=== PATIENT | male | born 1960 | race Caucasian/White ===

== ENCOUNTER 2020-09-16 07:04 | Outpatient (REF) | payer OTHER, SELFPAY ==
[2020-09-16 10:51] LABS: Appearance Urine CLOUDY; Color Urine YELLOW; Glucose Urine UA NEG (NEG); Leukocyte Esterase Urine NEG (NEG); Nitrite Urine NEG (NEG); PH 5.5 (5.0-8.0); Specific Gravity - Urine >= 1.030 (1.005-1.025); Urine Blood 3+ (NEG); Urine Ketones NEG (NEG); Urine Protein NEG (NEG-TRACE)
[2020-09-16 10:54] LABS: Estimated Average Glucose 180 mg/dL; Hemoglobin A1c % 7.9 %
[2020-09-16 11:00] LABS: Amorphous Sediment Urine 3+ /LPF; Bacteria Urine 1+ /LPF; Squamous Epithelial Cell Urine TRACE /LPF
[2020-09-16 11:06] LABS: Anion Gap 14 (12-20); Blood Urea Nitrogen 11 mg/dL (9-16); Calcium 9.2 mg/dL (8.4-10.2); Carbon Dioxide 25 mmol/L (22-29); Chloride 100 mmol/L (96-108); Estimated Glomerular Filt Rate > 60; Glucose Fasting 154 mg/dL (60-99); Potassium 4.6 mmol/l (3.3-5.1); Sodium 134 mmol/L (135-145)
[2020-09-16 11:28] LABS: Prostate Specific Antigen 0.69 ng/mL (<0.05-4.0)
== END 2020-09-16 07:05 | disposition home or self-care (01) ==
LOC: HO.WFDLDS 07:04
PROVIDERS: PCP Family Medicine; Visit Provider Family Medicine
DX: E11.9 Type 2 diabetes mellitus without complications (principal); Z12.5 Encounter for screening for malignant neoplasm of prostate; R82.90 Unspecified abnormal findings in urine
CPT/HCPCS: 80048; 81001; 83036; 84153

== ENCOUNTER 2020-10-31 09:58 | Outpatient (REF) | payer OTHER, SELFPAY | END 2020-10-31 09:59 | disposition home or self-care (01) | LOC: HO.WFDLDS 09:58 | PROVIDERS: PCP Family Medicine; Visit Provider Internal Medicine | DX: Z20.828 Contact with and (suspected) exposure to other viral communicable diseases (principal) | CPT/HCPCS: C9803; U0003 ==

== ENCOUNTER → 2020-12-15 10:44 | Outpatient (REF) | payer OTHER, SELFPAY | LOC: HO.SL 10:44 | PROVIDERS: PCP Family Medicine; Visit Provider Psychiatry & Neurology Neurology | DX: R06.83 Snoring (principal); G47.33 Obstructive sleep apnea (adult) (pediatric); E66.9 Obesity, unspecified | CPT/HCPCS: 95806 ==

== ENCOUNTER 2021-01-12 14:28 | Outpatient (REF) | payer OTHER, SELFPAY ==
[2021-01-12 15:33] LABS: Creatinine Urine 182.73 mg/dL; Microalbum/Creatinine Ratio Ur 20.2 ug/mg cr
== END 2021-01-12 14:29 | disposition home or self-care (01) ==
LOC: HO.LNP 14:28
PROVIDERS: Visit Provider Family Medicine
DX: E11.9 Type 2 diabetes mellitus without complications (principal)
CPT/HCPCS: 82043

== ENCOUNTER 2021-01-16 07:03 | Outpatient (REF) | payer OTHER, SELFPAY ==
[2021-01-16 11:10] LABS: Alanine Aminotransferase 70 U/L (0-40); Albumin Level 4.2 g/dL (3.5-5.0); Alkaline Phosphatase 62 U/L (39-117); Anion Gap 12 (12-20); Aspartate Amino Transferase 66 U/L (5-37); Bilirubin Total 0.5 mg/dL (0.0-1.0); Blood Urea Nitrogen 15 mg/dL (9-16); Calcium 9.2 mg/dL (8.4-10.2); Carbon Dioxide 28 mmol/L (22-29); Chloride 105 mmol/L (96-108); Cholesterol 139 mg/dL; Estimated Glomerular Filt Rate > 60; Glucose Fasting 155 mg/dL (60-99); HDL Cholesterol 33 mg/dL; LDL Cholesterol Calculated 81 mg/dl; Potassium 4.7 mmol/L (3.3-5.1); Sodium 140 mmol/L (135-145); Total Protein 7.3 g/dL (6.5-8.0); Triglycerides 126 mg/dL
== END 2021-01-16 07:04 | disposition home or self-care (01) ==
LOC: HO.WFDLDS 07:03
PROVIDERS: Visit Provider Family Medicine
DX: E78.5 Hyperlipidemia, unspecified (principal); E11.9 Type 2 diabetes mellitus without complications
CPT/HCPCS: 36415; 80053; 80061

== ENCOUNTER → 2021-01-20 08:56 | Outpatient (BNVA) | payer OTHER, SELFPAY | PROVIDERS: PCP Family Medicine; Visit Provider Psychiatry & Neurology Neurology | DX: G47.33 Obstructive sleep apnea (adult) (pediatric) (principal) | CPT/HCPCS: Q3014 ==

== ENCOUNTER 2021-04-07 09:49 | Outpatient (REF) | payer OTHER, SELFPAY ==
[2021-04-07 11:07] LABS: Estimated Average Glucose 171 mg/dL; Hemoglobin A1c % 7.6 %
[2021-04-07 11:16] LABS: Alanine Aminotransferase 54 U/L (0-40); Albumin Level 4.3 g/dL (3.5-5.0); Alkaline Phosphatase 60 U/L (39-117); Aspartate Amino Transferase 49 U/L (5-37); Bilirubin Direct 0.2 mg/dL (0.0-0.5); Bilirubin Total 0.5 mg/dL (0.0-1.0); Total Protein 7.4 g/dL (6.5-8.0)
== END 2021-04-07 09:50 | disposition home or self-care (01) ==
LOC: HO.WFDLDS 09:49
PROVIDERS: Visit Provider Family Medicine
DX: E11.9 Type 2 diabetes mellitus without complications (principal); R74.01 Elevation of levels of liver transaminase levels
CPT/HCPCS: 36415; 80076; 83036

== ENCOUNTER 2021-10-12 07:02 | Outpatient (REF) | payer OTHER, SELFPAY ==
[2021-10-12 14:17] LABS: Alanine Aminotransferase 61 U/L (0-40); Albumin Level 4.1 g/dL (3.5-5.0); Alkaline Phosphatase 56 U/L (39-117); Anion Gap 16 (12-20); Aspartate Amino Transferase 33 U/L (5-37); Bilirubin Total 0.3 mg/dL (0.0-1.0); Blood Urea Nitrogen 17 mg/dL (9-16); Calcium 9.7 mg/dL (8.4-10.2); Carbon Dioxide 23 mmol/L (22-29); Chloride 106 mmol/L (96-108); Estimated Glomerular Filt Rate 52; Glucose Fasting 193 mg/dL (60-99); Potassium 5.1 mmol/L (3.3-5.1); Sodium 140 mmol/L (135-145); Total Protein 7.2 g/dL (6.5-8.0)
== END 2021-10-12 07:03 | disposition home or self-care (01) ==
LOC: HO.WFDLDS 07:02
PROVIDERS: Visit Provider Family Medicine
DX: R74.01 Elevation of levels of liver transaminase levels (principal); E11.9 Type 2 diabetes mellitus without complications
CPT/HCPCS: 36415; 80053

== ENCOUNTER 2021-11-05 11:25 | Outpatient (REF) | payer OTHER, SELFPAY ==
[2021-11-05 14:10] LABS: Estimated Average Glucose 186 mg/dL; Hemoglobin A1c % 8.1 %
== END 2021-11-05 11:26 | disposition home or self-care (01) ==
LOC: HO.WFDLDS 11:25
PROVIDERS: Visit Provider Family Medicine
DX: R73.01 Impaired fasting glucose (principal); R74.01 Elevation of levels of liver transaminase levels
CPT/HCPCS: 36415; 83036

== ENCOUNTER 2022-01-12 08:42 | Outpatient (REF) | payer OTHER, SELFPAY ==
--- NOTE | ~2022-01-12 | US_ITS ---
EXAMINATION: US ABDOMEN LIMITED WITH LIVER ELASTOGRAPHY CLINICAL INFORMATION: Elevation of liver transaminase levels COMPARISON: None. TECHNIQUE: Real-time imaging of the abdominal viscera. Noninvasive ultrasound liver fibrosis assessment is performed using Lauren ElastPQ point quantification shear wave elastography (2D-SWE) with a C5-2 MHz transducer. Multiple elastography samples are obtained. FINDINGS: PANCREAS: The pancreas is obscured by overlying gas. LIVER: Normal. The liver demonstrates normal size, contour and echogenicity. No focal lesion or intrahepatic biliary duct dilatation. The right lobe measures 18.8 cm in length. The left lobe measures 15.3 cm in length. Portal flow is hepatopedal Shear wave liver elastography median stiffness is 1.33 m/s (reference: normal median stiffness is 1.3 m/s or less). IQR/median stiffness to assess sampling precision is 0.13 (reference: good quality data set is IQR/median stiffness of 0.15 or less). GALLBLADDER: The gallbladder wall thickness is 0.23 cm. The gallbladder is physiologically distended without evidence of stones, sludge, polyps, wall thickening or pericholecystic fluid. COMMON BILE DUCT: Normal in caliber measuring 0.3 cm in diameter. RIGHT KIDNEY: There is a upper pole echogenic stone measuring 0.4 cm. No additional stones seen. There is no caliectasis or hydronephrosis. There is an exophytic lower pole cyst measuring 0.8 x 1.1 x 1.0 cm. The kidney measures 12.1 cm in maximum dimension. FREE FLUID: None. US/US abdomen deng w elastography IMPRESSION: 1. Hepatic steatosis without focal lesion. Echogenic nonobstructive stone upper pole right kidney. There is a small anechoic exophytic cyst lower pole right kidney. 2. Liver elastography: Median liver stiffness 1.33 m/s suggestive of high probability normal. REFERENCE: Society of Radiologists in Ultrasound Liver Stiffness Thresholds (2020): LIVER STIFFNESS THRESHOLDS: *Liver Stiffness equal or less than 1.3 m/s: High probability of being normal. *Liver Stiffness less than 1.7 m/s: In the absence of other known clinical signs, rules out compensated advanced chronic liver disease. *Liver Stiffness 1.7-2.1 m/s: Suggestive of compensated advanced chronic liver disease but need further test for confirmation. *Liver Stiffness over 2.1 m/s: Rules in compensated advanced chronic liver disease. *Liver Stiffness over 2.4 m/s: Suggestive of clinically significant portal hypertension. QUALITY OF DATA SET: *IQR/Median value equal or less than 0.15 implies a quality data set. *IQR/Median value over 0.15 implies a poor quality data set. SIGNIFICANT CHANGE FROM PRIOR EXAM: Significant change if liver stiffness measurement is 10% or greater from prior exam. OTHER CONSIDERATIONS: The stage of liver fibrosis may be overestimated in the setting of acute hepatitis, liver inflammation, elevated liver function tests, hepatic vascular congestion, obstructive cholestasis, non-fasting state, and infiltrative diseases such as amyloidosis and lymphoma. In some patients with NAFLD, the liver stiffness thresholds for compensated advanced chronic liver disease may be lower. In causes other than viral hepatitis and NAFLD, liver stiffness thresholds are not well established.
== END 2022-01-12 08:43 | disposition home or self-care (01) ==
LOC: HO.US 08:42
PROVIDERS: Visit Provider Family Medicine
DX: R74.01 Elevation of levels of liver transaminase levels (principal)
CPT/HCPCS: 76705; 76981

== ENCOUNTER 2022-08-18 09:34 | Outpatient (REF) | payer OTHER, SELFPAY ==
--- NOTE | ~2022-08-18 | US_ITS ---
EXAMINATION: US RETROPERITONEAL LIMITED (RENAL ONLY) CLINICAL INFORMATION: Cyst left kidney, acquired. COMPARISON: Ultrasound abdomen limited 01/12/2022. TECHNIQUE: Real-time imaging of the kidneys. FINDINGS: RIGHT KIDNEY: 12.4 x 6.5 x 5.4 cm (SAG x AP x TRV). The kidney is normal in size, contour, and echogenicity. Renal cortical thickness is normal. No renal calculi or hydronephrosis. Midpole 1.4 cm simple cyst. Lower pole 1.8 cm simple cyst. No follow-up imaging recommended. LEFT KIDNEY: 12.6 x 6.1 x 5.4 cm (SAG x AP x TRV). The kidney is normal in size, contour, and echogenicity. Renal cortical thickness is normal. No calculi or focal parenchymal lesions. No hydronephrosis. Trace perinephric fluid noted at the lower pole. US/US renal BI IMPRESSION: No left renal cyst identified. Minimal perinephric fluid at the lower pole. Simple right renal cysts for which no follow-up is recommended.
== END 2022-08-18 09:35 | disposition home or self-care (01) ==
LOC: HO.HMGCX 09:34
PROVIDERS: PCP Family Medicine; Visit Provider Family Medicine
DX: N28.1 Cyst of kidney, acquired (principal)
CPT/HCPCS: 76775

== ENCOUNTER 2022-09-16 09:08 | Outpatient (REF) | payer OTHER, SELFPAY ==
[2022-09-16 10:48] LABS: Alanine Aminotransferase 36 U/L (0-40); Albumin Level 4.2 g/dL (3.5-5.0); Alkaline Phosphatase 60 U/L (39-117); Anion Gap 15 (12-20); Aspartate Amino Transferase 29 U/L (5-37); Bilirubin Total 0.3 mg/dL (0.0-1.0); Blood Urea Nitrogen 20 mg/dL (9-16); Calcium 9.5 mg/dL (8.4-10.2); Carbon Dioxide 25 mmol/L (22-29); Chloride 105 mmol/L (96-108); Cholesterol 116 mg/dL; Estimated Glomerular Filt Rate 45; Glucose Fasting 127 mg/dL (60-99); HDL Cholesterol 32 mg/dL; LDL Cholesterol Calculated 63 mg/dl; Potassium 4.9 mmol/L (3.3-5.1); Sodium 140 mmol/L (135-145); Total Protein 7.2 g/dL (6.5-8.0); Triglycerides 105 mg/dL
[2022-09-16 11:08] LABS: Prostate Specific Antigen Scr 0.71 ng/mL (<0.05-4.0); TSH reflex Free T4 1.24 uIU/mL (0.32-4.0)
[2022-09-16 11:19] LABS: Appearance Urine Clear; Color Urine Yellow; Glucose Urine UA Negative (Negative); Leukocyte Esterase Urine Negative (Negative); Nitrite Urine Negative (Negative); Specific Gravity - Urine 1.015 (1.005-1.025); UMIC TRIGGER UA YES; Urine Blood Moderate (2+) (Negative); Urine Ketones Negative (Negative); Urine Protein Negative (Neg-Trace)
[2022-09-16 11:22] LABS: Creatinine Urine 109.85 mg/dL; Microalbum/Creatinine Ratio Ur 17.2 ug/mg cr
[2022-09-16 11:27] LABS: Bacteria Urine None Seen (None Seen); Hyaline Casts Urine 0-2 /LPF (0-2); Squamous Epithelial Cell Urine 0-2 /HPF (0-2); WBC Urine 0-5 /HPF (0-5)
== END 2022-09-16 09:09 | disposition home or self-care (01) ==
LOC: HO.WFDLDS 09:08
PROVIDERS: Visit Provider Family Medicine
DX: Z00.00 Encounter for general adult medical examination without abnormal findings (principal); Z12.5 Encounter for screening for malignant neoplasm of prostate; R74.01 Elevation of levels of liver transaminase levels; I10 Essential (primary) hypertension
CPT/HCPCS: 36415; 80053; 80061; 81001; 81003; 82043; 84153; 84443

== ENCOUNTER 2022-09-21 07:11 | Outpatient (REF) | payer OTHER, SELFPAY ==
[2022-09-21 11:42] LABS: Appearance Urine Clear; Color Urine Yellow; Glucose Urine UA Negative (Negative); Leukocyte Esterase Urine Negative (Negative); Nitrite Urine Negative (Negative); UMIC TRIGGER UA YES; Urine Blood Moderate (2+) (Negative); Urine Ketones Negative (Negative); Urine Protein Negative (Neg-Trace)
[2022-09-21 11:52] LABS: Bacteria Urine None Seen (None Seen); Hyaline Casts Urine 0-2 /LPF (0-2); Squamous Epithelial Cell Urine 0-2 /HPF (0-2); WBC Urine 0-5 /HPF (0-5)
[2022-09-21 12:23] LABS: Anion Gap 17 (12-20); Blood Urea Nitrogen 22 mg/dL (9-16); Calcium 9.8 mg/dL (8.4-10.2); Carbon Dioxide 23 mmol/L (22-29); Chloride 105 mmol/L (96-108); Estimated Glomerular Filt Rate 41; Glucose Fasting 177 mg/dL (60-99); Potassium 4.6 mmol/L (3.3-5.1); Sodium 140 mmol/L (135-145)
== END 2022-09-21 07:12 | disposition home or self-care (01) ==
LOC: HO.WFDLDS 07:11
PROVIDERS: Visit Provider Family Medicine
DX: R79.89 Other specified abnormal findings of blood chemistry (principal)
CPT/HCPCS: 36415; 80048; 81001

== ENCOUNTER 2022-12-02 07:15 | Outpatient (REF) | payer OTHER, SELFPAY ==
[2022-12-02 10:34] LABS: MANUAL DIFF FLAG NO
[2022-12-02 10:48] LABS: Basophils Absolute Auto 0.1 X10*3/uL (0.0-0.2); Basophils Percent Auto 0.5 % (0-2); Eosinophils Percent Auto 10.1 % (0-4); Hemoglobin 12.1 g/dl (14.0-18.0); Imm Gran Abs Auto 0.03 X10*3/uL (0.00-0.03); Imm Gran Pct Auto 0.3 % (0.0-0.4); Lymphocytes Absolute Auto 3.6 X10*3/uL (1.2-4.9); Lymphocytes Percent Auto 36.6 % (20-40); Mean Corpuscular HGB Conc 32.7 g/dl (31.0-36.0); Mean Corpuscular Hemoglobin 31.2 pg (27.0-33.0); Mean Corpuscular Volume 95.4 fL (80.0-98.0); Mean Platelet Volume 10.5 fL (9.4-12.4); Monocytes Absolute Auto 0.7 X10*3/uL (0.1-1.2); Monocytes Percent Auto 7.5 % (2-11); Neutrophils Absolute Auto 4.4 x10*3/uL (2.0-8.3); Platelet Count 252 X10*3/uL (160-400); Red Blood Count 3.88 X10*6/uL (4.60-5.80); Red Cell Distribution Width 12.7 % (11.0-16.0); White Blood Count 9.7 X10*3/uL (4.8-10.8)
[2022-12-02 10:55] LABS: Estimated Average Glucose 137 mg/dL; Hemoglobin A1c % 6.4 %
[2022-12-02 11:27] LABS: Appearance Urine Clear; Color Urine Yellow; Glucose Urine UA Negative (Negative); Leukocyte Esterase Urine Negative (Negative); Nitrite Urine Negative (Negative); Specific Gravity - Urine 1.015 (1.005-1.025); UMIC TRIGGER UA YES; Urine Blood Moderate (2+) (Negative); Urine Ketones Negative (Negative); Urine Protein Trace mg/dL (Neg-Trace)
[2022-12-02 11:30] LABS: Bacteria Urine None Seen (None Seen); Hyaline Casts Urine 0-2 /LPF (0-2); Squamous Epithelial Cell Urine 0-2 /HPF (0-2); WBC Urine 0-5 /HPF (0-5)
[2022-12-02 12:27] LABS: Creatinine Urine 130.74 mg/dL; Microalbum/Creatinine Ratio Ur 9.1 ug/mg cr
[2022-12-02 13:08] LABS: Alanine Aminotransferase 26 U/L (0-40); Alkaline Phosphatase 62 U/L (39-117); Anion Gap 11 (12-20); Aspartate Amino Transferase 26 U/L (5-37); Bilirubin Total 0.4 mg/dL (0.0-1.0); Blood Urea Nitrogen 21 mg/dL (9-16); Calcium 9.4 mg/dL (8.4-10.2); Carbon Dioxide 26 mmol/L (22-29); Chloride 106 mmol/L (96-108); Cholesterol 132 mg/dL; Estimated Glomerular Filt Rate 40; Glucose Fasting 135 mg/dL (60-99); HDL Cholesterol 33 mg/dL; LDL Cholesterol Calculated 76 mg/dl; Potassium 4.3 mmol/L (3.3-5.1); Sodium 139 mmol/L (135-145); Total Protein 6.9 g/dL (6.5-8.0); Triglycerides 117 mg/dL
[2022-12-02 13:28] LABS: Prostate Specific Antigen Scr 1.09 ng/mL (<0.05-4.0); TSH reflex Free T4 2.22 uIU/mL (0.32-4.0)
== END 2022-12-02 07:16 | disposition home or self-care (01) ==
LOC: HO.WFDLDS 07:15
PROVIDERS: Visit Provider Family Medicine
DX: Z00.00 Encounter for general adult medical examination without abnormal findings (principal); R73.01 Impaired fasting glucose; I10 Essential (primary) hypertension; Z12.5 Encounter for screening for malignant neoplasm of prostate
CPT/HCPCS: 36415; 80053; 80061; 81001; 82043; 83036; 84153; 84443; 85025

== ENCOUNTER 2023-01-26 08:50 | Outpatient (REF) | payer OTHER, SELFPAY ==
[2023-01-26 11:40] LABS: Alanine Aminotransferase 34 U/L (0-40); Albumin Level 4.3 g/dL (3.5-5.0); Alkaline Phosphatase 63 U/L (39-117); Anion Gap 11 (12-20); Aspartate Amino Transferase 30 U/L (5-37); Bilirubin Total 0.7 mg/dL (0.0-1.0); Blood Urea Nitrogen 15 mg/dL (9-16); Calcium 9.7 mg/dL (8.4-10.2); Carbon Dioxide 29 mmol/L (22-29); Chloride 104 mmol/L (96-108); Estimated Glomerular Filt Rate 39; Glucose Random 118 mg/dL (60-115); Potassium 4.4 mmol/L (3.3-5.1); Sodium 140 mmol/L (135-145); Total Protein 7.2 g/dL (6.5-8.0)
== END 2023-01-26 08:51 | disposition home or self-care (01) ==
LOC: HO.WFDLDS 08:50
PROVIDERS: Visit Provider Family Medicine
DX: R79.89 Other specified abnormal findings of blood chemistry (principal)
CPT/HCPCS: 36415; 80053

== ENCOUNTER 2023-05-18 | Outpatient (REF) | payer OTHER, SELFPAY ==
[2023-05-18 11:50] LABS: Anion Gap 12 (12-20); Blood Urea Nitrogen 15 mg/dL (9-16); Carbon Dioxide 27 mmol/L (22-29); Chloride 105 mmol/L (96-108); Estimated Glomerular Filt Rate 46; Glucose Random 142 mg/dL (60-115); Potassium 4.2 mmol/L (3.3-5.1); Sodium 140 mmol/L (135-145)
== END 2023-05-18 00:01 | disposition home or self-care (01) ==
LOC: HO.WFDLDS
PROVIDERS: Visit Provider Family Medicine
DX: N18.9 Chronic kidney disease, unspecified (principal)
CPT/HCPCS: 36415; 80048

== ENCOUNTER 2023-07-22 08:36 | Outpatient (AMB) | payer OTHER, SELFPAY ==
[2023-07-22 08:46] VITALS: BP 124/62; PULSE 87; RESP 14; TEMP 37.2; O2SAT 98; BMI 33.8
--- NOTE | 2023-07-22 08:46 | MHC.PC.OV ---
Vital Signs 07/22/23 08:46 Height 5 ft 10 in Weight 235 lb 6 oz BMI 33.8 BP 124/62 Blood Pressure Location Lt brachial Position Sitting Respiration 14 Pulse 87 Pulse Source Pulse Oximeter Temp 98.9 F Temp Source Oral Pulse Oximetry (%) 98 Oxygen Delivery Method Room Air Intake Visit Reasons: f/u diabetes, renal failure Intake Note: Patient is here today for a follow up for diabetic care and a follow up concerning renal failure. Patient see's forming department end finder, Dr. Brooke Dinh, last appointment was February 2023. Swing Tender Required: No Accompanied by: Self / Same As Patient Allergies penicillamine Allergy (Unknown, Verified 07/22/23 08:48) unknown Medication List - Last Reconciled 07/22/23 by Osmel Green MD amlodipine 5 mg PO DAILY 30 days atorvastatin 20 mg PO DAILY citalopram 20 mg PO DAILY 30 days dulaglutide 1.5 mg (0.5 mL) subcut QWEEK 28 days ergocalciferol (vitamin D2) 1,250 mcg PO QWEEK erythromycin 0.5 inches ophthalmic (eye) TID 7 days glipizide ER 5 mg PO DAILY 30 days infliximab (Remicade) IV metformin 1 tab a.m. and 1/2 tab p.m. orally 2 times a day; 30 days Tobacco use date assessed: 01/26/23 Dental Screening Dental Screen Date: 07/22/23 Did you have a dental visit in the last 12 months?: Yes Was dental information given to patient?: Patient has dentist HPI f/u diabetes, renal failure HPI Details 63 y/o male presents to f/u diabetes and renal failure. Last A1c 04/19/23 6.2%. A1c today 07/22/23 is 6.5%. He is on dulaglutide 1.5mg, glipizide 5mg, and metformin. He reports he is unsure if he is taking glipizide. Labs were drawn 05/18/23. Reviewed labs with pt. Creatinine level improved from 1.76 to 1.53. Blood pressure today 124/62. He is on amlodipine 5mg daily. HPI Comments History of Present Illness Details Documentation assistance for Osmel Green MD, was provided by Joaquín Nolen, Anthropologist Physical on 07/22/2023 9:26 AM EST. IDr. Green, have read, observed, and verified documentation. PFSH Surgical History H/O endoscopy History of colonoscopy History of knee replacement Family History Father CVD (cardiovascular disease) Bipolar disorder Mother Diabetes mellitus HTN (hypertension) Brother No problems noted. Brother No problems noted. Brother No problems noted. Son No problems noted. Son No problems noted. Son No problems noted. Social History Housing: House Alcohol intake: never Patient Tobacco Use Status: Never used Tobacco e-Cigarette/Vaping Use: Never Used Second Hand Smoke Exposure: No service: No Current occupational status: employed Current occupational exposures/hazards: No Cognitive needs: No Hearing needs: No Vision needs: No Questionnaire Thrive Questionnaire Date Thrive assessed: 11/25/22 TOSHIA-7 AMB Questionnaire TOSHIA-7 Date TOSHIA - 7 assessed: 11/25/22 Source: Developed by Drs. Sonny Thomas, Erendira Valverde, Fabrizio Sharp and colleagues, with an educational nigel from [employer]. Review of Systems Const Denies chills, Denies fatigue, Denies fever(s), Denies headache(s) and Denies weakness ENT Denies dizziness and Denies headache(s) Card Denies dyspnea Resp Denies cough, Denies dyspnea, Denies wheezing and Denies other (shortness of breath) Musc Denies numbness and Denies tingling Neuro Denies dizziness, Denies headache(s), Denies numbness, Denies tingling and Denies weakness Psych Denies anxiety and Denies depression Endo Denies fatigue Aller/Immun Denies wheezing Physical exam (Primary Care) Vital Signs: Last Vital Signs Temp 98.9 F 07/22/23 08:46 Pulse 87 07/22/23 08:46 Resp 14 07/22/23 08:46 BP 124/62 07/22/23 08:46 Pulse Ox 98 07/22/23 08:46 Oxygen Delivery Method Room Air 07/22/23 08:46 BMI result Body Mass Index 33.8 Tobacco/Smoking Status: Tobacco use Status Tobacco use date assessed 01/26/23 07/22/23 08:49 Patient Tobacco Use Status Never used Tobacco 07/22/23 08:49 Tobacco use type 11/05/21 11:23 e-Cigarette/Vaping Use Never Used 07/22/23 08:49 Thrive Assessment: Date of Thrive Assessment Date Thrive assessed 11/25/22 07/22/23 08:49 Const General: well developed; No acute distress Nutritional Appearance: obese Orientation/consciousness: patient oriented x3 HENMT Head: Yes normocephalic and Yes atraumatic Eyes General: appearance normal, both eyes and all related structures Pupils: Equal, round and reactive pupils present EOM: EOMs intact bilaterally Resp Effort & Inspection: normal respiratory effort Auscultation: clear to auscultation bilaterally Cardio Rate: regular rate Rhythm: regular rhythm Heart sounds: S1 normal heart sound present, S2 normal heart sound present, no gallops, no murmurs and no rubs Neuro General: patient oriented x3 and gait normal Cranial nerves: Yes Equal, round and reactive pupils present Psych Affect: normal affect Results AMB Hemoglobin A1c AMB Hemoglobin A1c 6.5 % Last Edit by Aracelis Griffin on 07/22/23 08:53 Results Reviewed Results Reviewed: Laboratory Last Values Hgb A1c (Clinic) 6.5 % (4.0-6.0) H 07/22/23 08:52 Assessment and Plan Assessment & Plan (1) Diabetes type 2, controlled: Code(s): E11.9 - Type 2 diabetes mellitus without complications Plan: A1c 6.5%. Controlled. Goal is less than 7.0% Still working to reduce his metformin as his renal function is still somewhat decreased He is followed by Nephrology who recommended decreasing/stopping metformin. Will decrease metformin from 500 mg a.m. and 250 mg p.m. to 250 mg b.i.d., and will add back glipizide 2.5 mg q.a.m.; patient has not been taking this medication He tends not to eat a noontime meal so advised he bring a snack with him. (2) Essential hypertension: Code(s): I10 - Essential (primary) hypertension Plan: Blood pressure is controlled. Goal is less than 140/90 Continue current medication regimen Had discontinued lisinopril due to rising creatinine level. Rechecking creatinine level. Would like to add back low-dose of lisinopril when we can (3) Chronic renal failure: Code(s): N18.9 - Chronic kidney disease, unspecified Plan: As above, his renal function labs had shown a decreasing renal function. Weaning down on metformin and discontinued ALFONSO-inhibitor Renal function has been improving. Have continued to decrease metformin. Checking creatinine level today. Will look to add back a small dose of lisinopril in the future. Orders: Orders Comprehensive Met. Panel Today N18.9 - Chronic kidney disease, unspecified Comprehensive Met. Panel 10 Weeks N18.9 - Chronic kidney disease, unspecified Medications: Changed From glipizide ER 5 mg PO DAILY 30 days 30 tabs 1RF To glipizide ER 2.5 mg PO DAILY 30 tabs 1RF 30 days From metformin 1 tab a.m. and 1/2 tab p.m. orally 2 times a day; 45 tabs 2RF 30 days To metformin 250 mg (1/2 x 500 mg) PO BID 30 tabs 2RF 30 days Refilled dulaglutide 1.5 mg (0.5 mL) subcut QWEEK 2 mL 3RF 28 days Coding Level of Care Code Est Pt Level 3 (72778) Diagnoses Diabetes type 2, controlled E11.9 Essential hypertension I10 Chronic renal failure N18.9
== END 2023-07-22 09:34 | disposition home or self-care (01) ==
PROVIDERS: PCP Family Medicine; Visit Provider Family Medicine
DX: E11.22 Type 2 diabetes mellitus with diabetic chronic kidney disease (principal); I12.9 Hypertensive chronic kidney disease with stage 1 through stage 4 chronic kidney disease, or unspecified chronic kidney disease; N18.9 Chronic kidney disease, unspecified
CPT/HCPCS: 99213

== ENCOUNTER 2023-07-22 09:38 | Outpatient (REF) | payer OTHER, SELFPAY ==
[2023-07-22 12:16] LABS: Alanine Aminotransferase 27 U/L (0-40); Albumin Level 4.1 g/dL (3.5-5.0); Alkaline Phosphatase 80 U/L (39-117); Anion Gap 15 (12-20); Aspartate Amino Transferase 24 U/L (5-37); Bilirubin Total 0.4 mg/dL (0.0-1.0); Blood Urea Nitrogen 14 mg/dL (9-16); Calcium 9.8 mg/dL (8.4-10.2); Carbon Dioxide 23 mmol/L (22-29); Chloride 105 mmol/L (96-108); Estimated Glomerular Filt Rate 46; Glucose Random 136 mg/dL (60-115); Potassium 3.8 mmol/L (3.3-5.1); Sodium 139 mmol/L (135-145); Total Protein 7.2 g/dL (6.5-8.0)
== END 2023-07-22 09:39 | disposition home or self-care (01) ==
LOC: HO.WFDLDS 09:38
PROVIDERS: Visit Provider Family Medicine
DX: N18.9 Chronic kidney disease, unspecified (principal)
CPT/HCPCS: 36415; 80053

== ENCOUNTER 2023-09-19 11:15 | Outpatient (AMB) | payer OTHER, SELFPAY ==
--- NOTE | 2023-09-19 11:26 | A.OFFPC_ITS ---
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 Allergies penicillamine Allergy (Unknown, Verified 09/19/23 11:32) unknown Tobacco use date assessed: 09/19/23 Dental Screening Dental Screen Date: 09/19/23 Did you have a dental visit in the last 12 months?: Yes Did you have a dental problem in the last 6 months where you did not have access to dental care?: No Was dental information given to patient?: Patient has dentist HPI hdf /fmla paperwork HPI Details 63 y/o male presents to /[facility] for R arm swelling and redness. Likely represented cellulitis given extreme WBC count of 23.7 thousand. Also had acute kidney injury. They had given him cefepime and vancomycin. Pt also presents to [facility] paperwork. PFSH Surgical History H/O endoscopy History of colonoscopy History of knee replacement Family History Father CVD (cardiovascular disease) Bipolar disorder Mother Diabetes mellitus HTN (hypertension) Brother No problems noted. Brother No problems noted. Brother No problems noted. Son No problems noted. Son No problems noted. Son No problems noted. Social History Housing: House Alcohol intake: never Patient Tobacco Use Status: Never used Tobacco e-Cigarette/Vaping Use: Never Used Second Hand Smoke Exposure: No service: No Current occupational status: employed Current occupational exposures/hazards: No Cognitive needs: No Hearing needs: No Vision needs: No Questionnaire Thrive Questionnaire Date Thrive assessed: 11/25/22 TOSHIA-7 AMB Questionnaire TOSHIA-7 Date TOSHIA - 7 assessed: 11/25/22 Source: Developed by Drs. Sonny Thomas, Erendira Valverde, Fabrizio Sharp and colleagues, with an educational nigel from [employer]. Review of Systems Const Denies chills, Denies fatigue, Denies fever(s), Denies headache(s) and Denies weakness ENT Denies dizziness and Denies headache(s) Card Denies dyspnea Resp Denies cough, Denies dyspnea, Denies wheezing and Denies other (shortness of breath) Musc Denies numbness and Denies tingling Neuro Denies dizziness, Denies headache(s), Denies numbness, Denies tingling and Denies weakness Psych Denies anxiety and Denies depression Endo Denies fatigue Aller/Immun Denies wheezing Physical exam (Primary Care) Vital Signs: Last Vital Signs Pulse 86 09/19/23 11:29 BP 130/78 09/19/23 11:29 Pulse Ox 98 09/19/23 11:29 Oxygen Delivery Method Room Air 09/19/23 11:29 BMI result Body Mass Index 33.6 Tobacco/Smoking Status: Tobacco use Status Tobacco use date assessed 09/19/23 09/19/23 11:34 Patient Tobacco Use Status Never used Tobacco 09/19/23 11:26 Tobacco use type 11/05/21 11:23 e-Cigarette/Vaping Use Never Used 09/19/23 11:26 Thrive Assessment: Date of Thrive Assessment Date Thrive assessed 11/25/22 09/19/23 11:26 Const General: well developed; No acute distress Nutritional Appearance: well nourished Orientation/consciousness: patient [facility] Head: Yes normocephalic and Yes atraumatic Eyes General: appearance normal, both eyes and all related structures Pupils: Equal, round and reactive pupils present EOM: EOMs intact bilaterally Resp Effort & Inspection: normal respiratory effort Neuro General: patient oriented x3 and gait normal Cranial nerves: Yes Equal, round and reactive pupils present Psych Affect: normal affect Assessment and Plan Assessment & Plan (1) Cellulitis: Code(s): L03.90 - Cellulitis, unspecified Plan: Right?arm/elbow?cellulitis Continue?antibiotic?therapies?with?cefadroxil?and?doxycycline.??Patient?is?aller gic?to?penicillins?but?has?tolerated?cephalosporins. Increase?elevation?of?arm?as?best?as?possible Ice/heat I?am?referring?him?to?infectious?disease Patient?has?chronic?renal?disease?so?avoiding?NSAIDs I?have?given?him?a?script?for?Percocet He?can?also?use?Tylenol?b ut?should?avoid?using?more?than?1000?mg?in?any?4?hour?period?or?more?than?3000?m g?daily.??Made?patient?aware?that?Percocet?does?contain?some?acetaminophen. 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 (2) Pain and swelling of right upper extremity: Code(s): M79.601 - Pain in right arm; M79.89 - Other specified soft tissue disorders Plan: As?above Orders: Referrals Infectious Disease Referral L03.90 - Cellulitis, unspecified, M79.601 - Pain in right arm, M79.89 - Other specified soft tissue disorders, N18.9 - Chronic kidney disease, unspecified, Z88.0 - Allergy status to penicillin Medications: New doxycycline hyclate 100 mg PO DAILY 7 days 7 tabs 0RF L03.90 - Cellulitis, unspecified oxycodone-acetaminophen 5-325 mg (Percocet) Partial Fill upon patient request. 1 tab PO Q8H 10 days PRN 30 tabs 0RF pain cefadroxil 500 mg PO BID 7 days 14 caps 0RF L03.90 - Cellulitis, unspecified Coding Level of Care Code Est Pt Level 3 (34440) Diagnoses Cellulitis L03.90 Pain and swelling of right upper extremity M79.601; M79.89
[2023-09-19 11:29] VITALS: BP 130/78; PULSE 86; O2SAT 98; BMI 33.6
== END 2023-09-19 12:43 | disposition home or self-care (01) ==
PROVIDERS: PCP Family Medicine; Visit Provider Family Medicine
DX: L03.90 Cellulitis, unspecified (principal); M79.601 Pain in right arm; M79.89 Other specified soft tissue disorders
CPT/HCPCS: 99213

== ENCOUNTER 2023-09-28 11:17 | Outpatient (AMB) | payer OTHER, SELFPAY ==
[2023-09-28 11:37] VITALS: BP 144/79; PULSE 71; TEMP 37; O2SAT 98; BMI 33.4
--- NOTE | 2023-09-28 11:37 | MHC.OFFVIS ---
Intake Vital Signs 09/28/23 11:37 Height 5 ft 10 in Weight 233 lb BMI 33.4 BP 144/79 H Blood Pressure Location Lt brachial Position Sitting Pulse 71 Pulse Source Pulse Oximeter Temp 98.6 F Temp Source Oral Pulse Oximetry (%) 98 Oxygen Delivery Method Room Air Intake Visit Reasons: ref.Dr Green,Cellulitis Allergies penicillamine Allergy (Unknown, Verified 09/28/23 11:38) unknown HPI ref.Dr Green,Cellulitis HPI Details He has been in [facility] for right arm redness and swelling. He has been on multiple antibiotics Now firm and swollen. He is not febrile. [facility] Surgical History H/O endoscopy History of colonoscopy History of knee replacement Family History Father CVD (cardiovascular disease) Bipolar disorder Mother Diabetes mellitus HTN (hypertension) Brother No problems noted. Brother No problems noted. Brother No problems noted. Son No problems noted. Son No problems noted. Son No problems noted. Social History Housing: House Alcohol intake: never Patient Tobacco Use Status: Never used Tobacco e-Cigarette/Vaping Use: Never Used Second Hand Smoke Exposure: No service: No Current occupational status: employed Current occupational exposures/hazards: No Cognitive needs: No Hearing needs: No Vision needs: No Review of Systems Const All systems reviewed & are unremarkable except as noted in HPI and below Physical Exam Vital Signs: Last Vital Signs Temp 98.6 F 09/28/23 11:37 Pulse 71 09/28/23 11:37 BP 144/79 H 09/28/23 11:37 Pulse Ox 98 09/28/23 11:37 Oxygen Delivery Method Room Air 09/28/23 11:37 BMI result Body Mass Index 33.4 Const General: cooperative HEENT Head: Yes normal to inspection Face and sinus: Yes normal facial exam Mouth: Normal oral and palatal mucosa present Teeth and gingiva: dentition normal Throat: Yes posterior oropharynx normal Eyes General: appearance normal, both eyes and all related structures Pupils: Equal, round and reactive pupils present Resp Effort & Inspection: normal respiratory effort Cardio Rate: regular rate Rhythm: regular rhythm GI Palpation (GI): Soft to palpation and nontender General: Yes no CVA tenderness Back/Spine/Pelvis Back: no CVA tenderness Skin General skin exam: no rashes or lesions noted Neuro General: moves all extremities Cranial nerves: Yes Equal, round and reactive pupils present Extrem Other: right arm elbow swelling General: Yes normal to inspection Psych Appearance: grossly normal Assessment & Plan Assessment & Plan (1) Cellulitis: Comment: He has resolving bursitis likely Code(s): L03.90 - Cellulitis, unspecified (2) Pain and swelling of right upper extremity: Comment: See Orthopedics rule out septic bursitis if not improving Otherwise no further antibiotics. Code(s): M79.601 - Pain in right arm; M79.89 - Other specified soft tissue disorders Coding Level of Care Code New Pt Level 3 (58535) Diagnoses Cellulitis L03.90 Pain and swelling of right upper extremity M79.601; M79.89
== END 2023-09-28 12:02 | disposition home or self-care (01) ==
PROVIDERS: PCP Family Medicine; Visit Provider Internal Medicine
DX: L03.90 Cellulitis, unspecified (principal); M79.601 Pain in right arm; M79.89 Other specified soft tissue disorders
CPT/HCPCS: 99203

== ENCOUNTER → 2023-09-28 11:17 | Outpatient (BNVA) | payer OTHER, SELFPAY | PROVIDERS: PCP Family Medicine; Visit Provider Internal Medicine | DX: L03.90 Cellulitis, unspecified (principal); M79.601 Pain in right arm; M79.89 Other specified soft tissue disorders | CPT/HCPCS: 99202 ==

== ENCOUNTER 2023-11-11 07:15 | Outpatient (REF) | payer OTHER, SELFPAY | END 2023-11-11 07:16 | disposition home or self-care (01) | LOC: HO.WFDLDS 07:15 | PROVIDERS: Visit Provider Family Medicine | DX: Z13.89 Encounter for screening for other disorder (principal) ==

== ENCOUNTER 2023-11-16 09:39 | Outpatient (AMB) | payer OTHER, SELFPAY ==
[2023-11-16 09:56] VITALS: BP 122/74; PULSE 80; O2SAT 97; BMI 33.6
--- NOTE | 2023-11-16 09:56 | MHC.OFFWIV ---
Intake Vital Signs 11/16/23 09:56 Height 5 ft 10 in Weight 234 lb 8 oz BMI 33.6 Intake Visit Reasons: f/u diabetes and CRF Patient Tobacco Use Status: Never used Tobacco Allergies penicillamine Allergy (Unknown, Verified 09/28/23 11:38) unknown PFSH Surgical History H/O endoscopy History of colonoscopy History of knee replacement Family History Father CVD (cardiovascular disease) Bipolar disorder Mother Diabetes mellitus HTN (hypertension) Brother No problems noted. Brother No problems noted. Brother No problems noted. Son No problems noted. Son No problems noted. Son No problems noted. Social History Housing: House Alcohol intake: never Patient Tobacco Use Status: Never used Tobacco e-Cigarette/Vaping Use: Never Used Second Hand Smoke Exposure: No service: No Current occupational status: employed Current occupational exposures/hazards: No Cognitive needs: No Hearing needs: No Vision needs: No Coding
--- NOTE | 2023-11-16 10:01 | A.OFFPC_ITS ---
Vital Signs 11/16/23 09:56 Height 5 ft 10 in Weight 234 lb 8 oz BMI 33.6 BP 122/74 Blood Pressure Location Lt brachial Position Sitting Pulse 80 Pulse Source Pulse Oximeter Pulse Oximetry (%) 97 Oxygen Delivery Method Room Air Intake Visit Reasons: f/u diabetes and CRF Intake Note: Patient is here to follow up on diabetes and CRF. Allergies penicillamine Allergy (Unknown, Verified 11/16/23 10:00) unknown Tobacco use date assessed: 11/16/23 HPI f/u diabetes and CRF HPI Details 63 y/o male presents to f/u diabetes and CRF. A1c today 11/16/23 5.9%, which improved from 6.5% in July. He is on dulaglutide 1.5mg, glipizide 2.5mg and metformin 250mg b.i.d. Blood pressure today 122/74. He is on amlodipine 5mg. No recent kidney function tests. PFS Surgical History H/O endoscopy History of colonoscopy History of knee replacement Family History Father CVD (cardiovascular disease) Bipolar disorder Mother Diabetes mellitus HTN (hypertension) Brother No problems noted. Brother No problems noted. Brother No problems noted. Son No problems noted. Son No problems noted. Son No problems noted. Social History Housing: House Alcohol intake: never Patient Tobacco Use Status: Never used Tobacco e-Cigarette/Vaping Use: Never Used Second Hand Smoke Exposure: No service: No Current occupational status: employed Current occupational exposures/hazards: No Cognitive needs: No Hearing needs: No Vision needs: No Questionnaire Thrive Questionnaire Date Thrive assessed: 11/25/22 TOSHIA-7 AMB Questionnaire TOSHIA-7 Date TOSHIA - 7 assessed: 11/25/22 Source: Developed by Drs. Sonny Thomas, Erendira Valverde, Fabrizio Sharp and colleagues, with an educational nigel from [employer]. Review of Systems Const Denies chills, Denies fatigue, Denies fever(s), Denies headache(s) and Denies weakness ENT Denies dizziness and Denies headache(s) Card Denies dyspnea Resp Denies cough, Denies dyspnea, Denies wheezing and Denies other (shortness of patricia ath) Musc Denies numbness and Denies tingling Neuro Denies dizziness, Denies headache(s), Denies numbness, Denies tingling and Denies weakness Psych Denies anxiety and Denies depression Endo Denies fatigue Aller/Immun Denies wheezing Physical exam (Primary Care) Vital Signs: Last Vital Signs Pulse 80 11/16/23 09:56 BP 122/74 11/16/23 09:56 Pulse Ox 97 11/16/23 09:56 Oxygen Delivery Method Room Air 11/16/23 09:56 BMI result Body Mass Index 33.6 Tobacco/Smoking Status: Tobacco use Status Tobacco use date assessed 11/16/23 11/16/23 10:03 Patient Tobacco Use Status Never used Tobacco 11/16/23 10:03 Tobacco use type 09/26/23 09:37 e-Cigarette/Vaping Use Never Used 11/16/23 10:03 Thrive Assessment: Date of Thrive Assessment Date Thrive assessed 11/25/22 11/16/23 10:03 Const General: well developed; No acute distress Nutritional Appearance: well nourished and obese Orientation/consciousness: patient oriented x3 HENMT Head: Yes normocephalic and Yes atraumatic Eyes General: appearance normal, both eyes and all related structures Pupils: Equal, round and reactive pupils present EOM: EOMs intact bilaterally Resp Effort & Inspection: normal respiratory effort Neuro General: patient oriented x3 and gait normal Cranial nerves: Yes Equal, round and reactive pupils present Psych Affect: normal affect Results AMB Hemoglobin A1c AMB Hemoglobin A1c 5.9 % Last Edit by Aracelis Griffin CMA on 11/16/23 10:17 Results Reviewed Results Reviewed: Laboratory Last Values Hgb A1c (Clinic) 5.9 % (4.0-6.0) 11/16/23 10:16 Assessment and Plan Assessment & Plan (1) Diabetes type 2, controlled: Code(s): E11.9 - Type 2 diabetes mellitus without complications Plan: A1c?5.9%.??Good?control.??Goal?is?less?than?7.0% Continue?current?medication?regimen We?discussed?that?if?A1c?continues?to?decrease?through?diabetic?diet?and?exercis e?and?weight?control,?we?may?be?able?to?discontinue?some?glipizide?or?metformin. (2) Essential hypertension: Code(s): I10 - Essential (primary) hypertension Plan: Blood?pressure?shows?good?control.??Goal?is?less?than?140/90 Continue?current?medication (3) Chronic renal failure: Code(s): N18.9 - Chronic kidney disease, unspecified Plan: Patient?had?blood?drawn?last?Tuesday?but?sample?was?hemolyzed He?will?repeat?this?today. Orders: Orders AMB Hemoglobin A1c Today Z13.9 - Encounter for screening, unspecified Comprehensive Met. Panel Today N18.9 - Chronic kidney disease, unspecified Coding Level of Care Code Est Pt Level 3 (68739) Diagnoses Diabetes type 2, controlled E11.9 Essential hypertension I10 Chronic renal failure N18.9
== END 2023-11-16 10:50 | disposition home or self-care (01) ==
PROVIDERS: PCP Family Medicine; Visit Provider Family Medicine
DX: I12.9 Hypertensive chronic kidney disease with stage 1 through stage 4 chronic kidney disease, or unspecified chronic kidney disease (principal); E11.22 Type 2 diabetes mellitus with diabetic chronic kidney disease; N18.9 Chronic kidney disease, unspecified
CPT/HCPCS: 83036; 99213

== ENCOUNTER 2023-11-16 10:51 | Outpatient (REF) | payer OTHER, SELFPAY ==
[2023-11-16 14:21] LABS: Appearance Urine Clear; Color Urine Yellow; Glucose Urine UA Negative (Negative); Leukocyte Esterase Urine Negative (Negative); Nitrite Urine Negative (Negative); Specific Gravity - Urine 1.015 (1.005-1.025); UMIC TRIGGER UA YES; Urine Blood Moderate (2+) (Negative); Urine Ketones Negative (Negative); Urine Protein Negative (Neg-Trace)
[2023-11-16 14:27] LABS: Bacteria Urine None Seen (None Seen); Hyaline Casts Urine 0-2 /LPF (0-2); Squamous Epithelial Cell Urine 0-2 /HPF (0-2); WBC Urine 0-5 /HPF (0-5)
[2023-11-16 14:59] LABS: Alanine Aminotransferase 24 U/L (0-40); Alkaline Phosphatase 88 U/L (39-117); Anion Gap 12 (12-20); Aspartate Amino Transferase 22 U/L (5-37); Bilirubin Total 0.3 mg/dL (0.0-1.0); Blood Urea Nitrogen 19 mg/dL (9-16); Calcium 9.6 mg/dL (8.4-10.2); Carbon Dioxide 27 mmol/L (22-29); Chloride 104 mmol/L (96-108); Estimated Glomerular Filt Rate 38; Glucose Random 110 mg/dL (60-115); Potassium 4.2 mmol/L (3.3-5.1); Sodium 139 mmol/L (135-145); Total Protein 7.8 g/dL (6.5-8.0)
== END 2023-11-16 10:52 | disposition home or self-care (01) ==
LOC: HO.WFDLDS 10:51
PROVIDERS: Visit Provider Family Medicine
DX: Z00.00 Encounter for general adult medical examination without abnormal findings (principal); N18.9 Chronic kidney disease, unspecified
CPT/HCPCS: 36415; 80053; 81001

== ENCOUNTER 2025-01-24 06:09 | Outpatient (REF) | payer OTHER, SELFPAY ==
--- OUTSIDE RECORDS SUMMARY | 2025-01-24 06:13 | XMS_ITS | Clinical Summary ---
Author Organization [employer] Address [address] [place] [address] Care Team Providers Care Employee Communications Coordinator Name Role Phone Unavailable Primary Care Provider Unavailabl e Social History Tobacco Use Types Packs/Day Years Used Date Smoking Tobacco: Never Assessed Sex and Gender Information Value Date Recorded Sex Assigned at Male 09/20/2022 10:24 AM EDT Legal Sex Male 10:24 AM EDT Gender Identity Male 09/20/2022 10:24 AM EDT Sexual Orientation Lesbian or Proctor 09/20/2022 10 :24 AM EDT Plan of Treatment Health Maintenance Due Date Last Done Comments CT Colonography 1960 Colonoscopy 1960 Colorectal Cancer Screening 1960 Depression Screening 1960 FIT DNA/Cologuard 1960 FIT 1960 FOBT 1960 Lipid Panel 1960 Sigmoidoscopy 1960 Alcohol/Substance Use Screening 1972 Tobacco Screening 1972 DTaP/Tdap/Td Vaccines (1 - Tdap) 02/14/1979 Pneumococcal Vaccine: 50+ Ye ars (1 of 1 - PCV) 02/14/2010 Zoster Vaccines (1 of 2) 02/14/2010 COVID-19 Vaccine ( - 2023-2 5 season) 2024 Influenza Vaccine (#1) 2024 RSV Patients and Pa tients Aged 60 years or older (1 - 1-dose 75+ series) 02/14/2035 HIB Vaccines Aged Out No longer eligi ble based on patient's age to complete this topic HPV Vaccines Aged Out No longer eligi ble based on patient's age to complete this topic Hepatitis A Vaccines Aged Out No long er eligible based on patient's age to complete this topic Hepatitis B Vaccines Aged Out No long er eligible based on patient's age to complete this topic IPV Vaccines Aged Out No longer eligi ble based on patient's age to complete this topic Meningococcal Vaccine Aged Out No cirilo airam eligible based on patient's age to complete this topic Pneumococcal Vaccine: Pediat rics (0 to 5 Years) and At-Risk Patients (6 to 49) Years) Aged Out No longer eligible b ased on patient's age to complete this topic RSV under 20 months Aged Out No longe r eligible based on patient's age to complete this topic Rotavirus Vaccines Aged Out No longer eligible based on patient's age to complete this topic
--- OUTSIDE RECORDS SUMMARY | 2025-01-24 06:13 | XMS_ITS | Data Portability ---
Author Organization [facility], Home Service Address [address] [place] [address] Assessment Encounter Date Assessment Date Assessment LastModified by Organization Details LastModified Time 03/12/2020 03/12/2020 VERBALLY CONSENTS TO TELEPHONE CONSULT PT IS AT HOME I AM AT THE OFFICE [facility] INTERNAL MEDICINE 6 [facility] total of 11 minutes spent on the phone Not available 03/12/2020 11:32:35 Plan of Treatment Reminders Order Date Submit Date Provider Last Modified By Organization Details Last Modified Time Details Appointments None recorded. Lab lipid panel, blood 2019 020 [email or web address] 10 [facility], [address] [place] [address], [id number], 0 08:21:20 CMP, serum or plasma 2019 020 [facility], [address] [place] [address], [address], 0 10:04:28 glycohemog lobin, total, blood 2019 020 [facility] (Lab), [address] [place] [address], [address], 0 07:34:01 lipid panel, blood 2019 020 [facility], [address] [place] [address], [address], 0 12:41:06 CMP, serum or plasma 2019 020 [facility], [address] [place] [address], [address], 0 08:25:52 glycohemog lobin, total, blood 2018 019 [facility] (Lab), [address] [place] [address], [address], 9 08:00:25 glycohemog lobin, total, blood 2018 019 [facility] (Lab), [address] [place] [address], [address], 9 08:00:24 lipid panel, blood 2018 019 [facility], [address] [place] [address], [address], 9 08:00:25 CMP, serum or plasma 2018 019 [facility], [address] [place] [address], [address], 9 08:24:54 CMP, serum or plasma 2018 020 [facility], [address] [place] [address], [address], 0 08:23:06 lipid panel, blood 2018 020 [facility], [address] [place] [address], [address], 9 08:00:25 CMP, serum or plasma 2019 020 [facility], [address] [place] [address], [address], 0 08:23:11 Referral None recorded. Procedures None recorded. Surgeries None recorded. Imaging electrocar diogram 2018 019 [facility], [address] [facility], [address], [place], [address], 9 12:03:56 Medication Orders lisinopril 10 mg tablet 2019 020 [facility]FACE [id number], [address] [place] [address], [address], 0 09:35:44 metformin 500 mg tablet 2019 020 INTERFACE [id number], [address] [place], [address], 0 09:35:44 Patient TargetsNo targets recorded. Patient Instructions Encounter Date Encounter Id Patient Instructions Last Modified By Organization Details Last Modified Time 05/21/2019 [id number] learning about high white blood cell counts Not available 05/21/2019 12:00:53 knee arthritis: care instructions Not available 05/21/2019 12:00:53 high blood pressure: care instructions Not available 05/21/2019 12:00:53 learning about high blood pressure Not available 05/21/2019 12:00:53 high cholesterol : care instructions Not available 05/21/2019 12:00:53 chronic lymphocytic leukemia: care instructions Not available 05/21/2019 12:00:53 07/11/2019 [id number] When You Want to Lose Weight: Care Instructions Not available 07/11/2019 11:15:26 knee arthritis: care instructions Not available 07/11/2019 11:15:26 high blood pressure: care instructions Not available 07/11/2019 11:15:26 learning about high blood pressure Not available 07/11/2019 11:15:26 high cholesterol : care instructions Not available 07/11/2019 11:15:26 12/21/2019 [id number] When You Want to Lose Weight: Care Instructions Not available 12/21/2019 12:33:41 knee arthritis: care instructions Not available 12/21/2019 12:33:41 high blood pressure: care instructions Not available 12/21/2019 12:33:41 learning about high blood pressure Not available 12/21/2019 12:33:40 high cholesterol : care instructions Not available 12/21/2019 12:33:41 03/12/2020 [id number] high blood pressure: care instructions Not available 03/12/2020 11:31:47 learning about high blood pressure Not available 03/12/2020 11:31:47 high cholesterol : care instructions Not available 03/12/2020 11:31:47 Not available 03/12 11:32:24 Reason for Referral None Reported. Results Created Date Observation Date Name Description Value Unit Range Abnormal Flag Note LastModifiedBy Organization Detail LastModifiedTime 05/21/20 19 05/21/2019 heladio jordan am Rate & Rhythm 88 regula r Not Available [facility] [address] [place] [address], [place], [address], 05/21/2019 11:49:38 05/21/20 19 05/21/2019 heladio villelagr am QRS 12/-21 /3 Not Available [address], [place], [address], 05/21/2019 11:49:38 05/21/20 19 05/21/2019 elect sunil villelagr am LA Interval 106/15 2 Not Available [facility] [address] [place] [address], [place], [address], 05/21/2019 11:49:38 05/21/2005/21/2019 elect sunil villelagr am QRS Duration 92 ms Not Available [facility] [address] [facility] [address], [place], [address], 05/21/2019 11:49:38 05/21/20 19 05/21/2019 elect rocar diogr am QT Interval 364/44 0 Not Available [facility] [address] [facility] [address], [place], [address], 05/21/2019 11:49:38 06/08/2006/08/2019 US, mathew x, darian s, [facility] mity No observ ation record ed. [facility] Imaging Dept [address] [facility], [place], [address], 06/08/2019 14:23:27 Result Notes None recorded. Problems Name Problem SNOMED Code Status Onset Date Resolution Date Notes Provider Name and Address Organization Details Recorded Time Chronic hepatiti s C 926291222 Active 2017 Mariza dutta [facility] 8 14:19:52 Non-alco holic fatty liver 167122655 Active 2017 Mariza Adamson [facility] 8 14:20:16 Anemia 230733440 Active 2017 Mariza Adamson [facility] 8 14:20:23 [facility] hyperten true 42687339 Active 2017 Marizakennedi Adamson [facility] 8 14:20:29 Hyperlip idemia 24943065 Active 2017 Mariza dutta [facility] 8 14:20:39 Irritabl e bowel syndrome 59927110 Active 2017 Mariza dutta [facility] 8 14:20:46 Obesity 012806448 Active 2017 Mariza Adamson [facility] 8 14:20:53 Chronic ulcerati ve rectosig moiditis 94068692 Active 2017 Marizakennedi dutta [facility] 8 14:21:25 Diabetes mellitus 77219815 Active 2017 Mariza dutta [facility] 8 14:21:33 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 Procedures Surgical History Date Name Laterality Status Provider Name and Address Organization Details Recorded Time 05/28/20 total knee replacement completed February SANGEETHA Fernando [address] [place], [address], [facility] 07/11/2019 11:12:42 Imaging Results Imaging Date Name Status LastModified by Organiz ation Details LastModified Time 06/08/2019 US, duplex, venous, lower extremity completed [facility] [address] [facility], [place], [address], 06/08/2019 14:23:27 Procedure Notes None recorded. Medical Equipment None Reported. Allergies Allergen ID Allergen Name Allergen Category Reaction Reaction Severity Criticality Documentation Date Start Date Code Code System Note Provider Name and Address Organization Details Recorded Time 164 Product containin g penicilli n (product) medicatio n Not available Not available Not available 05/09/2018 41534 8001 SNOMED [facility] 8 14:18:57 Medications Name Sig Start Date Stop Date Status Note LastModified by Organization Details LastModified Time metformin 500 mg tablet TAKE 1 1/2 TABLET DAILY 2019 active Not Available Not Available Not Avai lable doxycycline hyclate 100 mg capsule 05/10 completed Not Available Not Available Not Available atorvastatin 20 mg tablet TAKE 1 TABLET BY MOUTH EVERY DAY active Not Available Not Available No t Available fluconazole 200 mg tablet 05/10 completed Not Available Not Available Not Available sulfamethoxa zole 800 mg-trimethop rim 160 mg tablet 05/10 completed Not Available Not Available Not Available aspirin 325 mg tablet,delay ed release 07/11 completed Not Available Not Available Not Available lisinopril 10 mg tablet TAKE 1 TABLET BY MOUTH EVERY DAY 2019 active Not Available Not Available Not Avai lable indomethacin 50 mg capsule 05/10 completed Not Available Not Available Not Available pravastatin 20 mg tablet TAKE ONE TABLET BY MOUTH EVERY DAY AT BEDTIME 12/21 completed Not Available Not Available Not Available mupirocin 2 % topical ointment 12/21 completed Not Available Not Available Not Available ketoconazole 2 % topical cream 05/10 completed Not Available Not Available Not Available clotrimazole 1 % topical cream 05/10 completed Not Available Not Available Not Available oxycodone 5 mg tablet 07/11 completed Not Available Not Available Not Available Remicade Q 6 months active Not Available Not Available No t Available cholecalcife rol (vitamin D3) 1,250 mcg (50,000 unit) capsule 05/10 completed Not Available Not Available Not Available Flucelvax Quad 1087-7642 (PF) 60 mcg (15 mcg x 4)/0.5 mL IM syringe 05/10 completed Not Available Not Available Not Available Flucelvax Quad (PF) 60 mcg (15 mcg x 4)/0.5 mL IM syringe 12/21 completed Not Available Not Available Not Available Vitals Date Recorded Body height Heart rate Oxygen saturation Oxygen saturation in Arterial blood by Pulse oximetry Systolic blood pressure Diastolic blood pressure Provider Name and Address Organization Details Last Updated DateTime 0 177.8 cm 92 /min 97 % 97 % 116 mm[Hg] 72 mm[Hg] Mariza Adamson [facility] 0 12:17:24 Date Recorded Body mass index (BMI) Body weight Provider Name and Address Organization Details Last Updated DateTime 12/21/2019 36.9 kg/m2 296463.24 g February SANGEETHA Fernando [address] [facility], [place], [address], [facility] 12/21/2019 12:35:09 Date Recorded Body height Body mass index (BMI) Body weight Heart rate Oxygen saturation Oxygen saturation in Arterial blood by Pulse oximetry Systolic blood pressure Diastolic blood pressure Provider Name and Address Organization Details Last Updated DateTime 0 177.8 cm 37.7 kg/m2 841354. 64 g 80 /min 96 % 96 % 130 mm[Hg] 80 mm[Hg] Deena Eugene [facility] Internal [facility] 0 09:23:00 Date Recorded Body height Body mass index (BMI) Body weight Heart rate Oxygen saturation Oxygen saturation in Arterial blood by Pulse oximetry Systolic blood pressure Diastolic blood pressure Provider Name and Address Organization Details Last Updated DateTime 9 177.8 cm 35.2 kg/m2 503870. 29 g 90 /min 96 % 96 % 108 mm[Hg] 74 mm[Hg] Jovanasienna Robisonmars [facility] Internal [facility] 9 11:28:17 Date Recorded Body height Body mass index (BMI) Body weight Heart rate Oxygen saturation Oxygen saturation in Arterial blood by Pulse oximetry Systolic blood pressure Diastolic blood pressure Provider Name and Address Organization Details Last Updated DateTime 9 177.8 cm 34.5 kg/m2 531113. 61 g 86 /min 98 % 98 % 108 mm[Hg] 74 mm[Hg] Jovana Robisonmars [facility] 9 11:00:32 Social History Question Answer Notes LastModified by [employer] Details LastModified Time Tobacco Smoking Status Never Smoker Not Available [facility] 09/23/2020 03:36:23 What Was The Date Of Your Most Recent Tobacco Screening? 05/21/2019 [id number] Information not available 09/23/2020 Sex: Unknown Functional Status None recorded. Mental Status None recorded. Family History Nothing Reported. Medical History No medical history recorded. Immunizations Vaccine Type Date Status Note Provider Nam e and Address Organization Details Recorded Time pneumococcal polysaccharide PPV23 5 completed Mariza dutta [facility] Internal [facility] 05/09/2018 14:31:07 TST-PPD intradermal 1 completed Mariza dutta [facility] 05/09/2018 14:31:32 TST-PPD intradermal 1 completed Mariza dutta [facility] 05/09/2018 14:31:45 Past Encounters Encounter ID Performer Location Encounter Start Date Encounter Closed Date Diagnosis/Indication Diagnosis SNOMED-CT Code Diagnosis ICD10 Code Diagnosis Note [id number] Angie Lr NP, S [facility] [address] [facility],[place] [address] 05/10/2018 11:11:42 05/12/2018 08:37:17 Leukocytosis 311430957 D72.829 Knee pain 37341349 M25.5 69 Essential hypertension 76493509 I10 mildly elevated follow Ulcerative colitis 05948 004 K51.90 remicade infusions [id number] Angie Lr NP, S [facility] [address] [facility],[place] [address] 12/15/2018 10:30:43 12/15/2018 11:24:23 Hyperlipidemia 92548721 E78.2 Essential hypertension 16562943 I10 mildly elevated follow Diabetes mellitus 970033 09 E11.9 Ulcerative colitis 84694 004 K51.90 remicade infusions restarted after 3 month hiatus 2nd insurance Osteoarthr itis of knee 517971528 M17.0 Dysuria 22930577 R30.0 Chronic ly mphoid leukemia, disease 45664537 C91.90 Stage 0, seeing hematologi st Obesity 364668794 E66.9 Discussed weight loss, diet improvemen t [id number] Angie Lr NP, S [facility] [address] [facility],[place] [address] 01/05/2019 09:38:48 01/05/2019 11:15:52 Chronic lymphoid leukemia, disease 76650001 C91.90 Stage 0, seeing hematologi st Hyperlipidemia 95992323 E78.2 Essential hypertension 25297708 I10 improved Diabetes mellitus 072156 09 E11.9 A1C 6.4 Osteoarthr itis of knee 954970041 M17.0 has ortho appt 01/29/19 [id number] February SANGEETHA Fernando [facility] [address] [facility],[place] [address] 05/21/2019 11:20:40 05/21/2019 12:03:56 Pre-surgery evaluation 333745823 Z01.818 cleared for procedure Osteoarthr itis of knee 818369193 M17.0 Essential hypertension 09526104 I10 very well controlled Hyperlipidemia 94120850 E78.5 very well controlled as of 02/2019 Diabetes mellitus 458883 09 E11.9 very well controlled as of 02/2019 a1c was 6.3 6/24/19 BS was 88 Leukocytosis 808181272 D 72.829 stable wbc is monitored every 6 months by oncologist Chronic ul cerative rectosigmoiditis 77107765 K51.30 currently with diarrhea as he has been off the remicade for 2 months in preparatio n for the surgery per dr nelson (ortho) and dr. avila (gi) Chronic ly mphoid leukemia, disease 31749339 C91.[address] suero every 6 months [id number] [facility] [address] [facility],[place] [address] 07/11/2019 10:50:28 07/11/2019 11:43:59 Essential hypertension 57643211 I10 very well controlled Osteoarthr itis of knee 306789498 M17.0 s/p double tkr, with progressiv e improvemen t Obesity 255993857 E66.9 Hyperlipidemia 06655637 E78.5 very well controlled as of 02/2019 Diabetes mellitus 708220 09 E11.9 very well controlled as of 02/2019 a1c was 6.3 05/14/19 BS was 88 [id number] [facility] [address] [facility],[place] [address] 12/21/2019 11:56:05 12/21/2019 13:55:20 Essential hypertension 79822901 I10 very well controlled Osteoarthr itis of knee 724331180 M17.0 s/p double tkr, with progressiv e improvemen t Obesity 193183430 E66.9 working on weight again gained weight after surgery/se dentary Hyperlipidemia 92441457 E78.5 controlled Diabetes mellitus 726125 09 E11.9 at goal [id number] [facility] [address] [facility],[place] [address] 03/12/2020 08:16:59 03/12/2020 11:50:41 Diabetes mellitus 46820610 E11.9 a1c 7.0 advised to work on diet slightly and continue wlaking recheck in 3 months Essential hypertension 14069937 I10 stable previously , recheck at in may Hyperlipidemia 96581205 E78.5 recheck in may AD[facility]AN [facility]QUIS [facility] [address] [facility] [address],[place] [address] 06/20/2020 09:17:18 06/20/2020 11:34:28 Diabetes mellitus 01958820 E11.9 stable, doing well is trying to work on diet labs looked good Essential hypertension 70073201 I10 BP is stable on medication Liver func tion tests outside reference range 958107161 R94.5 will recheck CMP and see if ALT has improved Health Concerns Section Related Observation LastModified by Organization Detai ls LastModified Time None Recorded Concern Status LastModified by Organization Details LastModified Time None Recorded Advance Directives Directive None Recorded Payers Encounter Date Sequence Insurance Name Policy Number Policy Castro Covered Member ID Castro Member ID Guarantor Name 05/21/2019 1 [employer] PLAN [id number] Sonny Mota [id number] 1 Sonny Nakul 07/11/2019 1 RUST Farmia [facility] [id number] Sonny Mota [id number] Sonny Mota 12/21/2019 1 RUST Farmia [facility] [employer] [place] ([place] [id number] Sonny Henderson Nakul [id number] 1 Sonny Zamudioan 03/12/2020 1 [facility] [employer] [place] (HMO) [id number] Sonny Mota [id number] 1 Sonny Nakul 06/20/2020 1 [facility] [employer] [place] (HMO) [id number] Sonny Beatriz Nakul [id number] 1 Sonny Nakul Notes Date Note Type Note Provider Name a nd Address Organization Details Recorded Time 9 text/html Pre-OpReported bypatient.Surgery to be Performed:05/28/19 Context/Condition Being Addressed:double knee replacement Location:[facility] Risk Factorsno cognitive impairment; no functional impairment; no malnutrition; no frailty; able to climb a flight of stairs (exercise capacity>4 METS); no obstructive sleep apnea; non-smoker; no alcohol misuse; no illicit drug use;chronic cardiopulmonary condition;obese Anesthesia hx:no hx of anesthesia complications Functional Ability:able to walk up stairs; able to perform heavy work around the house; no difficulty walking up hills; able to walk 4 mph Post-Op Support:home services arranged; needs help arranging assistance after discharge 12 system ROS negative except where noted above- denies: chest pain, palpitations, sob, ankle swelling, visual problems, hearing problems, muscle aches or pains, numbness or tingling extremities, abdominal pain, bowel issues, bladder issues, abnormal bleeding, sx of sinus/respiratory infection, headaches, dizziness/lightheaded ness, rashes, or nail changes. SANGEETHA Singh [address] [place], [address], [facility] 05/21/2019 12:01:51 9 text/html doing well post surgically has PT outside of the home no complications during the surgery no concerns/complaints his left ear is draining, no pain 12 system ROS negative except where noted above- denies: chest pain, palpitations, sob, ankle swelling, visual problems, hearing problems, muscle aches or pains, numbness or tingling extremities, abdominal pain, bowel issues, bladder issues, sexual dysfunction, abnormal bleeding, sx of sinus/respiratory infection , headaches, dizziness/lightheaded ness, rashes, or nail changes. SANGEETHA Singh [address] [place], [address], [facility] 07/11/2019 11:16:53 0 text/html diet is improved hasn't started exercising yet reviewed labs doesn't check blood sugar 12 system ROS negative except where noted above- denies: chest pain, palpitations, sob, ankle swelling, visual problems, hearing problems, muscle aches or pains, numbness or tingling extremities, abdominal pain, bowel issues, bladder issues, sexual dysfunction, abnormal bleeding, sx of sinus/respiratory infection , headaches, dizziness/lightheaded ness, rashes, or nail changes. SANGEETHA Singh [address] [place], [address], [facility] 12/21/2019 12:36:00 0 text/html VERBALLY CONSENTS TO TELEPHONE CONSULT PT IS AT HOME I AM AT THE OFFICE [facility] INTERNAL MEDICINE [facility] [address], [facility] has been walking outside some snacking, needs to work on diet a bit more 12 system ROS negative except where noted above- denies: chest pain, palpitations, sob, ankle swelling, visual problems, hearing problems, muscle aches or pains, numbness or tingling extremities, abdominal pain, bowel issues, bladder issues, sexual dysfunction, abnormal bleeding, sx of sinus/respiratory infection , headaches, dizziness/lightheaded ness, rashes, or nail changes. SANGEETHA Singh [address] [place], [address], [facility] 03/12/2020 11:32:46 0 text/html DiabetesReported bypatient.Review finger sticks:does not need to do a finger stick Duration:chronic Control:usually well controlled; improved since last visit; hemoglobin A1C has been 7-8; hemoglobin A1C goal is less than 7.5 Compliance:compliant with medications; compliant with follow-up visits; compliant with diet; no side effects from medications Associated Symptoms:no weight gain; no weight loss; no dizziness; no sweats; no headaches; no confusion; no increased thirst; no increased appetite; no increased urination; no blurred vision; no numbness of feet; no calluses on feet; no fatigue; no blurred vision; no paresthesias Acute Complications:admitte d for DKA: No; admitted for HHS: No; admitted for other direct diabetic complication: No; symptomatic hypoglycemia: No; frequency of hypoglycemia: No Chronic Complications:diabeti c retinopathy: No; diabetic neuropathy: No; diabetic nephropathy: No; diabetic ketoacidosis: No; hypertension: Yes; hyperlipidemia: Yes; kidney disease: No; past retinal laser treatment or surgery: No; renal transplant: No; on dialysis: No; prior foot ulcers: No; history of amputation: No Comorbidities:coronar y artery disease: No ADRIAN MARQUIS [address] [place], [address], [facility] 06/20/2020 09:37:26
--- OUTSIDE RECORDS SUMMARY | 2025-01-24 06:13 | XMS_ITS | Clinical Summary ---
Author Organization [facility] Facility Address [address] [place] [id number] Care Team Providers Care Courtroom Reporter Name Role Phone Osmel Green MD Primary Care Provider [phone] Allergies Active Allergy Reactions Criticality Noted Date Comments Penicillin G 03/03/2023 Medications amLODIPine (NORVASC) 5 MG tablet Take 5 mg by mouth 1 (one) time each day Active metFORMIN (GLUCOPHAGE) 500 MG tablet Take 500 mg by mouth in the morning and 500 mg in the evening. Take with meals. Active Dulaglutide (Trulicity) 1.5 MG/0.5ML solution pen-injector Inject under the skin Active atorvastatin (LIPITOR) 20 MG tablet Take 20 mg by mouth 1 (one) time each day Active ergocalciferol 1.25 MG (65702 UT) capsule Take 50,000 Units by mouth 1 (one) time per week Active acetaminophen (TYLENOL) 650 MG suppository Insert 650 mg into the rectum every 4 (four) hours if needed for mild pain Active cephalexin (KEFLEX) 500 MG capsule Take 500 mg by mouth in the morning and 500 mg at noon and 500 mg in the evening and 500 mg before bedtime. Active ibuprofen (ADVIL,MOTRIN) 600 MG tablet Take 600 mg by mouth every 6 (six) hours if needed for mild pain Active oxyCODONE (OXY-IR) 5 MG immediate release capsule Take 5 mg by mouth every 4 (four) hours if needed for moderate pain Active Active Problems Problem Noted Date Diagnosed Date Stage 3b chronic kidney disease 03/03/2023 Hypertensive chronic kidney disease 03/03/2023 Essential (primary) hypertension 03/02/2023 Cyst of kidney 03/02/2023 Type 2 diabetes mellitus without complication Hyperlipidemia 03/02/2023 Family History Medical History Relation Comments Cardiomyopathy Father Diabetes type II Mother Relation Status Comments Father Mother Social History Tobacco Use Types Packs/Day Years Used Date Smoking Tobacco: Never Smokeless Tobacco: Never Tobacco Cessation:Counseling Given: No Alcohol Use Standard Drinks/Week Comments Never 0 (1 standard drink = 0.6 oz pur e alcohol) Sex and Gender Information Value Date Recorded Sex Assigned at Not on file Legal Sex Male 10:57 AM EST Gender Identity Not on file Sexual Orientation Not on file Last Filed Vital Signs Vital Sign Reading Time Taken Comments Blood Pressure 128/74 09/08/2023 2:59 PM EDT Pulse 80 03/03/2023 2:20 PM EDT Temperature - - Respiratory Rate - - Oxygen Saturation - - Inhaled Oxygen Concentration - - Weight 105 kg (232 lb) 09/08/2023 2:59 PM EDT Height - - Body Mass Index - - Plan of Treatment Health Maintenance Due Date Last Done Comments Colorectal Cancer Screening: Annual FOBT 02/14/2009 Colorectal Cancer Screening: Colonoscopy 02/14/2009 Colorectal Cancer Screening: Sigmoidoscopy 02/14/2009 Pneumococcal Vaccine: Pediatrics (0 to 5 Years) and At-Risk Patients (6 to 64 Years) (2 of 2 - PCV) 07/24/2016 07/24/2015 Diabetes: Hemoglobin A1C 03/02/2023 Diabetes: Ophthalmology Exam 03/02/2023 Diabetes: Pedal Pulse Checked 03/02/2023 Diabetes: Sensory Foot Exam 03/02/2023 Diabetes: Visual Foot Exam 03/02/2023 Influenza Vaccine (#1) 2024 2, 08/04/2021, 07/19/2020, Additional history exists Hepatitis B Vaccine Aged Out No longe r eligible based on patient's age to complete this topic Insurance [facility] MEDICAID [facility] MED[facility] Care Teams Courtroom Reporter Relationship Specialty Start Date End Date Osmel Green MD [address] [address] PCP - General Family Medicine 11/29/22
--- OUTSIDE RECORDS SUMMARY | 2025-01-24 06:13 | XMS_ITS | Encounter Summary ---
Author Organization [employer] Address [address] [facility] [address] [place] [address] Care Team Providers Care Business Test Analyst Name Role Phone Unavailable Primary Care Provider Unavailabl e Encounter Details Date Type Department Care Team (Latest Contact Info) Description 03/15/2019 Abstract C CONVERSIONS Dental, Provider, DDS Social History Tobacco Use Types Packs/Day Years Used Date Smoking Tobacco: Never Assessed Sex and Gender Information Value Date Recorded Sex Assigned at Male 09/20/2022 10:24 AM EDT Legal Sex Male 10:24 AM EDT Gender Identity Male 09/20/2022 10:24 AM EDT Sexual Orientation Lesbian or Proctor 09/20/2022 10 :24 AM EDT documented as of this encounter Plan of Treatment Not on file documented as of this encounter Visit Diagnoses Not on filedocumented in this encounter
--- OUTSIDE RECORDS SUMMARY | 2025-01-24 06:13 | XMS_ITS | Clinical Summary ---
Author Organization [facility] Address [address] [place] [address] Care Team Providers Care Cake Stripper Name Role Phone Unavailable Primary Care Provider Unavailabl e Social History Tobacco Use Types Packs/Day Years Used Date Smoking Tobacco: Never Assessed Sex and Gender Information Value Date Recorded Sex Assigned at Not on file Legal Sex Male 2:39 PM EST Gender Identity Not on file Sexual Orientation Not on file Plan of Treatment Health Maintenance Due Date Last Done Comments DTaP,Tdap,and Td Vaccines (1 - Tdap) 02/14/1979 Pneumococcal Vaccine: 50+ Ye ars (1 of 1 - PCV) 02/14/2010 Zoster Vaccines (1 of 2) 02/14/2010 Cholesterol Screening (Lipid Panel) 12/20/2023 Colorectal Cancer Screening: Colonoscopy 12/20/2023 Depression Screening 12/20/2023 HIV Screening 12/20/2023 Hepatitis C Screening 12/20/2023 Social Influencers of Health Screening 12/20/2023 COVID-19 Vaccine (1 - 2023-2 5 season) 2024 Influenza Vaccine (#1) 2024 RSV Immunization Patients 60 + Years Old (1 - 1-dose 75+ series) 02/14/2035 HIB [...] on patient's age to complete this topic MMR Vaccines Aged Out No longer eligi ble based on patient's age to complete this topic Meningococcal ACWY Vaccine Aged Out N o longer eligible based on patient's age to complete this topic Meningococcal B Vacine Aged Out No lo nger eligible based on patient's age to complete this topic Pneumococcal Vaccine: Pediat rics (0 to 5 Years) and At-Risk Patients (6 to 64 Years) Aged Out No longer eligible b ased on patient's age to complete this topic RSV Immunization Patients Un adan 20 months Aged Out No longer eligible b ased on patient's age to complete this topic Varicella Vaccines Aged Out No longer eligible based on patient's age to complete this topic Advance Directives Documents on File Type Date Recorded Patient Timber Cruiser Expl anation Health Care Decision (hx) 09/10/2023 AD CYR DIRECTIVE Health Care Decision (hx) 09/10/2023 AD CYR DIRECTIVE
[2025-01-24 07:27] LABS: Basophils Absolute Auto 0.1 X10*3/uL (0.0-0.2); Basophils Percent Auto 0.5 % (0-2); Eosinophils Absolute Auto 0.2 X10*3/uL (0.0-0.4); Hematocrit 37.4 % (42.0-52.0); Hemoglobin 12.6 g/dl (14.0-18.0); Imm Gran Abs Auto 0.05 X10*3/uL (0.00-0.03); Imm Gran Pct Auto 0.5 % (0.0-0.4); Lymphocytes Absolute Auto 5.2 X10*3/uL (1.2-4.9); Lymphocytes Percent Auto 49.6 % (20-40); MANUAL DIFF FLAG SCAN; Mean Corpuscular HGB Conc 33.7 g/dl (31.0-36.0); Mean Corpuscular Hemoglobin 31.4 pg (27.0-33.0); Mean Corpuscular Volume 93.3 fL (80.0-98.0); Mean Platelet Volume 10.2 fL (9.4-12.4); Monocytes Absolute Auto 0.8 X10*3/uL (0.1-1.2); Monocytes Percent Auto 7.9 % (2-11); Neutrophils Absolute Auto 4.1 x10*3/uL (2.0-8.3); Neutrophils Percent Auto 39.5 % (45-73); Platelet Count 260 X10*3/uL (160-400); Red Blood Count 4.01 X10*6/uL (4.60-5.80); Red Cell Distribution Width 12.4 % (11.0-16.0); SCAN SMEAR FLAG 1; White Blood Count 10.4 X10*3/uL (4.8-10.8)
[2025-01-24 07:43] LABS: Estimated Average Glucose 220 mg/dL; Hemoglobin A1C 258.8744 umol/L; Hemoglobin A1c % 9.3 % (<6.0); Total Hemoglobin (HGBA1C) 3302.8021 umol/L
[2025-01-24 07:53] LABS: SLIDE REVIEW VERIFIED
[2025-01-24 07:57] LABS: Alanine Aminotransferase 35 U/L (0-40); Alkaline Phosphatase 95 U/L (39-117); Anion Gap 13 (12-20); Aspartate Amino Transferase 23 U/L (5-37); Bilirubin Total 0.4 mg/dL (0.0-1.0); Blood Urea Nitrogen 22 mg/dL (9-16); Calcium 8.8 mg/dL (8.4-10.2); Carbon Dioxide 25 mmol/L (22-29); Chloride 104 mmol/L (96-108); Estimated Glomerular Filt Rate 36; Glucose Fasting 312 mg/dL (60-99); Potassium 4.5 mmol/L (3.3-5.1); Sodium 137 mmol/L (135-145); Total Protein 7.4 g/dL (6.5-8.0)
[2025-01-24 08:24] LABS: Creatinine Urine 72.73 mg/dL; Microalbum/Creatinine Ratio Ur 23.3 ug/mg cr (<30)
== END 2025-01-24 06:10 | disposition home or self-care (01) ==
LOC: HO.LAB 06:09
PROVIDERS: PCP Family Medicine; Visit Provider Family Medicine
DX: Z00.00 Encounter for general adult medical examination without abnormal findings (principal); I12.9 Hypertensive chronic kidney disease with stage 1 through stage 4 chronic kidney disease, or unspecified chronic kidney disease; E11.22 Type 2 diabetes mellitus with diabetic chronic kidney disease; N18.9 Chronic kidney disease, unspecified
CPT/HCPCS: 36415; 80053; 82043; 82570; 83036; 85025

== ENCOUNTER 2025-02-08 11:37 | Outpatient (AMB) | payer OTHER, SELFPAY ==
--- NOTE | 2025-02-08 11:43 | A.OFFPC_ITS ---
Vital Signs 02/08/25 11:50 Height 5 ft 10 in Weight 256 lb 4 oz BMI 36.8 BP 136/76 Blood Pressure Location Rt brachial Position Sitting Respiration 16 Pulse 83 Pulse Source Pulse Oximeter Pulse Oximetry (%) 95 Oxygen Delivery Method Room Air Intake Visit Reasons: f/u diabetes Intake Note: Follow up diabetes Diesel Service Apprentice Required: No Allergies penicillamine Allergy (Unknown, Verified 02/08/25 11:45) unknown Tobacco use date assessed: 02/08/25 Fall risk assessment: No Falls in past year Last assessed Fall Risk: 02/08/25 Dental Screening Dental Screen Date: 02/08/25 Did you have a dental visit in the last 12 months?: Yes Did you have a dental problem in the last 6 months where you did not have access to dental care?: No Was dental information given to patient?: Patient has dentist HPI f/u diabetes HPI Details 64 y/o male presents to f/u diabetes, [facility]. Last A1c 01/24/25 9.3%. He is on glipizide 2.5mg, dulaglutide 1.5mg, metformin 250mg b.i.d. He notes he had not been very consistent with his medication regimen. He had just started being more consistent with it a couple weeks ago. He also notes he has not been working on a diabetic diet. Labs drawn 01/24/25. Reviewed labs with pt. Mild anemia. Creatinine level 1.89. A1c 9.3% and fasting glucose 312. Blood pressure today 136/76, 83p. He is on amlodipine 5mg daily. HPI Comments History of Present Illness Details Documentation assistance for Osmel Green MD, was provided by Joaquín Nolen, Core Manager on 02/08/2025 at 12:10 PM EST. I, Dr. Green, have read, observed, and verified documentation. [facility] Surgical History H/O endoscopy History of colonoscopy History of knee replacement Family History Father CVD (cardiovascular disease) Bipolar disorder Mother Diabetes mellitus HTN (hypertension) Brother No problems noted. Brother No problems noted. Brother No problems noted. Son No problems noted. Son No problems noted. Son No problems noted. 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 1. Little interest or pleasure in doing things: not at all 2. Feeling down, depressed, or hopeless: not at all 3. Trouble falling or staying asleep, or sleeping too much: not at all 4. Feeling tired or having little energy: more than half the days 5. Poor appetite or overeating: not at all 6. Feeling bad about yourself - or that you are a failure or have let yourself or your family down: not at all 7. Trouble concentrating on things, such as reading the newspaper or watching television: not at all 8. Moving or speaking so slowly that other people could have noticed. Or the opposite - being so fidgety or restless that you have been moving around a lot more than usual: not at all 9. Thoughts that you would be better off or of hurting yourself in some way: not at all Total score: 2 Depression Screening Interpretation: Negative Depression Screening Done: Yes 36764 - PHQ-9 Billing: Yes Source: Developed by Drs. Sonny Thomas, Erendira Valverde, Fabrizio Sharp and colleagues, with an educational nigel from [employer]. Thrive Questionnaire Date Thrive assessed: 11/25/22 I am a: Patient What is your living situation today?: I choose not to answer this question Within the past 12 months, did the food you bought not last and you didn't have the money to get more?: I choose not to answer this question Within the past 12 months, did you worry whether your food would run out before you got money to buy more?: I choose not to answer this question Do you have trouble paying for medicines?: I choose not to answer this question Do you have trouble getting transportation to medical appointments?: No Do you have trouble paying your heating and electricity bill?: I choose not to answer this question Do you have trouble taking care of your child, family member or friend?: No Do you have trouble with day-to-day activities such as bathing, preparing meals, shopping, managing finances, etc.?: No Are you currently unemployed and looking for a job?: No Are you interested in more education?: No Please select the resources that you would like help with: None Currently or been in a relationship where the following occur: No concerns reported THRIVE Score: 0 AUDIT C Alcohol Use Questionnaire (AUDIT-C) 1. How often do you have a drink containing alcohol?: Never 3. How often do you have six or more drinks on one occasion?: Never Total Score: 0 TOSHIA-7 AMB Questionnaire TOSHIA-7 Date TOSHIA - 7 assessed: 02/08/25 Feeling nervous, anxious, or on edge: 0 = Not at all Not being able to stop or control worryin = Not at all Worrying too much about different things: 0 = Not at all Trouble relaxin = Not at all Being so restless that it is hard to sit still: 0 = Not at all Becoming easily annoyed or irritable: 0 = Not at all Feeling afraid as if something awful might happen: 0 = Not at all Total TOSHIA-7 score (0-4 normal; 5-9 mild; 10-14 moderate; 15-21 severe): 0 Source: Developed by Drs. Sonny Thomas, Erendira Valverde, Fabrizio Sharp and colleagues, with an educational nigel from [employer]. TOSHIA-7 Assessment Billing TOSHIA-7 Assessment Tool: TOSHIA-7 Assessment 96195 Review of Systems Const Denies chills, Denies fatigue, Denies fever(s), Denies headache(s) and Denies weakness ENT Denies dizziness and Denies headache(s) Card Denies dyspnea Resp Denies cough, Denies dyspnea, Denies wheezing and Denies other (shortness of breath) Musc Denies numbness and Denies tingling Neuro Denies dizziness, Denies headache(s), Denies numbness, Denies tingling and Denies weakness Psych Denies anxiety and Denies depression Endo Denies fatigue Aller/Immun Denies wheezing Physical exam (Primary Care) Vital Signs: Last Vital Signs Pulse 83 02/08/25 11:50 Resp 16 02/08/25 11:50 BP 136/76 02/08/25 11:50 Pulse Ox 95 02/08/25 11:50 Oxygen Delivery Method Room Air 02/08/25 11:50 BMI result Body Mass Index 36.8 Tobacco/Smoking Status: Tobacco use Status Tobacco use date assessed 02/08/25 02/08/25 11:55 Patient Tobacco Use Status Never used Tobacco 02/08/25 11:44 Tobacco use type 01/21/25 11:43 e-Cigarette/Vaping Use Never Used 02/08/25 11:44 PHQ-9: PHQ-9 Score PHQ-9: Total score 2 02/08/25 11:56 Depression Screening Interpretation: Negative Thrive Assessment: Date of Thrive Assessment Date Thrive assessed 11/25/22 02/08/25 11:44 Currently or been in a relationship where the following occur: No concerns reported Const General: well developed; No acute distress Nutritional Appearance: well nourished and obese Orientation/consciousness: patient oriented x3 HENMT Head: Yes normocephalic and Yes atraumatic Eyes General: appearance normal, both eyes and all related structures Pupils: Equal, round and reactive pupils present EOM: EOMs intact bilaterally Resp Effort & Inspection: normal respiratory effort Auscultation: clear to auscultation bilaterally Cardio Rate: regular rate Rhythm: regular rhythm Heart sounds: S1 normal heart sound present, S2 normal heart sound present, no gallops, no murmurs and no rubs Neuro General: patient oriented x3 and gait normal Cranial nerves: Yes Equal, round and reactive pupils present Psych Affect: normal affect Results AMB Hemoglobin A1c AMB Hemoglobin A1c 9.7 % Last Edit by Keyana Noe CMA on 02/08/25 12:03 Coding Level of Care Code Est Pt Level 3 (55786) Diagnoses Diabetes type 2, controlled E11.9 Essential hypertension I10 Chronic renal failure N18.9 Additional Codes TOSHIA-7 Assessment Billing - TOSHIA-7 Assessment Tool: TOSHIA-7 Assessment 92773 ([id number]) PHQ-9 - 23158 - PHQ-9 Billing: Yes ([id number]) Assessment & Plan Assessment & Plan (1) Diabetes type 2, controlled: Code(s): E11.9 - Type 2 diabetes mellitus without complications Category: Medical Plan: A1c?over?9%/uncontrolled. Goal?is?less?than?7.0%. Patient?notes?he?has?not?been?taking?his?medications?or?working?on?a?diabetic?di et?for?quite?some?time. Recently?resumed?medications?in?the?last?couple?weeks Will?have?him?continue consistent?medication?and?diabetic?diet Follow-up?in?3?months Will?adjust?medication?as?needed. Of?note,?creatinine?level?is?elevat ed?and?may?want?to?decrease?metformin?consider?increasing?Trulicity?at?that?visi t. (2) Essential hypertension: Code(s): I10 - Essential (primary) hypertension Category: Medical Plan: Blood?pressure?is?controlled.??Goal?is?less?than?140/90 Continue?medication (3) Chronic renal failure: Code(s): N18.9 - Chronic kidney disease, unspecified Category: Medical Plan: Mild?chronic?renal?failure Encouraged?good?hydration Will?recheck?prior?to?his?next?visit. Considering?decreasing?metformin?further?and?increasing?Trulicity. Orders: Orders AMB Hemoglobin A1c Today E11.9 - Type 2 diabetes mellitus without complications
[2025-02-08 11:50] VITALS: BP 136/76; PULSE 83; RESP 16; O2SAT 95; BMI 36.8
--- OUTSIDE RECORDS SUMMARY | 2025-02-08 14:14 | XMS_ITS | Clinical Summary ---
Author Organization [employer] Address [address] [facility] [address] [place] [address] Care Team Providers Care Service Developer Name Role Phone Unavailable Primary Care Provider [...]
--- OUTSIDE RECORDS SUMMARY | 2025-02-08 14:14 | XMS_ITS | Data Portability ---
Author Organization [facility] Internal [facility], Home Service Address [address] [place] [address] Assessment Encounter Date Assessment Date Assessment LastModified by Organization Details LastModified Time 03/12/2020 03/12/2020 VERBALLY CONSENTS TO TELEPHONE CONSULT PT IS AT HOME I AM AT THE OFFICE [facility] INTERNAL MEDICINE 6 [facility] total of 11 minutes spent on the phone Not available 03/12/2020 11:32:35 Plan of Treatment Reminders Order Date Submit Date Provider Last Modified By Organization Details Last Modified Time Details Appointments None recorded. Lab lipid panel, blood 2019 020 [email or web address] 10 [facility], [address] [place] [address], [id number], 0 08:21:20 CMP, serum or plasma 2019 020 [facility], [address] [place] [address], [address], 0 10:04:28 glycohemog lobin, total, blood 2019 020 [facility] (Lab), [address] [place] [address], [address], 0 07:34:01 lipid panel, blood 2019 020 [facility], [address] [place] [address], [address], 0 12:41:06 CMP, serum or plasma 2019 020 [facility], [address] [place] [address], [address], 0 08:25:52 glycohemog lobin, total, blood 2018 019 [facility] (Lab), [address] [place] [address], [address], 9 08:00:25 glycohemog lobin, total, blood 2018 019 [facility] (Lab), [address] [place] [address], [address], 9 08:00:24 lipid panel, blood 2018 019 [facility], [address] [place] [address], [address], 9 08:00:25 CMP, serum or plasma 2018 019 [facility], [address] [place] [address], [address], 9 08:24:54 CMP, serum or plasma 2018 020 [facility], [address] [place] [address], [address], 0 08:23:06 lipid panel, blood 2018 020 [facility], [address] [place] [address], [address], 9 08:00:25 CMP, serum or plasma 2019 020 [facility], [address] [place] [address], [address], 0 08:23:11 Referral None recorded. Procedures None recorded. Surgeries None recorded. Imaging electrocar diogram 2018 019 [facility], [address] [facility], [address], [place], [address], 9 12:03:56 Medication Orders lisinopril 10 mg tablet 2019 020 [id number], [address] [place] [address], [address], 0 09:35:44 metformin 500 mg tablet 2019 020 [facility]FACE [id number], [address] [place], [address], 0 09:35:44 Patient TargetsNo targets recorded. Patient Instructions Encounter Date Encounter Id Patient Instructions Last Modified By Organization Details Last Modified Time 05/21/2019 [id number] learning about high white blood cell counts Not available 05/21/2019 12:00:53 knee arthritis: care instructions Not available 05/21/2019 12:00:53 high blood pressure: care instructions Not available 05/21/2019 12:00:53 learning about high blood pressure Not available 05/21/2019 12:00:53 high cholesterol : care instructions Not available 05/21/2019 12:00:53 chronic lymphocytic leukemia: care instructions Not available 05/21/2019 12:00:53 07/11/2019 [id number] When You Want to Lose Weight: Care Instructions Not available 07/11/2019 11:15:26 knee arthritis: care instructions Not available 07/11/2019 11:15:26 high blood pressure: care instructions Not available 07/11/2019 11:15:26 learning about high blood pressure Not available 07/11/2019 11:15:26 high cholesterol : care instructions Not available 07/11/2019 11:15:26 12/21/2019 [id number] When You Want to Lose Weight: Care Instructions Not available 12/21/2019 12:33:41 knee arthritis: care instructions Not available 12/21/2019 12:33:41 high blood pressure: care instructions Not available 12/21/2019 12:33:41 learning about high blood pressure Not available 12/21/2019 12:33:40 high cholesterol : care instructions Not available 12/21/2019 12:33:41 03/12/2020 [id number] high blood pressure: care instructions Not available [...] & Rhythm 88 regula r Not Available [facility] [address] [place] [address], [place], [address], 05/21/2019 11:49:38 05/21/20 19 05/21/2019 heladio villelagr am QRS 12/-21 /3 Not Available [address], [place], [address], 05/21/2019 11:49:38 05/21/20 19 05/21/2019 elect sunil villelagr am [place] Interval 106/15 2 Not Available [facility] Medicine [address] [place] [address], [place], [address], 05/21/2019 11:49:38 05/21/2005/21/2019 elect sunil villelagr am QRS Duration 92 ms Not Available [facility] Medicine [address] [facility] [address], [place], [address], 05/21/2019 11:49:38 05/21/20 19 05/21/2019 elect rocar diogr am QT Interval 364/44 0 Not Available [facility] [address] [facility] [address], [place], [address], 05/21/2019 11:49:38 06/08/2006/08/2019 US, mathew x, darian s, [facility] mity No observ ation record ed. [facility] Diagnosit Imaging Dept [address] [facility], [place], [address], 06/08/2019 14:23:27 Result Notes None recorded. Problems Name Problem SNOMED Code Status Onset Date Resolution Date Notes Provider Name and Address Organization Details Recorded Time Chronic hepatiti s C 831823049 Active 2017 Mariza dutta [facility] 8 14:19:52 Non-alco holic fatty liver 525348072 Active 2017 Mariza Adams[address] [facility] 8 14:20:16 Anemia 429341933 Active 2017 [address] Adams[address] [facility] 8 14:20:23 [facility] hyperten true 47548601 Active 2017 Marizakennedi Adamson [facility] 8 14:20:29 Hyperlip idemia 01214967 Active 2017 Mariza dutta [facility] 8 14:20:39 Irritabl e bowel syndrome 24165671 Active 2017 Mariza dutta [facility] 8 14:20:46 Obesity 022138886 Active 2017 Mariza Adamson [facility] 8 14:20:53 Chronic ulcerati ve rectosig moiditis 84356414 Active 2017 Marizakennedi dutta [facility] 8 14:21:25 Diabetes mellitus 69655481 Active 2017 Mariza dutta [facility] 8 14:21:33 Hemochro matosis 209753326 Active 2017 [facility] ous for H63D [facility] 8 14:28:50 Chronic lymphoid leukemia , disease 51023211 Active 2017 Angie Lr NP, S [address] [place], [address], [facility] Internal [facility] 8 11:00:48 Problem Notes None recorded. Procedures Surgical History Date Name Laterality Status Provider Name and Address Organization Details Recorded Time 05/28/20 total knee replacement completed February SANGEETHA Fernando [address] [place], [address], [facility] 07/11/2019 11:12:42 Imaging Results Imaging Date Name Status LastModified by Organiz ation Details LastModified Time 06/08/2019 US, duplex, venous, lower extremity completed [facility] [address] [facility], [place], [address], 06/08/2019 14:23:27 Procedure Notes None recorded. Medical Equipment None Reported. Allergies Allergen ID Allergen Name Allergen Category Reaction Reaction Severity Criticality Documentation Date Start Date Code Code System Note Provider Name and Address Organization Details Recorded Time 164 Product containin g penicilli n (product) medicatio n Not available Not available Not available 05/09/2018 92575 8001 [facility]ED [facility] 8 14:18:57 Medications Name Sig Start [...] Available Not Available Not Available Flucelvax Quad 4965-1275 (PF) 60 mcg (15 mcg x 4)/0.5 [...] % 116 mm[Hg] 72 mm[Hg] Mariza Adamson [facility] 0 12:17:24 Date Recorded Body mass index (BMI) Body weight Provider Name and Address Organization Details Last Updated DateTime 12/21/2019 36.9 kg/m2 610421.24 g February SANGEETHA Fernando [address] [facility], [place], [address], [facility] 12/21/2019 12:35:09 Date Recorded Body height Body mass index (BMI) Body weight Heart rate Oxygen saturation Oxygen saturation in Arterial blood by Pulse oximetry Systolic blood pressure Diastolic blood pressure Provider Name and Address Organization Details Last Updated DateTime 0 177.8 cm 37.7 kg/m2 250932. 64 g 80 /min 96 % 96 % 130 mm[Hg] 80 mm[Hg] Deena Eugene [facility] Internal [facility] 0 09:23:00 Date Recorded Body height Body mass index (BMI) Body weight Heart rate Oxygen saturation Oxygen saturation in Arterial blood by Pulse oximetry Systolic blood pressure Diastolic blood pressure Provider Name and Address Organization Details Last Updated DateTime 9 177.8 cm 35.2 kg/m2 251980. 29 g 90 /min 96 % 96 % 108 mm[Hg] 74 mm[Hg] Jovanasienna Robisonmars [facility] Internal [facility] 9 11:28:17 Date Recorded Body height Body mass index (BMI) Body weight Heart rate Oxygen saturation Oxygen saturation in Arterial blood by Pulse oximetry Systolic blood pressure Diastolic blood pressure Provider Name and Address Organization Details Last Updated DateTime 9 177.8 cm 34.5 kg/m2 098614. 61 g 86 /min 98 % 98 % 108 mm[Hg] 74 mm[Hg] Jovana Robisonmars [facility] 9 11:00:32 Social History Question Answer Notes LastModified by [employer] Details LastModified Time Tobacco Smoking Status Never Smoker Not Available [facility] 09/23/2020 03:36:23 What Was The Date Of Your Most Recent Tobacco Screening? 05/21/2019 [id number] Information not available 09/23/2020 Sex: Unknown Functional Status None recorded. Mental Status None recorded. Family History Nothing Reported. Medical History No medical history recorded. Immunizations Vaccine Type Date Status Note Provider Nam e and Address Organization Details Recorded Time pneumococcal polysaccharide PPV23 5 completed Mariza dutta [facility] Internal [facility] 05/09/2018 14:31:07 TST-PPD intradermal 1 completed Mariza dutta [facility] 05/09/2018 14:31:32 TST-PPD intradermal 1 completed Mariza dutta [facility] 05/09/2018 14:31:45 Past Encounters Encounter ID Performer Location Encounter Start Date Encounter Closed Date Diagnosis/Indication Diagnosis SNOMED-CT Code Diagnosis ICD10 Code Diagnosis Note [id number] Angie Lr NP, S [facility] Internal Medicine [address] [facility],[place] [address] 05/10/2018 11:11:42 05/12/2018 08:37:17 Leukocytosis 749045023 D72.829 Knee pain 62128168 M25.5 69 Essential hypertension 62294481 I10 mildly elevated follow Ulcerative colitis 82440 004 K51.90 remicade infusions [id number] Angie Lr NP, S [facility] Internal Medicine [address] [facility],[place] [address] 12/15/2018 10:30:43 12/15/2018 11:24:23 Hyperlipidemia 20888921 E78.2 Essential hypertension 87878163 I10 mildly elevated follow Diabetes mellitus 720337 09 E11.9 Ulcerative colitis 53899 004 K51.90 remicade infusions restarted after 3 month hiatus 2nd insurance Osteoarthr itis of knee 371029540 M17.0 Dysuria 20132881 R30.0 Chronic ly mphoid leukemia, disease 35947397 C91.90 Stage 0, seeing hematologi st Obesity 796440936 E66.9 Discussed weight loss, diet improvemen t [id number] Angie Lr NP, S [facility] Medicine [address] [facility],[place] [address] 01/05/2019 09:38:48 01/05/2019 11:15:52 Chronic lymphoid leukemia, disease 51228885 C91.90 Stage 0, seeing hematologi st Hyperlipidemia 59940178 E78.2 Essential hypertension 27038756 I10 improved Diabetes mellitus 707182 09 E11.9 A1C 6.4 Osteoarthr itis of knee 499455834 M17.0 has ortho appt 01/29/19 [id number] February SANGEETHA Fernando [facility] Medicine [address] [facility],[place] [address] 05/21/2019 11:20:40 05/21/2019 12:03:56 Pre-surgery evaluation 944613900 Z01.818 cleared for procedure Osteoarthr itis of knee 360593515 M17.0 Essential hypertension 31041792 I10 very well controlled Hyperlipidemia 60953980 E78.5 very well controlled as of 02/2019 Diabetes mellitus 830177 09 E11.9 very well controlled as of 02/2019 a1c was 6.3 6/24/19 BS was 88 Leukocytosis 417133834 D 72.829 stable wbc is monitored every 6 months by oncologist Chronic ul cerative rectosigmoiditis 35365254 K51.30 currently with diarrhea as he has been off the remicade for 2 months in preparatio n for the surgery per dr nelson (ortho) and dr. avila (gi) Chronic ly mphoid leukemia, disease 31997500 C91.[address] suero every 6 months [id number] [facility] Internal Medicine [address] [facility],[place] [address] 07/11/2019 10:50:28 07/11/2019 11:43:59 Essential hypertension 46720928 I10 very well controlled Osteoarthr itis of knee 258573508 M17.0 s/p double tkr, with progressiv e improvemen t Obesity 569846186 E66.9 Hyperlipidemia 37490700 E78.5 very well controlled as of 02/2019 Diabetes mellitus 748911 09 E11.9 very well controlled as of 02/2019 a1c was 6.3 05/14/19 BS was 88 [id number] [facility] Medicine [address] [facility],[place] [address] 12/21/2019 11:56:05 12/21/2019 13:55:20 Essential hypertension 35784281 I10 very well controlled Osteoarthr itis of knee 836668110 M17.0 s/p double tkr, with progressiv e improvemen t Obesity 760893704 E66.9 working on weight again gained weight after surgery/se dentary Hyperlipidemia 99860883 E78.5 controlled Diabetes mellitus 417250 09 E11.9 at goal [id number] [facility] Medicine [address] [facility],[place] [address] 03/12/2020 08:16:59 03/12/2020 11:50:41 Diabetes mellitus 45835886 E11.9 a1c 7.0 advised to work on diet slightly and continue wlaking recheck in 3 months Essential hypertension 14689687 I10 stable previously , recheck at in may Hyperlipidemia 88457925 E78.5 recheck in may ADRIAN MARQUIS Internal Medicine [address],[place] [place] [address] 06/20/2020 09:17:18 06/20/2020 11:34:28 Diabetes mellitus 43512450 E11.9 stable, doing well is trying to work on diet labs looked good Essential hypertension 82374320 I10 BP is stable on medication Liver func tion tests outside reference range 212051668 R94.5 will recheck CMP and see if ALT has improved Health Concerns Section Related Observation LastModified by Organization Detai ls LastModified Time None Recorded Concern Status LastModified by Organization Details LastModified Time None Recorded Advance Directives Directive None Recorded Payers Encounter Date Sequence Insurance Name Policy Number Policy Castro Covered Member ID Castro Member ID Guarantor Name 05/21/2019 1 [facility] [employer] [id number] Sonny Mota [id number] Sonny Nakul 07/11/2019 1 [facility] [employer] [facility] [id number] Sonny Mota [id number] Sonny Mota 12/21/2019 1 [facility] [employer] [facility] - DIRECT - [place] Z[place] (HMO) [id number] Sonny Henderson Nakul [id number] 1 Sonny Zamudioan 03/12/2020 1 [facility] [email or web address] - DIRECT - [place] ZERO (HMO) [id number] Sonny Mota [id number] 1 Sonny Nakul 06/20/2020 1 [facility] - DIRECT - [place] ZERO (HMO) [id number] Sonny Beatriz Nakul [id number] 1 Sonny Nakul Notes Date Note Type [...] rashes, or nail changes. SANGEETHA Singh [address] [place], [address], [facility] 05/21/2019 12:01:51 9 text/html doing [...] rashes, or nail changes. SANGEETHA Singh [address] [place], [address], [facility] Medicine 07/11/2019 11:16:53 0 text/html diet [...] rashes, or nail changes. SANGEETHA Singh [address] [place], [address], [facility] Internal Medicine 12/21/2019 12:36:00 0 text/html VERBALLY CONSENTS TO TELEPHONE CONSULT PT IS AT HOME I AM AT THE OFFICE [facility] INTERNAL MEDICINE [facility] [address], [facility] has been walking outside some snacking, needs [...] rashes, or nail changes. SANGEETHA Singh [address] [place], [address], [facility] Medicine 03/12/2020 11:32:46 0 text/html DiabetesReported [...] y artery disease: No ADRIAN MARQUIS [address] [place], [address], [facility] Internal Medicine 06/20/2020 09:37:26
--- OUTSIDE RECORDS SUMMARY | 2025-02-08 14:14 | XMS_ITS | Clinical Summary ---
Author Organization [facility] ity Address [address] [place] [address] Care Team Providers Care Molded Goods Embossing Press Operator Name Role Phone Unavailable Primary Care Provider [...] Documents on File Type Date Recorded Patient Corporate Quality Assurance Manager Expl anation Health Care Decision (hx) 09/10/2023 AD CYR DIRECTIVE Health Care Decision (hx) 09/10/2023 AD CYR DIRECTIVE
--- OUTSIDE RECORDS SUMMARY | 2025-02-08 14:14 | XMS_ITS | Clinical Summary ---
Author Organization [facility] Facility Address [address] [place] [address] Care Team Providers Care Circuit Board Repair Technician Name Role Phone Osmel Green MD Primary Care Provider Allergies Active Allergy Reactions Criticality Noted Date [...] time each day Active ergocalciferol 1.25 MG (91659 UT) capsule Take 50,000 Units by mouth [...] patient's age to complete this topic Insurance [facility] MEDICA[facility] MED[facility]ID Care Teams Circuit Board Repair Technician Relationship Specialty Start Date End Date Osmel Green MD [address] [address] PCP - General Family Medicine 11/29/22
--- OUTSIDE RECORDS SUMMARY | 2025-02-08 14:14 | XMS_ITS | Encounter Summary ---
Author Organization [employer] Address [address] [facility] [address] [place] [address] Care Team Providers Care Property Man Name Role Phone Unavailable Primary Care Provider [...]
== END 2025-02-08 12:17 | disposition home or self-care (01) ==
LOC: HO.HMCFM 11:37
PROVIDERS: PCP Family Medicine; Visit Provider Family Medicine
DX: E11.9 Type 2 diabetes mellitus without complications (principal); I12.9 Hypertensive chronic kidney disease with stage 1 through stage 4 chronic kidney disease, or unspecified chronic kidney disease; N18.9 Chronic kidney disease, unspecified

== ENCOUNTER → 2025-02-08 11:37 | Outpatient (BNVA) | payer OTHER, SELFPAY | PROVIDERS: PCP Family Medicine; Visit Provider Family Medicine | DX: I12.9 Hypertensive chronic kidney disease with stage 1 through stage 4 chronic kidney disease, or unspecified chronic kidney disease (principal); E11.22 Type 2 diabetes mellitus with diabetic chronic kidney disease; N18.9 Chronic kidney disease, unspecified | CPT/HCPCS: 83036; 96127; 99212 ==

== ENCOUNTER 2025-04-09 09:29 | Outpatient (AMB) | payer MEDICARE, SELFPAY ==
--- OUTSIDE RECORDS SUMMARY | 2025-04-09 10:20 | XMS_ITS | Clinical Summary ---
Author Organization [employer] Address [address] [facility] [address] [place] [address] Care Team Providers Care Production Director Name Role Phone Unavailable Primary Care Provider [...] Vaccines (1 of 2) 02/14/2010 COVID-19 Vaccine (1 - 2023-2 5 season) [...] age to complete this topic Meningococcal B Vaccine Aged Out No l onger eligible based on patient's age to complete [...]
--- OUTSIDE RECORDS SUMMARY | 2025-04-09 10:20 | XMS_ITS | Clinical Summary ---
Author Organization [facility] ity Address [address] [place] [address] Care Team Providers Care Cable Television Line Technician Name Role Phone Unavailable Primary Care Provider [...] 02/14/2010 Zoster Vaccines (1 of 2) 02/14/2010 Abdominal Aortic Aneurysm (A AA) Screen 12/20/2023 Cholesterol Screening (Lipid Panel) 12/20/2023 Colorectal Cancer Screening: Colonoscopy 12/20/2023 Depression Screening 12/20/2023 Hepatitis C Screening 12/20/2023 Social Influencers of Health Screening 12/20/2023 COVID-19 Vaccine ( - 2023-2 5 season) 2024 Falls Risk Assessment 02/14/2025 Influenza Vaccine (Season Ended) 2025 RSV Immunization Adult Patie nts (1 - 1-dose 75+ series) 02/14/2035 HIB [...] Documents on File Type Date Recorded Patient Machine Feller Expl anation Health Care Decision (hx) 09/10/2023 AD CYR DIRECTIVE Health Care Decision (hx) 09/10/2023 AD CYR DIRECTIVE
--- OUTSIDE RECORDS SUMMARY | 2025-04-09 10:20 | XMS_ITS | Clinical Summary ---
Author Organization [facility] Facility Address [address] [place] [address] Care Team Providers Care Network Cable Installer Name Role Phone Osmel Green MD Primary [...] time each day Active ergocalciferol 1.25 MG (45125 UT) capsule Take 50,000 Units by mouth [...] Colorectal Cancer Screening: Sigmoidoscopy 02/14/2009 Pneumococcal Vaccine: 50+ Years (2 of 2 - PCV) 07/24/2016 07/24/2015 Diabetes: Hemoglobin A1C 03/02/2023 Diabetes: Ophthalmology Exam 03/02/2023 Diabetes: Pedal Pulse Checked 03/02/2023 Diabetes: Sensory Foot Exam 03/02/2023 Diabetes: Visual Foot Exam 03/02/2023 Influenza Vaccine (Season Ended) 2025 08/26/2022, 08/04/2021, 07/19/2020, Additional history exists Pneumococcal Vaccine: Peds (0 to 5 Years) and At-Risk Patients (6 to 49 Years) Discontinued 07/24/2015 Hepatitis B Vaccine Aged Out No longe r eligible based on patient's age to complete this topic Insurance [facility] Medicaid Care Teams Network Cable Installer Relationship Specialty Start Date End Date Osmel Green MD [address] [address] PCP - General Family Medicine 11/29/22
--- OUTSIDE RECORDS SUMMARY | 2025-04-09 10:20 | XMS_ITS | Encounter Summary ---
Author Organization [employer] Address [address] [facility] 7t [place] [address] Care Team Providers Care Garage Construction Equipment Mechanic Name Role Phone Unavailable Primary Care Provider [...]
--- NOTE | 2025-04-09 10:21 | AM.OFFWIN_ITS ---
Intake Vital Signs 04/09/25 10:25 04/09/25 10:26 Weight 247 lb BP 124/80 Blood Pressure Location Rt brachial Position Sitting Pulse 82 Pulse Source Pulse Oximeter Pulse Oximetry (%) 97 Oxygen Delivery Method Room Air Intake Visit Reasons: EP allergy to blood clot medication Patient Tobacco Use Status: Never used Tobacco Allergies penicillamine Allergy (Unknown, Verified 04/09/25 10:24) unknown apixaban [From Eliquis] Adverse Reaction (Intermediate, Verified 04/09/25 10:26) Hives Do you need a note to return to daycare/school/sports/work: No HPI HPI Comments History of Present Illness Details This is a 65-year-old male with a past medical history of hypertension, hyperlipidemia, colitis and tsm-nidhvvz-bcruuilzo diabetes recently diagnosed with bilateral pulmonary emboli at [facility] presenting for evaluation of an allergic reaction. Patient states he was discharged from [facility] yesterday after taking a dose of Eliquis, 10 mg at 10:30 a.m.. Patient states that he developed hives yesterday which resolved on their own. Patient went back to the emergency department yesterday and was prescribed Lovenox which unfortunately was out of stock at his pharmacy. Patient was instructed to come to urgent care to discuss an alternative anticoagulant medication. His last dose of anticoagulation was Lovenox yesterday in the emergency department. While here in the urgent care the patient developed wheels and hives on his extremities and is administered 50 mg of diphenhydramine. [facility] Surgical History H/O endoscopy History of colonoscopy History of knee replacement Family History Father CVD (cardiovascular disease) Bipolar disorder Mother Diabetes mellitus HTN (hypertension) Brother No problems noted. Brother No problems noted. Brother No problems noted. Son No problems noted. Son No problems noted. Son No problems noted. 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 Current occupational exposures/hazards: No Cognitive needs: No Hearing needs: No Vision needs: No Review of Systems Const All systems reviewed & are unremarkable except as noted in HPI and below Reports no additional complaints Eyes Reports no additional complaints ENT Reports no additional complaints Card Denies chest pain, Reports dyspnea and Reports dyspnea on exertion Resp Denies cough, Reports dyspnea, Reports dyspnea on exertion and Denies wheezing GI Reports no additional complaints Reports no additional complaints Musc Reports no additional complaints Skin/Breast Reports pruritus and Reports lesions Neuro Reports no additional complaints Psych Reports no additional complaints Khurram/Lymph Reports no additional complaints Aller/Immun Denies wheezing Physical Exam Vital Signs: Last Vital Signs Pulse 82 04/09/25 10:25 BP 124/80 04/09/25 10:25 Pulse Ox 97 04/09/25 10:25 Oxygen Delivery Method Room Air 04/09/25 10:25 Const General: cooperative and acute distress Nutritional Appearance: well nourished Orientation/consciousness: patient oriented x3 and Other orientation findings (anxious, tachypneic) Limitations: no limitations HEENT Head: Yes normal to inspection and Yes normocephalic Mouth: Normal oral and palatal mucosa present Throat: Yes posterior oropharynx normal, Yes uvula midline and Yes other (Managing secretions, no drooling) Eyes General: appearance normal, both eyes and all related structures Resp Effort & Inspection: no audible wheezes, no cough and tachypneic Auscultation: wheezes Cardio Rate: regular rate Rhythm: regular rhythm Skin Other: Diffuse wheels and hives on the forehead, neck, all 4 extremities, abdomen and low back Lesions: lesion noted Neuro General: patient oriented x3 Psych Appearance: grossly normal Mental Status: mental status grossly normal Affect: Anxious affect present Attitude: cooperative Thought process: Normal thought process present Insight: Good insight present (Psych) Judgement: Good judgement present (Psych) Office Meds diphenhydramine HCl 25 mg tablet Performing Provider: Wendy Trinidad PA-C Performing Location: [facility] Walk-In [facility], [facility] Administered by: Areli Wells RN on 04/09/25 10:33 Dose Route Admin Location Dispensed Lot Number Expiration Date NDC Tank Filler 25 mg PO 2 tab [id number] 05/21/27 1511-6576-18 MAJOR PHARMACEU Comments: 2 tabs given Assessment & Plan Assessment & Plan (1) Allergic reaction: Comment: Given this patient's subsequent allergic reaction to presumably Eliquis, that is significantly worse than his reaction yesterday, patient will be given 50 mg of diphenhydramine and he will be sent to the emergency department for further evaluation as well as an ongoing discussion regarding anticoagulation choice. Code(s): T78.40XA - Allergy, unspecified, initial encounter Qualifiers: Encounter type: subsequent encounter Qualified Code(s): T78.40XD - Allergy, unspecified, subsequent encounter Plan: Expect called to ZHEN Watkins at [facility] ED approximately 10:45am. Patient en route via ambulance to [facility]. Orders: Orders AMB Diphenhydramine Adult Dose Today L50.0 - Allergic urticaria Coding Level of Care Code Est Pt Level 4 (69330) Diagnoses Allergic reaction, subsequent encounter T78.40XD Encounter type: subsequent encounter Time Spent (min) 30
--- OUTSIDE RECORDS SUMMARY | 2025-04-09 10:21 | XMS_ITS | Data Portability ---
Author Organization [facility], Home Service Address [address] [place] [address] Assessment Encounter Date Assessment Date Assessment LastModified by Organization Details LastModified Time 03/12/2020 03/12/2020 VERBALLY CONSENTS TO TELEPHONE CONSULT PT IS AT HOME I AM AT THE OFFICE [facility] INTERNAL MEDICINE 6 [facility] total of 11 minutes spent on the phone Not available 03/12/2020 11:32:35 Plan of Treatment Reminders Order Date Submit Date Provider Last Modified By Organization Details Last Modified Time Details Appointments None recorded. Lab lipid panel, blood 2019 020 [email or web address] 10 [facility], [address] [place] [address], [address], 0 08:21:20 CMP, serum or plasma 2019 020 [facility], [address] [place] [address], [address], 0 10:04:28 glycohemog lobin, total, blood 2019 020 [facility] (Lab), [address] [place] [address], [address], 0 07:34:01 lipid panel, blood 2019 020 [facility], [address] [place] [address], [address], 0 12:41:06 CMP, serum or plasma 2019 020 [facility], [address] [place] [address], [address], 0 08:25:52 glycohemog lobin, total, blood 2018 019 [facility] (Lab), [address] [place] [address], [address], 9 08:00:25 glycohemog lobin, total, blood 2018 019 [facility] (Lab), [address] [place] [address], [address], 9 08:00:24 lipid panel, blood 2018 019 [facility], [address] [place] [address], [address], 9 08:00:25 CMP, serum or plasma 2018 019 [facility], [address] [place] [address], [address], 9 08:24:54 CMP, serum or plasma 2018 020 [facility], [address] [place] [address], [address], 0 08:23:06 lipid panel, blood 2018 020 [facility], [address] [place] [address], [address], 9 08:00:25 CMP, serum or plasma 2019 020 [facility], [address] [place] [address], 386[address], 0 08:23:11 Referral None recorded. Procedures None recorded. Surgeries None recorded. Imaging electrocar diogram 2018 019 [facility], [address] [facility], [address], [place], [address], 9 12:03:56 Medication Orders lisinopril 10 mg tablet 2019 020 [id number], [address] [place] [address], [address], 0 09:35:44 metformin 500 mg tablet 2019 020 [id number], [address] [place], [address], 0 09:35:44 Patient TargetsNo targets recorded. Patient Instructions Encounter Date Encounter Id Patient Instructions Last Modified By Organization Details Last Modified Time 05/21/2019 [id number] learning about high white blood cell counts Not available 05/21/2019 12:00:53 knee arthritis: care instructions Not available 05/21/2019 12:00:53 high blood pressure: care instructions Not available 05/21/2019 12:00:53 learning about high blood pressure Not available 05/21/2019 12:00:53 high cholesterol : care instructions Not available 05/21/2019 12:00:53 chronic lymphocytic leukemia: care instructions Not available 05/21/2019 12:00:53 07/11/2019 [id number] When You Want to Lose Weight: Care Instructions Not available 07/11/2019 11:15:26 knee arthritis: care instructions Not available 07/11/2019 11:15:26 high blood pressure: care instructions Not available 07/11/2019 11:15:26 learning about high blood pressure Not available 07/11/2019 11:15:26 high cholesterol : care instructions Not available 07/11/2019 11:15:26 12/21/2019 [id number] When You Want to Lose Weight: Care Instructions Not available 12/21/2019 12:33:41 knee arthritis: care instructions Not available 12/21/2019 12:33:41 high blood pressure: care instructions Not available 12/21/2019 12:33:41 learning about high blood pressure Not available 12/21/2019 12:33:40 high cholesterol : care instructions Not available 12/21/2019 12:33:41 03/12/2020 [id number] high blood pressure: care instructions Not available [...] Rhythm 88 regula r Not Available [facility] [address] [place] [address], [place], [address], 05/21/2019 11:49:38 05/21/20 19 05/21/2019 heladio villelagr am QRS 12/-21 /3 Not Available [address], [place], [address], 05/21/2019 11:49:38 05/21/20 19 05/21/2019 elect sunil villelagr am SD Interval 106/15 2 Not Available [facility] Medicine [address] [place] [address], [place], [address], 05/21/2019 11:49:38 05/21/2005/21/2019 elect sunil villelagr am QRS Duration 92 ms Not Available [facility] Medicine [address] [facility] [facility] [address], [place], [address], 05/21/2019 11:49:38 05/21/20 19 05/21/2019 elect rocar diogr am QT Interval 364/44 0 Not Available [facility] [address] [facility] [address], [place], [address], 05/21/2019 11:49:38 06/08/2006/08/2019 US, mathew x, darian s, [facility] mity No observ ation record ed. [facility] Diagnosit Imaging Dept [address], [place], [address], 06/08/2019 14:23:27 Result Notes None recorded. Problems Name Problem SNOMED Code Status Onset Date Resolution Date Notes Provider Name and Address Organization Details Recorded Time Chronic hepatiti s C 160582350 Active 2017 Mariza dutta [facility] 8 14:19:52 Non-alco holic fatty liver 114126368 Active 2017 Mariza Adamson [facility] 8 14:20:16 Anemia 365549439 Active 2017 Mariza Adamson [facility] 8 14:20:23 [facility] hyperten true 59839720 Active [address] [facility] 8 14:20:29 Hyperlip idemia 17208974 Active 2017 Mariza dutta [facility] 8 14:20:39 Irritabl e bowel syndrome 40731412 Active 2017 Mariza dutta [facility] 8 14:20:46 Obesity 299494905 Active 2017 Mariza Adamson [facility] 8 14:20:53 Chronic ulcerati ve rectosig moiditis 40225894 Active 2017 Marizakennedi dutta [facility] 8 14:21:25 Diabetes mellitus 27911958 Active 2017 Mariza dutta [facility] 8 14:21:33 Hemochro matosis 225296558 Active 2017 [facility]ozyg [facility]us for H63D [facility] 14:28:50 Chronic lymphoid leukemia , disease 14622460 Active 2017 Angie Lr NP, [address] [place], [address], [facility] 8 11:00:48 Problem Notes None recorded. Procedures Surgical History Date Name Laterality Status Provider Name and Address Organization Details Recorded Time 05/28/20 total knee replacement completed February SANGEETHA Fernando [address] [place], [address], [facility] 07/11/2019 11:12:42 Imaging Results Imaging Date Name Status LastModified by Organiz ation Details LastModified Time 06/08/2019 US, duplex, venous, lower extremity completed [facility] [address] [facility], [place], [address], 06/08/2019 14:23:27 Procedure Notes None recorded. Medical Equipment None Reported. Allergies Allergen ID Allergen Name Allergen Category Reaction Reaction Severity Criticality Documentation Date Start Date Code Code System Note Provider Name and Address Organization Details Recorded Time 164 Product containin g penicilli n (product) medicatio n Not available Not available Not available 05/09/2018 11329 8001 [facility]ED [facility] 14:18:57 Medications Name Sig Start [...] Available Not Available Not Available Flucelvax Quad 5679-5790 (PF) 60 mcg (15 mcg x 4)/0.5 [...] % 116 mm[Hg] 72 mm[Hg] Mariza Adamson [facility] 0 12:17:24 Date Recorded Body mass index (BMI) Body weight Provider Name and Address Organization Details Last Updated DateTime 12/21/2019 36.9 kg/m2 652784.24 g February SANGEETHA Fernando [address] [facility], [place], [address], [facility] 12/21/2019 12:35:09 Date Recorded Body height Body mass index (BMI) Body weight Heart rate Oxygen saturation Oxygen saturation in Arterial blood by Pulse oximetry Systolic blood pressure Diastolic blood pressure Provider Name and Address Organization Details Last Updated DateTime 0 177.8 cm 37.7 kg/m2 541983. 64 g 80 /min 96 % 96 % 130 mm[Hg] 80 mm[Hg] Deena Eugene [facility] Internal [facility] 0 09:23:00 Date Recorded Body height Body mass index (BMI) Body weight Heart rate Oxygen saturation Oxygen saturation in Arterial blood by Pulse oximetry Systolic blood pressure Diastolic blood pressure Provider Name and Address Organization Details Last Updated DateTime 9 177.8 cm 35.2 kg/m2 321577. 29 g 90 /min 96 % 96 % 108 mm[Hg] 74 mm[Hg] Jovanasienna Robisonmars [facility] Internal [facility] 9 11:28:17 Date Recorded Body height Body mass index (BMI) Body weight Heart rate Oxygen saturation Oxygen saturation in Arterial blood by Pulse oximetry Systolic blood pressure Diastolic blood pressure Provider Name and Address Organization Details Last Updated DateTime 9 177.8 cm 34.5 kg/m2 802651. 61 g 86 /min 98 % 98 % 108 mm[Hg] 74 mm[Hg] Jovana Robisonmars [facility] Internal [facility] 9 11:00:32 Social History Question Answer Notes LastModified by Cloud[employer] ion Details LastModified Time Tobacco Smoking Status Never Smoker Not Available [facility] 09/23/2020 03:36:23 What Was The Date Of Your Most Recent Tobacco Screening? 05/21/2019 [id number] Information not available 09/23/2020 Sex: Unknown Functional Status None recorded. Mental Status None recorded. Family History Nothing Reported. Medical History No medical history recorded. Immunizations Vaccine Type Date Status Note Provider Nam e and Address Organization Details Recorded Time pneumococcal polysaccharide PPV23 5 completed Mariza dutta [facility] 05/09/2018 14:31:07 TST-PPD intradermal 1 completed Mariza dutta [facility] 05/09/2018 14:31:32 TST-PPD intradermal 1 completed Mariza dutta [facility] 05/09/2018 14:31:45 Past Encounters Encounter ID Performer Location Encounter Start Date Encounter Closed Date Diagnosis/Indication Diagnosis SNOMED-CT Code Diagnosis ICD10 Code Diagnosis Note [id number] Wilmar Malave [facility] [address] [facility],[place] [address] 05/10/2018 11:11:42 05/12/2018 08:37:17 Leukocytosis 418523191 D72.829 Knee pain 03025529 M25.5 69 Essential hypertension 90781352 I10 mildly elevated follow Ulcerative colitis 46516 004 K51.90 remicade infusions [id number] Wilmar Malave [facility] [address] [facility] [address] [address] 12/15/2018 10:30:43 12/15/2018 11:24:23 Hyperlipidemia 76333997 E78.2 Essential hypertension 84713568 I10 mildly elevated follow Diabetes mellitus 597527 09 E11.9 Ulcerative colitis 04720 004 K51.90 remicade infusions restarted after 3 month hiatus 2nd insurance Osteoarthr itis of knee 817643573 M17.0 Dysuria 42345780 R30.0 Chronic ly mphoid leukemia, disease 83489810 C91.90 Stage 0, seeing hematologi st Obesity 959816904 E66.9 Discussed weight loss, diet improvemen t [id number] [facility] [address] [facility] [address] [employer] [place] [address] 01/05/2019 09:38:48 01/05/2019 11:15:52 Chronic lymphoid leukemia, disease 60958195 C91.90 Stage 0, seeing hematologi st Hyperlipidemia 09033493 E78.2 Essential hypertension 17003930 I10 improved Diabetes mellitus 237255 09 E11.9 A1C 6.4 Osteoarthr itis of knee 263097196 M17.0 has ortho appt 01/29/19 [id number] [facility] [address] [facility],[place] [address] 05/21/2019 11:20:40 05/21/2019 12:03:56 Pre-surgery evaluation 238428204 Z01.818 cleared for procedure Osteoarthr itis of knee 854954434 M17.0 Essential hypertension 66382557 I10 very well controlled Hyperlipidemia 40622280 E78.5 very well controlled as of 02/2019 Diabetes mellitus 726439 09 E11.9 very well controlled as of 02/2019 a1c was 6.3 05/14/19 BS was 88 Leukocytosis 585714673 D 72.829 stable wbc is monitored every 6 months by oncologist Chronic ul cerative rectosigmoiditis 91159843 K51.30 currently with diarrhea as he has been off the remicade for 2 months in preparatio n for the surgery per dr nelson (ortho) and dr. avila (gi) Chronic ly mphoid leukemia, disease 83659881 C91.[address] suero every 6 months [id number] Wilmar Malave [facility] [address] [facility] [address] [address] 07/11/2019 10:50:28 07/11/2019 11:43:59 Essential hypertension 10471043 I10 very well controlled Osteoarthr itis of knee 000317472 M17.0 s/p double tkr, with progressiv e improvemen t Obesity 989360574 E66.9 Hyperlipidemia 89507913 E78.5 very well controlled as of 02/2019 Diabetes mellitus 698164 09 E11.9 very well controlled as of 02/2019 a1c was 6.3 05/14/19 BS was 88 [id number] Wilmar Malave [facility] [address] [facility] [address] [address] 12/21/2019 11:56:05 12/21/2019 13:55:20 Essential hypertension 43974589 I10 very well controlled Osteoarthr itis of knee 464763335 M17.0 s/p double tkr, with progressiv e improvemen t Obesity 595211115 E66.9 working on weight again gained weight after surgery/se dentary Hyperlipidemia 92380068 E78.5 controlled Diabetes mellitus 857843 09 E11.9 at goal [id number] Wilmar Malave [facility] [address] [facility] [address] [address] 03/12/2020 08:16:59 03/12/2020 11:50:41 Diabetes mellitus 23606228 E11.9 a1c 7.0 advised to work on diet slightly and continue wlaking recheck in 3 months Essential hypertension 69812982 I10 stable previously , recheck at in may Hyperlipidemia 60312773 E78.5 recheck in may DO Courtney Grimaldo Internal [facility] [address] [facility] [address] [place] [place] [address] 06/20/2020 09:17:18 06/20/2020 11:34:28 Diabetes mellitus 21399915 E11.9 stable, doing well is trying to work on diet labs looked good Essential hypertension 40076218 I10 BP is stable on medication Liver func tion tests outside reference range 665414372 R94.5 will recheck CMP and see if ALT has improved Health Concerns Section Related Observation LastModified by Organization Detai ls LastModified Time None Recorded Concern Status LastModified by Organization Details LastModified Time None Recorded Advance Directives Directive None Recorded Payers Encounter Date Sequence Insurance Name Policy Number Policy Castro Covered Member ID Castro Member ID Guarantor Name 05/21/2019 1 [facility] [employer] PLAN [id number] Sonny Mota [id number] Sonny Nakul 07/11/2019 1 [facility] [employer] [facility] [id number] Sonny Mota [id number] Sonny Mota 12/21/2019 1 [facility] [employer] - [place] (HMO) [id number] Sonny Beatriz Nakul [id number] 1 Sonny Nakul 03/12/2020 1 [facility] [employer] - [place] (HMO) [id number] Sonny Mota [id number] 1 Sonny Nakul 06/20/2020 1 [facility] [employer] - [place] (HMO) [id number] Sonny Beatriz Nakul [id number] 1 Sonny Nakul Notes Date Note Type [...] rashes, or nail changes. SANGEETHA Singh [address] [place], [address], [facility] 05/21/2019 12:01:51 9 [...] rashes, or nail changes. SANGEETHA Singh [address] [place], [address], [facility] 07/11/2019 11:16:53 0 [...] rashes, or nail changes. SANGEETHA Singh [address] [place], [address], [facility] 12/21/2019 12:36:00 0 text/html VERBALLY CONSENTS TO TELEPHONE CONSULT PT IS AT HOME I AM AT THE OFFICE [facility] INTERNAL MEDICINE [address], [facility] has been walking outside some snacking, needs [...] rashes, or nail changes. SANGEETHA Singh [address] [place], [address], [facility] 03/12/2020 11:32:46 0 [...] y artery disease: No ADRIAN MARQUIS [address] [place], [address], [facility] 06/20/2020 09:37:26
[2025-04-09 10:25] VITALS: BP 124/80; PULSE 82; O2SAT 97
== END 2025-04-09 10:48 | disposition home or self-care (01) ==
PROVIDERS: PCP Family Medicine; Visit Provider Physician Assistant
DX: L50.0 Allergic urticaria (principal); T78.40XD Allergy, unspecified, subsequent encounter

== ENCOUNTER → 2025-04-09 09:29 | Outpatient (BNVA) | payer MEDICARE, MEDICAID, SELFPAY | PROVIDERS: PCP Family Medicine; Visit Provider Physician Assistant ==

== ENCOUNTER 2025-04-09 11:03 | Emergency (ER) | payer MEDICARE, MEDICAID, SELFPAY ==
[2025-04-09 11:18] VITALS: BP 146/93; BP 160/90; PULSE 86; PULSE 88; RESP 16; TEMP 36.5; O2SAT 95; O2SAT 96; BMI 36.6
--- NOTE | 2025-04-09 11:50 | ED_ITS ---
HPI - General Adult General Chief complaint: Allergic Reaction Stated complaint: ALLERGIC REACTION TO ELIQUIS,HIVES BU&LE,HX CHRISS PE Time Seen by Provider: 04/09/25 11:09 Source: patient Mode of arrival: ambulatory Limitations: no limitations History of Present Illness HPI narrative: This is a 65-year-old man with a past medical history of hypertension, hyperlipidemia, iaf-yjxswuk-iccjnuxoy diabetes mellitus, colitis, recently diagnosed bilateral PE who presents for evaluation of urticaria. Patient states that he was hospitalized at [facility] for blood clots in both of his lungs. He states that he was started on Eliquis and states that his last dose was yesterday morning at around 10:30 a.m.. He states that he then developed some hives and then went back to the emergency department and was started on Lovenox. He states that he was sent a prescription for Lovenox and then was otherwise told to follow up with his primary care doctor. He states he was also prescribed an Epipen because of the hives. He states he hasn't picked up the prescriptions yet. He states that he follow up with his primary care doctor today and developed hives once again. He states no other new exposures or medicines administered. He states that he has not taken his Lovenox yet today. He states that he was given Benadryl at his primary care office and was told to come to the emergency room for evaluation. He states no associated abdominal pain, nausea or vomiting. He states no dysphagia or odynophagia. He states no throat closing sensation. He states no tongue swelling or lip swelling. He states no chest pain or dyspnea. He states his rash is pruritic. He reports otherwise feeling well. Related Data Home Medications ?Medication ?Instructions ?Recorded ?Confirmed ergocalciferol (vitamin D2) 1,250 1,250 mcg PO QWEEK 07/23/21 07/22/23 mcg (50,000 unit) capsule infliximab 100 mg intravenous 550 mg IV 02/08/25 solution (Remicade) omeprazole 20 mg tablet,delayed 20 mg PO DAILY 02/08/25 release Previous Rx's ?Medication ?Instructions ?Recorded dulaglutide 0.75 mg/0.5 mL 1.5 mg subcut QWEEK 28 days #4 mL 02/17/24 subcutaneous pen injector amlodipine 5 mg tablet 5 mg PO DAILY 90 days #90 tabs 03/20/24 atorvastatin 20 mg tablet 20 mg PO DAILY 90 days #90 tabs 05/04/24 mecobalamin (vitamin B12) 1,000 1,000 mcg sublingual DAILY 90 days 02/13/25 mcg disintegrating #90 tabs tablet,sublingual glipizide 2.5 mg tablet, extended 2.5 mg PO DAILY 90 days #90 tabs 02/22/25 release 24 hr metformin 500 mg tablet 250 mg (1/2 x 500 mg) PO BID 30 02/22/25 days #30 tabs Allergies Allergy/AdvReac Type Severity Reaction Status Date / Time penicillamine Allergy Unknown unknown Verified 04/09/25 11:21 apixaban [From Eliquis] AdvReac Intermediate Hives Verified 04/09/25 11:21 Review of Systems 2 Review of Systems: ROS as per HPI [facility] Past Medical History Surgical History H/O endoscopy History of colonoscopy History of knee replacement Family History Family History Father CVD (cardiovascular disease) Bipolar disorder Mother Diabetes mellitus HTN (hypertension) Brother No problems noted. Brother No problems noted. Brother No problems noted. Son No problems noted. Son No problems noted. Son No problems noted. 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 Current occupational exposures/hazards: No Cognitive needs: No Hearing needs: No Vision needs: No Physical Exam ED Vital Signs: Vital Signs - 24 hr 04/09/25 11:18 Temperature 97.7 F Pulse Rate 86 Respiratory Rate 16 Blood Pressure 146/93 H Pulse Oximetry 96 Oxygen Delivery Method Room Air BMI result Body Mass Index 36.6 Gen: NAD, AOx3 HEENT: NCAT, EOMI, normal conjunctiva, uvula midline without edema, no lingual or lip edema CV: RRR Pulm: CTAB, no wheezes or increased work of breathing GI: Soft, NTND, no rebound, guarding or rigidity Neuro: Grossly non focal Skin: Warm, dry, urticaria to the bilateral upper and lower extremities and abdomen Medical Decision Making Medical Decision Making MDM Narrative: Differential diagnosis includes, but is not limited to urticaria, anaphylaxis, angioedema. Patient is afebrile and hemodynamically stable on room air. Exam is consistent with urticaria. Patient has single organ involvement (i.e. skin) and no other systemic symptoms to suggest anaphylaxis. Further, chronicity of symptoms are not suggestive of anaphylactic reaction. Exam is not consistent with angioedema. The patient is provided 1.5 milligram/kilogram subcutaneous Lovenox here in the emergency room. I confirmed with the patient's pharmacy as below that they have the patient's Lovenox available tomorrow. I also discussed with the patient's primary care physician, Dr. Green, who states that he will follow up with the patient closely and plan to continue the patient's anticoagulation. On re-examination, patient is well-appearing and in no acute distress. ?I counseled the patient on appropriate use of non sedating antihistamines during the day and consideration of use of Benadryl at night for symptomatic management of pruritic urticaria. Patient is advised to go to his pharmacy today and picker and sorter load and unload his EpiPen and to picker and sorter load and unload his Lovenox and continue as prescribed starting tomorrow morning. There is no indication for further emergent evaluation in this otherwise well-appearing patient as above. ?Patient is provided written and verbal instructions, educational materials, recommendations for outpatient follow-up, strict return precautions and teach back is performed. ?Patient states understanding and agreement with plan of care. ?Patient is discharged home in stable and improved condition. Critical Care Time: A total of 40 minutes spent in direct patient care with coordinating critical resuscitation, procedures, reviewing records, discussing with consultants, reviewing labs, and/or managing patient. Admission/Observation Consideration of admission/observation: Escalation of care including admission/observation considered Consult Healthcare Provider Management of the patient was discussed with: Business Banker and Primary Care Provider I spoke with [facility] pharmacy staff at [address] [place] [address] in [facility]. Staff reports that they have patient has EpiPen available to be picked up. They state that they will have the patient's 14 day supply of Lovenox tomorrow April 10, 2025. I discussed with the patient's primary care physician, Dr. Osmel Green, who states that he will follow up with the patient and plan to continue his anticoagulation. Lab Data MDM Lab Attestation statement: I reviewed the patient's lab results. CBC and coagulation studies are unremarkable 04/09/25 12:26 Labs: Lab Results 04/09/25 Range/Units 12:26 WBC 9.7 (4.8-10.8) X10*3/uL RBC 4.10 L (4.60-5.80) X10*6/uL Hgb 13.1 L (14.0-18.0) g/dl Hct 37.3 L (42.0-52.0) % MCV 91.0 (80.0-98.0) fL MCH 32.0 (27.0-33.0) pg MCHC 35.1 (31.0-36.0) g/dl RDW 12.7 (11.0-16.0) % Plt Count 241 (160-400) X10*3/uL MPV 9.5 (9.4-12.4) fL Absolute Nucleated RBC 0.000 (0.0-0.012) X10*3/uL Nucleated RBC % (auto) 0.0 (0.0-0.2) /100WBC PT 12.3 (10.9-12.4) SEC INR 1.1 (0.9-1.1) APTT 32.6 (26.0-36.8) SEC Discharge Plan Discharge Clinical Impression: Urticaria Patient Disposition: Home, Self-Care Instructions: Urticaria (ED) Additional Instructions: You were seen and evaluated in the emergency room for hives. You were given a dose of Lovenox here in the emergency room as well for treatment of your known blood clots. Please be sure to picker and sorter load and unload your EpiPen prescription today. Please be sure to picker and sorter load and unload your Lovenox prescription tomorrow morning and continue as directed. Please follow-up with your primary care doctor in 1 week. Return to the emergency room with a new concerns or symptoms. Prescriptions: No Action dulaglutide 0.75 mg/0.5 mL pen injector 1.5 mg subcut QWEEK 28 Days Qty: 4 3RF amlodipine 5 mg tablet 5 mg PO DAILY 90 Days Qty: 90 2RF atorvastatin 20 mg tablet 20 mg PO DAILY 90 Days Qty: 90 3RF mecobalamin (vitamin B12) 1,000 mcg tablet,disintegrating 1,000 mcg sublingual DAILY 90 Days Qty: 90 2RF Rx Instructions: place tablet under tongue and allow to dissolve for at least30 secs before swallowing glipizide 2.5 mg tablet extended release 24hr 2.5 mg PO DAILY 90 Days Qty: 90 0RF metformin 500 mg tablet 250 mg PO BID 30 Days Qty: 30 2RF Remicade 100 mg recon soln 550 mg IV ergocalciferol (vitamin D2) 1,250 mcg (50,000 unit) capsule 1,250 mcg PO QWEEK omeprazole 20 mg tablet,delayed release (DR/EC) 20 mg PO DAILY Print Language: [place] Citizen
[2025-04-09 12:33] LABS: Hematocrit 37.3 % (42.0-52.0); Hemoglobin 13.1 g/dl (14.0-18.0); Mean Corpuscular HGB Conc 35.1 g/dl (31.0-36.0); Mean Platelet Volume 9.5 fL (9.4-12.4); Platelet Count 241 X10*3/uL (160-400); Red Cell Distribution Width 12.7 % (11.0-16.0); White Blood Count 9.7 X10*3/uL (4.8-10.8)
[2025-04-09 12:40] LABS: INTERNATIONAL NORM RATIO 1.1 (0.9-1.1); Prothrombin Time 12.3 SEC (10.9-12.4)
[2025-04-09 12:43] LABS: Partial Thromboplastin Time 32.6 SEC (26.0-36.8)
[2025-04-09] MEDS: Enoxaparin Sodium 100 MG/ML SYRINGE 170 MG SUBCUT (12:45)
--- OUTSIDE RECORDS SUMMARY | 2025-04-09 12:55 | XMS_ITS | Encounter Summary ---
Author Organization [employer] Address [address] [facility] [address] [place] [address] Care Team Providers Care Plant Safety Engineer Name Role Phone Unavailable Primary Care Provider [...]
--- OUTSIDE RECORDS SUMMARY | 2025-04-09 12:55 | XMS_ITS | Clinical Summary ---
Author Organization [facility] Facility Address [address] [place] [address] Care Team Providers Care Fiberglass Bonding Machine Tender Name Role Phone Osmel Green MD Primary Care Provider [phone] Allergies Active Allergy Reactions Criticality Noted Date [...] time each day Active ergocalciferol 1.25 MG (82523 UT) capsule Take 50,000 Units by mouth [...] patient's age to complete this topic Insurance [facility] Medicaid Care Teams Fiberglass Bonding Machine Tender Relationship Specialty Start Date End Date Osmel Green MD [address] [address] PCP - General Family Medicine 11/29/22
--- OUTSIDE RECORDS SUMMARY | 2025-04-09 12:55 | XMS_ITS | Clinical Summary ---
Author Organization [employer] Address [address] [facility] 7[address] [place] [address] Care Team Providers Care Pathology Laboratory Director Name Role Phone Unavailable Primary Care [...]
--- OUTSIDE RECORDS SUMMARY | 2025-04-09 12:55 | XMS_ITS | Clinical Summary ---
Author Organization [facility] Address [address] [place] [address] Care Team Providers Care Studio Receptionist Name Role Phone Unavailable Primary Care Provider [...] Documents on File Type Date Recorded Patient Edge Brusher Expl anation Health Care Decision (hx) 09/10/2023 AD CYR DIRECTIVE Health Care Decision (hx) 09/10/2023 AD CYR DIRECTIVE
[2025-04-09 12:57] VITALS: BP 131/79; PULSE 77; RESP 16; TEMP 36.2; O2SAT 94
== END 2025-04-09 13:02 | disposition home or self-care (01) ==
PROVIDERS: Emergency Provider Emergency Medicine; PCP Family Medicine
DX: L50.0 Allergic urticaria (principal); Z79.899 Other long term (current) drug therapy; Z51.81 Encounter for therapeutic drug level monitoring
CPT/HCPCS: 36415; 85027; 85610; 85730; 96372; 99212; 99282; 99284; J1650

== ENCOUNTER 2025-04-16 12:01 | Outpatient (AMB) | payer MEDICARE, MEDICAID, SELFPAY ==
--- NOTE | 2025-04-16 12:05 | MHC.PC.OV ---
Vital Signs 04/16/25 12:11 Height 5 ft 10 in Weight 255 lb 4 oz BMI 36.6 BP 132/70 Blood Pressure Location Lt brachial Position Sitting Respiration 16 Pulse 94 Pulse Source Pulse Oximeter Temp 97.9 F Temp Source Oral Pulse Oximetry (%) 98 Oxygen Delivery Method Room Air Intake Visit Reasons: ED follow up Intake Note: patient is scheduled for follow-up ED discharge and will like his Enoxaparin medication changed to something different. Allergies penicillamine Allergy (Unknown, Verified 04/16/25 12:09) unknown apixaban [From Eliquis] Adverse Reaction (Intermediate, Verified 04/16/25 12:09) Hives Tobacco use date assessed: 04/16/25 Fall risk assessment: No Falls in past year Dental Screening Dental Screen Date: 04/16/25 Did you have a dental visit in the last 12 months?: Yes Did you have a dental problem in the last 6 months where you did not have access to dental care?: No HPI ED follow up HPI Details 65 y/o male presents today to f/u ED visit 04/09/25 for evaluation of urticartia. Pt stated he was hospitalized at [place] [facility] for blood clots in both of his lungs. He had stated he was started on Eliquis then developed some hives. Had went back to ED, was started on Lovenox. [facility] Surgical History H/O endoscopy History of colonoscopy History of knee replacement Family History Father CVD (cardiovascular disease) Bipolar disorder Mother Diabetes mellitus HTN (hypertension) Brother No problems noted. Brother No problems noted. Brother No problems noted. Son No problems noted. Son No problems noted. Son No problems noted. 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 Current occupational exposures/hazards: No Cognitive needs: No Hearing needs: No Vision needs: No Questionnaire Thrive Questionnaire Date Thrive assessed: 02/08/25 I am a: Patient What is your living situation today?: I choose not to answer this question Within the past 12 months, did the food you bought not last and you didn't have the money to get more?: I choose not to answer this question Within the past 12 months, did you worry whether your food would run out before you got money to buy more?: I choose not to answer this question Do you have trouble paying for medicines?: I choose not to answer this question Do you have trouble getting transportation to medical appointments?: No Do you have trouble paying your heating and electricity bill?: I choose not to answer this question Do you have trouble taking care of your child, family member or friend?: No Do you have trouble with day-to-day activities such as bathing, preparing meals, shopping, managing finances, etc.?: No Are you currently unemployed and looking for a job?: No Are you interested in more education?: No Please select the resources that you would like help with: None Currently or been in a relationship where the following occur: No concerns reported THRIVE Score: 0 AUDIT C Alcohol Use Questionnaire (AUDIT-C) 2. How many drinks containing alcohol do you have on a typical day when you are drinking?: 1 or 2 3. How often do you have six or more drinks on one occasion?: Never Total Score: 0 TOSHIA-7 AMB Questionnaire TOSHIA-7 Date TOSHIA - 7 assessed: 02/08/25 Source: Developed by Drs. Sonny Thomas, Erendira Valverde, Fabrizio Sharp and colleagues, with an educational nigel from [employer]. Review of Systems Const Denies chills, Denies fatigue, Denies fever(s), Denies headache(s) and Denies weakness ENT Denies dizziness and Denies headache(s) Card Denies dyspnea Resp Denies cough, Denies dyspnea, Denies wheezing and Denies other (shortness of breath) Musc Denies numbness and Denies tingling Neuro Denies dizziness, Denies headache(s), Denies numbness, Denies tingling and Denies weakness Psych Denies anxiety and Denies depression Endo Denies fatigue Aller/Immun Denies wheezing Physical exam (Primary Care) Vital Signs: Last Vital Signs Temp 97.9 F 04/16/25 12:11 Pulse 94 04/16/25 12:11 Resp 16 04/16/25 12:11 BP 132/70 04/16/25 12:11 Pulse Ox 98 04/16/25 12:11 Oxygen Delivery Method Room Air 04/16/25 12:11 BMI result Body Mass Index 36.6 Tobacco/Smoking Status: Tobacco use Status Tobacco use date assessed 04/16/25 04/16/25 12:17 Patient Tobacco Use Status Never used Tobacco 04/16/25 12:17 Tobacco use type 01/21/25 11:43 e-Cigarette/Vaping Use Never Used 04/16/25 12:17 Thrive Assessment: Date of Thrive Assessment Date Thrive assessed 02/08/25 04/16/25 12:17 Currently or been in a relationship where the following occur: No concerns reported Const General: well developed; No acute distress Nutritional Appearance: well nourished Orientation/consciousness: patient oriented x3 HENMT Head: Yes normocephalic and Yes atraumatic Eyes General: appearance normal, both eyes and all related structures Pupils: Equal, round and reactive pupils present EOM: EOMs intact bilaterally Resp Effort & Inspection: normal respiratory effort Auscultation: clear to auscultation bilaterally Cardio Rate: regular rate Rhythm: regular rhythm Heart sounds: S1 normal heart sound present, S2 normal heart sound present, no gallops, no murmurs and no rubs Neuro General: patient oriented x3 and gait normal Cranial nerves: Yes Equal, round and reactive pupils present Psych Affect: normal affect Coding Level of Care Code Est Pt Level 4 (45887) Diagnoses Allergic reaction, subsequent encounter T78.40XD Encounter type: subsequent encounter Urticaria L50.9 Pulmonary embolism I26.99 Assessment & Plan Assessment & Plan (1) Allergic reaction: Code(s): T78.40XA - Allergy, unspecified, initial encounter Category: Medical Qualifiers: Encounter type: subsequent encounter Qualified Code(s): T78.40XD - Allergy, unspecified, subsequent encounter Plan: Recent?allergic?reaction?to?Eliquis?which?was?started?due?to?pulmonary?embolus Eliquis?was?discontinued?and?he?was?put?on?Lovenox.??However?he?wants?to?switch?off?of?Lovenox?and?will?begin?Coumadin. Will?need?to?bridge?on?to?Coumadin?- see?below (2) Urticaria: Code(s): L50.9 - Urticaria, unspecified Category: Medical Plan: Urticaria?have?resolved?since?discontinuing?Kath (3) Pulmonary embolism: Code(s): I26.99 - Other pulmonary embolism without acute cor pulmonale Category: Medical Plan: Will?begin?bridging?on?to?warfarin?and?will?discontinue?Lovenox?once?he?is?therapeutic, pleasant?additional?3?days Starting?warfarin?5?mg?daily Will?recheck?on?Tuesday?and?discussed?with?patient - will?likely?also?recheck?on?Tuesday. Referring?him?to?the?Coumadin?Clinic?for?long-term?management Unclear?cause?of?his?PE?and?had?no?DVTs. Referred?to?Hematology-Oncology Orders: Orders Prothrombin Time INR Today I26.99 - Other pulmonary embolism without acute cor pulmonale Referrals Anticoagulation Service/Clinic I26.99 - Other pulmonary embolism without acute cor pulmonale Hematology & Oncology Referral I26.99 - Other pulmonary embolism without acute cor pulmonale Medications: New warfarin 5 mg PO DAILY 30 tabs 2RF 30 days
[2025-04-16 12:11] VITALS: BP 132/70; PULSE 94; RESP 16; TEMP 36.6; O2SAT 98; BMI 36.6
--- OUTSIDE RECORDS SUMMARY | 2025-04-16 12:27 | XMS_ITS | Clinical Summary ---
Author Organization [facility] Facility Address [address] [place] [id number] Care Team Providers Care Mechanical Cad Drafter Name Role Phone Osmel Green MD Primary [...] time each day Active ergocalciferol 1.25 MG (96150 UT) capsule Take 50,000 Units by mouth [...] patient's age to complete this topic Insurance [facility] Medicaid Care Teams Mechanical Cad Drafter Relationship Specialty Start Date End Date Osmel Green MD [address] [address] PCP - General Family Medicine 11/29/22
== END 2025-04-16 13:02 | disposition home or self-care (01) ==
LOC: HO.HMCFM 12:02
PROVIDERS: PCP Family Medicine; Visit Provider Family Medicine
DX: T78.40XD Allergy, unspecified, subsequent encounter (principal); L50.9 Urticaria, unspecified; I26.99 Other pulmonary embolism without acute cor pulmonale

== ENCOUNTER → 2025-04-16 12:01 | Outpatient (BNVA) | payer MEDICARE, MEDICAID, SELFPAY | PROVIDERS: PCP Family Medicine; Visit Provider Family Medicine | DX: T78.40XD Allergy, unspecified, subsequent encounter (principal); L50.9 Urticaria, unspecified; I26.99 Other pulmonary embolism without acute cor pulmonale | CPT/HCPCS: 99212 ==

== ENCOUNTER 2025-04-19 06:44 | Outpatient (REF) | payer MEDICARE, MEDICAID, SELFPAY ==
--- OUTSIDE RECORDS SUMMARY | 2025-04-19 06:47 | XMS_ITS | Clinical Summary ---
Author Organization [facility] Facility Address [address] [place] [address] Care Team Providers Care Typewriter Assembler Name Role Phone Osmel Green MD Primary [...] time each day Active ergocalciferol 1.25 MG (89181 UT) capsule Take 50,000 Units by mouth [...] [facility] Medicaid Care Teams Typewriter Assembler Relationship Specialty Start Date End Date Osmel Green MD [address] [address] PCP - General Family Medicine 11/29/22
[2025-04-19 07:12] LABS: INTERNATIONAL NORM RATIO 1.1 (0.9-1.1); Prothrombin Time 12.1 SEC (10.9-12.4)
== END 2025-04-19 06:45 | disposition home or self-care (01) ==
LOC: HO.LAB 06:44
PROVIDERS: PCP Family Medicine; Visit Provider Family Medicine
DX: I26.99 Other pulmonary embolism without acute cor pulmonale (principal); T78.40XD Allergy, unspecified, subsequent encounter; X58.XXXD Exposure to other specified factors, subsequent encounter; Z79.01 Long term (current) use of anticoagulants
CPT/HCPCS: 36415; 85610

== ENCOUNTER 2025-04-19 10:35 | Outpatient (AMB) | payer MEDICARE, MEDICAID, SELFPAY ==
--- NOTE | 2025-04-19 10:29 | A.OFFPC_ITS ---
Intake Visit Reasons: F/U Meds Intake Note: patient is scheduled for levonox medication follow up from a PE Allergies penicillamine Allergy (Unknown, Verified 04/19/25 10:33) unknown apixaban [From Eliquis] Adverse Reaction (Intermediate, Verified 04/19/25 10:33) Hives Medication List - Last Reconciled 04/19/25 by Osmel Green MD amlodipine 5 mg PO DAILY 90 days atorvastatin 20 mg PO DAILY 90 days dulaglutide 1.5 mg subcut QWEEK 28 days enoxaparin (Lovenox) 120 mg (0.8 mL) subcut Q12H 7 days ergocalciferol (vitamin D2) 1,250 mcg PO QWEEK glipizide ER 2.5 mg PO DAILY 90 days infliximab (Remicade) 550 mg IV mecobalamin (vitamin B12) 1,000 mcg sublingual DAILY 90 days metformin 250 mg (1/2 x 500 mg) PO BID 30 days omeprazole 20 mg PO DAILY warfarin 5 mg PO DAILY 30 days Tobacco use date assessed: 04/16/25 Dental Screening Dental Screen Date: 04/16/25 HPI F/U Meds HPI Details 65y/o male presents to f/u meds via tele medicine. Had been given Eliquis for a PE but had caused him a rash. Was changed to Lovenox and started him on warfarin. Labs drawn 04/19/25. PT 12.1. INR 1.1 and unchanged. [facility] Surgical History H/O endoscopy History of colonoscopy History of knee replacement Family History Father CVD (cardiovascular disease) Bipolar disorder Mother Diabetes mellitus HTN (hypertension) Brother No problems noted. Brother No problems noted. Brother No problems noted. Son No problems noted. Son No problems noted. Son No problems noted. 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 Sonny Thomas, Erendira Valverde, Fabrizio Sharp and colleagues, with an educational nigel from [employer]. Review of Systems Const Denies chills, Denies fatigue, Denies fever(s), Denies headache(s) and Denies weakness ENT Denies dizziness and Denies headache(s) Card Denies dyspnea Resp Denies cough, Denies dyspnea, Denies wheezing and Denies other (shortness of breath) Musc Denies numbness and Denies tingling Neuro Denies dizziness, Denies headache(s), Denies numbness, Denies tingling and Denies weakness Psych Denies anxiety and Denies depression Endo Denies fatigue Aller/Immun Denies wheezing Physical exam (Primary Care) Tobacco/Smoking Status: Tobacco use Status Tobacco use date assessed 04/16/25 04/19/25 10:29 Patient Tobacco Use Status Never used Tobacco 04/19/25 10:29 Tobacco use type 01/21/25 11:43 e-Cigarette/Vaping Use Never Used 04/19/25 10:29 Thrive Assessment: Date of Thrive Assessment Date Thrive assessed 02/08/25 04/19/25 10:29 Telehealth Telehealth Telehealth Platform: Telephone Location of provider rendering services: practice address Location of patient: address on file Patient Identification confirmed using: Name, : Yes Telehealth method: voice only Patient verbally consented to treatment: Yes Patient verbally consented to billing insurance company: Yes Patient informed of any privacy concerns related to visit: Yes Minutes spent on Phone/Video with Pt.: 5 Coding Level of Care Code Tele Est Pt Level 2 (72371) Diagnoses Pulmonary embolism I26.99 Allergic reaction, subsequent encounter T78.40XD Encounter type: subsequent encounter Assessment & Plan Assessment & Plan (1) Pulmonary embolism: Code(s): I26.99 - Other pulmonary embolism without acute cor pulmonale Category: Medical Plan: Patient?is?taking?Lovenox?and?warfarin?5?mg?daily INR?has?not?increased?yet; still?1.1 Continue?Lovenox Continue?warfarin; he?will?take?7.5?mg?tonight?and?then?continue?5?mg ?each?evening?through?the?weekend. Recheck?INR?on?Tuesday Will?follow-up?with?him?Tuesday?evening?to?discuss (2) Allergic reaction: Code(s): T78.40XA - Allergy, unspecified, initial encounter Category: Medical Qualifiers: Encounter type: subsequent encounter Qualified Code(s): T78.40XD - Allergy, unspecified, subsequent encounter Plan: Resolved?with?discontinuance?of?Eliquis Orders: Orders Prothrombin Time INR Today I26.99 - Other pulmonary embolism without acute cor pulmonale Medications: Changed From enoxaparin (Lovenox) 120 mg subcut Q12H To enoxaparin (Lovenox) Bridging to Warfarin 120 mg (0.8 mL) subcut Q12H 7 days 12 mL 0RF
== END 2025-04-19 17:05 | disposition home or self-care (01) ==
LOC: HO.HMCFM 10:35
PROVIDERS: PCP Family Medicine; Visit Provider Family Medicine
DX: I26.99 Other pulmonary embolism without acute cor pulmonale (principal); T78.40XD Allergy, unspecified, subsequent encounter

== ENCOUNTER 2025-04-22 06:11 | Outpatient (REF) | payer MEDICARE, MEDICAID, SELFPAY ==
[2025-04-22 07:27] LABS: INTERNATIONAL NORM RATIO 1.4 (0.9-1.1); Prothrombin Time 15.6 SEC (10.9-12.4)
[2025-04-22 07:41] LABS: Estimated Average Glucose 209 mg/dL; Hemoglobin A1c % 8.9 % (<6.0)
[2025-04-22 07:46] LABS: Alanine Aminotransferase 106 U/L (0-40); Albumin Level 3.9 g/dL (3.5-5.0); Alkaline Phosphatase 94 U/L (39-117); Anion Gap 14 (12-20); Aspartate Amino Transferase 66 U/L (5-37); Bilirubin Total 0.3 mg/dL (0.0-1.0); Blood Urea Nitrogen 22 mg/dL (9-16); Carbon Dioxide 21 mmol/L (22-29); Chloride 108 mmol/L (96-108); Estimated Glomerular Filt Rate 40; Glucose Fasting 331 mg/dL (60-99); Sodium 139 mmol/L (135-145); Total Protein 7.2 g/dL (6.5-8.0)
== END 2025-04-22 06:12 | disposition home or self-care (01) ==
LOC: HO.LAB 06:11
PROVIDERS: PCP Family Medicine; Visit Provider Family Medicine
DX: Z00.00 Encounter for general adult medical examination without abnormal findings (principal); E11.9 Type 2 diabetes mellitus without complications; I26.99 Other pulmonary embolism without acute cor pulmonale; Z51.81 Encounter for therapeutic drug level monitoring; Z79.01 Long term (current) use of anticoagulants
CPT/HCPCS: 36415; 80053; 83036; 85610; 99202

== ENCOUNTER 2025-04-22 10:26 | Outpatient (AMB) | payer MEDICARE, MEDICAID, SELFPAY ==
[2025-04-22 10:54] LABS: Prothrombin Time Whole Bld POC 16.7 sec (11.1-13.5); ~PT, ~INR - Anti Coag Clinic 1.4 (0.9-1.1)
--- NOTE | 2025-04-22 11:10 | MHC.OFFVISCO ---
Intake Intake Visit Reasons: Anticoagulation File Machine Operator Required: No Allergies penicillamine Allergy (Unknown, Verified 04/22/25 10:48) unknown apixaban [From Eliquis] Adverse Reaction (Intermediate, Verified 04/22/25 10:48) Hives Medication List - Last Reconciled 04/22/25 by Mamie Ley, RN amlodipine 5 mg PO DAILY 90 days atorvastatin 20 mg PO DAILY 90 days dulaglutide 1.5 mg subcut QWEEK 28 days enoxaparin (Lovenox) 120 mg (0.8 mL) subcut Q12H 7 days ergocalciferol (vitamin D2) 1,250 mcg PO QWEEK glipizide ER 2.5 mg PO DAILY 90 days infliximab (Remicade) 550 mg IV mecobalamin (vitamin B12) 1,000 mcg sublingual DAILY 90 days metformin 250 mg (1/2 x 500 mg) PO BID 30 days omeprazole 20 mg PO DAILY warfarin 5 mg PO DAILY 30 days Nursing Note Saw pt in anti-coag for initial visit today. He statrted on warfarin on 04/10/25 for new pulm embolism. He had an allergic reaction to eliquis with severe rash. Anti-coag education packet reviewed with pt. Risk scores done. Pt answered appropriate questions and has a good understanding of material. Will reinforce education on next visit. INR: 1.4?out of therapeutic range 2-3 Medications and supplements reviewed Patient status: well Medications or supplements: no changes. Pt states he was on doxycycline for URI 2 weeks ago and this could have a delayed effect to raise the INR. Diet: Not a strong green eater but does like green beans and coleslaw. Denies any signs and symptoms of bleeding or clotting or unusual bruising Bleeding, bruising, clotting discussed Nutritional guidance given: to focus on the foods that raise the INR Dose: dose increased from 5mg daily to 7.5mg daily F/U INR Date: 04/25/25?? Patient verbalizing understanding of instructions with read back given. Dr Green notified by composed note of INR and dosing plan with next retest date. 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 Illness/Depression: No Surgeries: Bilat Knee Replacement Anti-Coag. Education Record Teaching Recipient: Patient What is the easiest way to learn: Reading, Listening, Picture and Education Packet List any additional concerns (family/financial etc.): wears glasses File Machine Operator Required: No Readiness To Learn: Excellent Teaching Methods: Discussion, Handout, Protocol and Teach Back Response to Teaching: Reinforcement Needed and Verbalize Understanding Re-Education needs: Reinforce Content Education Intervention/Brief Description of Teaching 1. Able to state reason for taking Warfarin: Yes 2. Able to state Pain Management techniques: Yes 3. Able to state action of Warfarin.: Yes Able to state current dose, pill color, how and when Warfarin to be taken: Yes Able to identify signs of bleeding &/or clotting: Yes 4. Able to identify need to keep diet consistent in regard to vitamin K intake: Yes Able to state restriction on alcohol: Yes 5. Able to state need for compliance with PT/INR testing: Yes Describes rationale for carrying ID and wearing Medic Alert bracelet: Yes Patient instructed to monitor for excess bruising or signs/symptoms of clotting or bleeding: Yes 6. Able to state that there are drugs that interact with Warfin: Yes 7. Able to state the need to seek medical attention when illness/injury occur.: Yes Describes the need to avoid activities with high risk of injury: Yes 8. Able to state duration of treatment: Yes 9. Demonstrates understanding of notifying all providers of pending dental surgical, or other invasive procedures: Yes 10. Able to state Home Care instructions Questionnaires HAS-BLED Does the patient had uncontrolled Hypertension?: No Does the patient have renal disease?: Yes Does the patient have liver disease?: Yes (Fatty Liver) Does the patient have a history of stroke?: No Has the patient had major bleeding or predisposition to bleeding?: No Does the patient have labile INRs?: No Is the patient over 65 years of age?: No Is the patient on medications that gives them a predisposition to bleeding?: Yes Does the patient use alcohol?: No HAS-BLED Score: 3 CHADSVASC Age: <65 Gender: Male Does the patient have a history of CHF?: No Does the patient have a history of Hypertension?: Yes Does the patient have a history of Stroke/TIA/Thromboembolism?: No Does the patient have a history of Vascular Disease (prior [place], PAD or aortic plaque)?: No Does the patient have a history of Diabetes?: Yes CHADS VACS Score: 2 Renea Prediction Score Rsk VTE Active Cancer: No Previous VTE, excluding superficial vein thrombosis: No Reduced mobility: No Already known Thrombophilic Condition: No (unknown) With-in last month Trauma and/or Surgery: No Elderly 70 year or older: No Heart and/or Respiratory Failure: No Acute Myocardial infarction and/or Ischemic Stroke: No Acute Infection and/or Rheumatologic Disorder: No Obesity (BMI 30 or greater): Yes (BMI 36.6) Ongoing Hormonal Treatment: No Score: 1 Renea Score less than 4; Low Risk of VTE Renea Score 4 or greater; High Risk of VTE Coding Level of Care Code New Patient Level 2 Diagnoses Current use of anticoagulant therapy Z79.01 Time Spent (min) 70 Assessment & Plan Assessment & Plan (1) Current use of anticoagulant therapy: Code(s): Z79.01 - oil heaterman (current) use of anticoagulants Category: Medical
--- OUTSIDE RECORDS SUMMARY | 2025-04-22 11:31 | XMS_ITS | Clinical Summary ---
Author Organization [facility] Facility Address [address] [place] [address] Care Team Providers Care Honey Grader And Blender Name Role Phone Osmel Green MD Primary [...] time each day Active ergocalciferol 1.25 MG (00837 UT) capsule Take 50,000 Units by mouth [...] patient's age to complete this topic Insurance [facility] Medicaid Care Teams Honey Grader And Blender Relationship Specialty Start Date End Date Osmel Green MD [address] [address] PCP - General Family Medicine 11/29/22
== END 2025-04-22 12:18 | disposition home or self-care (01) ==
LOC: HO.ACS 10:26
PROVIDERS: PCP Family Medicine; Visit Provider Internal Medicine Medical Oncology
DX: Z79.01 Long term (current) use of anticoagulants (principal)

== ENCOUNTER 2025-04-25 10:04 | Outpatient (AMB) | payer MEDICARE, MEDICAID, SELFPAY ==
[2025-04-25 10:19] LABS: Prothrombin Time Whole Bld POC 21.4 sec (11.1-13.5); ~PT, ~INR - Anti Coag Clinic 1.8 (0.9-1.1)
--- NOTE | 2025-04-25 10:32 | MHC.OFFVISCO ---
Intake Intake Visit Reasons: Anticoagulation Allergies penicillamine Allergy (Unknown, Verified 04/25/25 10:15) unknown apixaban [From Eliquis] Adverse Reaction (Intermediate, Verified 04/25/25 10:15) Hives Medication List - Last Reconciled 04/25/25 by Mamie Ley, RN amlodipine 5 mg PO DAILY 90 days atorvastatin 20 mg PO DAILY 90 days dulaglutide 1.5 mg subcut QWEEK 28 days enoxaparin (Lovenox) 120 mg See Protocol subcut Q12H 10 days ergocalciferol (vitamin D2) 1,250 mcg PO QWEEK glipizide ER 2.5 mg PO DAILY 90 days infliximab (Remicade) 550 mg IV mecobalamin (vitamin B12) 1,000 mcg sublingual DAILY 90 days metformin 250 mg (1/2 x 500 mg) PO BID 30 days omeprazole 20 mg PO DAILY warfarin 5 mg See Protocol PO DAILY 30 days Nursing Note INR: 1.8 out of therapeutic range of 2-3 Pt's second visit to [facility]. States he did not have any greens and focused on the fruits that can raise the INR such as watermelon and cantaloupe. Medications and supplements reviewed No changes in health, diet, medications, or supplements, Denies any signs and symptoms of bleeding or bruising or clotting. Bleeding, bruising, clotting discussed Nutritional guidance given to continue the same diet. Food list reviewed and pt to add grapes. Dose: 7.5mg for next 3 days and then 5mg X1 then return for recheck F/U INR: 4 days Patient verbalizes understanding of instructions with read back given Anti-Coag Initial Assessment Social Hx Patient Tobacco Use Status: Never used Tobacco alcohol intake: never Cardiovascular Hx: HTN Lung Disease HX: DVT/PE (pe march 2025) Endocrine Hx: Diabetes Musculoskeletal Hx: Gout (Toe) Blood Disorder Hx: Hyperlipidemia GI Hx: Other (colitis, IBS) Hx: Kidney Disease (CKD stg 3) Cancer HX: Yes (Chronic Lymphocytic Leukemia in remission, diagnosed 5 years, ) Psych. Illness/Depression: No Coding Level of Care Code Est Patient Level 1 Diagnoses Current use of anticoagulant therapy Z79.01 Assessment & Plan Assessment & Plan (1) Current use of anticoagulant therapy: Code(s): Z79.01 - intermediate (current) use of anticoagulants Category: Medical
--- OUTSIDE RECORDS SUMMARY | 2025-04-25 11:37 | XMS_ITS | Clinical Summary ---
Author Organization [facility] Facility Address [address] [place] [id number] Care Team Providers Care Human Resource Advisor Name Role Phone Osmel Green MD Primary [...] time each day Active ergocalciferol 1.25 MG (16127 UT) capsule Take 50,000 Units by mouth [...] patient's age to complete this topic Insurance [facility] Medicaid Care Teams Human Resource Advisor Relationship Specialty Start Date End Date Osmel Green MD [address] [address] PCP - General Family Medicine 11/29/22
== END 2025-04-25 10:36 | disposition home or self-care (01) ==
LOC: HO.ACS 10:04
PROVIDERS: PCP Family Medicine; Visit Provider Internal Medicine Medical Oncology
DX: Z79.01 Long term (current) use of anticoagulants (principal)

== ENCOUNTER → 2025-04-25 10:04 | Outpatient (BNVA) | payer MEDICARE, MEDICAID, SELFPAY | PROVIDERS: PCP Family Medicine; Visit Provider Internal Medicine Medical Oncology | DX: I26.99 Other pulmonary embolism without acute cor pulmonale (principal); Z79.01 Long term (current) use of anticoagulants; Z51.81 Encounter for therapeutic drug level monitoring | CPT/HCPCS: 85610; 99211 ==

== ENCOUNTER 2025-04-29 11:00 | Outpatient (AMB) | payer MEDICARE, MEDICAID, SELFPAY ==
[2025-04-29 11:28] LABS: ~PT, ~INR - Anti Coag Clinic 1.9 (0.9-1.1)
--- NOTE | 2025-04-29 11:33 | MHC.OFFVISCO ---
Intake Intake Visit Reasons: Anticoagulation Allergies penicillamine Allergy (Unknown, Verified 04/29/25 11:12) unknown apixaban [From Eliquis] Adverse Reaction (Intermediate, Verified 04/29/25 11:12) Hives Medication List - Last Reconciled 04/29/25 by Yoana Shen RN amlodipine 5 mg PO DAILY 90 days atorvastatin 20 mg PO DAILY 90 days dulaglutide 1.5 mg subcut QWEEK 28 days enoxaparin (Lovenox) 120 mg See Protocol subcut Q12H 10 days ergocalciferol (vitamin D2) 1,250 mcg PO QWEEK glipizide ER 2.5 mg PO DAILY 90 days infliximab (Remicade) 550 mg IV mecobalamin (vitamin B12) 1,000 mcg sublingual DAILY 90 days metformin 250 mg (1/2 x 500 mg) PO BID 30 days omeprazole 20 mg PO DAILY warfarin 5 mg See Protocol PO DAILY 30 days Nursing Note INR 1.9 out of therapeutic range Medications and supplements reviewed Patient status: c/o being fatigued more than usual, bruise right upper arm- he states he is not sure why he has a bruise Medications or supplements: no changes Diet: good Bleeding, bruising, clotting discussed- cold pack given for right upper arm and instructions given that if bruise grows in size to call [facility] or PCP . It was explained that it may spread due to gravity but get rubber vulcanizing machine operator in color- but if grows in size and darker in color still could be bleeding. Feels like a bruise under the skin and is tender to touch. If worsens in any way to call PCP or go to ER and to keep cold compress on it Nutritional guidance given: avoid greens x 2 days , eat foods to help raise the INR Dose: 10mg today cont lovenox 1 more day and recheck INR tomorrow afternoon F/U INR Date : 04/30/25 ?? Patient verbalizing understanding of instructions given. Anti-Coag Initial Assessment Social Hx Patient Tobacco Use Status: Never used Tobacco alcohol intake: never Cardiovascular Hx: HTN Lung Disease HX: DVT/PE (pe march 2025) Endocrine Hx: Diabetes Musculoskeletal Hx: Gout (Toe) Blood Disorder Hx: Hyperlipidemia GI Hx: Other (colitis, IBS) Hx: Kidney Disease (CKD stg 3) Cancer HX: Yes (Chronic Lymphocytic Leukemia in remission, diagnosed 5 years, ) Psych. Illness/Depression: No Coding Level of Care Code Est Patient Level 1 Diagnoses Current use of anticoagulant therapy Z79.01 Results AMB INR Fingerstick AMB INR Fingerstick 1.9 Last Edit by Yoana Shen RN on 04/29/25 11:23 Assessment & Plan Assessment & Plan (1) Current use of anticoagulant therapy: Code(s): Z79.01 - exterminator (current) use of anticoagulants Category: Medical
--- OUTSIDE RECORDS SUMMARY | 2025-04-29 12:33 | XMS_ITS | Clinical Summary ---
Author Organization [facility] Facility Address [address] [place] [address] Care Team Providers Care Manufacturing Engineer Name Role Phone Osmel Green MD Primary [...] time each day Active ergocalciferol 1.25 MG (51831 UT) capsule Take 50,000 Units by mouth [...] [facility] Medicaid Care Teams Manufacturing Engineer Relationship Specialty Start Date End Date Osmel Green MD [address] [address] PCP - General Family Medicine 11/29/22
== END 2025-04-29 11:55 | disposition home or self-care (01) ==
LOC: HO.ACS 11:00
PROVIDERS: PCP Family Medicine; Visit Provider Internal Medicine Medical Oncology
DX: Z79.01 Long term (current) use of anticoagulants (principal)

== ENCOUNTER → 2025-04-29 11:00 | Outpatient (BNVA) | payer MEDICARE, MEDICAID, SELFPAY | PROVIDERS: PCP Family Medicine; Visit Provider Internal Medicine Medical Oncology | DX: I26.99 Other pulmonary embolism without acute cor pulmonale (principal); Z79.01 Long term (current) use of anticoagulants; Z51.81 Encounter for therapeutic drug level monitoring | CPT/HCPCS: 85610; 99211 ==

== ENCOUNTER 2025-04-30 10:10 | Outpatient (AMB) | payer MEDICARE, MEDICAID, SELFPAY ==
--- NOTE | 2025-04-30 10:41 | MHC.OFFVISCO ---
Intake Intake Visit Reasons: Anticoagulation Allergies penicillamine Allergy (Unknown, Verified 04/30/25 10:28) unknown apixaban [From Eliquis] Adverse Reaction (Intermediate, Verified 04/30/25 10:28) Hives Medication List - Last Reconciled 04/30/25 by Mamie Ley, RN amlodipine 5 mg PO DAILY 90 days atorvastatin 20 mg PO DAILY 90 days dulaglutide 1.5 mg subcut QWEEK 28 days enoxaparin (Lovenox) 120 mg See Protocol subcut Q12H 10 days ergocalciferol (vitamin D2) 1,250 mcg PO QWEEK glipizide ER 2.5 mg PO DAILY 90 days infliximab (Remicade) 550 mg IV mecobalamin (vitamin B12) 1,000 mcg sublingual DAILY 90 days metformin 250 mg (1/2 x 500 mg) PO BID 30 days omeprazole 20 mg PO DAILY warfarin 5 mg See Protocol PO DAILY 30 days Nursing Note INR: 2.1 in therapeutic range of 2-3 Medications and supplements reviewed No changes in health, diet, medications, or supplements, Denies any signs and symptoms of bleeding or bruising or clotting. Bleeding, bruising, clotting discussed. Moderate sized bruise noted on right STEFANIA. Nutritional guidance given to avoid greens X 2 days then balance diet Dose: 7.5mg daily F/U INR: 1 week Patient verbalizes understanding of instructions given Anti-Coag Initial Assessment Social Hx Patient Tobacco Use Status: Never used Tobacco alcohol intake: never Cardiovascular Hx: HTN Lung Disease HX: DVT/PE (pe march 2025) Endocrine Hx: Diabetes Musculoskeletal Hx: Gout (Toe) Blood Disorder Hx: Hyperlipidemia GI Hx: Other (colitis, IBS) Hx: Kidney Disease (CKD stg 3) Cancer HX: Yes (Chronic Lymphocytic Leukemia in remission, diagnosed 5 years, ) Psych. Illness/Depression: No Coding Level of Care Code Est Patient Level 1 Diagnoses Current use of anticoagulant therapy Z79.01 Results AMB INR Fingerstick AMB INR Fingerstick 2.1 Last Edit by Mamie Ley, ZHEN on 04/30/25 10:36 interface delay Assessment & Plan Assessment & Plan (1) Current use of anticoagulant therapy: Code(s): Z79.01 - [facility] (current) use of anticoagulants Category: Medical
[2025-04-30 10:54] LABS: ~PT, ~INR - Anti Coag Clinic 2.1 (0.9-1.1)
--- OUTSIDE RECORDS SUMMARY | 2025-04-30 11:43 | XMS_ITS | Clinical Summary ---
Author Organization [facility] Facility Address [address] [place] [id number] Care Team Providers Care Nail Galvanizer Name Role Phone Osmel Green MD Primary Care Provider [phone] Allergies Active Allergy Reactions Criticality Noted Date [...] time each day Active ergocalciferol 1.25 MG (14427 UT) capsule Take 50,000 Units by mouth [...] patient's age to complete this topic Insurance [facility] Medicaid Care Teams Nail Galvanizer Relationship Specialty Start Date End Date Osmel Green MD [address] [address] PCP - General Family Medicine 11/29/22
== END 2025-04-30 10:43 | disposition home or self-care (01) ==
LOC: HO.ACS 10:10
PROVIDERS: PCP Family Medicine; Visit Provider Internal Medicine Medical Oncology
DX: Z79.01 Long term (current) use of anticoagulants (principal)

== ENCOUNTER → 2025-04-30 10:10 | Outpatient (BNVA) | payer MEDICARE, MEDICAID, SELFPAY | PROVIDERS: PCP Family Medicine; Visit Provider Internal Medicine Medical Oncology | DX: I26.99 Other pulmonary embolism without acute cor pulmonale (principal); Z79.01 Long term (current) use of anticoagulants; Z51.81 Encounter for therapeutic drug level monitoring | CPT/HCPCS: 85610; 99211 ==

== ENCOUNTER → 2025-05-02 10:49 | Outpatient (BNV) | payer MEDICARE, MEDICAID, SELFPAY | PROVIDERS: PCP Family Medicine; Referring Provider Family Medicine; Visit Provider Internal Medicine | DX: I26.99 Other pulmonary embolism without acute cor pulmonale (principal) | CPT/HCPCS: 99204; G2211 ==

== ENCOUNTER 2025-05-06 11:05 | Outpatient (AMB) | payer MEDICARE, MEDICAID, SELFPAY ==
--- NOTE | 2025-05-06 11:29 | MHC.OFFVISCO ---
Intake Intake Visit Reasons: Anticoagulation Allergies penicillamine Allergy (Unknown, Verified 04/30/25 10:28) unknown apixaban [From Eliquis] Adverse Reaction (Intermediate, Verified 04/30/25 10:28) Hives Medication List - Last Reconciled 05/06/25 by Kaylie May RN amlodipine 5 mg PO DAILY 90 days atorvastatin 20 mg PO DAILY 90 days dulaglutide 1.5 mg subcut QWEEK 28 days ergocalciferol (vitamin D2) 1,250 mcg PO QWEEK glipizide ER 2.5 mg PO DAILY 90 days infliximab (Remicade) 550 mg IV DAILY mecobalamin (vitamin B12) 1,000 mcg sublingual DAILY 90 days metformin 250 mg (1/2 x 500 mg) PO BID 30 days omeprazole 20 mg PO DAILY rivaroxaban (Xarelto) 20 mg PO DAILY warfarin 5 mg PO DAILY Nursing Note INR: 2.6- in therapeutic range OF 2-3 Medications and supplements reviewed- pt states lovenox d/c on 05/02/25, taking 7.5mg of warfarin daily No changes in health, diet, medications, or supplements, Denies any signs and symptoms of bleeding or bruising or clotting. Bleeding, bruising, clotting discussed Nutritional guidance given Dose: stop warfarin and start xarelto today and take daily F/U INR: n/a Patient verbalizes understanding of instructions given pt instructed to stop warfarin and do not take anymore- inr is less than 3.0 which is recommended to start xarelto Anti-Coag Initial Assessment Social Hx Patient Tobacco Use Status: Never used Tobacco alcohol intake: never Cardiovascular Hx: HTN Lung Disease HX: DVT/PE (pe march 2025) Endocrine Hx: Diabetes Musculoskeletal Hx: Gout (Toe) Blood Disorder Hx: Hyperlipidemia GI Hx: Other (colitis, IBS) Hx: Kidney Disease (CKD stg 3) Cancer HX: Yes (Chronic Lymphocytic Leukemia in remission, diagnosed 5 years, ) Psych. Illness/Depression: No Coding Level of Care Code Est Patient Level 1 Diagnoses Current use of anticoagulant therapy Z79.01 Results AMB INR Fingerstick AMB INR Fingerstick 2.6 Last Edit by Kaylie May RN on 05/06/25 11:35 interface delay Assessment & Plan Assessment & Plan (1) Current use of anticoagulant therapy: Code(s): Z79.01 - [facility] (current) use of anticoagulants Category: Medical
[2025-05-06 11:35] LABS: Prothrombin Time Whole Bld POC 30.9 sec (11.1-13.5); ~PT, ~INR - Anti Coag Clinic 2.6 (0.9-1.1)
--- OUTSIDE RECORDS SUMMARY | 2025-05-06 12:40 | XMS_ITS | Clinical Summary ---
Author Organization [facility] Facility Address [address] [place] [id number] Care Team Providers Care Impression Printer Name Role Phone Osmel Green MD Primary [...] time each day Active ergocalciferol 1.25 MG (18282 UT) capsule Take 50,000 Units by mouth [...] patient's age to complete this topic Insurance [facility] Medicaid Care Teams Impression Printer Relationship Specialty Start Date End Date Osmel Green MD [address] [address] PCP - General Family Medicine 11/29/22
== END 2025-05-06 11:49 | disposition home or self-care (01) ==
LOC: HO.ACS 11:05
PROVIDERS: PCP Family Medicine; Visit Provider Internal Medicine Medical Oncology
DX: Z79.01 Long term (current) use of anticoagulants (principal)

== ENCOUNTER → 2025-05-06 11:05 | Outpatient (BNVA) | payer MEDICARE, MEDICAID, SELFPAY | PROVIDERS: PCP Family Medicine; Visit Provider Internal Medicine Medical Oncology | DX: I26.99 Other pulmonary embolism without acute cor pulmonale (principal); Z79.01 Long term (current) use of anticoagulants; Z51.81 Encounter for therapeutic drug level monitoring | CPT/HCPCS: 85610; 99211 ==

== ENCOUNTER 2025-05-15 08:34 | Outpatient (AMB) | payer OTHER, SELFPAY ==
--- NOTE | 2025-05-15 08:51 | A.OFFPC_ITS ---
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: No Allergies penicillamine Allergy (Unknown, Verified 05/15/25 08:52) unknown apixaban (From Eliquis) Adverse Reaction (Intermediate, Verified 05/15/25 08:52) Hives Medication List - Last Reconciled 05/15/25 by Osmel Green MD amlodipine 5 mg PO DAILY 90 days atorvastatin 20 mg PO DAILY 90 days dulaglutide 1.5 mg (0.5 mL) subcut QWEEK 84 days ergocalciferol (vitamin D2) 1,250 mcg PO QWEEK glipizide ER 5 mg (2 x 2.5 mg) PO QAM 90 days infliximab (Remicade) 550 mg IV DAILY mecobalamin (vitamin B12) 1,000 mcg sublingual DAILY 90 days metformin 250 mg (1/2 x 500 mg) PO BID 30 days omeprazole 20 mg PO DAILY rivaroxaban (Xarelto) 20 mg PO DAILY Tobacco use date assessed: 04/16/25 Dental Screening Dental Screen Date: 04/16/25 HPI f/u diabetes HPI Details 65 y/o male presents to f/u diabetes. A1c today 9.8%. Recent episode of spontaneous PE, diagnosed in March. Had developed diffuse rash after 1 dose of Eliquis. Was switched to warfarin and transitioned to Xarelto 20mg once a day as he had been having problems with warfarin due to work schedule. [facility] Medical History (Updated 05/15/25 @ 09:28 by Joaquín Nolen) Pulmonary embolism Chronic kidney disease HTN (hypertension) Diabetes Surgical History (Updated 05/02/25 @ 11:09 by Seema Rasmussen MD) H/O endoscopy History of colonoscopy History of knee replacement Family History Father CVD (cardiovascular disease) Bipolar disorder Mother Diabetes mellitus HTN (hypertension) Brother No problems noted. Brother No problems noted. Brother No problems noted. Son No problems noted. Son No problems noted. Son No problems noted. 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 [employer] Current occupational exposures/hazards: No Cognitive needs: No Hearing needs: No Vision needs: No Questionnaire Thrive Questionnaire Date Thrive assessed: 02/08/25 I am a: Patient What is your living situation today?: I choose not to answer this question Within the past 12 months, did the food you bought not last and you didn't have the money to get more?: I choose not to answer this question Within the past 12 months, did you worry whether your food would run out before you got money to buy more?: I choose not to answer this question Do you have trouble paying for medicines?: I choose not to answer this question Do you have trouble getting transportation to medical appointments?: No Do you have trouble paying your heating and electricity bill?: I choose not to answer this question Do you have trouble taking care of your child, family member or friend?: No Do you have trouble with day-to-day activities such as bathing, preparing meals, shopping, managing finances, etc.?: No Are you currently unemployed and looking for a job?: No Are you interested in more education?: No Please select the resources that you would like help with: None Currently or been in a relationship where the following occur: No concerns reported THRIVE Score: 0 TOSHIA-7 AMB Questionnaire TOSHIA-7 Date TOSHIA - 7 assessed: 02/08/25 Source: Developed by Drs. Sonny Thomas, Erendira Valverde, Fabrizio Sharp and colleagues, with an educational nigel from [employer]. Review of Systems Const Denies chills, Denies fatigue, Denies fever(s), Denies headache(s) and Denies weakness ENT Denies dizziness and Denies headache(s) Card Denies dyspnea Resp Denies cough, Denies dyspnea, Denies wheezing and Denies other (shortness of breath) Musc Denies numbness and Denies tingling Neuro Denies dizziness, Denies headache(s), Denies numbness, Denies tingling and Denies weakness Psych Denies anxiety and Denies depression Endo Denies fatigue Aller/Immun Denies wheezing Physical exam (Primary Care) Vital Signs: Last Vital Signs Temp 97.7 F 05/15/25 08:53 Pulse 85 05/15/25 08:53 Resp 16 05/15/25 08:53 BP 118/60 05/15/25 08:53 Pulse Ox 95 05/15/25 08:53 Oxygen Delivery Method Room Air 05/15/25 08:53 BMI result Body Mass Index 35.4 Tobacco/Smoking Status: Tobacco use Status Tobacco use date assessed 04/16/25 05/15/25 08:56 Patient Tobacco Use Status Never used Tobacco 05/15/25 08:56 Tobacco use type 01/21/25 11:43 e-Cigarette/Vaping Use Never Used 05/15/25 08:56 Thrive Assessment: Date of Thrive Assessment Date Thrive assessed 02/08/25 05/15/25 08:56 Currently or been in a relationship where the following occur: No concerns reported Const General: well developed; No acute distress Nutritional Appearance: well nourished Orientation/consciousness: patient oriented x3 HENMT Head: Yes normocephalic and Yes atraumatic Eyes General: appearance normal, both eyes and all related structures Pupils: Equal, round and reactive pupils present EOM: EOMs intact bilaterally Resp Effort & Inspection: normal respiratory effort Neuro General: patient oriented x3 and gait normal Cranial nerves: Yes Equal, round and reactive pupils present Psych Affect: normal affect Coding Level of Care Code Est Pt Level 4 (65249) Diagnoses Uncontrolled diabetes mellitus with hyperglycemia E11.65 Pulmonary embolism I26.99 Chronic renal failure N18.9 Assessment & Plan Assessment & Plan (1) Uncontrolled diabetes mellitus with hyperglycemia: Code(s): E11.65 - Type 2 diabetes mellitus with hyperglycemia Category: Medical Plan: A1c?now?9.8%. Patient?has?again?in?a?labs?in?his?ability?to?acquired?Trulicity. He?continues?glipizide?and?metformin?as?prescribed Will?refill?Trulicity Will?increase?glipizide Maintain?current?dose?of?metformin?though?due?to?his?renal?function?we?have?disc ussed?weaning?this?down?further?when?blood?sugars?are?better?controlled. Close?follow-up?in?a?month (2) Pulmonary embolism: Code(s): I26.99 - Other pulmonary embolism without acute cor pulmonale Category: Medical Plan: Patient?is?taking?Xarelto?as?prescribed He?is?tolerating?this?well?without?any?allergic?reaction?as?he?had?to?Eliquis. (3) Chronic renal failure: Code(s): N18.9 - Chronic kidney disease, unspecified Category: Medical Plan: Creatinine?level now?1.71,?down?from? Will?continue?to?monitor?in?hope?to?decrease?metformin?further?as?blood?sugar?im proves Orders: Referrals Nurse Navigator Referral [id number] - Housing instability, housed unspecified Medications: Changed From glipizide ER 2.5 mg PO DAILY 90 days 90 tabs 0RF To glipizide ER 5 mg (2 x 2.5 mg) PO QAM 180 tabs 2RF 90 days From dulaglutide 1.5 mg subcut QWEEK 28 days 4 mL 3RF E11.65 - Type 2 diabetes mellitus with hyperglycemia To dulaglutide 1.5 mg (0.5 mL) subcut QWEEK 6 mL 3RF 84 days E11.65 - Type 2 diabetes mellitus with hyperglycemia
[2025-05-15 08:53] VITALS: BP 118/60; PULSE 85; RESP 16; TEMP 36.5; O2SAT 95; BMI 35.4
--- OUTSIDE RECORDS SUMMARY | 2025-05-15 08:57 | XMS_ITS | Clinical Summary ---
Author Organization [facility] Facility Address [address] [place] [id number] Care Team Providers Care Pricer Bagger Name Role Phone Osmel Green MD Primary [...] time each day Active ergocalciferol 1.25 MG (22071 UT) capsule Take 50,000 Units by mouth [...] patient's age to complete this topic Insurance [facility] Medicaid Care Teams Pricer Bagger Relationship Specialty Start Date End Date Osmel Green MD [address] [address] PCP - General Family Medicine 11/29/22
== END 2025-05-15 10:32 | disposition home or self-care (01) ==
LOC: HO.HMCFM 08:34
PROVIDERS: PCP Family Medicine; Visit Provider Family Medicine
DX: E11.65 Type 2 diabetes mellitus with hyperglycemia (principal); I26.99 Other pulmonary embolism without acute cor pulmonale; N18.9 Chronic kidney disease, unspecified; E11.9 Type 2 diabetes mellitus without complications

== ENCOUNTER → 2025-05-15 08:34 | Outpatient (BNVA) | payer MEDICARE, MEDICAID, SELFPAY | PROVIDERS: PCP Family Medicine; Visit Provider Family Medicine | DX: E11.65 Type 2 diabetes mellitus with hyperglycemia (principal); I26.99 Other pulmonary embolism without acute cor pulmonale; N18.9 Chronic kidney disease, unspecified | CPT/HCPCS: 83036; 99212 ==

== ENCOUNTER 2025-06-14 06:13 | Outpatient (REF) | payer MEDICARE, SELFPAY ==
[2025-06-14 07:34] LABS: Anion Gap 13 (12-20); Blood Urea Nitrogen 15 mg/dL (9-16); Calcium 9.1 mg/dL (8.4-10.2); Carbon Dioxide 27 mmol/L (22-29); Chloride 102 mmol/L (96-108); Estimated Glomerular Filt Rate 37; Potassium 4.2 mmol/L (3.3-5.1); Sodium 138 mmol/L (135-145)
== END 2025-06-14 06:14 | disposition home or self-care (01) ==
LOC: HO.LAB 06:13
PROVIDERS: PCP Family Medicine; Visit Provider Family Medicine
DX: Z00.00 Encounter for general adult medical examination without abnormal findings (principal); E11.65 Type 2 diabetes mellitus with hyperglycemia
CPT/HCPCS: 36415; 80048

== ENCOUNTER 2025-06-18 09:55 | Outpatient (AMB) | payer MEDICARE, MEDICAID, SELFPAY ==
--- NOTE | 2025-06-18 10:03 | MHC.PC.OV ---
Intake Visit Reasons: 1 m diabetes Intake Note: Sonny presents for a telehealth appointment for his diabetes. Patient inquired about getting an updated letter to be able to stay in the hotel where he is living due to serious health conditions. He wanted to let you know that the letter worked the last rime. Allergies penicillamine Allergy (Unknown, Verified 06/18/25 10:05) unknown apixaban (From Eliquis) Adverse Reaction (Intermediate, Verified 06/18/25 10:05) Hives Medication List - Last Reconciled 06/18/25 by Osmel Green MD amlodipine 5 mg PO DAILY 90 days atorvastatin 20 mg PO DAILY 90 days dulaglutide 1.5 mg (0.5 mL) subcut QWEEK 84 days ergocalciferol (vitamin D2) 1,250 mcg PO QWEEK glipizide ER 5 mg (2 x 2.5 mg) PO QAM 90 days infliximab (Remicade) 550 mg IV DAILY mecobalamin (vitamin B12) 1,000 mcg sublingual DAILY 90 days metformin 250 mg PO ONCE omeprazole 20 mg PO DAILY rivaroxaban (Xarelto) 20 mg PO DAILY Tobacco use date assessed: 06/18/25 Dental Screening Dental Screen Date: 06/18/25 Did you have a dental visit in the last 12 months?: Yes Did you have a dental problem in the last 6 months where you did not have access to dental care?: No Was dental information given to patient?: Patient has dentist HPI 1 m diabetes HPI Details 65 y/o male presents to f/u diabetes. Had increased glipizide. He is on dulaglutide 1.5mg, metformin 250mg. Had taken awhile to get his Trulicity prescription in but has been taking this and has enough for 3 months. Has not been checking morning blood sugars. [facility] Medical History (Updated 05/15/25 @ 09:28 by Joaquín Nolen) Pulmonary embolism Chronic kidney disease HTN (hypertension) Diabetes Surgical History (Updated 05/02/25 @ 11:09 by Seema Rasmussen MD) H/O endoscopy History of colonoscopy History of knee replacement Family History Father CVD (cardiovascular disease) Bipolar disorder Mother Diabetes mellitus HTN (hypertension) Brother No problems noted. Brother No problems noted. Brother No problems noted. Son No problems noted. Son No problems noted. Son No problems noted. 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 [employer] Current occupational exposures/hazards: No Cognitive needs: No Hearing needs: No Vision needs: No Questionnaire Thrive Questionnaire Date Thrive assessed: 02/08/25 I am a: Patient What is your living situation today?: I choose not to answer this question Within the past 12 months, did the food you bought not last and you didn't have the money to get more?: I choose not to answer this question Within the past 12 months, did you worry whether your food would run out before you got money to buy more?: I choose not to answer this question Do you have trouble paying for medicines?: I choose not to answer this question Do you have trouble getting transportation to medical appointments?: No Do you have trouble paying your heating and electricity bill?: I choose not to answer this question Do you have trouble taking care of your child, family member or friend?: No Do you have trouble with day-to-day activities such as bathing, preparing meals, shopping, managing finances, etc.?: No Are you currently unemployed and looking for a job?: No Are you interested in more education?: No Please select the resources that you would like help with: None Currently or been in a relationship where the following occur: No concerns reported THRIVE Score: 0 TOSHIA-7 AMB Questionnaire TOSHIA-7 Date TOSHIA - 7 assessed: 02/08/25 Source: Developed by Drs. Sonny Thomas, Erendira Valverde, Fabrizio Sharp and colleagues, with an educational nigel from [employer]. Review of Systems Const Denies chills, Denies fatigue, Denies fever(s), Denies headache(s) and Denies weakness ENT Denies dizziness and Denies headache(s) Card Denies dyspnea Resp Denies cough, Denies dyspnea, Denies wheezing and Denies other (shortness of breath) Musc Denies numbness and Denies tingling Neuro Denies dizziness, Denies headache(s), Denies numbness, Denies tingling and Denies weakness Psych Denies anxiety and Denies depression Endo Denies fatigue Aller/Immun Denies wheezing Physical exam (Primary Care) Tobacco/Smoking Status: Tobacco use Status Tobacco use date assessed 06/18/25 06/18/25 10:11 Patient Tobacco Use Status Never used Tobacco 06/18/25 10:08 Tobacco use type 01/21/25 11:43 e-Cigarette/Vaping Use Never Used 06/18/25 10:08 Thrive Assessment: Date of Thrive Assessment Date Thrive assessed 02/08/25 06/18/25 10:03 Currently or been in a relationship where the following occur: No concerns reported Telehealth Telehealth Telehealth Platform: Telephone Location of provider rendering services: practice address Location of patient: address on file Patient Identification confirmed using: Name, : Yes Telehealth method: voice only Patient verbally consented to treatment: Yes Patient verbally consented to billing insurance company: Yes Patient informed of any privacy concerns related to visit: Yes Minutes spent on Phone/Video with Pt.: 7 Coding Level of Care Code Tele Est Pt Level 2 (22286) Diagnoses Diabetes type 2, controlled E11.9 Assessment & Plan Assessment & Plan (1) Diabetes type 2, controlled: Code(s): E11.9 - Type 2 diabetes mellitus without complications Category: Medical Plan: Patient now taking medication as prescribed. He is taking Trulicity 1.5 mg weekly, glipizide 10 mg daily and metformin 250 mg daily. Tolerating this regimen and will continue it. Will also have him check his morning blood sugars. Will follow-up in 1 month and recheck A1c Will likely increase Trulicity and if he is already at goal, we can decrease metformin further as he has some renal failure. Medications: New blood-glucose meter (FreeStyle Lite Meter kit) DX: E11.9, test blood sugar As directed, duration 999 days 1 ea 0RF E11.9 - Type 2 diabetes mellitus without complications blood sugar diagnostic (FreeStyle Lite Strips) DX: E11.9, test blood sugar Twice a day, 90 days 200 ea 4RF E11.9 - Type 2 diabetes mellitus without complications lancets (FreeStyle Lancets) As directed, 90 days 200 ea 4RF DX: E11.9, test blood sugar Twice a day, 90 day E11.9 - Type 2 diabetes mellitus without complications Changed From metformin 250 mg PO ONCE To metformin 250 mg (1/2 x 500 mg) PO ONCE 15 tabs 2RF 30 days
--- OUTSIDE RECORDS SUMMARY | 2025-06-18 10:35 | XMS_ITS | Data Portability ---
Author Organization [facility] Internal Medicine, Telehealth Patient Home Address [address] [place] [address] Assessment Encounter Date Assessment Date Assessment LastModified by Organization Details LastModified Time 03/12/2020 03/12/2020 VERBALLY CONSENTS TO TELEPHONE CONSULT PT IS AT HOME I AM AT THE OFFICE [facility] INTERNAL MEDICINE [address] total of 11 minutes spent on the phone Not available 03/12/2020 11:32:35 Plan of Treatment Reminders Order Date Submit Date Provider Last Modified By Organization Details Last Modified Time Details Appointments None recorded. Lab lipid panel, blood 2019 020 [email or web address] 10 [facility] Laboratory, [address] [place] [address], [id number], 0 08:21:20 CMP, serum or plasma 2019 [facility] [address] [place] [address], [id number], 0 10:04:28 glycohemog lobin, total, blood 2019 020 [facility] (Lab), [address] [place] [address], [address], 0 07:34:01 lipid panel, blood 2019 020 [facility] Laboratory, [address] [place] [address], [address], 0 12:41:06 CMP, serum or plasma 2019 [facility] Laboratory, [address] [place] [address], [address], 0 08:25:52 glycohemog lobin, total, blood 2018 019 [facility] (Lab), [address] [place] [address], [address], 9 08:00:25 glycohemog lobin, total, blood 2018 019 [facility] (Lab), [address] [place] [address], [address], 9 08:00:24 lipid panel, blood 2018 019 [facility] Laboratory, [address] [place] [address], [address], 9 08:00:25 CMP, serum or plasma 2018 019 [facility] Laboratory, [address] [place] [address], [address], 9 08:24:54 CMP, serum or plasma 2018 020 [facility] Laboratory, [address] [place] [address], [address], 0 08:23:06 lipid panel, blood 2018 020 [facility] Laboratory, [address] [place] [address], [address], 9 08:00:25 CMP, serum or plasma 2019 020 [facility] Laboratory, [address] [place] [address], [address], 0 08:23:11 Referral None recorded. Procedures None recorded. Surgeries None recorded. Imaging electrocar diogram 2018 019 elva [facility] Internal Medicine, [address] [facility], [address], [place], [address], 9 12:03:56 Medication Orders lisinopril 10 mg tablet 2019 020 INTERFACE [id number], [address] [place] [address], [address], 0 09:35:44 metformin 500 mg tablet 2019 020 INTERFACE [id number], [address] [place], [address], 0 09:35:44 Patient TargetsNo targets recorded. Patient Instructions Encounter Date Encounter Id Patient Instructions Last Modified By Organization Details Last Modified Time 05/21/[id number] learning about high white blood cell counts Not available 05/21/2019 12:00:53 knee arthritis: care instructions Not available 05/21/2019 12:00:53 high blood pressure: care instructions Not available 05/21/2019 12:00:53 learning about high blood pressure Not available 05/21/2019 12:00:53 high cholesterol : care instructions Not available 05/21/2019 12:00:53 chronic lymphocytic leukemia: care instructions Not available 05/21/2019 12:00:53 07/11/2019 [id number] When You Want to Lose Weight: Care Instructions Not available 07/11/2019 11:15:26 knee arthritis: care instructions Not available 07/11/2019 11:15:26 high blood pressure: care instructions Not available 07/11/2019 11:15:26 learning about high blood pressure Not available 07/11/2019 11:15:26 high cholesterol : care instructions Not available 07/11/2019 11:15:26 12/21/2019 [id number] When You Want to Lose Weight: Care Instructions Not available 12/21/2019 12:33:41 knee arthritis: care instructions Not available 12/21/2019 12:33:41 high blood pressure: care instructions Not available 12/21/2019 12:33:41 learning about high blood pressure Not available 12/21/2019 12:33:40 high cholesterol : care instructions Not available 12/21/2019 12:33:41 03/12/2020 [id number] high blood pressure: care instructions Not available 03/12/2020 11:31:47 learning about high blood pressure Not available 03/12/2020 11:31:47 high cholesterol : care instructions Not available 03/12/2020 11:31:47 Not available 03/12 11:32:24 Reason for Referral None Reported. Results Created Date Observation Date Name Description Value Unit Range Abnormal Flag Note LastModifiedBy Organization Detail LastModifiedTime 05/21/20 19 05/21/2019 elect rocmarge diogr am Rate & Rhythm 88 regula r Not Available [facility] Internal Medicine [address] [facility] [address], [place], [address], 05/21/2019 11:49:38 05/21/2005/21/2019 elect rocmarge diogr am QRS 12/-21 /3 Not Available [facility] Medicine [address] [facility] [address], [place], [address], 05/21/2019 11:49:38 05/21/2005/21/2019 elect rocar diogr am CO Interval 106/15 2 Not Available [facility] [address] [facility] [address], [place], [address], 05/21/2019 11:49:38 05/21/2005/21/2019 elect rocar diogr am QRS Duration 92 ms Not Available [facility] Internal Medicine [address] [facility] [address], [place], [address], 05/21/2019 11:49:38 05/21/2005/21/2019 elect rocar diogr am QT Interval 364/44 0 Not Available [facility] [address] [facility] [address], [place], [address], 05/21/2019 11:49:38 06/08/20 19 06/08/2019 US, mathew xdarian s, [facility] mity No observ ation record ed. [facility] Diagnosit Imaging Dept [address] [facility], [place], [address], 06/08/2019 14:23:27 Result Notes None recorded. Problems Name Problem SNOMED Code Status Onset Date Resolution Date Notes Provider Name and Address Organization Details Recorded Time Chronic hepatiti s C 973558730 Active 2017 Mariza dutta [facility] 8 14:19:52 Non-alco holic fatty liver 237918343 Active 2017 Mariza dutta [facility] 8 14:20:16 Anemia 579987546 Active 2017 Mariza dutta [facility] 8 14:20:23 Essentia l hyperten true 47660590 Active 2017 Mariza dutta [facility] 8 14:20:29 Hyperlip idemia 36137563 Active 2017 Mariza dutta [facility] 8 14:20:39 Irritabl e bowel syndrome 81619426 Active 2017 Mariza dutta [facility] 8 14:20:46 Obesity 700323691 Active 2017 Mariza dutta [facility] 8 14:20:53 Chronic ulcerati ve rectosig moiditis 34220342 Active 2017 Mariza dutta [facility] 8 14:21:25 Diabetes mellitus 79974115 Active 2017 Mariza dutta [facility] 8 14:21:33 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 Procedures Surgical History Date Name Laterality Status Provider Name and Address Organization Details Recorded Time 05/28/20 total knee replacement completed February SANGEETHA Fernando [address] [place], [address], [facility] 07/11/2019 11:12:42 Imaging Results None recorded. Procedure Notes None recorded. Medical Equipment None Reported. Allergies Allergen ID Allergen Name Allergen Category Reaction Reaction Severity Criticality Documentation Date Start Date Code Code System Note Provider Name and Address Organization Details Recorded Time 164 Product containin g penicilli n (product) medicatio n Not available Not available Not available 05/09/2018 54831 8001 [facility]ED [facility] 14:[facility]57 Medications Name Sig Start [...] Available Not Available Not Available Flucelvax Quad 7613-2867 (PF) 60 mcg (15 mcg x 4)/0.5 mL IM syringe 05/10 completed Not Available Not Available Not Available Flucelvax Quad (PF) 60 mcg (15 mcg x 4)/0.5 mL IM syringe 12/21 completed Not Available Not Available Not Available Vitals Date Recorded Body mass index (BMI) Body weight Provider Name and Address Organization Details Last Updated DateTime 12/21/2019 36.9 kg/m2 625124.24 g February SANGEETHA Fernando [address] [place] [address], [id number] 12/21/2019 12:35:09 Date Recorded Body height Heart rate Oxygen saturation Oxygen saturation in Arterial blood by Pulse oximetry Systolic And Diastolic Provider Name and Address Organization Details Last Updated DateTime 0 177.8 cm 92 /min 97 % 97 % 116/72 mm[Hg] Mariza Adamson [facility] 0 12:17:24 Date Recorded Body height Body mass index (BMI) Body weight Heart rate Oxygen saturation Oxygen saturation in Arterial blood by Pulse oximetry Systolic And Diastolic Provider Name and Address Organization Details Last Updated DateTime 9 177.8 cm 35.2 kg/m2 365930. 29 g 90 /min 96 % 96 % 108/74 mm[Hg] Jovana Bailey [facility] 9 11:28:17 Date Recorded Body height Body mass index (BMI) Body weight Heart rate Oxygen saturation Oxygen saturation in Arterial blood by Pulse oximetry Systolic And Diastolic Provider Name and Address Organization Details Last Updated DateTime 0 177.8 cm 37.7 kg/m2 850463. 64 g 80 /min 96 % 96 % 130/80 mm[Hg] Deena Eugene [facility] 0 09:23:00 Date Recorded Body height Body mass index (BMI) Body weight Heart rate Oxygen saturation Oxygen saturation in Arterial blood by Pulse oximetry Systolic And Diastolic Provider Name and Address Organization Details Last Updated DateTime 9 177.8 cm 34.5 kg/m2 535633. 61 g 86 /min 98 % 98 % 108/74 mm[Hg] Jovana Leo [facility] 9 11:00:32 Social History Question Answer Notes LastModified by Organizat ion Details LastModified Time Tobacco Smoking Status Never Smoker Not Available [facility] 09/23/2020 03:36:23 What Was The Date Of Your Most Recent Tobacco Screening? 05/21/2019 [id number] Information not available 09/23/2020 Sex: Unknown Functional Status None recorded. Mental Status None recorded. Family History Nothing Reported. Medical History No medical history recorded. Immunizations Vaccine Type Date Status Note Provider Nam e and Address Organization Details Recorded Time pneumococcal polysaccharide PPV23 5 completed Mariza dutta [facility] Internal [facility] 05/09/2018 14:31:07 TST-PPD intradermal 1 completed Mariza dutta [facility] Internal [facility] 05/09/2018 14:31:32 TST-PPD intradermal 1 completed Mariza dutta [facility] 05/09/2018 14:31:45 Past Encounters Encounter ID Performer Location Encounter Start Date Encounter Closed Date Diagnosis/Indication Diagnosis SNOMED-CT Code Diagnosis ICD10 Code Diagnosis Note [id number] Wilmar Malave [facility] Internal Medicine [address] [facility],[address] [place] [address] 05/10/2018 11:11:42 05/12/2018 08:37:17 Leukocytosis 032074133 D72.829 Knee pain 27921279 M25.5 69 Essential hypertension 89904380 I10 mildly elevated follow Ulcerative colitis 18722 004 K51.90 remicade infusions [id number] Wilmar Malave [facility] Internal Medicine [address] [facility],[place]ena[place] [place] [address] 12/15/2018 10:30:43 12/15/2018 11:24:23 Hyperlipidemia 94246530 E78.2 Essential hypertension 71670761 I10 mildly elevated follow Diabetes mellitus 388989 09 E11.9 Ulcerative colitis 81688 004 K51.90 remicade infusions restarted after 3 month hiatus 2nd insurance Osteoarthr itis of knee 368881445 M17.0 Dysuria 50711725 R30.0 Chronic ly mphoid leukemia, disease 61365483 C91.90 Stage 0, seeing hematologi st Obesity 227999227 E66.9 Discussed weight loss, diet improvemen t [id number] Wilmar Malave [facility] Internal Medicine [address] [facility], [place] [address] 01/05/2019 09:38:48 01/05/2019 11:15:52 Chronic lymphoid leukemia, disease 22799744 C91.90 Stage 0, seeing hematologi st Hyperlipidemia 32417718 E78.2 Essential hypertension 43351522 I10 improved Diabetes mellitus 577955 09 E11.9 A1C 6.4 Osteoarthr itis of knee 860455377 M17.0 has ortho appt 01/29/19 [id number] Wilmar Malave [facility] Internal Medicine [address] [facility], [place] [address] 05/21/2019 11:20:40 05/21/2019 12:03:56 Pre-surgery evaluation 059480632 Z01.818 cleared for procedure Osteoarthr itis of knee 244725691 M17.0 Essential hypertension 04877923 I10 very well controlled Hyperlipidemia 90550715 E78.5 very well controlled as of 02/2019 Diabetes mellitus 781052 09 E11.9 very well controlled as of 02/2019 a1c was 6.3 05/14/19 BS was 88 Leukocytosis 929021488 D 72.829 stable wbc is monitored every 6 months by oncologist Chronic ul cerative rectosigmoiditis 81066577 K51.30 currently with diarrhea as he has been off the remicade for 2 months in preparatio n for the surgery per dr nelson (ortho) and dr. avila (gi) Chronic ly mphoid leukemia, disease 23691677 C91.[address] suero every 6 months [id number] Wilmar Malave [facility] Internal Medicine [address],[place] [address] 07/11/2019 10:50:28 07/11/2019 11:43:59 Essential hypertension 78013449 I10 very well controlled Osteoarthr itis of knee 251362903 M17.0 s/p double tkr, with progressiv e improvemen t Obesity 922025615 E66.9 Hyperlipidemia 78873404 E78.5 very well controlled as of 02/2019 Diabetes mellitus 415255 09 E11.9 very well controlled as of 02/2019 a1c was 6.3 05/14/19 BS was 88 [id number] Wilmar Malave [facility] Internal Medicine [address] [facility] [address],[place] [address] 12/21/2019 11:56:05 12/21/2019 13:55:20 Essential hypertension 24796484 I10 very well controlled Osteoarthr itis of knee 494743874 M17.0 s/p double tkr, with progressiv e improvemen t Obesity 349244704 E66.9 working on weight again gained weight after surgery/se dentary Hyperlipidemia 04794773 E78.5 controlled Diabetes mellitus 912106 09 E11.9 at goal [id number] Wilmar Malave [facility] Internal Medicine [address] [facility] [address] [employer] [facility] [place] [address] 03/12/2020 08:16:59 03/12/2020 11:50:41 Diabetes mellitus 07743413 E11.9 a1c 7.0 advised to work on diet slightly and continue wlaking recheck in 3 months Essential hypertension 35781920 I10 stable previously , recheck at fu in may Hyperlipidemia 14447971 E78.5 [place] [id number] Wilmar Malave [facility] Internal Medicine [address],[place] [address] 06/20/2020 09:17:18 06/20/2020 11:34:28 Diabetes mellitus 16366551 E11.9 stable, doing well is trying to work on diet labs looked good Essential hypertension 13633119 I10 BP is stable on medication Liver func tion tests outside reference range 745376457 R94.5 will recheck CMP and see if ALT has improved Health Concerns Section Related Observation LastModified by Organization Detai ls LastModified Time None Recorded Concern Status LastModified by Organization Details LastModified Time None Recorded Advance Directives Directive None Recorded Payers Insurance Date Sequence Insurance Name Policy Number Policy Castro Covered Member ID Castro Member ID Guarantor Name 06/19/2020 1 [facility] (HMO) [id number] Sonny Mota [id number] Sonny Mota 06/16/2020 1 [facility] (HMO) [id number] Sonny Mota [id number] Sonny Mota 06/16/2020 1 [facility] [id number] Sonny Mota [id number] Sonny Mota
--- OUTSIDE RECORDS SUMMARY | 2025-06-18 10:35 | XMS_ITS | Clinical Summary ---
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
--- OUTSIDE RECORDS SUMMARY | 2025-06-18 10:35 | XMS_ITS | Encounter Summary ---
Author Organization [facility] Address [address] [place] [address] Phone Care Team Providers Care Pharmaceutical Sales Name Role Phone Oc Bains MD Unavailable [phone] Ad Otero DO Unavailable [phone] Osmel Green MD Primary Care Provider Summer Walker ANALYTICAL LAB ANALYST Unavailable [phone] Encounter Details Date Type Department Care Team (Latest Contact Info) Description 06/23/2021 Transcribe Orders [facility] Laboratory [address] [place] [address] [phone] Oc Bains MD [address] [place] [address] [phone] [email or web address] Encounter for therapeutic drug level monitoring (Primary Dx); Colitis Social History Tobacco Use Types Packs/Day Years Used Date Smoking Tobacco: Never Smokeless Tobacco: Never Alcohol Use Standard Drinks/Week Comments Yes 0 (1 standard drink = 0.6 oz pure alcohol) occasional - 1 drink every 3 months Sex and Gender Information Value Date Recorded Sex Assigned at Male 10/11/2023 8:23 AM EST Legal Sex Male 9:49 PM EDT Gender Identity Male 10/11/2023 8:23 AM EST Sexual Orientation Not on file documented as of this encounter Plan of Treatment Upcoming Encounters Date Type Department Care Team (Late st Contact Info) Description 07/16/2025 7:30 AM EDT Infusion [facility] Medical Infusion Center [address] [place] [address] Oc Bains MD [address] [place] [phone] luis 08/22/2025 1:30 PM EDT Appointment [facility] Laboratory [address] [place] [address] Ad Otero, DO [address] [place] [address] [email or web address] 08/22/2025 2:30 PM EDT Office Visit [facility] at [address] [address] Ad Otero, DO [address] [place] [id number] [email or web address] 08/27/2025 7:30 AM EDT Infusion [facility] Medical Infusion Center [address] [place] [address] Oc Bains MD [address] [place] [phone] luis 10/08/2025 7:30 AM EST Infusion [facility] Infusion [address] [address] Oc Bains MD [address] [place] [address] luis 11/19/2025 7:30 AM EST Infusion [facility] Medical Infusion Center [address] [place] [address] Oc Bains MD [address] [place] [address] luis 12/31/2025 7:30 AM EST Infusion [facility] Infusion [address] [address] Oc Bains MD [address] [place] [address] [email or web address] documented as of this encounter Results * Miscellaneous lab test (06/23/2021 3:35 PM EDT) TESTS REQUESTED PROMETHEUS... ....INFXR [facility] SPECIMEN/TUBE TYPE RED [facility] REQUEST RECEIVED Request received. A separate order for the requested test will be generated by the laboratory. [facility] Blood 06/23/2021 3:35 PM EDT 06/23/2021 3:55 PM EDT us Oc Bains MD LAB BLOOD ORDERABLES Final Res ult Performing Organization Address [facility] Co de Phone Number [address] [address] * (ABNORMAL) 25-OH vitamin D (06/23/2021 3:35 PM EDT) Pathologist [facility] 25 OH VIT D (TOTAL) 24(L) 30 - 60 ng/mL [facility] Blood 06/23/2021 3:35 PM EDT 06/23/2021 3:55 PM EDT us Oc Bains MD LAB BLOOD ORDERABLES Final Res ult Performing Organization Address City/[facility]/ZIP Co de Phone Number [address] [address] * (ABNORMAL) Comprehensive metabolic panel (06/23/2021 3:35 PM EDT) Pathologist [facility] SODIUM 140 133 - 146 mmol/L [facility] POTASSIUM 4.3 3.3 - 5.1 mmol/L [facility] CHLORIDE 103 96 - 108 mmol/L [facility] CO2 25 21 - 35 mmol/L [facility] BUN 12 6 - 19 mg/dL [facility] CREATININE 1.20 0.5 - 1.5 mg/dL [facility] GLUCOSE 144(H) 70 - 99 mg/dL [facility] ALBUMIN 4.4 3.9 - 4.8 g/dL [facility] TOTAL PROTEIN 7.6 6.5 - 8.0 g/dL [facility] CALCIUM 10.1 8.4 - 10.3 mg/dL [facility] ALKALINE PHOSPHATASE 64 39 - 117 U/L [facility] TOTAL BILIRUBIN 0.3 0.0 - 1.2 mg/dL [facility] AST 53(H) 0 - 37 U/L [facility] ALT 48(H) 0 - 40 U/L [facility] GLOBULIN 3.2 1 - 4.8 g/dL [facility] EGFR 65 >59 mL/min/1.7 3m2 [facility] Comment:Estimated glomerular filtration rate calculated using the CKD-EPI equation. ANION GAP 16 10 - 20 mmol/L [facility] Blood 06/23/2021 3:35 PM EDT 06/23/2021 3:55 PM EDT us Oc Bains MD LAB BLOOD ORDERABLES Final Res ult [facility] [address] [place] [address] * (ABNORMAL) CBC (06/23/2021 3:35 PM EDT) WBC 12.30(H) 4.00 - 11.00 K/uL [facility] RBC 4.20 3.90 - 5.69 M/uL [facility] HGB 13.5 12.4 - 17.3 g/dL [facility] HCT 39.7 37.0 - 51.0 % [facility] PLT 325 140 - 430 K/uL [facility] MCV 94.5 78.0 - 97.0 fL [facility] MCH 32.1 25.0 - 33.0 pg [facility] MCHC 34.0 32.0 - 36.0 g/dL [facility] RDW 12.9 11.0 - 15.0 % [facility] MPV 10.6 8.4 - 12.8 fl [facility] NRBC 0.00 0 /100 WBCs [facility] ABSOLUTE NRBC 0.00 0 K/uL [facility] Blood 06/23/2021 3:35 PM EDT 06/23/2021 3:55 PM EDT us Oc Bains MD LAB BLOOD ORDERABLES Final Res ult [facility] [address] [place] [address] documented in this encounter Visit Diagnoses Diagnosis Encounter for therapeutic drug level monitoring- Primary Colitis Other and unspecified noninfectious gastroenteritis and colitis documented in this encounter Care Teams Pharmaceutical Sales Relationship Specialty Start Date End Date Osmel Green MD [address] [place] [address] PCP - General 09/04/20 Oc Bains MD [address] [place] [phone] [email or web address] 05/17/18 Ad Otero DO [address] [place] [phone] [email or web address] Primary Oncologist Hematology and Oncology 12/06/18 Summer Walker FNP [address] [place] [phone] [email or web address] Nurse Practitioner Medical Oncology 01/23/21 documented as of this encounter Additional Source Comments The information contained in this document represents components of the legal health record. It is not the complete legal health record.[facility]
--- OUTSIDE RECORDS SUMMARY | 2025-06-18 10:35 | XMS_ITS | Clinical Summary ---
Author Organization [facility] Facility Address [address] [place] [address] Care Team Providers Care Medicare Insurance Specialist Name Role Phone Osmel Green MD Primary [...] time each day Active ergocalciferol 1.25 MG (76959 UT) capsule Take 50,000 Units by mouth [...] Visual Foot Exam 03/02/2023 Influenza Vaccine (#1) 2025 2, 08/04/2021, 07/19/2020, Additional history exists Pneumococcal Vaccine: Peds (0 to 5 Years) and At-Risk Patients (6 to 49 Years) Discontinued 07/24/2015 Hepatitis B Vaccine Aged Out No longe r eligible based on patient's age to complete this topic Insurance [facility] Medicaid Care Teams Medicare Insurance Specialist Relationship Specialty Start Date End Date Osmel Green MD [address] [address] PCP - General Family Medicine 11/29/22
--- OUTSIDE RECORDS SUMMARY | 2025-06-18 10:36 | XMS_ITS | Clinical Summary ---
Author Organization [employer] Address [address] [address] [place] [address] Care Team Providers Care Casting And Curing Operator Name Role Phone Unavailable Primary Care [...] 2023-2 5 season) 2024 Influenza Vaccine (#1) 2025 RSV Patients and Pa tients Aged 60 [...]
== END 2025-06-18 15:09 | disposition home or self-care (01) ==
LOC: HO.HMCFM 09:56
PROVIDERS: PCP Family Medicine; Visit Provider Family Medicine
DX: E11.9 Type 2 diabetes mellitus without complications (principal)

== ENCOUNTER 2025-09-04 17:28 | Emergency (ER) | payer MEDICAID, SELFPAY ==
--- NOTE | ~2025-09-04 | XR_ITS ---
CLINICAL HISTORY: L Great Toe, Hx of gout 3 view left 1st toe Comparison: None provided Findings: No dislocations. No significant arthritic change. No erosions. No radiopaque foreign body. Cortical irregularity of the medial sesamoid of the 1st digit volar plate IMPRESSION: Fracture of the 1st digit medial sesamoid volar plate suspected. Clinical correlation suggested. This document has been electronically signed by: Ang Bingham MD on 09/04/2025 18:20:37
[2025-09-04 17:43] VITALS: BP 167/99; PULSE 90; RESP 18; TEMP 36.3; O2SAT 96; BMI 35.5
--- NOTE | 2025-09-04 17:43 | ED_ITS ---
HPI - General Adult General Chief complaint: General Medical Stated complaint: gout started last night, dehydrated Time Seen by Provider: 09/04/25 21:21 Source: patient Mode of arrival: ambulatory Limitations: no limitations History of Present Illness ED Provider: Dr. Quinton Dick HPI narrative: 65-year-old male with a history of diabetes, pulmonary embolism, cellulitis, chronic renal failure from hypertension, hyperlipidemia, gout, anemia who presents emergency department for evaluation of pain in his left great toe. He states the pain came on suddenly yesterday, and got progressively worse. he states that the toe is very painful to touch and pain is very similar to gout in the past. Patient states over the past 1.5 weeks he has been urinating frequently, he is thirsty all the time, he states he has had blurred vision. The patient is compliant with his diabetes medicines. The patient is not checking his glucose at home. Patient is on metformin 500 mg twice a day Trulicity weekly. Related Data Home Medications ?Medication ?Instructions ?Recorded ?Confirmed ergocalciferol (vitamin D2) 1,250 1,250 mcg PO QWEEK 0 07/23/21 06/18/25 mcg (50,000 unit) capsule infliximab 100 mg intravenous 550 mg IV DAILY 02/08/25 06/18/25 solution (Remicade) omeprazole 20 mg tablet,delayed 20 mg PO DAILY 5 06/18/25 release Previous Rx's ?Medication ?Instructions ?Recorded atorvastatin 20 mg tablet 20 mg PO DAILY 90 days #90 t abs 05/04/24 mecobalamin (vitamin B12) 1,000 1,000 mcg sublingual D AILY 90 days 02/13/25 mcg disintegrating #90 tabs tablet,sublingual rivaroxaban 20 mg tablet (Xarelto) 20 mg PO DAILY #30 tabs 05/02/25 dulaglutide 1.5 mg/0.5 mL 1.5 mg (0.5 mL) subcut QWEEK 84 05/15/25 subcutaneous pen injector days #6 mL glipizide 2.5 mg tablet, extended 5 mg (2 x 2.5 mg) PO QAM 90 days 05/15/25 release 24 hr #180 tabs amlodipine 5 mg tablet 5 mg PO DAILY 90 days #90 ta bs 05/31/25 blood sugar diagnostic (FreeStyle #200 ea 06/18/25 Lite Strips) blood-glucose meter (FreeStyle #1 ea 06/18/25 Lite Meter kit) lancets 28 gauge (FreeStyle #200 ea 06/18/25 Lancets) metformin 500 mg tablet 250 mg (1/2 x 500 mg) PO ONC E 30 06/18/25 days #15 tabs prednisone 20 mg tablet 40 mg (2 x 20 mg) PO DAILY 5 days 09/05/25 #10 tabs Allergies Allergy/AdvReac Type Severity Reaction Status Date / Time penicillamine Allergy Unknown unknown Verified 09/04/25 17:45 apixaban (From Eliquis) AdvReac Intermediate Hives Verified 09/04/25 17:45 Review of Systems 2 Review of Systems: Yes all other systems are reviewed and are negative [facility] Past Medical History Medical History (Updated 09/05/25 @ 00:00 by Akil Paula) Pulmonary embolism Chronic kidney disease HTN (hypertension) Diabetes Surgical History H/O endoscopy History of colonoscopy History of knee replacement Family History Family History Father CVD (cardiovascular disease) Bipolar disorder Mother Diabetes mellitus HTN (hypertension) Brother No problems noted. Brother No problems noted. Brother No problems noted. Son No problems noted. Son No problems noted. Son No problems noted. 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[employer] Current occupational exposures/hazards: No Cognitive needs: No Hearing needs: No Vision needs: No Physical Exam ED Vital Signs: Vital Signs - 24 hr 09/04/25 17:43 09/04/25 21:03 Temperature 97.3 F 98.3 F Pulse Rate 90 82 Respiratory Rate 18 16 Blood Pressure 167/99 H 119/77 Pulse Oximetry 96 94 Oxygen Delivery Method Room Air Room Air BMI result Body Mass Index 35.5 Vital signs revealed an elevated blood pressure 67 otherwise unremarkable Exam: General: Awake, alert in no distress Head: Normocephalic, atraumatic EENT: PERRL, sclera and conjunctiva are normal, mouth with no erythema or exudates Neck: Supple, no adenopathy Lung: breath sounds symmetric, no wheezing, no rales and no rhonchi Chest: symmetric movement, nontender Heart: regular rate and rhythm, normal S1, S2 no murmurs or rubs Abdomen: soft, non-tender, nondistended, normal bowel sounds Back: no vertebral tenderness, no CVAT Extremities: patient has erythema and tenderness over the MTP left great toe, with the erythema over this area Neuro: Awake, alert, oriented, normal speech, cranial nerves 2-12 intact, moves all extremities symmetrically Psych: Pleasant, cooperative Course Course Course Narrative: This is a Rapid Medical Examination (RME) performed by Ene Castillo PA-C in triage. Full HPI, ROS, assessment and treatment plan per primary provider in the Main ED. Hx: Patient is a 65 yo man with a pmhx of T2DM, HTN, and gout who presents for evaluation of L great toe pain beginning last night. Also endorses dry mouth and frequent urination. On anticoagulation. Does not check blood sugar at home. Plan:labs, uric acid, xrs Medications Administered Discontinued Medications Generic Name Dose Route Start Last Admin Trade Name Freq PRN Reason Stop Dose Admin Prednisone 40 mg 09/04/25 22:28 09/04/25 22:35 Prednisone 20 Mg Tablet PO 09/04/25 22:29 40 mg ONCE ONE Administration Medical Decision Making Medical Decision Making [facility] Narrative: 65-year-old male with a history of diabetes, pulmonary embolism, cellulitis, chronic renal failure from hypertension, hyperlipidemia, gout, anemia who presents emergency department for evaluation of pain in his left great toe. He states the pain came on suddenly yesterday, and got progressively worse. he states that the toe is very painful to touch and pain is very similar to gout in the past. Patient states over the past 1.5 weeks he has been urinating frequently, he is thirsty all the time, he states he has had blurred vision. The patient is compliant with his diabetes medicines. The patient is not checking his glucose at home. Patient is on metformin 500 mg twice a day Trulicity weekly. vital signs revealed an initial blood pressure which improve your treatment, and tenderness with erythema of the left great toe over the MTP joint. Differential diagnosis: Includes but is not limited to Left great toe gout, left great toe cellulitis/ osteomyelitis, hyperglycemia, electrolyte abnormalities, anemia Course: My independent interpretation patient's the patient is as follows: BUN and creatinine elevated 17 and 1.82 with low GFR of 38 -this is chronic. glucose elevated 274. WBC elevated 13,500. AST, ALT and alkaline phosphatase were elevated at 52, 78 and 119. x-rays of the left great toe on my review did not you fracture and the radiologist reading question a possible fracture a sesamoid bone. The patient however does not have tenderness to palpation in in this area , therefore I suspect this finding is more consistent with arthritic change than an acute fracture. I did discuss the x-ray readings by the radiologist's and my interpretation of the x-rays with the patient. I did show the patient his x- rays explained my impression The glucose is elevated this has secondary to his diabetes mellitus and I do not think that he is in DKA time for severely dehydrated. Discuss this with the patient. I told him that you should talk to his PCP to determine if he needs a change in his aunt that diabetic medications. The patient's presentation is consistent with gout. If the patient has spoke hyperglycemia secondary to diabetes and chronic kidney disease. Given these findings I think the prednisone to be this safe for her to use to treat his gout at this time and I did discuss this with him. I did tell him that prednisone in his glucose in and needs to increase his fluid intake to help to prevent dehydration to turn keep his glucose lower. The patient is started on a prednisone tapering course 40 mg once a day X5 days then decrease by 1 pill every day until completing the tapering course. You were given printed and verbal instructions and discharged home.. Differential Diagnosis Differential Diagnoses: The differential diagnosis associated with the presentation includes ( see above) Admission/Observation Consideration of admission/observation: Escalation of care including admission/observation considered ( yes) Lab Data MDM Lab Attestation statement: I reviewed the patient's lab results. 09/04/25 18:07 09/04/25 18:07 Labs: Lab Results 09/04/25 Range/Units 18:07 WBC 13.7 H (4.8-10.8) X10*3/uL RBC 4.43 L (4.60-5.80) X10*6/uL Hgb 14.2 (14.0-18.0) g/dl Hct 40.3 L (42.0-52.0) % MCV 91.0 (80.0-98.0) fL MCH 32.1 (27.0-33.0) pg MCHC 35.2 (31.0-36.0) g/dl RDW 12.5 (11.0-16.0) % Plt Count 267 (160-400) X10*3/uL MPV 10.0 (9.4-12.4) fL Immature Gran % (Auto) 0.6 H (0.0-0.4) % Neut % (Auto) 44.0 L (45-73) % Lymph % (Auto) 45.3 H (20-40) % Letcher % (Auto) 7.6 (2-11) % Eos % (Auto) 2.0 (0-4) % Baso % (Auto) 0.5 (0-2) % Lymph # (Auto) 6.2 H (1.2-4.9) X10*3/uL Letcher # (Auto) 1.0 (0.1-1.2) X10*3/uL Eos # (Auto) 0.3 (0.0-0.4) X10*3/uL Baso # (Auto) 0.1 (0.0-0.2) X10*3/uL Abs Immat Gran (auto) 0.08 H (0.00-0.03) X10*3/uL Absolute Neuts (auto) 6.1 (2.0-8.3) x10*3/uL Absolute Nucleated RBC 0.000 (0.0-0.012) X10*3/uL Nucleated RBC % (auto) 0.0 (0.0-0.2) /100WBC Smear Tech's Comments VERIFIED Sodium 137 (135-145) mmol/L Potassium 3.8 (3.3-5.1) mmol/L Chloride 103 (96-108) mmol/L Carbon Dioxide 25 (22-29) mmol/L Anion Gap 13 (12-20) BUN 17 H (9-16) mg/dL Creatinine 1.82 H (0.5-1.4) mg/dL Estim Creat Clear Calc 50.7 Estimated GFR 38 Random Glucose 274 H (60-115) mg/dL Uric Acid 6.4 (3.4-7.0) mg/dL Calcium 9.7 D (8.4-10.2) mg/dL Magnesium 2.0 (1.6-2.6) mg/dL Total Bilirubin 0.6 (0.0-1.0) mg/dL AST 52 H (5-37) U/L ALT 78 H (0-40) U/L Alkaline Phosphatase 119 H (39-117) U/L Total Protein 7.7 (6.5-8.0) g/dL Albumin 4.6 (3.5-5.0) g/dL Independent Interpretation I performed an independent interpretation of an: Plain X-Ray Interpretation: my independent interpretation of the patient's three-view your left 1st doing phrase as follows: No acute fracture your the radiologist noted fracture over the 1st toe medial sesamoid bone but I do not think that this has acute this is more consistent with arthritis as opposed to an acute fracture. Radiology Impression Discussion of test interpretation with radiology: I have reviewed the radiologist's reading. Radiologist Impression: 3 view left 1st toe Comparison: None provided Findings: No dislocations. No significant arthritic change. No erosions. No radiopaque foreign body. Cortical irregularity of the medial sesamoid of the 1st digit volar plate IMPRESSION: Fracture of the 1st digit medial sesamoid volar plate suspected. Clinical correlation suggested. This document has been electronically signed by: Ang Bingham MD on 09/04/2025 18:20:37 Prescription Management I considered prescription management with: Pain Medication ( anti-inflammatory steroids left pain medication: Prednisone) Chronic Conditions Patient?s care impacted by: Diabetes and Other ( chronic kidney disease) Discharge Plan Discharge Clinical Impression: Gouty arthritis of left great toe Patient Disposition: Home, Self-Care Additional Instructions: Your blood [place] [address] which goes along with inflammation. Your BUN and creatinine were elevated 17 and 1.82 that this has consistent with your previous findings. You had slight elevations in your AST and ALT (liver tests) 52 and 78-normal is 40. This is similar to your previous elevations in your liver tests. The radiologist felt that you may have a broken sesamoid bone (a bone around your big toe) however I do not think this is caused you were pain in your pain is more likely caused by gout. Take prednisone 10 mg pills, 4 pills once a day for 4 days then decrease by 1 pill per day until you complete the prescription. While you are on prednisone, this will increase your glucose (sugar). Increase your fluid intake to help keep your glucose down and make sure you take your diabetes medicines as prescribed. Your glucose today was elevated at 274. Normal is between 60 and 100. Your symptoms of increased thirst and urinary frequency are most likely caused by your high glucose. You should discuss your diabetes medicines with the your doctor to see if you need to increase your medications or change your medications to help control your high sugars. Follow-up with your doctor in 2 days. Please return to the emergency department if your symptoms get worse or if you develop any symptoms that are concerning to you. Prescriptions: New prednisone 20 mg tablet 40 mg PO DAILY 5 Days Qty: 10 0RF No Action atorvastatin 20 mg tablet 20 mg PO DAILY 90 Days Qty: 90 3RF mecobalamin (vitamin B12) 1,000 mcg tablet,disintegrating 1,000 mcg sublingual DAILY 90 Days Qty: 90 2RF Rx Instructions: place tablet under tongue and allow to dissolve for at least30 secs before swallowing amlodipine 5 mg tablet 5 mg PO DAILY 90 Days Qty: 90 2RF Xarelto 20 mg Tablet 20 mg PO DAILY Qty: 30 3RF Rx Instructions: must administer with evening meal Remicade 100 mg recon soln 550 mg IV DAILY ergocalciferol (vitamin D2) 1,250 mcg (50,000 unit) capsule 1,250 mcg PO QWEEK omeprazole 20 mg tablet,delayed release (DR/EC) 20 mg PO DAILY metformin 500 mg tablet 250 mg PO ONCE 30 Days Qty: 15 2RF (DME) FreeStyle Lite Strips Strip See Rx Instructions .ROUTE .MEDSUPPLY Qty: 200 4RF Rx Instructions: DX: E11.9, test blood sugar Twice a day, 90 days (DME) blood-glucose meter [FreeStyle Lite Meter] Kit See Rx Instructions .ROUTE .MEDSUPPLY Qty: 1 0RF Rx Instructions: DX: E11.9, test blood sugar As directed, duration 999 days (DME) lancets [FreeStyle Lancets] 28 gauge misc See Rx Instructions .ROUTE .MEDSUPPLY Qty: 200 4RF Rx Instructions: As directed, 90 days glipizide 2.5 mg tablet extended release 24hr 5 mg PO QAM 90 Days Qty: 180 2RF dulaglutide 1.5 mg/0.5 mL pen injector 1.5 mg subcut QWEEK 84 Days Qty: 6 3RF Interventions: ED Discharge Assessment Last Done: 09/04/25 22:41 Discharge Date/Time: 09/04/25 22:42 Print Language: Citizen Of [place]
[2025-09-04 18:31] LABS: Alanine Aminotransferase 78 U/L (0-40); Albumin Level 4.6 g/dL (3.5-5.0); Alkaline Phosphatase 119 U/L (39-117); Anion Gap 13 (12-20); Aspartate Amino Transferase 52 U/L (5-37); Blood Urea Nitrogen 17 mg/dL (9-16); Calcium 9.7 mg/dL (8.4-10.2); Carbon Dioxide 25 mmol/L (22-29); Chloride 103 mmol/L (96-108); Creatinine Clr Calc Pharmacy 50.7; Estimated Glomerular Filt Rate 38; Magnesium 2.0 mg/dL (1.6-2.6); Potassium 3.8 mmol/L (3.3-5.1); Sodium 137 mmol/L (135-145); Total Protein 7.7 g/dL (6.5-8.0); Uric Acid 6.4 mg/dL (3.4-7.0)
[2025-09-04 18:32] LABS: Hematocrit 40.3 % (42.0-52.0); Hemoglobin 14.2 g/dl (14.0-18.0); Imm Gran Abs Auto 0.08 X10*3/uL (0.00-0.03); Imm Gran Pct Auto 0.6 % (0.0-0.4); MANUAL DIFF FLAG SCAN; Mean Corpuscular HGB Conc 35.2 g/dl (31.0-36.0); Mean Corpuscular Hemoglobin 32.1 pg (27.0-33.0); Mean Corpuscular Volume 91.0 fL (80.0-98.0); NRBC Abs Auto 0.000 X10*3/uL (0.0-0.012); NRBC Pct Auto 0.0 /100WBC (0.0-0.2); Platelet Count 267 X10*3/uL (160-400); Red Blood Count 4.43 X10*6/uL (4.60-5.80); SCAN SMEAR FLAG 1; White Blood Count 13.7 X10*3/uL (4.8-10.8)
[2025-09-04 18:53] LABS: Lymphocytes Absolute Auto 6.2 X10*3/uL (1.2-4.9)
--- OUTSIDE RECORDS SUMMARY | 2025-09-04 20:58 | XMS_ITS | Encounter Summary ---
Author Organization [facility] Address [address] [place] [phone] Phone Care Team Providers Care Biztalk Architect Name Role Phone Oc Bains MD Unavailable [phone] BrandenAd DO Unavailable Osmel Green MD Primary Care Provider Summer Walker LEGAL SUPPORT ANALYST Unavailable [phone] Encounter Details Date Type Department Care Team (Latest Contact Info) Description 06/23/2021 Transcribe Orders [facility] Laboratory [address] Floor [place], [place] [phone] Oc Bains MD 10 [facility] 2 [place] [address] [email or web address] Encounter for therapeutic drug level monitoring (Primary [...] Care Team (Late st Contact Info) Description 10/08/2025 7:30 AM EST Infusion [facility] Medical Infusion [facility] [address] [place] [address] Oc Bains MD [address] [address] luis 10/15/2025 1:30 PM EST Office Visit [facility] [address] [place] [address] Unknown, Unknown, Tiffanie Jefferson PA-C [address] [address] 11/19/2025 7:30 AM EST Infusion [facility] Infusion [address] [address] Oc Bains MD [address] [address] luis 12/31/2025 7:30 AM EST Infusion [facility] Infusion [address] [address] Oc Bains MD [address] [address] [email or web address] 08/22/2026 1:00 PM EDT Appointment [facility] [address] [place] [phone] Ad Otero, DO [address] [place] [address] [email or web address] 08/22/2026 2:00 PM EDT Office Visit [facility] [address] [place] [address] Ad Otero, DO [address] [place] [id number] [email or web address] documented as of this encounter Results * Miscellaneous lab test (06/23/2021 3:35 PM EDT) Pathologist [facility] TESTS REQUESTED PROMETHEUS... ....INFXR [facility] SPECIMEN/TUBE TYPE RED [facility] REQUEST RECEIVED Request received. A separate order for the requested test will be generated by the laboratory. [facility] Blood 06/23/2021 3:35 PM EDT 06/23/2021 3:55 PM EDT us Oc Bains MD LAB BLOOD ORDERABLES Final Res ult [address] [address] * (ABNORMAL) 25-OH vitamin D (06/23/2021 3:35 PM EDT) [facility] 25 OH VIT D (TOTAL) 24(L) 30 - 60 ng/mL [facility] Blood 06/23/2021 3:35 PM EDT 06/23/2021 3:55 PM EDT Oc Bains MD LAB BLOOD ORDERABLES Final Res ult Performing Organization Address City/[facility]/ZIP Co de Phone Number [address] [address] * (ABNORMAL) Comprehensive metabolic panel (06/23/2021 3:35 PM EDT) Pathologist [facility] SODIUM 140 133 - 146 mmol/L [facility] POTASSIUM 4.3 3.3 - 5.1 mmol/L [facility] CHLORIDE 103 96 - 108 mmol/L [facility] CO2 25 21 - 35 mmol/L [facility] BUN 12 6 - 19 mg/dL [facility] CREATININE 1.20 0.5 - 1.5 mg/dL [facility] GLUCOSE 144(H) 70 - 99 mg/dL [facility] ALBUMIN 4.4 3.9 - 4.8 g/dL [facility] TOTAL PROTEIN 7.6 6.5 - 8.0 g/dL [facility] CALCIUM 10.1 8.4 - 10.3 mg/dL [facility] ALKALINE PHOSPHATASE 64 39 - 117 U/L [facility] TOTAL BILIRUBIN 0.3 0.0 - 1.2 mg/dL [facility] AST 53(H) 0 - 37 U/L [facility] ALT 48(H) 0 - 40 U/L [facility] GLOBULIN 3.2 1 - 4.8 g/dL [facility] EGFR 65 >59 mL/min/1.7 3m2 [facility] Comment:Estimated glomerular filtration rate calculated using the CKD-EPI equation. ANION GAP 16 10 - 20 mmol/L [facility] Blood 06/23/2021 3:35 PM EDT 06/23/2021 3:55 PM EDT us Oc Bains MD LAB BLOOD ORDERABLES Final Res ult [address] [address] * (ABNORMAL) CBC (06/23/2021 3:35 PM EDT) WBC 12.30(H) 4.00 - 11.00 K/uL [facility] RBC 4.20 3.90 - 5.69 M/uL [facility] HGB 13.5 12.4 - 17.3 g/dL [facility] HCT 39.7 37.0 - 51.0 % [facility] PLT 325 140 - 430 K/uL [facility] MCV 94.5 78.0 - 97.0 fL [facility] MCH 32.1 25.0 - 33.0 pg [facility] MCHC 34.0 32.0 - 36.0 g/dL [facility] RDW 12.9 11.0 - 15.0 % [facility] MPV 10.6 8.4 - 12.8 fl [facility] NRBC 0.00 0 /100 WBCs [facility] ABSOLUTE NRBC 0.00 0 K/uL [facility] Blood 06/23/2021 3:35 PM EDT 06/23/2021 3:55 PM EDT us Oc Bains MD LAB BLOOD ORDERABLES Final Res ult [address] [address] documented in this encounter Visit Diagnoses Diagnosis Encounter for therapeutic drug level monitoring- Primary Colitis Other and unspecified noninfectious gastroenteritis and colitis documented in this encounter Care Teams Biztalk Architect Relationship Specialty Start Date End Date Osmel Green MD [address] [place] [phone] PCP - General 09/04/20 Oc Bains MD [address] [place] [phone] [email or web address] Gastroenterology 05/17/18 Ad Otero DO [address] [place] [id number] [email or web address] Primary Oncologist Hematology and Oncology 12/06/18 Summer Walker FNP [address] [place] [id number] [email or web address] Nurse Practitioner Medical Oncology 01/23/21 08/12/25 documented as of this encounter Additional Source Comments The information contained in this document represents components of the legal health record. It is not the complete legal health record.[facility]
--- OUTSIDE RECORDS SUMMARY | 2025-09-04 20:58 | XMS_ITS | Encounter Summary ---
Author Organization [facility] Address [address] [place] [address] Phone Care Team Providers Care Producer Assistant Name Role Phone Oc Bains MD Unavailable [phone] Ad Otero DO Unavailable [phone] Osmel Green MD Primary Care Provider Summer Walker SUPERVISOR FRUIT GRADING Unavailable [phone] Encounter Details Date Type Department Care Team (Latest Contact Info) Description 04/28/2022 Transcribe Orders [facility] Laboratory [address] 2nd [place] [address] Oc Bains MD 10 [facility] 2 [place] [address] [email or web address] Incontinence of feces with fecal urgency (Primary Dx); Avitaminosis D Social History Tobacco Use Types Packs/Day Years [...] Info) Description 10/08/2025 7:30 AM EST Infusion [facility] Medical Infusion [address] [address] Oc Bains MD [address] [address] luis 10/15/2025 1:30 PM EST Office Visit [facility] 10 [place] [address] Unknown, Unknown, Tiffanie Jefferson PA-C [address] [address] 11/19/2025 7:30 AM EST Infusion [facility] Infusion [address] [address] Oc Bains MD [address] [place] [address] luis 12/31/2025 7:30 AM EST Infusion [facility] Infusion [address] [address] Oc Bains MD [address] [place] [address] luis 08/22/2026 1:00 PM EDT Appointment [facility] Laboratory [address] [place] [address] Ad Otero, DO [address] [place] [address] [email or web address] 08/22/2026 2:00 PM EDT Office Visit [facility] [address] [place] [address] Ad Otero, DO [address] [place] [address] [email or web address] documented as of this encounter Results * Calprotectin, stool (05/03/2022 7:30 AM EDT) STOOL CALPROTECTIN <5 mcg/g [facility]/Claudio MUNOZ [facility] Comment: (NOTE) Reference Range: <50 Normal 50-120 Borderline >120 Elevated Calprotectin in Crohn's disease and ulcerative colitis can be five to several thousand times above the reference population (50 mcg/g or less). Levels are usually 50 mcg/g or less in healthy patients and with irritable bowel syndrome. Repeat testing in 4-6 weeks is suggested for borderline values. Stool (Stool) 05/03/2022 7:3 0 AM EDT 05/03/2022 10:35 AM EDT us Oc Bains MD BODY FLUIDS AND STOOLS ORDERAB LES Final Result [facility] [address] [place] [address] * 25-OH vitamin D (04/28/2022 8:25 AM EDT) 25 [place] VIT D (TOTAL) 32 30 - 60 ng/mL [facility] Blood 04/28/2022 8:25 AM EDT 04/28/2022 8:30 AM EDT us Oc Bains MD LAB BLOOD ORDERABLES Final Res ult [address] [address] * C-Reactive Protein (04/28/2022 8:25 AM EDT) C REACTIVE PROTEIN <3.0 0.0 - 4.0 mg/L [facility] Blood 04/28/2022 8:25 AM EDT 04/28/2022 8:30 AM EDT us Oc Bains MD LAB BLOOD ORDERABLES Final Res ult Performing Organization Address [facility]/ZIP Co de Phone Number [address] [address] * (ABNORMAL) Comprehensive metabolic panel (04/28/2022 8:25 AM EDT) SODIUM 137 133 - 146 mmol/L [facility] POTASSIUM 4.4 3.3 - 5.1 mmol/L [facility] CHLORIDE 102 96 - 108 mmol/L [facility] CO2 23 21 - 35 mmol/L [facility] BUN 16 6 - 19 mg/dL [facility] CREATININE 1.50 0.5 - 1.5 mg/dL [facility] GLUCOSE 148(H) 70 - 99 mg/dL [facility] ALBUMIN 4.3 3.9 - 4.8 g/dL [facility] TOTAL PROTEIN 7.2 6.5 - 8.0 g/dL [facility] CALCIUM 9.6 8.4 - 10.3 mg/dL [facility] ALKALINE PHOSPHATASE 51 39 - 117 U/L [facility] TOTAL BILIRUBIN 0.4 0.0 - 1.2 mg/dL [facility] AST 68(H) 0 - 37 U/L [facility] ALT 76(H) 0 - 40 U/L [facility] GLOBULIN 2.9 1 - 4.8 g/dL [facility] EGFR 52(L) >59 mL/min/1.7 3m2 [facility] Comment:Estimated glomerular filtration rate calculated using the CKD-EPI refit equation. ANION GAP 16 10 - 20 mmol/L [facility] Blood 04/28/2022 8:25 AM EDT 04/28/2022 8:30 AM EDT us Oc Bains MD LAB BLOOD ORDERABLES Final Res ult Performing Organization Address [facility]/ZIP Co de Phone Number [address] [address] documented in this encounter Visit Diagnoses Diagnosis Incontinence of feces with fecal urgency- Primary Avitaminosis D Unspecified vitamin D deficiency documented in this encounter Care Teams Producer Assistant Relationship Specialty Start Date End Date Osmel Green MD [address] [place] [address] PCP - General 09/04/20 Oc Bains MD [address] [place] [address] [email or web address] Gastroenterology 05/17/18 Ad Otero DO [address] [place] [address] [email or web address] Primary Oncologist Hematology and Oncology 12/06/18 Summer Walker FNP [address] [place] [address] [email or web address] Nurse Practitioner Medical Oncology 01/23/21 08/12/25 documented as of this encounter Additional Source Comments The information contained in this document represents components of the legal health record. It is not the complete legal health record.[facility]
--- OUTSIDE RECORDS SUMMARY | 2025-09-04 20:58 | XMS_ITS | Clinical Summary ---
Author Organization [facility] Address [address] [place] [address] Care Team Providers Care Recooperer Name Role Phone Unavailable Primary Care Provider [...] Date Last Done Comments Colorectal Cancer Screening: Colonoscopy 1960 DTaP,Tdap,and Td Vaccines (1 - Tdap) 02/14/1979 Pneumococcal Vaccine: 50+ Ye ars (1 of 1 - PCV) 02/14/2010 Zoster Vaccines (1 of 2) 02/14/2010 Abdominal Aortic Aneurysm (A AA) Screen 12/20/2023 Cholesterol Screening (Lipid Panel) 12/20/2023 Hepatitis C Screening 12/20/2023 Social Influencers of Health Screening 12/20/2023 Depression Screening 11/21/2024 Falls Risk Assessment 02/14/2025 COVID-19 Vaccine ( - 2023-2 5 season) 2025 Influenza Vaccine (#1) 2025 RSV Immunization Adult [...] Documents on File Type Date Recorded Patient Newspaper Editor Expl anation Health Care Decision (hx) 09/10/2023 AD CYR DIRECTIVE Health Care Decision (hx) 09/10/2023 AD CYR DIRECTIVE
--- OUTSIDE RECORDS SUMMARY | 2025-09-04 20:58 | XMS_ITS | Encounter Summary ---
Author Organization [facility] Address [address] [place] [address] Phone Care Team Providers Care General Warehouse Worker Name Role Phone Oc Bains MD Unavailable [phone] Ad Otero DO Unavailable [phone] Osmel Green MD Primary Care Provider Summer Walker COMPUTER TRAINING SPECIALIST Unavailable [phone] Encounter Details Date Type Department Care Team (Latest Contact Info) Description 01/23/2025 Transcribe Orders [facility] [address] [address] Tiffanie Bloom PA 10 [place] [address] CASE (nonalcoholic steatohepatitis) (Primary Dx); Chronic ulcerative rectosigmoiditis with rectal bleeding Social History Tobacco Use Types Packs/Day Years Used Date Smoking Tobacco: Never Smokeless Tobacco: Never Alcohol Use Standard Drinks/Week Comments Yes 0 (1 standard drink = 0.6 oz pure alcohol) occasional - 1 drink every 3 months Education Answer Date Recorded Are you interested in more education? Not on heather e 03/18/2023 Are you concerned about learning? Not on file 03/18/2023 No 03/18/2023 No 03/18/2023 Digital Access Answer Date Recorded No 04/18/2023 No 04/18/2023 Reliable internet access at home? Not on file 04/18/2023 Device with a working camera? Not on file Intimate Partner Violence Answer Date R ecorded Are you denied basic needs s uch as food, clothing, or medical care? No 10/11/2023 In the past 12 months have y ou been in a relationship with a person who hurts, threatens, or tries to control you? No 10/11/2023 Are you denied basic needs s uch as food, clothing, or medical care? No 10/11/2023 In the past 12 months have y ou been in a relationship with a person who hurts, threatens, or tries to control you? No 10/11/2023 Sex and Gender Information Value Date Recorded Sex Assigned at Male 10/11/2023 8:23 AM EST Legal Sex Male 9:49 PM EDT Gender Identity Male 10/11/2023 8:23 AM EST Sexual Orientation Not on file documented as of this encounter Plan of Treatment Upcoming Encounters Date Type Department Care Team (Late st Contact Info) Description 10/08/2025 7:30 AM EST Infusion [facility] Infusion [address] [address] Oc Bains MD [address] [place] [address] luis 10/15/2025 1:30 PM EST Office Visit [facility] 10 [place] [address] Unknown, Unknown, Tiffanie Jefferson PA-C [address] [address] 11/19/2025 7:30 AM EST Infusion [facility] Infusion [address] [address] Oc Bains MD [address] [place] [address] luis 12/31/2025 7:30 AM EST Infusion [facility] Infusion [address] [address] Oc Bains MD [address] [place] [address] [email or web address] 08/22/2026 1:00 PM EDT Appointment [facility] [address] [place] [address] Branden Ad Blankenship, DO [address] [place] [address] [email or web address] 08/22/2026 2:00 PM EDT Office Visit [facility] at [address] [address] Ad Otero, [address] [address] [email or web address] documented as of this encounter Results * (ABNORMAL) 25-OH vitamin D (01/23/2025 8:28 AM EST) 25 OH VIT D (TOTAL) 19(L) 30 - 60 ng/mL [facility] Blood 01/23/2025 8:28 AM EST 01/23/2025 8:33 AM EST us Tiffanie CAMPBELL LAB BLOOD ORDERABLES Final Result [address] [address] * Vitamin B12 (01/23/2025 8:28 AM EST) VITAMIN B12 344 232 - 1,245 pg/mL [facility] Blood 01/23/2025 8:28 AM EST 01/23/2025 8:33 AM EST us Tiffanie CAMPBELL LAB BLOOD ORDERABLES Final Result [address] [address] * Folate (01/23/2025 8:28 AM EST) FOLIC ACID 8.0 4.2 - 19.9 ng/mL [facility] Blood 01/23/2025 8:28 AM EST 01/23/2025 8:33 AM EST Tiffanie CAMPBELL LAB BLOOD ORDERABLES Final Result [address] [address] * Ferritin (01/23/2025 8:28 AM EST) FERRITIN 147 30 - 400 ug/L [facility] Blood 01/23/2025 8:28 AM EST 01/23/2025 8:33 AM EST Tiffanie CAMPBELL LAB BLOOD ORDERABLES Final Result Performing Organization Address [facility] Co de Phone Number [address] [address] * (ABNORMAL) Liver fibrosis test (01/23/2025 8:28 AM EST) Fibrosis score 0.66 [facility] Interpretation (Fibrosis) SEE NOTE [facility] Comment: (NOTE) advanced fibrosis Fibro Test Score (f) Metavir Score f>=0 and f<=0.21 : F0 (no fibrosis) f>0.21 and f<=0.27 : F0-F1 (no fibrosis) f>0.27 and f<=0.31 : F1 (minimal fibrosis) f>0.31 and f<=0.48 : F1-F2 (minimal fibrosis) f>0.48 and f<=0.58 : F2 (moderate fibrosis) f>0.58 and f<=0.72 : F3 (advanced fibrosis) f>0.72 and f<=0.74 : F3-F4 (advanced fibrosis) f>0.74 and f<=1.00 : F4 (severe fibrosis) HCV Fibrosis Grade F3 Q [facility] NECROINFLAMM SCORE 0.26 Q [facility] NECROINFLAMM GRADE SEE NOTE Q [facility] Comment: (NOTE) Result: A0-A1 NECROINFLAMM INTERP SEE NOTE [facility]/ [facility] Comment: (NOTE) no activity ActiTest Score (a) Metavir Score a>=0 and a<=0.17 : A0 (no activity) a>0.17 and a<=0.29 : A0-A1 (no activity) a>0.29 and a<=0.36 : A1 (minimal activity) a>0.36 and a<=0.52 : A1-A2 (minimal activity) a>0.52 and a<=0.60 : A2 (significant activity) a>0.60 and a<=0.62 : A2-A3 (significant activity) a>0.62 and a<=1.00 : A3 (severe activity) A2 Macroglobulin 382(H) 106 - 279 mg/dL [facility]/ [facility] Haptoglobin 146 43 - 212 mg/dL [facility]/ [facility] Apolipoprotein A1 127 94 - 176 mg/dL [facility]/ [facility] TOTAL BILIRUBIN 0.5 0.2 - 1.2 mg/dL [facility] GGT 38 3 - 70 U/L [facility] ALT 33 9 - 46 U/L [facility]/ [facility] Specimen/Product ID [id number] [facility]/ [facility] Comments (Chemistry) SEE NOTE [facility]/ [facility] Comment: (NOTE) The reliability of results is dependent on compliance with the preanalytical and analytical conditions recommended by [employer]. The tests have to be deferred for: acute hemolysis, acute hepatitis, acute inflammation, extra hepatic cholestasis. The advice of a specialist should be sought for interpretation in chronic hemolysis and Gilbert's syndrome. The test interpretation is not validated in liver transplant patients. Isolated extreme values of one of the components should lead to caution in interpreting the results. In case of discordance between a biopsy result and a test, it is recommended to seek the advice of a specialist. The causes of these discordances could be due to a flaw of the test or to a flaw in the biopsy: i.e. a liver biopsy has a 33% variability rate for one fibrosis stage. FibroTest is interpretable for chronic hepatitis B and C, alcoholic and non alcoholic steatosis. ActiTest is interpretable for chronic hepatitis B and C. The performance characteristics have been determined by [employer] [facility]. It has not been cleared or approved by the U.S. Food and Drug Administration. Performance characteristics refer to the analytical performance of the test. Spotsi, the associated logo, [employer] and all associated [employer] deshpande are the registered trademarks of [employer]. All third constitution party deshpande - (R) and (TM) - are the property of their respective owners. (C) [id number] [employer]. All rights reserved. Blood 01/23/2025 8:28 AM EST 01/23/2025 8:33 AM EST Tiffanie CAMPBELL LAB BLOOD ORDERABLES Final Result [email or web address] [address] [place] [address], [facility] [phone] * C-Reactive Protein (01/23/2025 8:28 AM EST) Pathologist [facility] C REACTIVE PROTEIN <3.0 0.0 - 4.0 mg/L [facility] Blood 01/23/2025 8:28 AM EST 01/23/2025 8:33 AM EST Tiffanie CAMPBELL LAB BLOOD ORDERABLES Final Result [facility] [address] [place] [address] * (ABNORMAL) Comprehensive metabolic panel (01/23/2025 8:28 AM EST) SODIUM 135 133 - 146 mmol/L [facility] POTASSIUM 4.4 3.3 - 5.1 mmol/L [facility] CHLORIDE 98 96 - 108 mmol/L [facility] CO2 24 21 - 35 mmol/L [facility] BUN 17 6 - 19 mg/dL [facility] CREATININE 1.80(H) 0.5 - 1.5 mg/dL [facility] GLUCOSE 305(H) 70 - 99 mg/dL [facility] ALBUMIN 4.1 3.9 - 4.8 g/dL [facility] TOTAL PROTEIN 7.8 6.5 - 8.0 g/dL [facility] CALCIUM 9.5 8.4 - 10.3 mg/dL [facility] ALKALINE PHOSPHATASE 112 39 - 117 U/L [facility] TOTAL BILIRUBIN 0.3 0.0 - 1.2 mg/dL [facility] AST 27 0 - 37 U/L [facility] ALT 31 0 - 40 U/L [facility] GLOBULIN 3.7 1 - 4.8 g/dL [facility] EGFR 42(L) >59 mL/min/1.7 3m2 [facility] Comment:Estimated glomerular filtration rate calculated using the CKD-EPI refit equation. ANION GAP 17 10 - 20 mmol/L [facility] Blood 01/23/2025 8:28 AM EST 01/23/2025 8:33 AM EST us Tiffanie CAMPBELL LAB BLOOD ORDERABLES Final Result Performing Organization Address City/State/[facility] Co de Phone Number [facility] [address] [place] [address] * (ABNORMAL) CBC (01/23/2025 8:28 AM EST) WBC 10.35 4.00 - 11.00 K/uL [facility] RBC 4.10(L) 4.50 - 5.90 M/uL [facility] HGB 13.1(L) 13.5 - 17.5 g/dL [facility] HCT 37.5(L) 41.0 - 53.0 % [facility] PLT 267 150 - 450 K/uL [facility] MCV 91.5 80.0 - 100.0 fL [facility] MCH 32.0(H) 27.0 - 31.0 pg [facility] MCHC 34.9 32.0 - 36.0 g/dL [facility] RDW 12.5 11.5 - 14.5 % [facility] MPV 10.3 8.4 - 12.0 fL [facility] NRBC 0.00 0.00 /100 WBCs [facility] ABSOLUTE NRBC 0.00 0.00 K/uL [facility] Blood 01/23/2025 8:28 AM EST 01/23/2025 8:33 AM EST Tiffanie CAMPBELL LAB BLOOD ORDERABLES Final Result [facility] [address] [place] [address] * Anti-Mitochondrial Antibody (AMA) (01/23/2025 8:28 AM EST) MITOCHONDRIAL AB NEGATIVE AT 1:20 [facility] Comment: Performing Pathologist, Jackson Munroe M.D., Ph.D. [phone] Normal: Negative at 1:20 Blood 01/23/2025 8:28 AM EST 01/23/2025 8:33 AM EST Tiffanie CAMPBELL LAB BLOOD ORDERABLES Final Result Performing Organization Address City/[facility] Co de Phone Number [address] [address] * Smooth Muscle Antibody (01/23/2025 8:28 AM EST) SMOOTH MUSCLE AB NEGATIVE AT 1:20 [facility] Comment: Performing Pathologist, Jackson Munroe M.D., Ph.D. [phone] Normal: Negative at 1:20 Blood 01/23/2025 8:28 AM EST 01/23/2025 8:33 AM EST Tiffanie CAMPBELL LAB BLOOD ORDERABLES Final Result Performing Organization Address City/[facility] Co de Phone Number [address] [address] documented in this encounter Visit Diagnoses Diagnosis CASE (nonalcoholic steatohepatitis)- Primary Other chronic nonalcoholic liver disease Chronic ulcerative rectosigmoiditis with rectal bleeding documented in this encounter Care Teams General Warehouse Worker Relationship Specialty Start Date End Date Osmel Green MD [address] [place] [address] PCP - General 09/04/20 Oc Bains MD [address] [place] [address] [email or web address] Gastroenterology 05/17/18 Ad Otero DO 30 [place] [address] [email or web address] Primary Oncologist Hematology and Oncology 12/06/18 Summer Walker FNP 30 [place] [address] [email or web address] Nurse Practitioner Medical Oncology 01/23/21 08/12/25 documented as of this encounter Additional Source Comments The information contained in this document represents components of the legal health record. It is not the complete legal health record.[facility]
--- OUTSIDE RECORDS SUMMARY | 2025-09-04 20:59 | XMS_ITS ---
Author Organization [facility] Address [address] [place] [address] Phone Care Team Providers Care Dictating Transcribing Machine Servicer Name Role Phone Oc Bains MD Unavailable [phone] BrandenAd DO Unavailable [phone] Osmel Green MD Primary Care Provider Active Problems Patient Care Coordination No te Formatting of this note migh t be different from the original. 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 Other Current Plans INFLIXIMAB MAINTENANCE (Remicade)* Plan Start Date:01/15/2025 Plan Provider:Oc Bains MD Linked Problems Ulcerative (chronic) proctos igmoiditis Treatment Medications No medications scheduled. Past Treatment and Therapy Plans Resolved Problems Problem Noted Date Diagnosed Date Resolved Date Bilateral primary osteoarthritis of knee 02/22/2019 07/10/2019
--- OUTSIDE RECORDS SUMMARY | 2025-09-04 20:59 | XMS_ITS | Encounter Summary ---
Author Organization [facility] Address [address] [place] [address] Phone Care Team Providers Care Informatics Consultant Name Role Phone Oc Bains MD Unavailable [phone] Ad Otero DO Unavailable [phone] Osmel Green MD Primary Care Provider Summer Walker RESOLUTE PROFESSIONAL Unavailable [phone] Encounter Details Date Type Department Care Team (Late st Contact Info) Description 05/15/2025 Procedure Pass [facility] Endoscopy Admitting Dept Virtual Department 30 [place] [address] Social History Tobacco Use Types Packs/Day Years [...] Info) Description 10/08/2025 7:30 AM EST Infusion [facility] Medical Infusion Center [address] [place] [address] Oc Bains MD [address] [place] [address] luis 10/15/2025 1:30 PM EST Office Visit [facility] Gastroenterology Clinic [address] [place] [address] Unknown, Unknown, Tiffanie Jefferson PA-C [address] [place] [address] 11/19/2025 7:30 AM EST Infusion [facility] Medical Infusion [address] [address] Oc Bains MD [address] [place] [address] luis 12/31/2025 7:30 AM EST Infusion [facility] Infusion [address] [address] Oc Bains MD [address] [place] [address] luis 08/22/2026 1:00 PM EDT Appointment [facility] 30 [place] [address] BrandenAd, DO 30 [place] [address] [email or web address] 08/22/2026 2:00 PM EDT Office Visit [facility] [address] [place] [address] Ad Otero, DO [address] [place] [address] [email or web address] documented as of this encounter Visit Diagnoses Not on filedocumented in this encounter Care Teams Informatics Consultant Relationship Specialty Start Date End Date Osmel Green MD [address] [place] [address] PCP - General 09/04/20 Oc Bains MD [address] [place] [address] [email or web address] Gastroenterology 05/17/18 Ad Otero DO [address] [place] [address] [email or web address] Primary Oncologist Hematology and Oncology 12/06/18 Summer Walker FNP [address] [place] [address] [email or web address] Nurse Practitioner Medical Oncology 01/23/21 08/12/25 documented as of this encounter Additional Source Comments The information contained in this document represents components of the legal health record. It is not the complete legal health record.[facility]
--- OUTSIDE RECORDS SUMMARY | 2025-09-04 20:59 | XMS_ITS | Encounter Summary ---
Author Organization [facility] Address [address] [place] [address] Phone Care Team Providers Care Cloth Desizing Range Tender Name Role Phone Oc Bains MD Unavailable [phone] Ad Otero DO Unavailable [phone] Osmel Green MD Primary Care Provider Summer Walker TRAIN EXAMINER Unavailable [phone] Encounter Details Date Type Department Care Team (Late st Contact Info) Description 08/13/2021 Procedure Pass [facility] Endoscopy Admitting Dept Virtual Department [address] [place] [address] Social History Tobacco Use Types Packs/Day Years Used Date Smoking Tobacco: Never Smokeless Tobacco: Never Alcohol Use Standard Drinks/Week Comments Not Currently 0 (1 standard drink = 0.6 oz [...] Encounters Date Type Department Care Team (Late Contact Info) Description 10/08/2025 7:30 AM EST Infusion [facility] Medical Infusion Center 30 [place] [address] Oc Bains MD [address] [place] [address] luis 10/15/2025 1:30 PM EST Office Visit [facility] Gastroenterology Clinic 10 [place] [address] Unknown, Unknown, Tiffanie Jefferson PA-C [address] [address] 11/19/2025 7:30 AM EST Infusion [facility] Infusion [address] [address] Oc Bains MD [address] [place] [address] luis 12/31/2025 7:30 AM EST Infusion [facility] Infusion [address] [address] Oc Bains MD [address] [place] [address] luis 08/22/2026 1:00 PM EDT Appointment [facility] Laboratory [address] [place] [address] Ad Otero, DO [address] [place] [address] [email or web address] 08/22/2026 2:00 PM EDT Office Visit [facility] at [address] [address] Ad Otero, DO [address] [place] [address] [email or web address] documented as of this encounter Visit Diagnoses Not on filedocumented in this encounter Care Teams Cloth Desizing Range Tender Relationship Specialty Start Date End Date Osmel Green MD [address] [place] [address] PCP - General 09/04/20 Oc Bains MD [address] [place] [address] luis [email or web address] Gastroenterology 05/17/18 Ad Otero DO [address] [place] [address] [email or web address] Primary Oncologist Hematology and Oncology 12/06/18 Summer Walker FNP 30 [place] [address] [email or web address] Nurse Practitioner Medical Oncology 01/23/21 08/12/25 documented as of this encounter Additional Source Comments The information contained in this document represents components of the legal health record. It is not the complete legal health record.[facility]
--- OUTSIDE RECORDS SUMMARY | 2025-09-04 20:59 | XMS_ITS | Encounter Summary ---
Author Organization [facility] Address [address] [place] [address] Phone Care Team Providers Care Document Examiner Name Role Phone Oc Bains MD Unavailable [phone] BrandenAd DO Unavailable [phone] Osmel Green MD Primary Care Provider Summer Walker METEOROLOGICAL AIDE Unavailable [phone] Encounter Details Date Type Department Care Team (Latest Contact Info) Description 12/28/2022 Transcribe Orders [facility] Laboratory [address] 2[address] Floor [place], [place] [phone] Oc Bains MD 10 [facility] 2 [place] [address] [email or web address] Avitaminosis D (Primary Dx); Fatty liver Social History Tobacco Use Types Packs/Day Years [...] Info) Description 10/08/2025 7:30 AM EST Infusion [facility] Medical Infusion Center 30 [place] [address] Oc Bains MD [address] [address] luis 10/15/2025 1:30 PM EST Office Visit [facility] Gastroenterology Clinic 10 [place] [address] Unknown, Unknown, Tiffanie Jefferson PA-C [address] [address] 11/19/2025 7:30 AM EST Infusion [facility] Infusion [address] [address] Oc Bains MD [address] [address] luis 12/31/2025 7:30 AM EST Infusion [facility] Infusion [address] [address] Oc Bains MD [address] [address] [email or web address] 08/22/2026 1:00 PM EDT Appointment [facility] Laboratory [address] [place] [address] Ad Otero, DO [address] [place] [address] [email or web address] 08/22/2026 2:00 PM EDT Office Visit [facility] 30 [place] [address] Ad Otero, DO [address] [place] [address] [email or web address] documented as of this encounter Results * (ABNORMAL) Comprehensive metabolic panel (12/28/2022 8:21 AM EST) SODIUM 139 133 - 146 mmol/L [facility] POTASSIUM 4.0 3.3 - 5.1 mmol/L [facility] CHLORIDE 101 96 - 108 mmol/L [facility] CO2 27 21 - 35 mmol/L [facility] BUN 18 6 - 19 mg/dL [facility] CREATININE 1.70(H) 0.5 - 1.5 mg/dL [facility] GLUCOSE 128(H) 70 - 99 mg/dL [facility] ALBUMIN 4.5 3.9 - 4.8 g/dL [facility] TOTAL PROTEIN 7.9 6.5 - 8.0 g/dL [facility] CALCIUM 10.2 8.4 - 10.3 mg/dL [facility] ALKALINE PHOSPHATASE 64 39 - 117 U/L [facility] TOTAL BILIRUBIN 0.4 0.0 - 1.2 mg/dL [facility] AST 37 0 - 37 U/L [facility] ALT 24 0 - 40 U/L [facility] GLOBULIN 3.4 1 - 4.8 g/dL [facility] EGFR 45(L) >59 mL/min/1.7 3m2 [facility] Comment:Estimated glomerular filtration rate calculated using the CKD-EPI refit equation. ANION GAP 15 10 - 20 mmol/L [facility] Blood 12/28/2022 8:21 AM EST 12/28/2022 8:24 AM EST us Oc Bains MD LAB BLOOD ORDERABLES Final Res ult [facility] [address] [place], [place] [phone] * CBC (12/28/2022 8:21 AM EST) WBC 10.51 4.00 - 11.00 K/uL [facility] RBC 3.95 3.90 - 5.69 M/uL [facility] HGB 12.5 12.4 - 17.3 g/dL [facility] HCT 37.4 37.0 - 51.0 % [facility] PLT 310 140 - 430 K/uL [facility] MCV 94.7 78.0 - 97.0 fL [facility] MCH 31.6 25.0 - 33.0 pg [facility] MCHC 33.4 32.0 - 36.0 g/dL [facility] RDW 12.0 11.0 - 15.0 % [facility] MPV 10.3 8.4 - 12.8 fl [facility] Blood 12/28/2022 8:21 AM EST 12/28/2022 8:24 AM EST us Oc Bains MD LAB BLOOD ORDERABLES Final Res ult [address] [address] documented in this encounter Visit Diagnoses Diagnosis Avitaminosis D- Primary Unspecified vitamin D deficiency Fatty liver Other chronic nonalcoholic liver disease documented in this encounter Care Teams Document Examiner Relationship Specialty Start Date End Date Osmel Green MD [address] [place] [address] PCP - General 09/04/20 Oc Bains MD [address] [place] [address] luis [email or web address] Gastroenterology 05/17/18 Ad Otero DO [address] [place] [address] [email or web address] DRISS Primary Oncologist Hematology and Oncology 12/06/18 Summer Walker FNP [address] [place] [address] [email or web address] Nurse Practitioner Medical Oncology 01/23/21 08/12/25 documented as of this encounter Additional Source Comments The information contained in this document represents components of the legal health record. It is not the complete legal health record.[facility]
--- OUTSIDE RECORDS SUMMARY | 2025-09-04 20:59 | XMS_ITS | Encounter Summary ---
Author Organization [facility] Address [address] [place] [address] Phone Care Team Providers Care Set Painter Name Role Phone Oc Bains MD Unavailable [phone] Ad Otero DO Unavailable [phone] Osmel Green MD Primary Care Provider Summer Walker LEARNING AND DEVELOPMENT DIRECTOR Unavailable [phone] Reason for Visit * Auth/Cert (Routine) Specialty Diagnoses / Procedures Referred By Contac t Referred To Contact Diagnoses CASE (nonalcoholic steatohepatitis) Ulcerative rectosigmoiditis with rectal bleeding CASE (nonalcoholic steatohepatitis) [K75.81] 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] Procedures PA COLONOSCOPY FLX DX W/COLLJ SPEC WHEN PFRMD PA COLONOSCOPY W/BIOPSY SINGLE/MULTIPLE PA COLSC FLX W/RMVL OF TUMOR POLYP LESION SNARE TQ COLONOSCOPY Referral ID Status Reason Start Date Expiration Date Visits Re quested Visits Authorized [id number] 1 1 Encounter Details Date Type Department Care Team (Late st Contact Info) Description 05/15/2025 Hospital Encounter [facility] Endoscopy Admitting Dept Virtual Department 30 [place] [address] Oc Bains MD [address] [place] [address] 2 [place] [address] luis Social History Tobacco Use Types Packs/Day Years [...] Info) Description 10/08/2025 7:30 AM EST Infusion [address] [address] Oc Bains MD [address] [place] [address] [email or web address] 10/15/2025 1:30 PM EST Office Visit [facility] Gastroenterology Clinic [address] [place] [address] Unknown, Unknown, Tiffanie Jefferson PA-C [address] [place] [address] 11/19/2025 7:30 AM EST Infusion [facility] Medical Infusion Center [address] [place] [address] Oc Bains MD [address] [place] [address] [email or web address] 12/31/2025 7:30 AM EST Infusion [facility] Infusion [address] [address] Oc Bains MD [address] [place] [address] luis 08/22/2026 1:00 PM EDT Appointment [facility] Laboratory [address] [place] [address] Ad Otero DO [address] [place] [address] [email or web address] 08/22/2026 2:00 PM EDT Office Visit [facility] at [address] [address] Ad Otero DO [address] [place] [address] [email or web address] documented as of this encounter Visit Diagnoses Not on filedocumented in this encounter Care Teams Set Painter Relationship Specialty Start Date End Date Osmel Green MD [address] [place] [address] PCP - General 09/04/20 Oc Bains MD [address] [place] [address] luis [email or web address] Gastroenterology 05/17/18 Ad Otero DO [address] [place] [address] [email or web address] DRISS Primary Oncologist Hematology and Oncology 12/06/18 Summer Walker FNP [address] [place] [address] [email or web address] Nurse Practitioner Medical Oncology 01/23/21 08/12/25 documented as of this encounter Additional Source Comments The information contained in this document represents components of the legal health record. It is not the complete legal health record.[facility]
--- OUTSIDE RECORDS SUMMARY | 2025-09-04 20:59 | XMS_ITS | Encounter Summary ---
Author Organization [facility] Address [address] [place] [address] Phone Care Team Providers Care Earth Science Technical Officer Name Role Phone Oc Bains MD Unavailable [phone] Ad Otero DO Unavailable [phone] Osmel Green MD Primary Care Provider Summer Walker COMPRESSOR STATION ENGINEER Unavailable [phone] Encounter Details Date Type Department Care Team (Latest Contact Info) Description 12/28/2022 Transcribe Orders Virtual Department 30 [place] [address] Oc Bains MD [address] [place] [address] [email or web address] Fatty liver disease, nonalcoholic (Primary Dx) Social History Tobacco Use Types Packs/Day Years [...] Info) Description 10/08/2025 7:30 AM EST Infusion [facility] Infusion Center 30 [place] [address] Oc Bains MD [address] [address] luis 10/15/2025 1:30 PM EST Office Visit [facility] Gastroenterology Clinic 10 [place] [address] Unknown, Unknown, Tiffanie Jefferson PA-C [address] [address] 11/19/2025 7:30 AM EST Infusion [facility] Infusion [address] [address] Oc Bains MD [address] [address] luis 12/31/2025 7:30 AM EST Infusion [facility] Infusion [address] [address] Oc Bains MD [address] [address] luis 08/22/2026 1:00 PM EDT Appointment [facility] Laboratory [address] [place] [address] Ad Otero, DO 30 [place] [address] [email or web address] 08/22/2026 2:00 PM EDT Office Visit [facility] at [facility] [address] [place] [address] Ad Otero, DO [address] [place] [address] [email or web address] documented as of this encounter Results * US LIVER WITH ELASTOGRAPHY (01/20/2023 9:47 AM EST) Anatomical Region Laterality Modality Abdomen Ultrasound 01/20/2023 1:42 PM EST Impressions 01/20/2023 1:51 PM EST 1. Mean Liver Stiffness Value 11.1 kPa 2. Increased echogenicity of the hepatic parenchyma in keeping with hepatic steatosis. Narrative 01/20/2023 1:51 PM EST US LIVER WITH ELASTOGRAPHY TECHNIQUE: US Limited Abdomen with Liver Elastography. COMPARISON: There is no prior study available for comparison. FINDINGS: MIDLINE VASCULATURE: The visualized IVC is patent. Portal vein is patent. The aorta is patent where visualized. LIVER: There is increased echogenicity of the hepatic parenchyma in keeping with hepatic steatosis. There are two subcentimeter anechoic lesions at the right hepatic lobe with increased through transmission in keeping with cysts. BILIARY: Gallbladder: Normal. Common bile duct measures 3 mm. PANCREAS: Incompletely visualized due to overlying bowel gas. Visualized portions are within normal limits PERITONEUM: No free fluid. RIGHT KIDNEY: Normal in size. No hydronephrosis or calculus. Elastography: Sonographic assessment (kPa): 11.1. (IQR/Med: 14 %) Risk of fibrosis: This is between 9-13 kPa, which is suggestive of compensated advanced chronic liver disease. Further test needed for confirmation. SOCIETY OF RADIOLOGISTS IN ULTRASOUND CONSENSUS: In the setting of elevated liver function tests, nonfasting, vascular congestion, etc., the stage of liver fibrosis may be overestimated. In some patients with NAFLD, the cut-off values for compensated advanced chronic liver disease may be lower. In causes other than viral hepatitis and NAFLD, the cut-off values are not well established. Tomas RG, Juan SR, Vernon D, Chidi-Sha G, Sohamaiatiya G. Update to the Society of Radiologists in Ultrasound Liver Elastography Consensus Statement. Radiology. 2020 Jun;296(2):263-274. doi: 10.1148/radiol.8145808457. Epub 2019Apr 29. PMID: 39882949. Procedure Note Sonia Rosales MD - 01/20/2023 US LIVER WITH ELASTOGRAPHY TECHNIQUE: US Limited Abdomen with Liver Elastography. COMPARISON: There is no prior study available for comparison. FINDINGS: MIDLINE VASCULATURE: The visualized IVC is patent. Portal vein is patent.The aorta is patent where visualized. LIVER: There is increased echogenicity of the hepatic parenchyma inkeeping with hepatic steatosis. There are two subcentimeter anechoiclesions at the right hepatic lobe with increased through transmission inkeeping with cysts. BILIARY: Gallbladder: Normal. Common bile duct measures 3 mm. PANCREAS: Incompletely visualized due to overlying bowel gas. Visualizedportions are within normal limits PERITONEUM: No free fluid. RIGHT KIDNEY: Normal in size. No hydronephrosis or calculus. Elastography: Sonographic assessment (kPa): 11.1. (IQR/Med: 14 %) Risk of fibrosis: This is between 9-13 kPa, which issuggestive of compensated advanced chronic liver disease. Further testneeded for confirmation. SOCIETY OF RADIOLOGISTS IN ULTRASOUND CONSENSUS: In the setting of elevated liver function tests, nonfasting, vascularcongestion, etc., the stage of liver fibrosis may be overestimated. Insome patients with NAFLD, the cut-off values for compensated advancedchronic liver disease may be lower. In causes other than viral hepatitisand NAFLD, the cut-off values are not well established. Tomas RG, Juan SR, Vernon D, Chidi-Sha G, Mary Anne G. Update to theSociety of Radiologists in Ultrasound Liver Elastography ConsensusStatement. Radiology. 2020 Jun;296(2):263-274. doi:10.1148/radiol.1692334162. Epub 2019Apr 29. PMID: 90771981. IMPRESSION: 1. Mean Liver Stiffness Value 11.1 kPa 2. Increased echogenicity of the hepatic parenchyma in keeping withhepatic steatosis. us Oc Bains MD IMG US ABDOMEN Final Result documented in this encounter Visit Diagnoses Diagnosis Fatty liver disease, nonalcoholic- Primary Fatty liver disease, nonalcoholic documented in this encounter Care Teams Earth Science Technical Officer Relationship Specialty Start Date End Date Osmel Green MD [address] [place] [address] PCP - General 09/04/20 Oc Bains MD [address] [place] [address] luis [email or web address] Gastroenterology 05/17/18 Ad Otero DO [address] [place] [address] [email or web address] Primary Oncologist Hematology and Oncology 12/06/18 Summer Walker FNP [address] [place] [address] [email or web address] Nurse Practitioner Medical Oncology 01/23/21 08/12/25 documented as of this encounter Additional Source Comments The information contained in this document represents components of the legal health record. It is not the complete legal health record.[facility]
--- OUTSIDE RECORDS SUMMARY | 2025-09-04 20:59 | XMS_ITS | Encounter Summary ---
Author Organization [facility] Address [address] [place] [address] Phone Care Team Providers Care Mid Level Practitioner Name Role Phone Oc Bains MD Unavailable [phone] Ad Otero DO Unavailable [phone] Osmel Green MD Primary Care Provider Summer Walker STEAM PLANT RECORDS CLERK Unavailable [phone] Encounter Details Date Type Department Care Team (Late Contact Info) Description 02/14/2023 Procedure Pass [facility] Endoscopy Admitting Dept Virtual Department [address] [place] [address] Social History Tobacco Use Types Packs/Day Years [...] Info) Description 10/08/2025 7:30 AM EST Infusion [facility] Medical Infusion Center 30 [place] [address] Oc Bains MD [address] [place] [address] luis 10/15/2025 1:30 PM EST Office Visit [facility] Gastroenterology Clinic 10 [place] [address] Unknown, Unknown, Tiffanie Jefferson PA-C [address] [address] 11/19/2025 7:[address] [facility] Infusion [address] [address] Oc Bains MD [address] [place] [address] luis 12/31/2025 7:30 AM EST Infusion [address] [address] Oc Bains MD [address] [place] [address] luis 08/22/2026 1:00 PM EDT Appointment [facility] Laboratory [address] [place] [address] Ad Otero, DO [address] [place] [address] [email or web address] 08/22/2026 2:00 PM EDT Office Visit [facility] at [address] [address] Ad Otero, DO 30 [place] [address] [email or web address] documented as of this encounter Visit Diagnoses Not on filedocumented in this encounter Care Teams Mid Level Practitioner Relationship Specialty Start Date End Date Osmel Green MD [address] [place] [address] PCP - General 09/04/20 Oc Bains MD [address] [place] [address] luis [email or web address] Gastroenterology 05/17/18 Ad Otero DO [address] [place] [address] [email or web address] Primary Oncologist Hematology and Oncology 12/06/18 Summer Walker FNP [address] [place] [address] [email or web address] Nurse Practitioner Medical Oncology 01/23/21 08/12/25 documented as of this encounter Additional Source Comments The information contained in this document represents components of the legal health record. It is not the complete legal health record.[facility]
--- OUTSIDE RECORDS SUMMARY | 2025-09-04 20:59 | XMS_ITS | Data Portability ---
Author Organization [facility], Telehealth Patient Home Address [address] [place] [address] Assessment Encounter Date Assessment Date Assessment LastModified by Organization Details LastModified Time 03/12/2020 03/12/2020 VERBALLY CONSENTS TO TELEPHONE CONSULT PT IS AT HOME I AM AT THE OFFICE [facility] [address] [facility] total of 11 minutes spent on the phone Not available 03/12/2020 11:32:35 Plan of Treatment Reminders Order Date Submit Date Provider Last Modified By Organization Details Last Modified Time Details Appointments None recorded. Lab lipid panel, blood 2019 020 [email or web address] 10 [facility], [address] [place] [address], [address], 0 08:21:20 CMP, serum or plasma 2019 [facility] [address] [place] [address], [address], 0 10:04:28 glycohemog lobin, total, blood 2019 020 [facility] (Lab), [address] [place] [address], [address], 0 07:34:01 lipid panel, blood 2019 020 [facility], [address] [place] [address], [address], 0 12:41:06 CMP, serum or plasma 2019 [facility], [address] [place] [address], [address], 0 08:25:52 glycohemog lobin, total, blood 2018 019 [facility] (Lab), [address] [place] [address], [address], 9 08:00:25 glycohemog lobin, total, blood 2018 019 [facility] (Lab), [address] [place] [address], [address], 9 08:00:24 lipid panel, blood 2018 019 [facility], [address] [place] [address], [address], 9 08:00:25 CMP, serum or plasma 2018 019 [facility], [address] [place] [address], [address], 9 08:24:54 CMP, serum or plasma 2018 020 [facility], [address] [place] [address], [address], 0 08:23:06 lipid panel, blood 2018 020 [facility], [address] [place] [address], [address], 9 08:00:25 CMP, serum or plasma 2019 020 [facility], [address] [place] [address], [address], 0 08:23:11 Referral None recorded. Procedures None recorded. Surgeries None recorded. Imaging electrocar diogram 2018 019 elva [facility], [address], [place], [address], 9 12:03:56 Medication Orders lisinopril 10 mg tablet 2019 020 INTERFACE [id number], [address] [place] [address], [address], 0 09:35:44 metformin 500 mg tablet 2019 020 INTERFACE [id number], [address] [place], [address], 0 09:35:44 Patient TargetsNo targets recorded. Patient Instructions Encounter Date Encounter Id Patient Instructions Last Modified By Organization Details Last Modified Time 05/21/[id number] learning about high white blood cell counts Not available 05/21/2019 12:00:53 knee arthritis: care instructions Not available 05/21/2019 12:00:53 high blood pressure: care instructions Not available 05/21/2019 12:00:53 learning about high blood pressure Not available 05/21/2019 12:00:53 high cholesterol : care instructions Not available 05/21/2019 12:00:53 chronic lymphocytic leukemia: care instructions Not available 05/21/2019 12:00:53 07/11/2019 [id number] When You Want to Lose Weight: Care Instructions Not available 07/11/2019 11:15:26 knee arthritis: care instructions Not available 07/11/2019 11:15:26 high blood pressure: care instructions Not available 07/11/2019 11:15:26 learning about high blood pressure Not available 07/11/2019 11:15:26 high cholesterol : care instructions Not available 07/11/2019 11:15:26 12/21/2019 [id number] When You Want to Lose Weight: Care Instructions Not available 12/21/2019 12:33:41 knee arthritis: care instructions Not available 12/21/2019 12:33:41 high blood pressure: care instructions Not available 12/21/2019 12:33:41 learning about high blood pressure Not available 12/21/2019 12:33:40 high cholesterol : care instructions Not available 12/21/2019 12:33:41 03/12/2020 [id number] high blood pressure: care instructions Not available [...] & Rhythm 88 regula r Not Available [facility] [address], [place], [address], 05/21/2019 11:49:38 05/21/2005/21/2019 elect rocmarge diogr am QRS 12/-21 /3 Not Available [facility] [address], [place], [address], 05/21/2019 11:49:38 05/21/2005/21/2019 elect rocar diogr am TN Interval 106/15 2 Not Available [facility] [address], [place], [address], 05/21/2019 11:49:38 05/21/2005/21/2019 elect rocar diogr am QRS Duration 92 ms Not Available [facility] [address], [place], [address], 05/21/2019 11:49:38 05/21/2005/21/2019 elect rocar diogr am QT Interval 364/44 0 Not Available [facility] [address], [place], [address], 05/21/2019 11:49:38 06/08/20 19 06/08/2019 [place], mathew xdarian s, [facility] mity No observ ation record ed. [facility] [address], [place], [address], 06/08/2019 14:23:27 Result Notes None recorded. Problems Name Problem SNOMED Code Status Onset Date Resolution Date Notes Provider Name and Address Organization Details Recorded Time Chronic hepatiti s C 554302384 Active 2017 Mariza dutta [facility] 8 14:19:52 Non-alco holic fatty liver 454740936 Active 2017 Mariza dutta [facility] 8 14:20:16 Anemia 832227442 Active 2017 Mariza dutta [facility] 8 14:20:23 [facility] hyperten true 56518886 Active 2017 Mariza dutta [facility] 8 14:20:29 Hyperlip idemia 68653010 Active 2017 Mariza dutta [facility] 8 14:20:39 Irritabl e bowel syndrome 02055800 Active 2017 Mariza dutta [facility] 8 14:20:46 Obesity 637081366 Active 2017 Mariza dutta [facility] 8 14:20:53 Chronic ulcerati ve rectosig moiditis 63166012 Active 2017 Mariza dutta [facility] 8 14:21:25 Diabetes mellitus 10008419 Active 2017 Mariza dutta [facility] 8 14:21:33 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 Procedures Surgical History Date Name Laterality Status Provider Name and Address Organization Details Recorded Time 05/28/20 total knee replacement completed February SANGEETHA Fernando [address] [place], [address], [facility] 07/11/2019 11:12:42 Imaging Results None recorded. Procedure Notes None recorded. Medical Equipment None Reported. Allergies Allergen ID Allergen Name Allergen Category Reaction Reaction Severity Criticality Documentation Date Start Date Code Code System Note Provider Name and Address Organization Details Recorded Time 164 Product containin g penicilli n (product) medicatio n Not available Not available Not available 05/09/2018 62169 8001 [facility]ED [facility] 14:18:57 Medications Name Sig [...] Available Not Available Not Available Flucelvax Quad 2414-7381 (PF) 60 mcg (15 mcg x 4)/0.5 mL IM syringe 05/10 completed Not Available Not Available Not Available Flucelvax Quad (PF) 60 mcg (15 mcg x 4)/0.5 mL IM syringe 12/21 completed Not Available Not Available Not Available Vitals Date Recorded Body mass index (BMI) Body weight Provider Name and Address Organization Details Last Updated DateTime 12/21/2019 36.9 kg/m2 596225.24 g February SANGEETHA Fernando [address] [place] [address], [id number] 12/21/2019 12:35:09 Date Recorded Body height Heart rate Oxygen saturation Oxygen saturation in Arterial blood by Pulse oximetry Systolic And Diastolic Provider Name and Address Organization Details Last Updated DateTime 0 177.8 cm 92 /min 97 % 97 % 116/72 mm[Hg] Mariza Adamson [facility] 0 12:17:24 Date Recorded Body height Body mass index (BMI) Body weight Heart rate Oxygen saturation Oxygen saturation in Arterial blood by Pulse oximetry Systolic And Diastolic Provider Name and Address Organization Details Last Updated DateTime 9 177.8 cm 35.2 kg/m2 278016. 29 g 90 /min 96 % 96 % 108/74 mm[Hg] Jovana Bailey [facility] 9 11:28:17 Date Recorded Body height Body mass index (BMI) Body weight Heart rate Oxygen saturation Oxygen saturation in Arterial blood by Pulse oximetry Systolic And Diastolic Provider Name and Address Organization Details Last Updated DateTime 0 177.8 cm 37.7 kg/m2 232173. 64 g 80 /min 96 % 96 % 130/80 mm[Hg] Deena Eugene [facility] 0 09:23:00 Date Recorded Body height Body mass index (BMI) Body weight Heart rate Oxygen saturation Oxygen saturation in Arterial blood by Pulse oximetry Systolic And Diastolic Provider Name and Address Organization Details Last Updated DateTime 9 177.8 cm 34.5 kg/m2 895870. 61 g 86 /min 98 % 98 % 108/74 mm[Hg] Jovana Leo [facility] 9 11:00:32 Social History Question Answer Notes LastModified by Organizat ion Details LastModified Time Tobacco Smoking Status Never Smoker Not Available [facility] 09/23/2020 03:36:23 What Was The Date Of Your Most Recent Tobacco Screening? 05/21/2019 [id number] Information not available 09/23/2020 Sex: Unknown Functional Status None recorded. Mental Status None recorded. Family History Nothing Reported. Medical History No medical history recorded. Immunizations Vaccine Type Date Status Note Provider Nam e and Address Organization Details Recorded Time pneumococcal polysaccharide PPV23 5 completed Mariza dutta [facility] 05/09/2018 14:31:07 TST-PPD intradermal 1 completed Mariza dutta [facility] 05/09/2018 14:31:32 TST-PPD intradermal 1 completed Mariza dutta [facility] 05/09/2018 14:31:45 Past Encounters Encounter ID Performer Location Encounter Start Date Encounter Closed Date Diagnosis/Indication Diagnosis SNOMED-CT Code Diagnosis ICD10 Code Diagnosis IMO Codes Diagnosis Note [id number] Wilmar Malave DO [facility] [address] [facility] [address] 05/10/2018 11:11:42 05/12/2018 08:37:17 Leukocytosis 672595947 D72.829 Knee pain 11552676 M25.5 69 Essential hypertension 44852762 I10 mildly elevated follow Ulcerative colitis 26996 004 K51.90 remicade infusions [id number] Wilmar Malave [facility] [address] [facility],[place] [address] 12/15/2018 10:30:43 12/15/2018 11:24:23 Hyperlipidemia 56155075 E78.2 Essential hypertension 64280361 I10 mildly elevated follow Diabetes mellitus 243713 09 E11.9 Ulcerative colitis 38160 004 K51.90 remicade infusions restarted after 3 month hiatus 2nd insurance Osteoarthr itis of knee 212772791 M17.0 Dysuria 16886880 R30.0 Chronic ly mphoid leukemia, disease 54335253 C91.90 Stage 0, seeing hematologi st Obesity 625473106 E66.9 Discussed weight loss, diet improvemen t [id number] Wilmar Malave [facility] [address] [facility],[place] [address] 01/05/2019 09:38:48 01/05/2019 11:15:52 Chronic lymphoid leukemia, disease 10759483 C91.90 Stage 0, seeing hematologi st Hyperlipidemia 26615701 E78.2 Essential hypertension 58311262 I10 improved Diabetes mellitus 284361 09 E11.9 A1C 6.4 Osteoarthr itis of knee 501820805 M17.0 has ortho appt 01/29/19 [id number] Wilmar Malave [facility] [address],[place] [address] 05/21/2019 11:20:40 05/21/2019 12:03:56 Pre-surgery evaluation 275040258 Z01.818 cleared for procedure Osteoarthr itis of knee 266494895 M17.0 Essential hypertension 74549631 I10 very well controlled Hyperlipidemia 10235476 E78.5 very well controlled as of 02/2019 Diabetes mellitus 052296 09 E11.9 very well controlled as of 02/2019 a1c was 6.3 05/14/19 BS was 88 Leukocytosis 260490446 D 72.829 stable wbc is monitored every 6 months by oncologist Chronic ul cerative rectosigmoiditis 01705901 K51.30 currently with diarrhea as he has been off the remicade for 2 months in preparatio n for the surgery per dr nelson (ortho) and dr. avila (gi) Chronic ly mphoid leukemia, disease 53078958 C91.[address] suero every 6 months [id number] Wilmar Malave [facility] [address],[place] [address] 07/11/2019 10:50:28 07/11/2019 11:43:59 Essential hypertension 41533155 I10 very well controlled Osteoarthr itis of knee 191401975 M17.0 s/p double tkr, with progressiv e improvemen t Obesity 627355315 E66.9 Hyperlipidemia 81167255 E78.5 very well controlled as of 02/2019 Diabetes mellitus 576043 09 E11.9 very well controlled as of 02/2019 a1c was 6.3 05/14/19 BS was 88 [id number] Wilmar Malave [facility] [address] [facility] [address] [address] 12/21/2019 11:56:05 12/21/2019 13:55:20 Essential hypertension 17648777 I10 very well controlled Osteoarthr itis of knee 388482342 M17.0 s/p double tkr, with progressiv e improvemen t Obesity 556031107 E66.9 working on weight again gained weight after surgery/se dentary Hyperlipidemia 29980206 E78.5 controlled Diabetes mellitus 909895 09 E11.9 at goal [id number] Wilmar Malave [facility] [address] [facility] [address] [place] [employer] [place] [address] 03/12/2020 08:16:59 03/12/2020 11:50:41 Diabetes mellitus 13434327 E11.9 a1c 7.0 advised to work on diet slightly and continue wlaking recheck in 3 months Essential hypertension 49635716 I10 stable previously , recheck at fu in may Hyperlipidemia 10389579 E78.5 [place] [id number] Wilmar Malave [facility] [address],[place] [employer] [place] [address] 06/20/2020 09:17:18 06/20/2020 11:34:28 Diabetes mellitus 61440975 E11.9 stable, doing well is trying to work on diet labs looked good Essential hypertension 10839291 I10 BP is stable on medication Liver func tion tests outside reference range 377224065 R94.5 will recheck CMP and see if ALT has improved Health Concerns Section Related Observation LastModified by Organization Detai ls LastModified Time None Recorded Concern Status LastModified by Organization Details LastModified Time None Recorded Advance Directives Directive None Recorded Payers Insurance Date Sequence Insurance Name Policy Number Policy Castro Covered Member ID Castro Member ID Guarantor Name 06/19/2020 1 [facility] [place] (HMO) [id number] Sonny Mota [id number] Sonny Mota 06/16/2020 1 [facility] [employer] (HMO) [id number] Sonny Mota [id number] Sonny Mota 06/16/2020 1 [facility] [id number] Sonny Mota [id number] Sonny Mota Notes Date Note Type Note Provider Name and Address Organization Details Recorded Time 9 text/htm l Pre-OpReported by PatientHPIFor risk factors, patient reportschronic cardiopulmonary conditionandobesebut reportsno cognitive impairment,no functional impairment,no malnutrition,no frailty,able to climb a flight of stairs (exercise capacity>4 mets),no obstructive sleep apnea,non-smoker,no alcohol misuse, andno illicit drug use. For anesthesia hx, patient reportsno hx of anesthesia complications. For functional ability, patient reportsable to walk up stairs,able to perform heavy work around the house,no difficulty walking up hills, andable to walk 4 mph. For post-op support, patient reportshome services arrangedandneeds help arranging assistance after discharge. For surgery to be performed, (05/28/19). For context/condition being addressed, (double knee replacement). For location, (cdh).ROS as noted in the HPI 12 system ROS negative except where noted above- denies: chest pain, palpitations, sob, ankle swelling, visual problems, hearing problems, muscle aches or pains, numbness or tingling extremities, abdominal pain, bowel issues, bladder issues, abnormal bleeding, sx of sinus/respiratory infection, headaches, dizziness/lightheadednes s, rashes, or nail changes. February SANGEETHA Fernando [address] [place] [address], [address], [facility] 05/21/2019 12:01:51 9 text/htm l ROS as noted in the HPI doing well post surgically has PT outside [...] bleeding, sx of sinus/respiratory infection , headaches, dizziness/lightheadednes s, rashes, or nail changes. SANGEETHA Singh [address] [place], [address], [facility] 07/11/2019 11:16:53 0 text/htm l ROS as noted in the HPI diet is improved hasn't started exercising yet reviewed labs doesn't check blood sugar 12 system ROS negative except where noted above- denies: chest pain, palpitations, sob, ankle swelling, visual problems, hearing problems, muscle aches or pains, numbness or tingling extremities, abdominal pain, bowel issues, bladder issues, sexual dysfunction, abnormal bleeding, sx of sinus/respiratory infection , headaches, dizziness/lightheadednes s, rashes, or nail changes. OLAF SinghMARLIN [address] [place], [address], [facility] 12/21/2019 12:36:00 0 text/htm l ROS as noted in the HPI VERBALLY CONSENTS TO TELEPHONE CONSULT PT IS AT HOME I AM AT THE OFFICE [facility] [address], [facility] has been walking outside some snacking, needs to work on diet a bit more 12 system ROS negative except where noted above- denies: chest pain, palpitations, sob, ankle swelling, visual problems, hearing problems, muscle aches or pains, numbness or tingling extremities, abdominal pain, bowel issues, bladder issues, sexual dysfunction, abnormal bleeding, sx of sinus/respiratory infection , headaches, dizziness/lightheadednes s, rashes, or nail changes. OLAF SinghMARLIN [address] [place], [address], [facility] 03/12/2020 11:32:46 0 text/htm l DiabetesReported by PatientHPIFor duration, patient reportschronic. For control, patient reportsusually well controlled,improved since last visit,hemoglobin a1c has been 7-8, andhemoglobin a1c goal is less than 7.5. For compliance, patient reportscompliant with medications,compliant with follow-up visits,compliant with diet, andno side effects from medications. For associated symptoms, patient reportsno weight gain,no weight loss,no dizziness,no sweats,no headaches,no confusion,no increased thirst,no increased appetite,no increased urination,no blurred vision,no numbness of feet,no calluses on feet,no fatigue,no blurred vision, andno paresthesias. For review finger sticks, (does not need to do a finger stick).Complications and Co-morbiditiesFor acute complications, patient reportsadmitted for dka: no,admitted for hhs: no,admitted for other direct diabetic complication: no,symptomatic hypoglycemia: no, andfrequency of hypoglycemia: no. For chronic complications, patient reportsdiabetic retinopathy: no,diabetic neuropathy: no,diabetic nephropathy: no,diabetic ketoacidosis: no,hypertension: yes,hyperlipidemia: yes,kidney disease: no,past retinal laser treatment or surgery: no,renal transplant: no,on dialysis: no,prior foot ulcers: no, andhistory of amputation: no. For comorbidities, patient reportscoronary artery disease: no. ADRIAN MARQUIS [address] [place], [address], [facility] 06/20/2020 09:37:26
--- OUTSIDE RECORDS SUMMARY | 2025-09-04 20:59 | XMS_ITS | Encounter Summary ---
Author Organization [facility] Address [address] [place] [address] Phone Care Team Providers Care Floor Refinisher Name Role Phone Wilmar Malave Primary Care Provider [phone] Oc Bains MD Unavailable [phone] Ad Otero DO Unavailable [phone] Osmel Green MD Primary Care Provider Summer Walker BREAKDOWN PERSON Unavailable [phone] Encounter Details Date Type Department Care Team (Late Contact Info) Description 05/28/2019 Procedure Pass OR Admitting Dept - Virtual Department [address] [place] [address] Social History Tobacco Use Types Packs/Day Years [...] Info) Description 10/08/2025 7:30 AM EST Infusion [facility] [address] [place] [address] Oc Bains MD [address] [place] [phone] luis 10/15/2025 1:30 PM EST Office Visit [facility] [address] [place] [address] Unknown, Unknown, Tiffanie Jefferson PA-C [address] [address] 11/19/2025 7:30 AM EST Infusion [facility] [address] [address] Oc Bains MD [address] [place] [address] luis 12/31/2025 7:30 AM EST Infusion [facility] [address] [address] Oc Bains MD [address] [place] [address] luis 08/22/2026 1:[address] [facility] [address] [place] [address] Ad Otero, DO [address] [place] [id number] [email or web address] 08/22/2026 2:00 PM EDT Office Visit [facility] [address] [place] [address] Ad Otero, DO [address] [place] [address] [email or web address] documented as of this encounter Visit Diagnoses Not on filedocumented in this encounter Care Teams Floor Refinisher Relationship Specialty Start Date End Date Wilmar Malave DO [email or web address] PCP - General 09/06/17 09/03/20 Osmel Green MD [address] [place] [address] PCP - General 09/04/20 Oc Bains MD [address] [place] [address] [email or web address] Gastroenterology 05/17/18 Ad Otero DO [address] [place] [address] [email or web address] Primary Oncologist Hematology and Oncology 12/06/18 Summer Walker FNP [address] [place] [address] [email or web address] Nurse Practitioner Medical Oncology 01/23/21 08/12/25 documented as of this encounter Additional Source Comments The information contained in this document represents components of the legal health record. It is not the complete legal health record.[facility]
--- OUTSIDE RECORDS SUMMARY | 2025-09-04 20:59 | XMS_ITS | Clinical Summary ---
Author Organization [facility] Address [address] [place] [address] Phone Care Team Providers Care Coffee Urn Attendant Name Role Phone Hilario Reyes MD Unavailable [phone] BrandenAd DO Unavailable [phone] Osmel Green MD Primary Care Provider Allergies Active Allergy Reactions Criticality Noted Date Comments Azathioprine 08/20/2024 Penicillins Hives 01/05/2018 Medications lisinopril (PRINIVIL,ZESTRIL) 10 MG tabletIndications:Le ukocytosis, unspecified type Take 10 mg by mouth daily. Active metFORMIN (GLUCOPHAGE) 500 MG tabletIndications:Le ukocytosis, unspecified type Take 500 mg by mouth daily. 1/2 tab BID Active atorvastatin (LIPITOR) 20 MG tablet Take 20 mg by mouth daily. 3 019 Active acetaminophen (TYLENOL) 325 mg tablet Take 3 tablets (975 mg total) by mouth every 8 (eight) hours. 0 019 Active Additional Information Patient taking differently:975 mg OralAs needed, Reported on 08/22/2025 infliximab (REMICADE IV)Indications:ulcer ative colitis, ulcerative chronic proctosigmoiditis 580 mg once every 6 weeks. Indications: ulcerative colitis, ulcerative chronic proctosigmoiditis Active ergocalciferol (DRISDOL) 50,000 unit capsuleIndications:v itamin D deficiency Take 50,000 Units by mouth once a week. Indications: low vitamin D levels Active glipiZIDE (GLUCOTROL) 5 MG 24 hr tablet Take 2.5 mg by mouth daily. 022 Active dulaglutide (TRULICITY) 1.5 mg/0.5 mL subcutaneous injectionIndications :type 2 diabetes mellitus Inject 1.5 mg under the skin every 7 days. Pt has been unable to obtain his dose, trying to get Indications: type 2 diabetes mellitus Active amLODIPine (NORVASC) 5 MG tabletIndications:hy pertension Take 5 mg by mouth daily. Indications: high blood pressure Activ e omeprazole (PRILOSEC) 20 MG capsuleIndications:g astroesophageal reflux disease Take 20 mg by mouth daily. Indications: gastroesophageal reflux disease Active doxycycline monohydrate (MONODOX) 100 MG capsule Take 1 capsule (100 mg total) by mouth 2 (two) times a day. 20 capsule 023 Active Additional Information Patient not taking.Reported on 08/22/2025 rivaroxaban (XARELTO) 20 mg Tab Take 20 mg by mouth daily. Active cyanocobalamin, vitamin B-12, 1000 MCG tablet Take 1,000 mcg by mouth daily. Active cholecalciferol (VITAMIN D3) 50,000 unit tablet Take 50,000 Units by mouth once a week. Active Active Problems Patient Care Coordination No te Formatting of this note migh t be different from the original. Height taken with shoes 179cm no shoes on.01/29/2021 CA Problem Noted Date Diagnosed Date Ulcerative (chronic) proctosigmoiditis 0 S/p total knee replacement, bilateral 05/28/2019 CLL (chronic lymphocytic leukemia) 12/07/2018 Ulcerative colitis 09/10/2017 Resolved Problems Problem Noted Date Diagnosed Date Resolved Date Bilateral primary osteoarthritis of knee 02/22/2019 07/10/2019 Encounters Date Type Department Care Team Description 08/26/2025 Telephone [facility] [address] [address] Osmel Green MD 08/26/[address] [address] Osmel Green MD 08/22/2025 2:30 PM EDT Office Visit [facility] at [address] [address] Ad Otero DO CLL (chronic lymphocytic leukemia) (Primary Dx) 08/22/2025 1:25 PM EDT - 08/22/2025 11:59 PM EDT Hospital Encounter [facility] Laboratory [address] [place] [id number] Ad Otero DO Discharge Disposition: Home or Self Care 08/15/2025 Orders Only [facility] at [facility] [address] [place] [address] Rachelle Hui CLL (chronic lymphocytic leukemia) (Primary Dx) 07/16/2025 7:30 AM EDT Infusion [facility] [address] [address] Hilario Reyes MD Ulcerative (chronic) proctosigmoiditis (Primary Dx) 07/15/2025 Telephone [facility] [address] [address] Osmel Green MD 06/04/2025 11:00 AM EDT Infusion [address] [address] Hilario Reyes MD Ulcerative (chronic) proctosigmoiditis (Primary Dx) from Last 3 Months Immunizations Immunization Administration Dates Next Due Influenza Quadrivalent MDCK Preservative Free IM 07/16/2023,08/26/2022,08/11/2019,09/08 Influenza Quadrivalent Prese rvative Free IM 08/04/2021,07/19/2020 PPD Test 02/19/2011,02/17/2011 Pneumococcal polysaccharide PPSV23 07/24/2015 Tdap 07/17/2020 Social History Tobacco Use Types Packs/Day Years Used Date Smoking Tobacco: Never Smokeless Tobacco: Never Tobacco Cessation:Counseling Given: Not Answered Alcohol Use Standard Drinks/Week Comments Yes 0 [...] AM EST Sexual Orientation Not on file Last Filed Vital Signs Vital Sign Reading Time Taken Comments Blood Pressure 138/81 08/22/2025 2:09 PM EDT Pulse 76 08/22/2025 2:09 PM EDT Temperature 36.4 C (97.6 F) 08/22/2025 2:09 PM EDT Respiratory Rate 18 07/16/2025 7:51 AM EDT Oxygen Saturation 96% 08/22/2025 2:09 PM EDT Inhaled Oxygen Concentration - - Weight 114.1 kg (251 lb 9.6 oz) 08/22/2025 2:05 PM EDT Height 179 cm (5' 10.47 ) 08/22/2025 2:05 PM EDT Body Mass Index 35.62 08/22/2025 2:05 PM EDT Plan of Treatment Upcoming Encounters Date Type Department Care Team (Late st Contact Info) Description 10/08/2025 7:30 AM EST Infusion [facility] [address] [place] [address] Hilario Reyes MD [address] [place] [address] luis 10/15/2025 1:30 PM EST Office Visit [facility] [address] [place] [phone] Unknown, Unknown, Tiffanie Jefferson PA-C [address] [address] 11/19/2025 7:30 AM EST Infusion [facility] [address] [address] Hilario Reyes MD [address] [place] [address] luis 12/31/2025 7:30 AM EST Infusion [facility] [address] [address] Hilario Reyes MD [address] [place] [address] luis 08/22/2026 1:00 PM EDT Appointment [facility] Laboratory [address] [place] [address] Ad Otero, DO [address] [place] [address] [email or web address] 08/22/2026 2:00 PM EDT Office Visit [facility] at [address] [address] Ad Otero, [address] [place] [address] [email or web address] Health Maintenance Due Date Last Done Comments LIPID PANEL 1960 DEPRESSION SCREENING 1972 HIV ONE-TIME SCREENING (18-65 YEARS) 02/14/1978 HEPATITIS A VACCINES (1 of 2 - Risk 2-dose series) 02/14/1979 ZOSTER VACCINES (1 of 2) 02/14/1979 COLOGUARD 02/14/2005 FIT TEST 02/14/2005 FOBT 02/14/2005 SIGMOIDOSCOPY 02/14/2005 VIRTUAL COLONOSCOPY 02/14/2005 RSV VACCINE (1 - Risk 50-74 years 1-dose series) 02/14/2010 PNEUMOCOCCAL VACCINES (50+ years) (2 of 2 - PCV) 07/24/2016 07/24/2015 INFLUENZA VACCINE (#1) 2025 3, 08/26/2022, 08/04/2021, Additional history exists COVID-19 VACCINE ( - season) 2025 08/26/2022, 04/18/2022, 09/25/2021, Additional history exists SCREENING FOR DIABETES 07/01/2026 07/01/2023 CREATININE LEVEL 08/22/2026 08/22/2025, 03/2025, 08/20/2024, Additional history exists POTASSIUM LEVEL 08/22/2026 08/22/2025, 03/0 03/2025, 08/20/2024, Additional history exists Adult Td,Tdap Booster 07/17/2030 07/17/2020 COLONOSCOPY 08/13/2031 08/13/2021 COLORECTAL CANCER SCREENING 08/13/2031 SMOKING STATUS SCREENING (Once After 26 Yrs) Completed 08/20/2024 HEPATITIS C SCREENING Completed 01/23/2025 HIB VACCINES Aged Out No longer eligi ble based on patient's age to complete this topic MENINGOCOCCAL VACCINES (ACWY) Aged Out No longer eligible based on patient's age to complete this topic MENINGOCOCCAL VACCINES (B) Aged Out N o longer eligible based on patient's age to complete this topic Medical Devices Implanted Type Area Pipe Roller Device Identifier Shelf Expiration Date Model / Serial / Lot Knee Tray 79mm Plate Bone Primary [employer]angu[employer] [place] I Beam Revision Interlock Cemented - [id number] Implanted:Qty: 1 on 05/28/2019 by Hilario Worrell MD at [facility] Right: Knee [employer] 2029 [id number] / / [id number] Box Component 60mm Femoral Knee Vanguard Interlok [place] Posterior Stabilized Open Cemented Left - [id number] Implanted:Qty: 1 on 05/28/2019 by Hilario Worrell MD at [facility] Left: Knee [employer] 12/11/2023 [id number] / / [id number] Box Component 75.0mm Femoral Knee Vanguard Interlok [place] Posterior Stabilized Open Cemented Right - [id number] Implanted:Qty: 1 on 05/28/2019 by Hilario Worrell MD at [facility] Right: Knee [employer] 03/13/2029 [id number] / / [id number] Button Patella Knee Vanguard Uhmwpe 3 Series A Standard - [id number] Implanted:Qty: 1 on 05/28/2019 by Hilario Worrell MD at [facility] Right: Knee [employer] 04/17/2024 [id number] / / [id number] Knee Bearing 79 62g64al Vanguard E1 Polyethylene Vitamin E Infused Stabilized - [id number] Implanted:Qty: 1 on 05/28/2019 by Hilario Worrell MD at [facility] Right: Knee [employer] 03/12/2024 [id number] / / [id number] Cement Bone Biomet Standard R 1x40 Us - [id number] Implanted:Qty: 1 on 05/28/2019 by Hilario Worrell MD at [facility] Right: Knee SHERI / DIV OF [employer] 04/20/2023 [id number] / / [id number] Box Component 75.0mm Femoral Knee Vanguard Interlok [place] Posterior Stabilized Open Cemented Left - [id number] Implanted:Qty: 1 on 05/28/2019 by Hilario Worrell MD at [facility] Left: Knee [employer] 07/18/2028 [id number] / / [id number] Cement Bone Biomet Standard R 1x40 Us - [id number] Implanted:Qty: 1 on 05/28/2019 by Hilario Worrell MD at [facility] Left: Knee SHERI / DIV OF [employer] 04/20/2023 [id number] / / [id number] Knee Tray 79mm Plate Bone Primary Vanguard [place] I Beam Revision Interlock Cemented - [id number] Implanted:Qty: 1 on 05/28/2019 by Hilario Worrell MD at [facility] Left: Knee [employer] 2029 [id number] / / [id number] Peg [id number] Button Patella Knee Vanguard Uhmwpe 3 Series A Standard - [id number] Implanted:Qty: 1 on 05/28/2019 by Hilario Worrell MD at [facility] Left: Knee [employer] 03/15/2024 [id number] / / [id number] Procedures Procedure Name Priority Date/Time Associated Diagnosis Comments SEDIMENTATION RATE (ESR) Routine 08/22/2025 1:25 PM EDT CLL (chronic lymphocytic leukemia) LDH Routine 08/22/2025 1:25 PM EDT CLL (chronic lymphocytic leukemia) COMPREHENSIVE METABOLIC PANEL Routine 08/22/2025 1:25 PM EDT CLL (chronic lymphocytic leukemia) CBC AND DIFFERENTIAL Routine 08/22/2025 1:25 PM EDT CLL (chronic lymphocytic leukemia) LIVER FIBROSIS TEST Routine 01/23/2025 8 :28 AM EST CASE (nonalcoholic steatohepatitis) Chronic ulcerative rectosigmoiditis with rectal bleeding ENDOSCOPY, COLON 08/13/2021 11:1 4 AM EDT from Last 3 Months or Most Recently Relevant to Health Maintenance Results * LDH (08/22/2025 1:25 PM EDT) LDH 177 118 - 273 U/L [facility] Blood 08/22/2025 1:25 PM EDT 08/22/2025 1:41 PM EDT us Duong W Branden DO LAB BLOOD ORDERABLES Final Result [facility] [address] [place] [address] * (ABNORMAL) Comprehensive metabolic panel (08/22/2025 1:25 PM EDT) SODIUM 134 133 - 146 mmol/L [facility] POTASSIUM 4.2 3.3 - 5.1 mmol/L [facility] CHLORIDE 98 96 - 108 mmol/L [facility] CO2 24 21 - 35 mmol/L [facility] BUN 20(H) 6 - 19 mg/dL [facility] CREATININE 1.60(H) 0.5 - 1.5 mg/dL [facility] GLUCOSE 379(H) 70 - 99 mg/dL [facility] ALBUMIN 4.1 3.9 - 4.8 g/dL [facility] TOTAL PROTEIN 7.5 6.5 - 8.0 g/dL [facility] CALCIUM 9.9 8.4 - 10.3 mg/dL [facility] ALKALINE PHOSPHATASE 106 39 - 117 U/L [facility] TOTAL BILIRUBIN 0.5 0.0 - 1.2 mg/dL [facility] AST 43(H) 0 - 37 U/L [facility] ALT 51(H) 0 - 40 U/L [facility] GLOBULIN 3.4 1 - 4.8 g/dL [facility] EGFR 48(L) >59 mL/min/1.7 3m2 [facility] Comment:Estimated glomerular filtration rate calculated using the CKD-EPI refit equation. ANION GAP 16 10 - 20 mmol/L [facility] Blood 08/22/2025 1:25 PM EDT 08/22/2025 1:41 PM EDT Duong [employer] LAB BLOOD ORDERABLES Final Result Performing Organization Address [facility] Co de Phone Number [address] [address] * Sedimentation rate (ESR) (08/22/2025 1:25 PM EDT) ESR 16 0 - 20 mm/h [facility] Blood 08/22/2025 1:25 PM EDT 08/22/2025 1:41 PM EDT [employer] LAB BLOOD ORDERABLES Final Result Performing Organization Address [facility]/ZIP Co de Phone Number [address] [address] * (ABNORMAL) CBC and differential (08/22/2025 1:25 PM EDT) WBC 10.81 4.00 - 11.00 K/uL [facility] RBC 4.12(L) 4.50 - 5.90 M/uL [facility] HGB 13.1(L) 13.5 - 17.5 g/dL [facility] HCT 38.2(L) 41.0 - 53.0 % [facility] PLT 239 150 - 450 K/uL [facility] MCV 92.7 80.0 - 100.0 fL [facility] MCH 31.8(H) 27.0 - 31.0 pg [facility] MCHC 34.3 32.0 - 36.0 g/dL [facility] RDW 12.5 11.5 - 14.5 % [facility] MPV 9.9 8.4 - 12.0 fL [facility] NRBC 0.00 0.00 /100 WBCs [facility] ABSOLUTE NRBC 0.00 0.00 K/uL [facility] DIFF METHOD Manual [facility] TOTAL CELLS COUNTED 100 [facility] NEUTS 49.0 48.0 - 76.0 % [facility] LYMPHS 40.0 18.0 - 41.0 % [facility] Comment:Few atypical Lymphs seen. MONOS 6.0 4.0 - 11.0 % [facility] EOS 4.0 0.0 - 5.0 % [facility] MYELOS 1.0(H) 0 % [facility] ABSOLUTE NEUTS 5.30 1.92 - 7.60 K/uL [facility] ABSOLUTE LYMPHS 4.32(H) 0.72 - 4.10 K/uL [facility] ABSOLUTE MONOS 0.65 0.16 - 1.10 K/uL [facility] ABSOLUTE EOS 0.43 0.00 - 0.50 K/uL [facility] ABSOLUTE MYELOS 0.11 K/uL [facility] SMUDGE CELLS PRESENT(A) None [facility] Blood 08/22/2025 1:25 PM EDT 08/22/2025 1:41 PM EDT us Duong W Branden DO LAB BLOOD ORDERABLES Final Result [facility] [address], [place] [id number] * (ABNORMAL) Liver fibrosis test (01/23/2025 8:28 AM EST) Fibrosis score 0.66 [facility] Interpretation (Fibrosis) SEE NOTE [facility] Comment: (NOTE) advanced fibrosis Fibro Test Score [...] HCV Fibrosis Grade F3 Q [facility] NECROINFLAMM SCORE 0.26 Q [facility] NECROINFLAMM GRADE SEE NOTE Q [facility] Comment: (NOTE) Result: A0-A1 NECROINFLAMM INTERP SEE NOTE [facility] Comment: (NOTE) no activity ActiTest Score (a) [...] A2 Macroglobulin 382(H) 106 - 279 mg/dL [facility] Haptoglobin 146 43 - 212 mg/dL [facility] Apolipoprotein A1 127 94 - 176 mg/dL [facility] TOTAL BILIRUBIN 0.5 0.2 - 1.2 mg/dL [facility] GGT 38 3 - 70 U/L [facility] ALT 33 9 - 46 U/L [facility] Specimen/Product ID [id number] [employer] [facility] Comments (Chemistry) SEE NOTE [facility] Comment: (NOTE) The reliability of results is dependent on compliance with the preanalytical and analytical conditions recommended by [employer]. The tests have to be deferred for: [...] The performance characteristics have been determined by [facility]. It has not been cleared or approved by the U.S. Food and Drug Administration. Performance characteristics refer to the analytical performance of the test. [employer], the associated logo, [employer] and all associated [employer] deshpande are the registered trademarks of [employer]. All third libertarian deshpande - (R) and (TM) - are the property of their respective owners. (C) [id number] [employer]. All rights reserved. Blood 01/23/2025 8:28 AM EST 01/23/2025 8:33 AM EST us Tiffanie CAMPBELL LAB BLOOD ORDERABLES Final Result [facility] [employer] [facility] [address] [place] [id number], [facility] [phone] * ENDOSCOPY, COLON (08/13/2021 11:14 AM EDT) Narrative Transcriptions Hilario Reyes MD - 08/13/2021 11:14 AM EDT Patient Name: Sonny Mota Attending MD:: HILARIO REYES MD Procedure Date: 08/13/2021 11:14 AM Date of : 1960 Age: 61 Admit Type: Outpatient Gender: Male Room: [place] [address] Referring MD: Osmel Green Exam Type: Colonoscopy Indications: High risk colon cancer surveillance: 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 Risks specifically discussed include but are not limited to medication reactions, missed lesions, bleeding, perforation, or the need for emergentsurgery. Throughout the procedure, the patient's bloodpressure, pulse, end-tidal CO2, and oxygen saturations were monitored continuously. The Olympus adult variable colonoscope [id number] #1was introduced through the anus and advanced to thececum, identified by the appendiceal orifice, ileocecalvalve and palpation. The colonoscopy was performed without difficulty. The patient tolerated the procedurefairly well. The quality of the bowel preparation wasgood. Complications: No immediate complications. Estimated blood loss: Minimal. Findings: The perianal and digital rectal examinations were normal. Pertinent negatives include normal sphincter tone. Multiple small and large-mouthed diverticula werefound in the sigmoid colon and descending colon. A 5 mm polyp was found at 100 cm proximal to theanus. The polyp was sessile. The polyp was removed with a cold snare. Resection and retrieval were complete. Estimated blood loss was minimal. A 4 mm polyp was found at 28 cm proximal to theanus. The polyp was sessile. The polyp was removed with a cold biopsy forceps. Resection and retrieval were complete. A 6 mm polyp was found at 20 cm proximal to theanus. The polyp was sessile. The polyp was removed with a cold snare. Resection and retrieval were complete. Estimated blood loss was minimal. Inflammation was not found based on the endoscopic appearance of the mucosa in the colon. This wasgraded as Rodriguez Score 0 (normal or inactive disease), andwhen compared to the previous examination, the findingsare improved. Biopsies were taken with a cold forcepsfor histology. Biopsies were taken with a cold forcepsfor histology. Estimated blood loss was minimal. Retroflexion in the right colon was performed. The exam was otherwise without abnormality on direct and retroflexion views. Impression: - Diverticulosis in the sigmoid colon and in the descending colon. - One 5 mm polyp at 100 cm proximal to the anus, removed with a cold snare. Resected and retrieved. - One 4 mm polyp at 28 cm proximal to the anus,removed with a cold biopsy forceps. Resected andretrieved. - One 6 mm polyp at 20 cm proximal to the anus,removed with a cold snare. Resected and retrieved. 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 - The examination was otherwise normal on direct and retroflexion views. Recommendation: - I will send results of your biopsy to you and your referring physician or provider. If you do notreceive notification within 3 weeks, please call ouroffice. - Repeat colonoscopy in 2 years for surveillancebased on pathology results. HILARIO REYES MD 08/13/2021 11:48:30 AM This report has been signed electronically. Number of Addenda: 0 Note Initiated On: 08/13/2021 11:14 AM Procedure Code(s): --- Professional --- 35617, Colonoscopy, flexible; with removal of tumor(s), polyp(s), or other lesion(s) by snare technique [id number], 59, Colonoscopy, flexible; with biopsy, single or multiple --- Technical --- 69060, Colonoscopy, flexible; with removal of tumor(s), polyp(s), or other lesion(s) by snare technique [id number], 59, Colonoscopy, flexible; with biopsy, single or multiple Diagnosis Code(s): --- Professional --- K51.30, Ulcerative (chronic) rectosigmoiditiswithout complications D12.6, Benign neoplasm of colon, unspecified K57.30, Diverticulosis of large intestine without perforation or abscess without bleeding --- Technical --- K51.30, Ulcerative (chronic) rectosigmoiditiswithout complications D12.6, Benign neoplasm of colon, unspecified K57.30, Diverticulosis of large intestine without perforation or abscess without bleeding CPT copyright 2018 [employer]. All rights reserved. The codes documented in this report are preliminary and upon banking assistant reviewmay be revised to meet current compliance requirements. Procedure Date: 08/13/2021 11:14:[address] [place] [address] Osmel Green MD GI PROCEDURE ORDERABL ES Final Result from Last 3 Months or Most Recently Relevant to Health Maintenance Insurance [facility] MEDICARE A [facility] MEDICARE A [facility] MEDICARE A [facility] MEDICARE A [facility] MEDICARE A [address] [place] [phone] [facility] MEDICARE A [address] [place] [phone] Advance Directives For more information, please contact: [phone] (9AM - 5PM [place], Tuesday-Tuesday) * Full Code (Presumed) (Latest Code Status on File) Date Activated Date Inactivated Comments 05/28/2019 5:07 PM 06/01/2019 7:02 PM * Full Code (Presumed) Date Activated Date Inactivated Comments 05/28/2019 9:45 AM 05/28/2019 5:07 PM Care Teams Coffee Urn Attendant Relationship Specialty Start Date End Date Osmel Green MD [address] [place] [address] PCP - General 09/04/20 Hilario Reyes MD [address] [place] [address] [email or web address] Gastro[place]ology 05/17/18 Ad Otero DO [address] [place] [address] [email or web address] Primary Oncologist Hematology and Oncology 12/06/18 Additional Source Comments The information contained in this document represents components of the legal health record. It is not the complete legal health record.[facility]
--- OUTSIDE RECORDS SUMMARY | 2025-09-04 20:59 | XMS_ITS | Encounter Summary ---
Author Organization [facility] Address [address] [place] [address] Phone Care Team Providers Care Retail Wireless Associate Name Role Phone Oc Bains MD Unavailable [phone] Ad Otero DO Unavailable [phone] Osmel Green MD Primary Care Provider Encounter Details Date Type Department Care Team (Late st Contact Info) Description 08/15/2025 Orders Only [facility] [address] [place] [address] Rachelle Hui [address] [place] [address] CLL (chronic lymphocytic leukemia) (Primary Dx) Social History Tobacco Use Types [...] Info) Description 10/08/2025 7:30 AM EST Infusion [facility] Infusion [address] [address] Oc Bains MD [address] [place] [phone] luis 10/15/2025 1:30 PM EST Office Visit [facility] [address] [place] [address] Unknown, Unknown, Tiffanie Jefferson PA-C [address] [address] 11/19/2025 7:30 AM EST Infusion [facility] Infusion [address] [address] Oc Bains MD [address] [address] luis 12/31/2025 7:30 AM EST Infusion [facility] Infusion [address] [address] Oc Bains MD [address] [address] luis 08/22/2026 1:00 PM EDT Appointment [facility] [address] [place] [address] BrandenAd, DO [address] [place] [phone] [email or web address] 08/22/2026 2:00 PM EDT Office Visit [facility] at [address] [address] Branden Ad Blankenship, DO [address] [place] [id number] [email or web address] documented as of this encounter Results * Sedimentation rate (ESR) (08/22/2025 1:25 PM EDT) Pathologist [facility] ESR 16 0 - 20 mm/h [facility] Blood 08/22/2025 1:25 PM EDT 08/22/2025 1:41 PM EDT us Ad Otero DO LAB BLOOD ORDERABLES Final Result [address] [address] * LDH (08/22/2025 1:25 PM EDT) Pathologist [facility] LDH 177 118 - 273 U/L [facility] Blood 08/22/2025 1:25 PM EDT 08/22/2025 1:41 PM EDT us Ad Otero DO LAB BLOOD ORDERABLES Final Result [address] [address] * (ABNORMAL) Comprehensive metabolic panel (08/22/2025 1:25 PM EDT) Pathologist [facility] SODIUM 134 133 - 146 mmol/L [facility] POTASSIUM 4.2 3.3 - 5.1 mmol/L [facility] CHLORIDE 98 96 - 108 mmol/L [facility] CO2 24 21 - 35 mmol/L [facility] BUN 20(H) 6 - 19 mg/dL [facility] CREATININE 1.60(H) 0.5 - 1.5 mg/dL [facility] GLUCOSE 379(H) 70 - 99 mg/dL [facility] ALBUMIN 4.1 3.9 - 4.8 g/dL [facility] TOTAL PROTEIN 7.5 6.5 - 8.0 g/dL [facility] CALCIUM 9.9 8.4 - 10.3 mg/dL [facility] ALKALINE PHOSPHATASE 106 39 - 117 U/L [facility] TOTAL BILIRUBIN 0.5 0.0 - 1.2 mg/dL [facility] AST 43(H) 0 - 37 U/L [facility] ALT 51(H) 0 - 40 U/L [facility] GLOBULIN 3.4 1 - 4.8 g/dL [facility] EGFR 48(L) >59 mL/min/1.7 3m2 [facility] Comment:Estimated glomerular filtration rate calculated using the CKD-EPI refit equation. ANION GAP 16 10 - 20 mmol/L [facility] Blood 08/22/2025 1:25 PM EDT 08/22/2025 1:41 PM EDT us Ad Otero DO LAB BLOOD ORDERABLES Final Result Performing Organization Address City/State/[facility] Co de Phone Number [address] [address] * (ABNORMAL) CBC and differential (08/22/2025 1:25 PM EDT) WBC 10.81 4.00 - 11.00 K/uL [facility] RBC 4.12(L) 4.50 - 5.90 M/uL [facility] HGB 13.1(L) 13.5 - 17.5 g/dL [facility] HCT 38.2(L) 41.0 - 53.0 % [facility] PLT 239 150 - 450 K/uL [facility] MCV 92.7 80.0 - 100.0 fL [facility] MCH 31.8(H) 27.0 - 31.0 pg [facility] MCHC 34.3 32.0 - 36.0 g/dL [facility] RDW 12.5 11.5 - 14.5 % [facility] MPV 9.9 8.4 - 12.0 fL [facility] NRBC 0.00 0.00 /100 WBCs [facility] ABSOLUTE NRBC 0.00 0.00 K/uL [facility] DIFF METHOD Manual [facility] TOTAL CELLS COUNTED 100 [facility] NEUTS 49.0 48.0 - 76.0 % [facility] LYMPHS 40.0 18.0 - 41.0 % [facility] Comment:Few atypical Lymphs seen. MONOS 6.0 4.0 - 11.0 % [facility] EOS 4.0 0.0 - 5.0 % [facility] MYELOS 1.0(H) 0 % [facility] ABSOLUTE NEUTS 5.30 1.92 - 7.60 K/uL [facility] ABSOLUTE LYMPHS 4.32(H) 0.72 - 4.10 K/uL [facility] ABSOLUTE MONOS 0.65 0.16 - 1.10 K/uL [facility] ABSOLUTE EOS 0.43 0.00 - 0.50 K/uL [facility] ABSOLUTE MYELOS 0.11 K/uL [facility] SMUDGE CELLS PRESENT(A) None [facility] Blood 08/22/2025 1:25 PM EDT 08/22/2025 1:41 PM EDT us Ad W Branden DO LAB BLOOD ORDERABLES Final Result [facility] [address] [place] [address] documented in this encounter Visit Diagnoses Diagnosis CLL (chronic lymphocytic leukemia)- Primary Chronic lymphoid leukemia, without mention of having achieved remission documented in this encounter Care Teams Retail Wireless Associate Relationship Specialty Start Date End Date Osmel Green MD [address] [place] [address] PCP - General 09/04/20 Oc Bains MD [address] [place] [address] [email or web address] Gastroenterology 05/17/18 Ad Otero DO [address] [place] [id number] [email or web address] Primary Oncologist Hematology and Oncology 12/06/18 documented as of this encounter Additional Source Comments The information contained in this document represents components of the legal health record. It is not the complete legal health record.[facility]
--- OUTSIDE RECORDS SUMMARY | 2025-09-04 20:59 | XMS_ITS | Encounter Summary ---
Author Organization [facility] Address [address] [place] [address] Phone Care Team Providers Care Medical Social Consultant Name Role Phone GaWilmar whaley Tracey SHORE Primary Care Provider [phone] Oc Bains MD Unavailable [phone] Noah Royal MD Unavailable [phone] Ad Otero DO Unavailable [phone] Osmel Green MD Primary Care Provider Summer Walker BANK CLERK Unavailable [phone] Encounter Details Date Type Department Care Team (Late Contact Info) Description 05/10/2018 Ancillary Orders Virtual Department [address] [place] [address] Angie Lr, AIRCRAFT LAY OUT WORKER [address] [place] [address] Leukocytosis, unspecified type; Knee pain, unspecified chronicity, unspecified laterality Social History Tobacco Use Types Packs/Day Years [...] Info) Description 10/08/2025 7:30 AM EST Infusion [facility] [address] [address] Oc Bains MD [address] [address] luis 10/15/2025 1:30 PM EST Office Visit [facility] [address] [place] [address] Unknown, Unknown, Tiffanie Jefferson PA-C [address] [address] 11/19/2025 7:30 AM EST Infusion [facility] [address] [address] Oc Bains MD [address] [place] [address] luis 12/31/2025 7:30 AM EST Infusion [facility] [address] [address] Oc Bains MD [address] [place] [address] luis 08/22/2026 1:00 PM EDT Appointment [facility] Laboratory [address] [place] [address] Ad Otero, DO [address] [place] [id number] [email or web address] 08/22/2026 2:00 PM EDT Office Visit [facility] at [address] [address] Ad Otero, DO [address] [place] [address] [email or web address] documented as of this encounter Results * XR KNEE 4 OR MORE VIEWS (BILATERAL) (05/12/2018 12:06 PM EDT) Anatomical Region Laterality Modality Knee Bilateral, Knee Right, Knee Left Radiographic Imaging 05/12/2018 12:2 2 PM EDT Impressions 05/12/2018 12:27 PM EDT 1. Moderate degenerative change on the right medially. Mild degenerative changes at the patellofemoral compartment and lateral compartment. 2. Moderate degenerative changes on the left medially. Mild degenerative changes laterally, somewhat more than on the right. Mild degenerative changes at the patellofemoral compartment. POS - [id number] Narrative 05/12/2018 12:27 PM EDT EXAMS: X-rays of right knee and x-rays of left knee. HISTORY: Bilateral knee pain. COMPARISON: None. FINDINGS: Five views of right knee and five views of left knee obtained. Right: Moderate joint space narrowing and moderate marginal spurring at the medial compartment. Very mild narrowing of the lateral joint space with minimal spurring laterally. Mild marginal spurring at the patellofemoral compartment. No evidence of erosions. No fractures or dislocations. No suspicious lytic or blastic lesions within the bones. No evidence of joint effusion. Left: Moderate joint space narrowing and moderate marginal spurring medially similar to the right. Mild joint space narrowing and marginal spurring laterally. Mild spurring of the medial tibial spine. Mild marginal spurring at the patellofemoral compartment. No fractures or dislocations. No evidence of suspicious lytic or blastic lesions within the bones. Faint vascular calcifications. No evidence of joint effusion. Procedure Note Bong Bush MD - 05/12/2018 EXAMS: X-rays of right knee and x-rays of left knee. HISTORY: Bilateral knee pain. COMPARISON: None. FINDINGS: Five views of right knee and five views of left knee obtained. Right: Moderate joint space narrowing and moderate marginal spurring atthe medial compartment. Very mild narrowing of the lateral joint spacewith minimal spurring laterally. Mild marginal spurring at thepatellofemoral compartment. No evidence of erosions. No fractures ordislocations. No suspicious lytic or blastic lesions within the bones.No evidence of joint effusion. Left: Moderate joint space narrowing and moderate marginal spurringmedially similar to the right. Mild joint space narrowing and marginalspurring laterally. Mild spurring of the medial tibial spine. Mildmarginal spurring at the patellofemoral compartment. No fractures ordislocations. No evidence of suspicious lytic or blastic lesions withinthe bones. Faint vascular calcifications. No evidence of jointeffusion. IMPRESSION: 1. Moderate degenerative change on the right medially. Mild degenerativechanges at the patellofemoral compartment and lateral compartment. 2. Moderate degenerative changes on the left medially. Mild degenerativechanges laterally, somewhat more than on the right. Mild degenerativechanges at the patellofemoral compartment. POS - [id number] Angie Lr AIRCRAFT LAY OUT WORKER IMG XR LOWER EXTREMITY Galina l Result * XR CHEST PA AND LATERAL 2 VIEWS (05/12/2018 12:06 PM EDT) Anatomical Region Laterality Modality Chest Radiographic Coral ging 05/12/2018 12:1 9 PM EDT Impressions 05/12/2018 12:22 PM EDT No evidence of active cardiopulmonary disease. POS - [id number] Narrative 05/12/2018 12:22 PM EDT HISTORY: Shortness breath and leukocytosis COMPARISON: None. FINDINGS: PA and lateral views of the chest obtained. The lungs appear clear. No evidence of pleural effusions or pneumothorax. Great vessel and cardiomediastinal contours are normal. Procedure Note Bong Bush MD - 05/12/2018 HISTORY: Shortness breath and leukocytosis COMPARISON: None. FINDINGS: PA and lateral views of the chest obtained. The lungs appear clear. No evidence of pleural effusions or pneumothorax.Great vessel and cardiomediastinal contours are normal. IMPRESSION: No evidence of active cardiopulmonary disease. POS - [id number] Angie Lr AIRCRAFT LAY OUT WORKER IMG XR CHEST Final Resul t documented in this encounter Visit Diagnoses Diagnosis Leukocytosis, unspecified type Knee pain, unspecified chronicity, unspecified laterality Leukocytosis, unspecified type Knee pain, unspecified chronicity, unspecified laterality documented in this encounter Care Teams Medical Social Consultant Relationship Specialty Start Date End Date Ananda Wilmar WebbDO PCP - General 09/06/17 09/03/20 Osmel Green MD [address] [place] [address] PCP - General 09/04/20 Oc Bains MD [address] [place] [address] luis Gastroenterology 05/17/18 Noah Royal MD [address] [place] [phone] [email or web address] Medical Oncology 05/29/18 12/05/18 Ad Otero DO [address] [place] [phone] [email or web address] Primary Oncologist Hematology and Oncology 12/06/18 Summer Walker FNP [address] [place] [address] Nurse Practitioner Medical Oncology 01/23/21 08/12/25 documented as of this encounter Additional Source Comments The information contained in this document represents components of the legal health record. It is not the complete legal health record.[facility]
--- OUTSIDE RECORDS SUMMARY | 2025-09-04 20:59 | XMS_ITS | Clinical Summary ---
Author Organization [employer] Address [address] [facility] [address] [place] [address] Care Team Providers Care Paddle Dyeing Machine Operator Name Role Phone Unavailable Primary Care [...] COVID-19 Vaccine (1 - 2023-2 5 season) 2025 Influenza Vaccine (#1) 2025 RSV Patients and [...]
--- OUTSIDE RECORDS SUMMARY | 2025-09-04 20:59 | XMS_ITS | Encounter Summary ---
Author Organization [employer] Address [address] [facility] [address] [place] [address] Care Team Providers Care Regulatory Specialist Name Role Phone Unavailable Primary Care Provider [...]
[2025-09-04 21:03] VITALS: BP 119/77; PULSE 82; RESP 16; TEMP 36.8; O2SAT 94
[2025-09-04 22:05] VITALS: BP 130/77; PULSE 87; RESP 16; TEMP 36.6; O2SAT 95
[2025-09-04 22:41] VITALS: BP 130/77; PULSE 87; RESP 16; TEMP 36.6; O2SAT 95
== END 2025-09-04 22:42 | disposition home or self-care (01) ==
PROVIDERS: Physician Assistant Medical; Emergency Provider Emergency Medicine Emergency Medical Services; PCP Family Medicine
DX: M10.072 Idiopathic gout, left ankle and foot (principal); M79.674 Pain in right toe(s); Z79.899 Other long term (current) drug therapy
CPT/HCPCS: 36415; 73660; 80053; 83735; 84550; 85025; 99283; 99284

== ENCOUNTER → 2025-09-04 17:47 | Outpatient (BNV) | payer MEDICAID, SELFPAY | PROVIDERS: PCP Family Medicine; Visit Provider Radiology Diagnostic Radiology | DX: M10.072 Idiopathic gout, left ankle and foot (principal) | CPT/HCPCS: 73660 ==

== ENCOUNTER 2025-09-08 19:11 | Emergency (ER) | payer MEDICAID, SELFPAY ==
[2025-09-08 19:23] VITALS: BP 155/90; PULSE 98; RESP 20; TEMP 36.4; O2SAT 94; BMI 35.9
--- NOTE | 2025-09-08 19:24 | ED_ITS ---
HPI - General Adult General Chief complaint: Extremity Problem Stated complaint: Gout Time Seen by Provider: 09/08/25 21:51 Source: patient Mode of arrival: ambulatory Limitations: no limitations History of Present Illness ED Provider: Dr. Dodd HPI narrative: 65-year-old male history of gout, PE on Xarelto, CKD, diabetes presented hospital today for evaluation of left great toe pain. Patient was recently seen here and discharged with prednisone. However there was some issue with a steroid course. He finished his course however still having some toe pain at this time. Related Data Home Medications ?Medication ?Instructions ?Recorded ?Confirmed ergocalciferol (vitamin D2) 1,250 1,250 mcg PO QWEEK 0 07/23/21 06/18/25 mcg (50,000 unit) capsule infliximab 100 mg intravenous 550 mg IV DAILY 02/08/25 06/18/25 solution (Remicade) omeprazole 20 mg tablet,delayed 20 mg PO DAILY 5 06/18/25 release Previous Rx's ?Medication ?Instructions ?Recorded atorvastatin 20 mg tablet 20 mg PO DAILY 90 days #90 t abs 05/04/24 mecobalamin (vitamin B12) 1,000 1,000 mcg sublingual D AILY 90 days 02/13/25 mcg disintegrating #90 tabs tablet,sublingual rivaroxaban 20 mg tablet (Xarelto) 20 mg PO DAILY #30 tabs 05/02/25 dulaglutide 1.5 mg/0.5 mL 1.5 mg (0.5 mL) subcut QWEEK 84 05/15/25 subcutaneous pen injector days #6 mL glipizide 2.5 mg tablet, extended 5 mg (2 x 2.5 mg) PO QAM 90 days 05/15/25 release 24 hr #180 tabs amlodipine 5 mg tablet 5 mg PO DAILY 90 days #90 ta bs 05/31/25 blood sugar diagnostic (FreeStyle #200 ea 06/18/25 Lite Strips) blood-glucose meter (FreeStyle #1 ea 06/18/25 Lite Meter kit) lancets 28 gauge (FreeStyle #200 ea 06/18/25 Lancets) metformin 500 mg tablet 250 mg (1/2 x 500 mg) PO ONC E 30 06/18/25 days #15 tabs prednisone 20 mg tablet 40 mg (2 x 20 mg) PO DAILY 5 days 09/05/25 #10 tabs acetaminophen 500 mg tablet 1,000 mg (2 x 500 mg) PO Q 8H 7 09/08/25 days #21 tabs allopurinol 100 mg tablet 100 mg PO DAILY 30 days #30 tabs 09/08/25 colchicine 0.6 mg capsule 0.6 mg PO BID 3 days #6 caps 09/08/25 methylprednisolone 4 mg tablets in 4 mg PO PER PKG DIR #21 ea 09/08/25 a dose pack (Medrol (Marlon)) Allergies Allergy/AdvReac Type Severity Reaction Status Date / Time penicillamine Allergy Unknown unknown Verified 09/08/25 19:27 apixaban (From Eliquis) AdvReac Intermediate Hives Verified 09/08/25 19:27 Review of Systems 2 Review of Systems: Pertinent review of systems as mentioned in HPI. All other system otherwise negative. [facility] Past Medical History [facility] Narrative: Medical history as mentioned in HPI Medical History (Updated 09/08/25 @ 22:25 by Dianna Dodd DO) Pulmonary embolism Chronic kidney disease HTN (hypertension) Diabetes Surgical History H/O endoscopy History of colonoscopy History of knee replacement Family History Family History Father CVD (cardiovascular disease) Bipolar disorder Mother Diabetes mellitus HTN (hypertension) Brother No problems noted. Brother No problems noted. Brother No problems noted. Son No problems noted. Son No problems noted. Son No problems noted. 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 CMS intact in the left lower extremity Neurological: Awake and alert, no facial droop noted Skin: Warm and dry Psychiatric: Appropriate mood and thoughts Vital Signs: Vital Signs - 24 hr 09/08/25 19:23 Temperature 97.5 F Pulse Rate 98 Respiratory Rate 20 Blood Pressure 155/90 H Pulse Oximetry 94 Oxygen Delivery Method Room Air BMI result Body Mass Index 35.9 Course Course Course Narrative: This is a rapid medical exam performed by Traci Diaz NP: Additional HPI, ROS, PE not included below will be deferred to primary provider. Patient is a 65-year-old male with history of T2 dm, history of PE currently on Xarelto, chronic renal failure, anxiety, hepatic steatosis, HTN, OVIDIO, HLD presenting to the emergency department with complaint of ongoing left great toe pain. Seen here on 09/04 and prescribed prednisone. He denies any improvement. States he has been attempting to manage his diet to decrease his blood glucose levels. Plan: [facility] Medical Decision Making Medical Decision Making [facility] Narrative: This is a 65-year-old male history of diabetes, gout presented hospital today for evaluation of left great toe pain. We will plan to start patient on a Medrol Dosepak. Colchicine will be given to the patient as well. Patient is hyperglycemic likely secondary to prednisone use. We will plan to give some subcutaneous insulin. We will plan to prescribe some colchicine to take home. We will also plan to prescribe some allopurinol for the patient to take after his flare up has improved. Encouraged him to follow up with his primary care doctor. He agrees and understands this plan all questions were addressed. Differential Diagnosis Differential Diagnoses: The differential diagnosis associated with the presentation includes Gout, arthritis, fracture Lab Data [facility] Lab Attestation statement: I reviewed the patient's lab results. 09/08/25 20:07 Labs: Lab Results 09/08/25 Range/Units 20:07 Sodium 131 L (135-145) mmol/L Potassium 3.6 (3.3-5.1) mmol/L Chloride 100 (96-108) mmol/L Carbon Dioxide 18 L (22-29) mmol/L Anion Gap 17 (12-20) BUN 33 H (9-16) mg/dL Creatinine 1.97 H (0.5-1.4) mg/dL Estim Creat Clear Calc 47.1 Estimated GFR 34 Random Glucose 539 H* (60-115) mg/dL Calcium 9.1 D (8.4-10.2) mg/dL External Record Review External record reviewed: Outpatient record Discharge Plan Discharge Clinical Impression: Gout Qualifiers: Gout site: toe Gout etiology: unspecified cause Chronicity: acute Laterality: l eft Qualified Code(s): M10.9 - Gout, unspecified Patient Disposition: Home, Self-Care Instructions: Low Purine Diet (ED), Gout (ED) Prescriptions: New methylprednisolone [Medrol (Marlon)] 4 mg tablets,dose pack 4 mg PO PER PKG DIR Qty: 21 0RF colchicine 0.6 mg capsule 0.6 mg PO BID 3 Days Qty: 6 0RF acetaminophen 500 mg tablet 1,000 mg PO Q8H 7 Days Qty: 21 0RF allopurinol 100 mg tablet 100 mg PO DAILY 30 Days Qty: 30 0RF No Action atorvastatin 20 mg tablet 20 mg PO DAILY 90 Days Qty: 90 3RF mecobalamin (vitamin B12) 1,000 mcg tablet,disintegrating 1,000 mcg sublingual DAILY 90 Days Qty: 90 2RF Rx Instructions: place tablet under tongue and allow to dissolve for at least30 secs before swallowing amlodipine 5 mg tablet 5 mg PO DAILY 90 Days Qty: 90 2RF Xarelto 20 mg Tablet 20 mg PO DAILY Qty: 30 3RF Rx Instructions: must administer with evening meal prednisone 20 mg tablet 40 mg PO DAILY 5 Days Qty: 10 0RF Remicade 100 mg recon soln 550 mg IV DAILY ergocalciferol (vitamin D2) 1,250 mcg (50,000 unit) capsule 1,250 mcg PO QWEEK omeprazole 20 mg tablet,delayed release (DR/EC) 20 mg PO DAILY metformin 500 mg tablet 250 mg PO ONCE 30 Days Qty: 15 2RF (DME) FreeStyle Lite Strips Strip See Rx Instructions .ROUTE .MEDSUPPLY Qty: 200 4RF Rx Instructions: DX: E11.9, test blood sugar Twice a day, 90 days (DME) blood-glucose meter [FreeStyle Lite Meter] Kit See Rx Instructions .ROUTE .MEDSUPPLY Qty: 1 0RF Rx Instructions: DX: E11.9, test blood sugar As directed, duration 999 days (DME) lancets [FreeStyle Lancets] 28 gauge misc See Rx Instructions .ROUTE .MEDSUPPLY Qty: 200 4RF Rx Instructions: As directed, 90 days glipizide 2.5 mg tablet extended release 24hr 5 mg PO QAM 90 Days Qty: 180 2RF dulaglutide 1.5 mg/0.5 mL pen injector 1.5 mg subcut QWEEK 84 Days Qty: 6 3RF Print Language: Romanian
[2025-09-08 20:47] LABS: Anion Gap 17 (12-20); Blood Urea Nitrogen 33 mg/dL (9-16); Calcium 9.1 mg/dL (8.4-10.2); Carbon Dioxide 18 mmol/L (22-29); Chloride 100 mmol/L (96-108); Creatinine Clr Calc Pharmacy 47.1; Estimated Glomerular Filt Rate 34; Potassium 3.6 mmol/L (3.3-5.1); Sodium 131 mmol/L (135-145)
--- OUTSIDE RECORDS SUMMARY | 2025-09-08 21:11 | XMS_ITS ---
Author Organization [facility] Address [address] [place] [address] Phone Care Team Providers Care Blocklayer Name Role Phone Oc Bains MD Unavailable [phone] BrandenAd DO Unavailable [phone] Osmel Green MD Primary Care Provider Active [...]
--- OUTSIDE RECORDS SUMMARY | 2025-09-08 21:11 | XMS_ITS | Encounter Summary ---
Author Organization [facility] Address [address] [place] [address] Phone Care Team Providers Care Assembler Faucets Name Role Phone Oc Bains MD Unavailable [phone] BrandenAd DO Unavailable [phone] Osmel Green MD Primary Care Provider Summer Walker TOLL BOOTH OPERATOR Unavailable [phone] Encounter Details Date Type Department Care Team (Latest Contact Info) Description 12/28/2022 Transcribe Orders [facility] Laboratory 10 [address] 2nd Floor [place], [place] [id number] Oc Bains MD 10 [facility] 2 [place] [address] [email or web address] Avitaminosis D (Primary Dx); Fatty liver Social [...] Info) Description 10/08/2025 7:30 AM EST Infusion [facility] Medical Infusion Center 30 [place] [address] Oc Bains MD [address] [address] luis 10/15/2025 1:30 PM EST Office Visit [facility] 10 [place] [address] Unknown, Unknown, Tiffanie Jefferson PA-C [address] [address] 11/19/2025 7:30 AM EST Infusion [facility] Infusion [address] [address] Oc Bains MD [address] [address] luis 12/31/2025 7:30 AM EST Infusion [facility] Infusion [address] [address] Oc Bains MD [address] [address] [email or web address] 08/22/2026 1:00 PM EDT Appointment [facility] Laboratory [address] [place] [address] Ad Otero, DO 30 [place] [address] [email or web address] 08/22/2026 2:00 PM EDT Office Visit [facility] 30 [place] [address] Ad Otero, DO [address] [place] [address] [email or web address] documented as of this encounter Results * (ABNORMAL) Comprehensive metabolic panel (12/28/2022 8:21 AM EST) SODIUM 139 133 - 146 mmol/L [facility] POTASSIUM 4.0 3.3 - 5.1 mmol/L [facility] CHLORIDE 101 96 - 108 mmol/L [facility] CO2 27 21 - 35 mmol/L [facility] BUN 18 6 - 19 mg/dL [facility] CREATININE 1.70(H) 0.5 - 1.5 mg/dL [facility] GLUCOSE 128(H) 70 - 99 mg/dL [facility] ALBUMIN 4.5 3.9 - 4.8 g/dL [facility] TOTAL PROTEIN 7.9 6.5 - 8.0 g/dL [facility] CALCIUM 10.2 8.4 - 10.3 mg/dL [facility] ALKALINE PHOSPHATASE 64 39 - 117 U/L [facility] TOTAL BILIRUBIN 0.4 0.0 - 1.2 mg/dL [facility] AST 37 0 - 37 U/L [facility] ALT 24 0 - 40 U/L [facility] GLOBULIN 3.4 1 - 4.8 g/dL [facility] EGFR 45(L) >59 mL/min/1.7 3m2 [facility] Comment:Estimated glomerular filtration rate calculated using the CKD-EPI refit equation. ANION GAP 15 10 - 20 mmol/L [facility] Blood 12/28/2022 8:21 AM EST 12/28/2022 8:24 AM EST us Oc Bains MD LAB BLOOD ORDERABLES Final Res ult [facility] 30 [place], [place] [phone] * CBC (12/28/2022 8:21 AM EST) WBC 10.51 4.00 - 11.00 K/uL [facility] RBC 3.95 3.90 - 5.69 M/uL [facility] HGB 12.5 12.4 - 17.3 g/dL [facility] HCT 37.4 37.0 - 51.0 % [facility] PLT 310 140 - 430 K/uL [facility] MCV 94.7 78.0 - 97.0 fL [facility] MCH 31.6 25.0 - 33.0 pg [facility] MCHC 33.4 32.0 - 36.0 g/dL [facility] RDW 12.0 11.0 - 15.0 % [facility] MPV 10.3 8.4 - 12.8 fl [facility] Blood 12/28/2022 8:21 AM EST 12/28/2022 8:24 AM EST us Oc Bains MD LAB BLOOD ORDERABLES Final Res ult [address] [address] documented in this encounter Visit Diagnoses Diagnosis Avitaminosis D- Primary Unspecified vitamin D deficiency Fatty liver Other chronic nonalcoholic liver disease documented in this encounter Care Teams Assembler Faucets Relationship Specialty Start Date End Date Osmel Green MD [address] [place] [address] PCP - General 09/04/20 Oc Bains MD [address] [place] [address] luis [email or web address] Gastroenterology 05/17/18 Ad Otero DO [address] [place] [address] [email or web address] DRISS Primary Oncologist Hematology and Oncology 12/06/18 Summer Walker FNP [address] [place] [address] [email or web address] Nurse Practitioner Medical Oncology 01/23/21 08/12/25 documented as of this encounter Additional Source Comments The information contained in this document represents components of the legal health record. It is not the complete legal health record.[facility]
--- OUTSIDE RECORDS SUMMARY | 2025-09-08 21:11 | XMS_ITS | Encounter Summary ---
Author Organization [facility] Address [address] [place] [address] Phone Care Team Providers Care Early Childhood Lead Teacher Name Role Phone Oc Bains MD Unavailable [phone] Ad Otero DO Unavailable [phone] Osmel Green MD Primary Care Provider Summer Walker DIRECTOR BIOSTATISTICS Unavailable [phone] Encounter Details Date Type Department Care Team (Late st Contact Info) Description 08/13/2021 Procedure Pass [facility] Endoscopy Admitting Dept Virtual Department [address] [place] [address] Social History Tobacco Use Types Packs/Day Years [...] Info) Description 10/08/2025 7:30 AM EST Infusion [facility] Medical Infusion Center 30 [place] [address] Oc Bains MD [address] [place] [address] luis 10/15/2025 1:30 PM EST Office Visit [facility] G[facility] Clinic 10 [place] [address] Unknown, Unknown, Tiffanie Jefferson PA-C [address] [address] 11/19/2025 7:30 AM EST Infusion [facility] Infusion [address] [address] Oc Bains MD [address] [place] [address] luis 12/31/2025 7:30 AM EST Infusion [facility] Infusion [address] [address] Oc Bains MD [address] [place] [address] luis 08/22/2026 1:00 PM EDT Appointment [facility] Laboratory [address] [place] [address] Ad Otero, DO [address] [place] [address] [email or web address] 08/22/2026 2:00 PM EDT Office Visit [facility] at [address] [address] Ad Otero, DO [address] [place] [address] [email or web address] documented as of this encounter Visit Diagnoses Not on filedocumented in this encounter Care Teams Early Childhood Lead Teacher Relationship Specialty Start Date End Date Osmel Green MD [address] [place] [address] PCP - General 09/04/20 Oc Bains MD [address] [place] [address] luis [email or web address] Gastroenterology 05/17/18 Ad Otero DO [address] [place] [address] [email or web address] Primary Oncologist Hematology and Oncology 12/06/18 Summer Walker FNP 30 [place] [address] [email or web address] Nurse Practitioner Medical Oncology 01/23/21 08/12/25 documented as of this encounter Additional Source Comments The information contained in this document represents components of the legal health record. It is not the complete legal health record.[facility]
--- OUTSIDE RECORDS SUMMARY | 2025-09-08 21:11 | XMS_ITS | Encounter Summary ---
Author Organization [facility] Address [address] [place] [address] Phone Care Team Providers Care Heel Gummer Name Role Phone Oc Bains MD Unavailable [phone] Ad Otero DO Unavailable [phone] Osmel Green MD Primary Care Provider Summer Walker TRAFFIC INVESTIGATOR Unavailable [phone] Encounter Details Date Type Department Care Team (Late st Contact Info) Description 05/15/2025 Procedure Pass [facility] Endoscopy Admitting Dept Virtual Department 30 [place] [address] Social History Tobacco Use Types Packs/Day Years [...] 10/08/2025 7:30 AM EST Infusion [facility] Medical Infusion Center [address] [place] [address] Oc Bains MD [address] [place] [address] lusi 10/15/2025 1:30 PM EST Office Visit [facility] [address] [place] [address] Unknown, Unknown, Tiffanie Jefferson PA-C [address] [place] [address] 11/19/2025 7:30 AM EST Infusion [facility] Medical Infusion [address] [address] Oc Bains MD [address] [place] [address] luis 12/31/2025 7:30 AM EST Infusion [facility] Infusion [address] [address] Oc Bains MD [address] [place] [address] luis 08/22/2026 1:00 PM EDT Appointment [facility] 30 [place] [address] BrandenAd, DO 30 [place] [address] [email or web address] 08/22/2026 2:00 PM EDT Office Visit [facility] 30 [place] [address] Ad Otero, DO 30 [place] [address] [email or web address] documented as of this encounter Visit Diagnoses Not on filedocumented in this encounter Care Teams Heel Gummer Relationship Specialty Start Date End Date Osmel Green MD [address] [place] [address] PCP - General 09/04/20 Oc Bains MD [address] [place] [address] luis [email or web address] Gastroenterology 05/17/18 Ad Otero DO [address] [place] [address] [email or web address] Primary Oncologist Hematology and Oncology 12/06/18 Summer Walker FNP [address] [place] [address] [email or web address] Nurse Practitioner Medical Oncology 01/23/21 08/12/25 documented as of this encounter Additional Source Comments The information contained in this document represents components of the legal health record. It is not the complete legal health record.[facility]
--- OUTSIDE RECORDS SUMMARY | 2025-09-08 21:11 | XMS_ITS | Encounter Summary ---
Author Organization [facility] Address [address] [place] [address] Phone Care Team Providers Care Cds Sales Advisor Name Role Phone Oc Bains MD Unavailable Ad Otero DO Unavailable [phone] Osmel Green MD Primary Care Provider Summer Walker SUBWAY OPERATOR Unavailable [phone] Encounter Details Date Type Department Care Team (Latest Contact Info) Description 01/23/2025 Transcribe Orders [facility] [address] [address] Tiffanie Bloom PA 10 [place] [address] CASE (nonalcoholic steatohepatitis) (Primary Dx); Chronic ulcerative [...] Description 10/08/2025 7:30 AM EST Infusion [facility] Infusion [address] [address] Oc Bains MD [address] [place] [address] luis 10/15/2025 1:30 PM EST Office Visit [facility] Gastroenterology Clinic 10 [place] [address] Unknown, Unknown, Tiffanie Jefferson PA-C [address] [address] 11/19/2025 7:30 AM EST Infusion [facility] Infusion [address] [address] Oc Bains MD [address] [place] [address] luis 12/31/2025 7:30 AM EST Infusion [facility] Infusion [address] [address] Oc Bains MD [address] [place] [address] [email or web address] 08/22/2026 1:00 PM EDT Appointment [facility] [address] [place] [address] Branden Ad Blankenship, DO [address] [place] [address] [email or web address] 08/22/2026 2:00 PM EDT Office Visit [facility] at [address] [address] Ad Otero, [address] [address] [email or web address] documented as of this encounter Results * (ABNORMAL) 25-OH vitamin D (01/23/2025 8:28 AM EST) 25 OH VIT D (TOTAL) 19(L) 30 - 60 ng/mL [facility] Blood 01/23/2025 8:28 AM EST 01/23/2025 8:33 AM EST us Tiffanie CAMPBELL LAB BLOOD ORDERABLES Final Result [address] [address] * Vitamin B12 (01/23/2025 8:28 AM EST) VITAMIN B12 344 232 - 1,245 pg/mL [facility] Blood 01/23/2025 8:28 AM EST 01/23/2025 8:33 AM EST us Tiffanie CAMPBELL LAB BLOOD ORDERABLES Final Result [address] [address] * Folate (01/23/2025 8:28 AM EST) FOLIC ACID 8.0 4.2 - 19.9 ng/mL [facility] Blood 01/23/2025 8:28 AM EST 01/23/2025 8:33 AM EST Tiffanie CAMPBELL LAB BLOOD ORDERABLES Final Result [address] [address] * Ferritin (01/23/2025 8:28 AM EST) FERRITIN 147 30 - 400 ug/L [facility] Blood 01/23/2025 8:28 AM EST 01/23/2025 8:33 AM EST Tiffanie CAMPBELL LAB BLOOD ORDERABLES Final Result Performing Organization Address [facility] Co de Phone Number [address] [address] * (ABNORMAL) Liver fibrosis test (01/23/2025 8:28 AM EST) Fibrosis score 0.66 [facility] Interpretation (Fibrosis) SEE NOTE [facility] Comment: (NOTE) advanced fibrosis Fibro Test [...] HCV Fibrosis Grade F3 Q [facility] NECROINFLAMM SCORE 0.26 Q [facility] NECROINFLAMM GRADE SEE NOTE Q [facility] Comment: (NOTE) Result: A0-A1 NECROINFLAMM INTERP SEE NOTE [facility] Comment: (NOTE) no activity ActiTest Score [...] A2 Macroglobulin 382(H) 106 - 279 mg/dL [facility] Haptoglobin 146 43 - 212 mg/dL [facility] Apolipoprotein A1 127 94 - 176 mg/dL [facility] TOTAL BILIRUBIN 0.5 0.2 - 1.2 mg/dL [facility] GGT 38 3 - 70 U/L [facility] ALT 33 9 - 46 U/L [facility] Specimen/Product ID [id number] [facility] Comments (Chemistry) SEE NOTE [facility] Comment: (NOTE) The reliability of results is dependent on compliance with the preanalytical and analytical conditions recommended by [employer]. The tests have to be deferred for: [...] The performance characteristics have been determined by [employer] [facility]. It has not been cleared or approved by the U.S. Food and Drug Administration. Performance characteristics refer to the analytical performance of the test. [employer], the associated logo, [employer] and all associated [employer] deshpande are the registered trademarks of [employer] All third democrat deshpande - (R) and (TM) - are the property of their respective owners. (C) 0523-0376 [employer]. All rights reserved. Blood 01/23/2025 8:28 AM EST 01/23/2025 8:33 AM EST Tiffanie CAMPBELL LAB BLOOD ORDERABLES Final Result [employer] [address] [place] [address], [facility] [phone] * C-Reactive Protein (01/23/2025 8:28 AM EST) Pathologist [facility] C REACTIVE PROTEIN <3.0 0.0 - 4.0 mg/L [facility] Blood 01/23/2025 8:28 AM EST 01/23/2025 8:33 AM EST Tiffanie CAMPBELL LAB BLOOD ORDERABLES Final Result [facility] 30 [place] [address] * (ABNORMAL) Comprehensive metabolic panel (01/23/2025 8:28 AM EST) SODIUM 135 133 - 146 mmol/L [facility] POTASSIUM 4.4 3.3 - 5.1 mmol/L [facility] CHLORIDE 98 96 - 108 mmol/L [facility] CO2 24 21 - 35 mmol/L [facility] BUN 17 6 - 19 mg/dL [facility] CREATININE 1.80(H) 0.5 - 1.5 mg/dL [facility] GLUCOSE 305(H) 70 - 99 mg/dL [facility] ALBUMIN 4.1 3.9 - 4.8 g/dL [facility] TOTAL PROTEIN 7.8 6.5 - 8.0 g/dL [facility] CALCIUM 9.5 8.4 - 10.3 mg/dL [facility] ALKALINE PHOSPHATASE 112 39 - 117 U/L [facility] TOTAL BILIRUBIN 0.3 0.0 - 1.2 mg/dL [facility] AST 27 0 - 37 U/L [facility] ALT 31 0 - 40 U/L [facility] GLOBULIN 3.7 1 - 4.8 g/dL [facility] EGFR 42(L) >59 mL/min/1.7 3m2 [facility] Comment:Estimated glomerular filtration rate calculated using the CKD-EPI refit equation. ANION GAP 17 10 - 20 mmol/L [facility] Blood 01/23/2025 8:28 AM EST 01/23/2025 8:33 AM EST us Tiffanie CAMPBELL LAB BLOOD ORDERABLES Final Result Performing Organization Address City/State/[facility] Co de Phone Number [facility] [address] [place] [address] * (ABNORMAL) CBC (01/23/2025 8:28 AM EST) WBC 10.35 4.00 - 11.00 K/uL [facility] RBC 4.10(L) 4.50 - 5.90 M/uL [facility] HGB 13.1(L) 13.5 - 17.5 g/dL [facility] HCT 37.5(L) 41.0 - 53.0 % [facility] PLT 267 150 - 450 K/uL [facility] MCV 91.5 80.0 - 100.0 fL [facility] MCH 32.0(H) 27.0 - 31.0 pg [facility] MCHC 34.9 32.0 - 36.0 g/dL [facility] RDW 12.5 11.5 - 14.5 % [facility] MPV 10.3 8.4 - 12.0 fL [facility] NRBC 0.00 0.00 /100 WBCs [facility] ABSOLUTE NRBC 0.00 0.00 K/uL [facility] Blood 01/23/2025 8:28 AM EST 01/23/2025 8:33 AM EST Tiffanie CAMPBELL LAB BLOOD ORDERABLES Final Result [facility] [address] [place] [address] * Anti-Mitochondrial Antibody (AMA) (01/23/2025 8:28 AM EST) MITOCHONDRIAL AB NEGATIVE AT 1:20 [facility] Comment: Performing Pathologist, [place] Munroe M.D., Ph.D. [phone] Normal: Negative at 1:20 Blood 01/23/2025 8:28 AM EST 01/23/2025 8:33 AM EST Tiffanie CAMPBELL LAB BLOOD ORDERABLES Final Result Performing Organization Address City/[facility] Co de Phone Number [address] [address] * Smooth Muscle Antibody (01/23/2025 8:28 AM EST) SMOOTH MUSCLE AB NEGATIVE AT 1:20 [facility] Comment: Performing Pathologist, [place] Munroe M.D., Ph.D. [phone] Normal: Negative at 1:20 Blood 01/23/2025 8:28 AM EST 01/23/2025 8:33 AM EST Tiffanie CAMPBELL LAB BLOOD ORDERABLES Final Result Performing Organization Address City/[facility] Co de Phone Number [address] [address] documented in this encounter Visit Diagnoses Diagnosis CASE (nonalcoholic steatohepatitis)- Primary Other chronic nonalcoholic liver disease Chronic ulcerative rectosigmoiditis with rectal bleeding documented in this encounter Care Teams Cds Sales Advisor Relationship Specialty Start Date End Date Osmel Green MD [address] [place] [address] PCP - General 09/04/20 Oc Bains MD [address] [place] [address] [email or web address] Gastroenterology 05/17/18 Ad Otero DO [address] [place] [address] [email or web address] [facility] Primary Oncologist Hematology and Oncology 12/06/18 Summer Walker FNP [address] [place] [address] [email or web address] Nurse Practitioner Medical Oncology 01/23/21 08/12/25 documented as of this encounter Additional Source Comments The information contained in this document represents components of the legal health record. It is not the complete legal health record.[facility]
--- OUTSIDE RECORDS SUMMARY | 2025-09-08 21:11 | XMS_ITS | Encounter Summary ---
Author Organization [facility] Address [address] [place] [address] Phone Care Team Providers Care Government Affairs Fellow Name Role Phone Oc Bains MD Unavailable [phone] BrandenAd DO Unavailable [phone] Osmel Green MD Primary Care Provider Summer Walker ASSISTED LIVING COORDINATOR Unavailable [phone] Encounter Details Date Type Department Care Team (Latest Contact Info) Description 06/23/[address] [facility] Laboratory 10 [address] 2nd Floor [place], [place] [id number] Oc Bains MD 10 [facility] 2 [place] [address] [email or web address] Encounter for therapeutic drug level monitoring (Primary [...] Info) Description 10/08/2025 7:[address] [facility] Medical Infusion Center 30 [place] [address] Oc Bains MD [address] [address] luis 10/15/2025 1:30 PM EST Office Visit [facility] 10 [place] [address] Unknown, Unknown, Tiffanie Jefferson PA-C [address] [address] 11/19/2025 7:30 AM EST Infusion [facility]fusion [address] [address] Oc Bains MD [address] [address] luis 12/31/2025 7:30 AM EST Infusion [facility] Infusion [address] [address] Oc Bains MD [address] [address] [email or web address] 08/22/2026 1:00 PM EDT Appointment [facility] [address] [place] [address] Ad Otero, DO 30 [place] [address] [email or web address] 08/22/2026 2:00 PM EDT Office Visit [facility] 30 [place] [address] Ad Otero, DO [address] [place] [address] [email or web address] documented as of this encounter Results * Miscellaneous lab test (06/23/2021 3:35 PM EDT) Pathologist [facility] TESTS REQUESTED PROMETHEUS... ....INFXR [facility] SPECIMEN/TUBE TYPE RED [facility] REQUEST RECEIVED Request received. A separate order for the requested test will be generated by the laboratory. [facility] Blood 06/23/2021 3:35 PM EDT 06/23/2021 3:55 PM EDT us Oc Bains MD LAB BLOOD ORDERABLES Final Res ult [address] [address] * (ABNORMAL) 25-OH vitamin D (06/23/2021 3:35 PM EDT) [facility] 25 OH VIT D (TOTAL) 24(L) 30 - 60 ng/mL [facility] Blood 06/23/2021 3:35 PM EDT 06/23/2021 3:55 PM EDT Oc Bains MD LAB BLOOD ORDERABLES Final Res ult Performing Organization Address City/[facility]/ZIP Co de Phone Number [address] [address] * (ABNORMAL) Comprehensive metabolic panel (06/23/2021 3:35 PM EDT) Pathologist [facility] SODIUM 140 133 - 146 mmol/L [facility] POTASSIUM 4.3 3.3 - 5.1 mmol/L [facility] CHLORIDE 103 96 - 108 mmol/L [facility] CO2 25 21 - 35 mmol/L [facility] BUN 12 6 - 19 mg/dL [facility] CREATININE 1.20 0.5 - 1.5 mg/dL [facility] GLUCOSE 144(H) 70 - 99 mg/dL [facility] ALBUMIN 4.4 3.9 - 4.8 g/dL [facility] TOTAL PROTEIN 7.6 6.5 - 8.0 g/dL [facility] CALCIUM 10.1 8.4 - 10.3 mg/dL [facility] ALKALINE PHOSPHATASE 64 39 - 117 U/L [facility] TOTAL BILIRUBIN 0.3 0.0 - 1.2 mg/dL [facility] AST 53(H) 0 - 37 U/L [facility] ALT 48(H) 0 - 40 U/L [facility] GLOBULIN 3.2 1 - 4.8 g/dL [facility] EGFR 65 >59 mL/min/1.7 3m2 [facility] Comment:Estimated glomerular filtration rate calculated using the CKD-EPI equation. ANION GAP 16 10 - 20 mmol/L [facility] Blood 06/23/2021 3:35 PM EDT 06/23/2021 3:55 PM EDT us Oc Bains MD LAB BLOOD ORDERABLES Final Res ult [address] [address] * (ABNORMAL) CBC (06/23/2021 3:35 PM EDT) WBC 12.30(H) 4.00 - 11.00 K/uL [facility] RBC 4.20 3.90 - 5.69 M/uL [facility] HGB 13.5 12.4 - 17.3 g/dL [facility] HCT 39.7 37.0 - 51.0 % [facility] PLT 325 140 - 430 K/uL [facility] MCV 94.5 78.0 - 97.0 fL [facility] MCH 32.1 25.0 - 33.0 pg [facility] MCHC 34.0 32.0 - 36.0 g/dL [facility] RDW 12.9 11.0 - 15.0 % [facility] MPV 10.6 8.4 - 12.8 fl [facility] NRBC 0.00 0 /100 WBCs [facility] ABSOLUTE NRBC 0.00 0 K/uL [facility] Blood 06/23/2021 3:35 PM EDT 06/23/2021 3:55 PM EDT us Oc Bains MD LAB BLOOD ORDERABLES Final Res ult [address] [address] documented in this encounter Visit Diagnoses Diagnosis Encounter for therapeutic drug level monitoring- Primary Colitis Other and unspecified noninfectious gastroenteritis and colitis documented in this encounter Care Teams Government Affairs Fellow Relationship Specialty Start Date End Date Osmel Green MD [address] [place] [address] PCP - General 09/04/20 Oc Bains MD [address] [place] [address] [email or web address] Gastroenterology 05/17/18 Ad Otero DO [address] [place] [address] [email or web address] DRISS Primary Oncologist Hematology and Oncology 12/06/18 Summer Walker FNP [address] [place] [address] [email or web address] Nurse Practitioner Medical Oncology 01/23/21 08/12/25 documented as of this encounter Additional Source Comments The information contained in this document represents components of the legal health record. It is not the complete legal health record.[facility]
--- OUTSIDE RECORDS SUMMARY | 2025-09-08 21:11 | XMS_ITS | Encounter Summary ---
Author Organization [facility] Address [address] [place] [address] Phone Care Team Providers Care Branding Machine Tender Name Role Phone Oc Bains MD Unavailable [phone] Ad Otero DO Unavailable [phone] Osmel Green MD Primary Care Provider Summer Walker BUSINESS PRACTICES OFFICER Unavailable [phone] Encounter Details Date Type Department Care Team (Latest Contact Info) Description 04/28/2022 Transcribe Orders [facility] Laboratory 10 [address] 2nd [place] [address] Oc Bains MD 10 [facility] 2 [place] [address] [email or web address] Incontinence of feces with fecal urgency (Primary [...] Info) Description 10/08/2025 7:30 AM EST Infusion [facility] Medical Infusion [address] [address] Oc Bains MD [address] [address] luis 10/15/2025 1:30 PM EST Office Visit [facility] Gastroenterology Clinic 10 [place] [address] Unknown, Unknown, Tiffanie Jefferson PA-C [address] [address] 11/19/2025 7:30 AM EST Infusion [facility] Infusion [address] [address] Oc Bains MD [address] [place] [address] luis 12/31/2025 7:30 AM EST Infusion [facility] Infusion [address] [address] Oc Bains MD [address] [place] [address] luis 08/22/2026 1:00 PM EDT Appointment [facility] Laboratory [address] [place] [address] Ad Otero, DO 30 [place] [address] [email or web address] 08/22/2026 2:00 PM EDT Office Visit [facility] [address] [place] [address] Ad Otero, DO 30 [place] [address] [email or web address] documented as of this encounter Results * Calprotectin, stool (05/03/2022 7:30 AM EDT) STOOL CALPROTECTIN <5 mcg/g [facility]/Claudio MUNOZ [facility] Comment: (NOTE) Reference Range: <50 Normal 50-120 [...] STOOLS ORDERAB LES Final Result [facility]/PHIL [facility] [address] [place] [address] * 25-OH vitamin D (04/28/2022 8:25 AM EDT) 25 OH VIT D (TOTAL) 32 30 - 60 ng/mL [facility] Blood 04/28/2022 8:25 AM EDT 04/28/2022 8:30 AM EDT us Oc Bains MD LAB BLOOD ORDERABLES Final Res ult [address] [address] * C-Reactive Protein (04/28/2022 8:25 AM EDT) C REACTIVE PROTEIN <3.0 0.0 - 4.0 mg/L [facility] Blood 04/28/2022 8:25 AM EDT 04/28/2022 8:30 AM EDT us Oc Bains MD LAB BLOOD ORDERABLES Final Res ult Performing Organization Address [facility]/ZIP Co de Phone Number [address] [address] * (ABNORMAL) Comprehensive metabolic panel (04/28/2022 8:25 AM EDT) SODIUM 137 133 - 146 mmol/L [facility] POTASSIUM 4.4 3.3 - 5.1 mmol/L [facility] CHLORIDE 102 96 - 108 mmol/L [facility] CO2 23 21 - 35 mmol/L [facility] BUN 16 6 - 19 mg/dL [facility] CREATININE 1.50 0.5 - 1.5 mg/dL [facility] GLUCOSE 148(H) 70 - 99 mg/dL [facility] ALBUMIN 4.3 3.9 - 4.8 g/dL [facility] TOTAL PROTEIN 7.2 6.5 - 8.0 g/dL [facility] CALCIUM 9.6 8.4 - 10.3 mg/dL [facility] ALKALINE PHOSPHATASE 51 39 - 117 U/L [facility] TOTAL BILIRUBIN 0.4 0.0 - 1.2 mg/dL [facility] AST 68(H) 0 - 37 U/L [facility] ALT 76(H) 0 - 40 U/L [facility] GLOBULIN 2.9 1 - 4.8 g/dL [facility] EGFR 52(L) >59 mL/min/1.7 3m2 [facility] Comment:Estimated glomerular filtration rate calculated using the CKD-EPI refit equation. ANION GAP 16 10 - 20 mmol/L [facility] Blood 04/28/2022 8:25 AM EDT 04/28/2022 8:30 AM EDT us Oc Bains MD LAB BLOOD ORDERABLES Final Res ult Performing Organization Address [facility]/ZIP Co de Phone Number [address] [address] documented in this encounter Visit Diagnoses Diagnosis Incontinence of feces with fecal urgency- Primary Avitaminosis D Unspecified vitamin D deficiency documented in this encounter Care Teams Branding Machine Tender Relationship Specialty Start Date End Date Osmel Green MD [address] [place] [address] PCP - General 09/04/20 Oc Bains MD [address] [place] [address] [email or web address] Gastroenterology 05/17/18 Ad Otero DO 30 [place] [address] [email or web address] Primary Oncologist Hematology and Oncology 12/06/18 Summer Walker FNP 30 [place] [address] [email or web address] Nurse Practitioner Medical Oncology 01/23/21 08/12/25 documented as of this encounter Additional Source Comments The information contained in this document represents components of the legal health record. It is not the complete legal health record.[facility]
--- OUTSIDE RECORDS SUMMARY | 2025-09-08 21:11 | XMS_ITS | Encounter Summary ---
Author Organization [facility] Address [address] [place] [address] Phone Care Team Providers Care Facilities Plant Engineer Name Role Phone GaWilmar whaley Tracey SHORE Primary Care Provider [phone] Oc Bains MD Unavailable [phone] Noah Royal MD Unavailable [phone] Ad Otero DO Unavailable Osmel Green MD Primary Care Provider Summer Walker JUMPBASTING LINING BASTER Unavailable Encounter Details Date Type Department Care Team (Late Contact Info) Description 05/10/2018 Ancillary Orders Virtual Department 30 [place] [address] Angie Lr, HELP DESK AGENT 12 [place] [address] Leukocytosis, unspecified type; Knee pain, unspecified chronicity, [...] 7:30 AM EST Infusion [facility] Medical Infusion [address] [address] Oc Bains MD [address] [address] luis 10/15/2025 1:30 PM EST Office Visit [facility] Gastroenterology Clinic 10 [place] [address] Unknown, Unknown, Tiffanie Jefferson PA-C [address] [address] 11/19/2025 7:30 AM EST Infusion [facility] Infusion [address] [address] Oc Bains MD [address] [place] [address] luis 12/31/2025 7:30 AM EST Infusion [facility] Infusion [address] [address] Oc Bains MD [address] [place] [address] luis 08/22/2026 1:00 PM EDT Appointment [facility] Laboratory [address] [place] [address] Ad Otero, DO [address] [place] [address] [email or web address] 08/22/2026 2:00 PM EDT Office Visit [facility] at [address] [address] Ad Otero, DO 30 [place] [address] [email or web address] documented as of this encounter Results [...] patellofemoral compartment. POS - [id number] Angie Lr HELP DESK AGENT IMG XR LOWER EXTREMITY Galina l Result [...] cardiopulmonary disease. POS - [id number] Angie Lr HELP DESK AGENT IMG XR CHEST Final Resul t documented in this encounter Visit Diagnoses Diagnosis Leukocytosis, unspecified type Knee pain, unspecified chronicity, unspecified laterality Leukocytosis, unspecified type Knee pain, unspecified chronicity, unspecified laterality documented in this encounter Care Teams Facilities Plant Engineer Relationship Specialty Start Date End Date Ananda Wilmar WebbDO PCP - General 09/06/17 09/03/20 Omsel Green MD [address] [place] [address] PCP - General 09/04/20 Oc Bains MD [address] [place] [address] luis Gastroenterology 05/17/18 Noah Royal MD [address] [place] [address] [email or web address] Medical Oncology 05/29/18 12/05/18 Ad Otero DO [address] [place] [address] [email or web address] DRISS Primary Oncologist Hematology and Oncology 12/06/18 Summer Walker FNP 30 [place] [address] Nurse Practitioner Medical Oncology 01/23/21 08/12/25 documented as of this encounter Additional Source Comments The information contained in this document represents components of the legal health record. It is not the complete legal health record.[facility]
--- OUTSIDE RECORDS SUMMARY | 2025-09-08 21:11 | XMS_ITS | Encounter Summary ---
Author Organization [employer] Address [address] 7t [place] [address] Care Team Providers Care Chief Technician Name Role Phone Unavailable Primary Care [...]
--- OUTSIDE RECORDS SUMMARY | 2025-09-08 21:11 | XMS_ITS | Encounter Summary ---
Author Organization [facility] Address [address] [place] [address] Phone Care Team Providers Care Crimping Machine Operator Name Role Phone Oc Bains MD Unavailable [phone] Ad Otero DO Unavailable [phone] Osmel Green MD Primary Care Provider Summer Walker LABOR RELATIONS MANAGER Unavailable [phone] Reason for Visit * Auth/Cert (Routine) Specialty Diagnoses / Procedures Referred By Contac t Referred To Contact Diagnoses ACSE (nonalcoholic steatohepatitis) Ulcerative rectosigmoiditis with rectal bleeding CASE (nonalcoholic steatohepatitis) [K75.81] 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..] Info) Description 10/08/2025 7:30 AM EST Infusion [address] [address] Oc Bains MD [address] [place] [address] luis 10/15/2025 1:30 PM EST Office Visit [facility] Gastroenterology Clinic [address] [place] [address] Unknown, Unknown, Tiffanie Jefferson PA-C [address] [place] [address] 11/19/2025 7:30 AM EST Infusion [facility] Medical Infusion Center [address] [place] [address] Oc Bains MD [address] [place] [address] luis [email or web address] 12/31/2025 7:30 AM EST Infusion [facility] Infusion [address] [address] Oc Bains MD [address] [place] [address] luis 08/22/2026 1:00 PM EDT Appointment [facility] Laboratory [address] [place] [address] Ad Otero DO [address] [place] [address] [email or web address] 08/22/2026 2:00 PM EDT Office Visit [facility] Center at [address] [address] Ad Otero DO [address] [place] [address] [email or web address] documented as of this encounter Visit Diagnoses Not on filedocumented in this encounter Care Teams Crimping Machine Operator Relationship Specialty Start Date End Date Osmel Green MD [address] [place] [address] PCP - General 09/04/20 Oc Bains MD [address] [place] [address] luis [email or web address] Gastroenterology 05/17/18 Ad Otero DO [address] [place] [address] [email or web address] Primary Oncologist Hematology and Oncology 12/06/18 Summer Walker FNP [address] [place] [address] [email or web address] Nurse Practitioner Medical Oncology 01/23/21 08/12/25 documented as of this encounter Additional Source Comments The information contained in this document represents components of the legal health record. It is not the complete legal health record.[facility]
--- OUTSIDE RECORDS SUMMARY | 2025-09-08 21:11 | XMS_ITS | Encounter Summary ---
Author Organization [facility] Address [address] [place] [address] Phone Care Team Providers Care Edge Burnisher Name Role Phone Oc Bains MD Unavailable [phone] Ad Otero DO Unavailable [phone] Osmel Green MD Primary Care Provider Summer Walker OPERATIONS AND MAINTENANCE MANAGER Unavailable [phone] Encounter Details Date Type Department Care Team (Latest Contact Info) Description 12/28/2022 Transcribe Orders Virtual Department 30 [place] [address] Oc Bains MD [address] [place] [address] luis [email or web address] Fatty liver disease, nonalcoholic (Primary Dx) Social [...] Info) Description 10/08/2025 7:30 AM EST Infusion [facility] Infusion Center 30 [place] [address] Oc Bains MD [address] [address] luis 10/15/2025 1:30 PM EST Office Visit [facility] Gastroenterology Clinic 10 [place] [address] Unknown, Unknown, Tiffanie Jefferson PA-C [address] [address] 11/19/2025 7:30 AM EST Infusion [facility] Infusion [address] [address] Oc Bains MD [address] [address] luis 12/31/2025 7:30 AM EST Infusion [facility] Infusion [address] [address] Oc Bains MD [address] [address] luis 08/22/2026 1:00 PM EDT Appointment [facility] Laboratory [address] [place] [address] Ad Otero, DO 30 [place] [address] [email or web address] 08/22/2026 2:00 PM EDT Office Visit [facility] [address] [place] [address] Ad Otero, DO [address] [place] [address] [email or web address] documented as of this encounter [...] Elastography Consensus Statement. Radiology. 2020 Jun;296(2):263-274. doi: 10.1148/radiol.[id number]. Epub 2019Apr 29. PMID: 39775008. Procedure Note Sonia Rosales MD - 01/20/2023 [...] Ultrasound Liver Elastography ConsensusStatement. Radiology. 2020 Jun;296(2):263-274. doi:10.1148/radiol.[id number]. Epub 2019Apr 29. PMID: [id number]. IMPRESSION: 1. Mean Liver Stiffness Value 11.1 kPa 2. Increased echogenicity of the hepatic parenchyma in keeping withhepatic steatosis. us Oc Bains MD IMG US ABDOMEN Final Result documented in this encounter Visit Diagnoses Diagnosis Fatty liver disease, nonalcoholic- Primary Fatty liver disease, nonalcoholic documented in this encounter Care Teams Edge Burnisher Relationship Specialty Start Date End Date Osmel Green MD [address] [place] [address] PCP - General 09/04/20 Oc Bains MD [address] [place] [address] luis [email or web address] Gastroenterology 05/17/18 Ad Otero DO [address] [place] [address] [email or web address] Primary Oncologist Hematology and Oncology 12/06/18 Summer Walker FNP [address] [place] [address] [email or web address] Nurse Practitioner Medical Oncology 01/23/21 08/12/25 documented as of this encounter Additional Source Comments The information contained in this document represents components of the legal health record. It is not the complete legal health record.[facility]
--- OUTSIDE RECORDS SUMMARY | 2025-09-08 21:11 | XMS_ITS | Clinical Summary ---
Author Organization [employer] Address [address] [facility] 7t [place] [address] Care Team Providers Care Superintendent Drilling And Production Name Role Phone Unavailable Primary Care Provider [...]
--- OUTSIDE RECORDS SUMMARY | 2025-09-08 21:11 | XMS_ITS | Clinical Summary ---
Author Organization [facility] Address [address] [place] [address] Phone Care Team Providers Care Eclectic Doctor Name Role Phone Hilario Reyse MD Unavailable [phone] BrandenAd DO Unavailable [phone] Osmel Green MD Primary Care Provider Allergies [...] Type Department Care Team Description 08/26/2025 Telephone [facility] Infusion [address] [address] Osmel Green MD 08/26/[address] [address] Osmel Green MD 08/22/2025 2:30 PM EDT Office Visit [facility] at [address] [address] Ad Otero DO CLL (chronic lymphocytic leukemia) (Primary Dx) 08/22/2025 1:25 PM EDT - 08/22/2025 11:59 PM EDT Hospital Encounter [facility] Laboratory [address] [place] [address] Ad Otero DO Discharge Disposition: Home or Self Care 08/15/2025 Orders Only [facility] Center at [facility] [address] [place] [address] Rachelle Hui CLL (chronic lymphocytic leukemia) (Primary Dx) 07/16/2025 7:30 AM EDT Infusion [facility] Infusion [address] [address] Hilario Reyes MD Ulcerative (chronic) proctosigmoiditis (Primary Dx) 07/15/2025 Telephone [facility] Infusion [address] [address] Osmel Green MD from Last 3 Months Immunizations Immunization Administration [...] you interested in more education? Not on heathre e 03/18/2023 Are you concerned about learning? [...] Info) Description 10/08/2025 7:30 AM EST Infusion [address] [address] Hilario Reyes MD [address] [place] [address] luis 10/15/2025 1:30 PM EST Office Visit [facility] Gastroenterology Clinic [address] [place] [address] Unknown, Unknown, Tiffanie Jefferson, PAWillyC [address] [place] [address] 11/19/2025 7:30 AM EST Infusion [facility] Medical Infusion Center [address] [place] [address] Hilario Reyes MD [address] [address] luis [email or web address] 12/31/2025 7:30 AM EST Infusion [facility] [address] [place] [address] Hilario Reyes MD [address] [address] luis 08/22/2026 1:00 PM EDT Appointment [facility] Laboratory [address] [place] [address] Ad Otero, DO [address] [place] [address] [email or web address] 08/22/2026 2:00 PM EDT Office Visit [facility] at [address] [address] Ad Otero, DO [address] [place] [address] [email or web address] Health Maintenance Due Date Last Done Comments [...] PCV) 07/24/2016 07/24/2015 INFLUENZA VACCINE (#1) 2025 , 08/26/2022, 08/04/2021, Additional history exists COVID-19 VACCINE ( season) 2025 08/26/2022, 04/18/2022, 09/25/2021, Additional history [...] this topic Medical Devices Implanted Type Area Special Library Librarian Device Identifier Shelf Expiration Date Model / Serial / Lot Knee Tray 79mm Plate Bone Primary Vanguard [place] I Beam Revision Interlock Cemented - [id number] Implanted:Qty: 1 on 05/28/2019 by Hilario Worrell MD at [facility] Right: Knee [employer] 2029 [id number] / / [id number] Box Component 60mm Femoral Knee Vanguard Interlok [place] Posterior Stabilized Open Cemented Left - [id number] Implanted:Qty: 1 on 05/28/2019 by Hilario Worrell MD at [facility] Left: Knee [employer] 12/11/2023 [id number] / / [id number] Box Component 75.0mm Femoral Knee V[employer]ard Interlok [place] Posterior Stabilized Open Cemented Right - [id number] Implanted:Qty: 1 on 05/28/2019 by Hilario Worrell MD at [facility] Right: Knee [employer] 03/13/2029 [id number] / / [id number] Peg [id number] Button Patella Knee Vanguard Uhmwpe 3 Series A Standard - [id number] Implanted:Qty: 1 on 05/28/2019 by Hilario Worrell MD at [facility] Right: Knee [employer] 04/17/2024 [id number] / / [id number] Knee Bearing 79 [id number] Vanguard E1 Polyethylene Vitamin E Infused Stabilized - [id number] Implanted:Qty: 1 on 05/28/2019 by Hilario Worrell MD at [facility] Right: Knee [employer] 03/12/2024 [id number] / / [id number] Cement Bone Biomet Standard R 1x40 Us - [id number] Implanted:Qty: 1 on 05/28/2019 by Hilario Worrell MD at [facility] Right: Knee SHERI / DIV OF [employer]k 04/20/2023 [id number] / / [id number] Box Component 75.0mm Femoral Knee V[employer] Interlok [place] Posterior Stabilized Open Cemented Left - [id number] Implanted:Qty: 1 on 05/28/2019 by Hilario Worrell MD at [facility] Left: Knee [employer] 07/18/2028 [id number] / / [id number] Cement Bone Biomet Standard R 1x40 Us - [id number] Implanted:Qty: 1 on 05/28/2019 by Hilario Worrell MD at [facility] Left: Knee SHERI / DIV [employer] 04/20/2023 [id number] / / [id number] Knee Tray 79mm Plate Bone Primary V[employer]ard [place] I Beam Revision Interlock Cemented - [id number] Implanted:Qty: 1 on 05/28/2019 by Hilario Worrell MD at [facility] Left: Knee [employer] 2029 [id number] / / [id number] Peg [id number] Button Patella Knee Vanguard Uhmwpe 3 Series A Standard - [id number] Implanted:Qty: 1 on 05/28/2019 by Hilario Worrell MD at [facility] Left: Knee [employer] 03/15/2024 [id number] / / [id number] Procedures Procedure Name Priority Date/Time Associated Diagnosis [...] EDT) LDH 177 118 - 273 U/L [facility] Blood 08/22/2025 1:25 PM EDT 08/22/2025 1:41 PM EDT us Duong W Branden DO LAB BLOOD ORDERABLES Final Result [address] [address] * (ABNORMAL) Comprehensive metabolic panel (08/22/2025 1:25 PM EDT) SODIUM 134 133 - 146 mmol/L [facility] POTASSIUM 4.2 3.3 - 5.1 mmol/L [facility] CHLORIDE 98 96 - 108 mmol/L [facility] CO2 24 21 - 35 mmol/L [facility] BUN 20(H) 6 - 19 mg/dL [facility] CREATININE 1.60(H) 0.5 - 1.5 mg/dL [facility] GLUCOSE 379(H) 70 - 99 mg/dL [facility] ALBUMIN 4.1 3.9 - 4.8 g/dL [facility] TOTAL PROTEIN 7.5 6.5 - 8.0 g/dL [facility] CALCIUM 9.9 8.4 - 10.3 mg/dL [facility] ALKALINE PHOSPHATASE 106 39 - 117 U/L [facility] TOTAL BILIRUBIN 0.5 0.0 - 1.2 mg/dL [facility] AST 43(H) 0 - 37 U/L [facility] ALT 51(H) 0 - 40 U/L [facility] GLOBULIN 3.4 1 - 4.8 g/dL [facility] EGFR 48(L) >59 mL/min/1.7 3m2 [facility] Comment:Estimated glomerular filtration rate calculated using the CKD-EPI refit equation. ANION GAP 16 10 - 20 mmol/L [facility] Blood 08/22/2025 1:25 PM EDT 08/22/2025 1:41 PM EDT us Duong [employer] LAB BLOOD ORDERABLES Final Result Performing Organization Address City/[facility]/ZIP Co de Phone Number [address] [address] * Sedimentation rate (ESR) (08/22/2025 1:25 PM EDT) ESR 16 0 - 20 mm/h [facility] Blood 08/22/2025 1:25 PM EDT 08/22/2025 1:41 PM EDT [employer] LAB BLOOD ORDERABLES Final Result [address] [address] * (ABNORMAL) CBC and differential (08/22/2025 1:25 PM EDT) WBC 10.81 4.00 - 11.00 K/uL [facility] RBC 4.12(L) 4.50 - 5.90 M/uL [facility] HGB 13.1(L) 13.5 - 17.5 g/dL [facility] HCT 38.2(L) 41.0 - 53.0 % [facility] PLT 239 150 - 450 K/uL [facility] MCV 92.7 80.0 - 100.0 fL [facility] MCH 31.8(H) 27.0 - 31.0 pg [facility] MCHC 34.3 32.0 - 36.0 g/dL [facility] RDW 12.5 11.5 - 14.5 % [facility] MPV 9.9 8.4 - 12.0 fL [facility] NRBC 0.00 0.00 /100 WBCs [facility] ABSOLUTE NRBC 0.00 0.00 K/uL [facility] DIFF METHOD Manual [facility] TOTAL CELLS COUNTED 100 [facility] NEUTS 49.0 48.0 - 76.0 % [facility] LYMPHS 40.0 18.0 - 41.0 % [facility] Comment:Few atypical Lymphs seen. MONOS 6.0 4.0 - 11.0 % [facility] EOS 4.0 0.0 - 5.0 % [facility] MYELOS 1.0(H) 0 % [facility] ABSOLUTE NEUTS 5.30 1.92 - 7.60 K/uL [facility] ABSOLUTE LYMPHS 4.32(H) 0.72 - 4.10 K/uL [facility] ABSOLUTE MONOS 0.65 0.16 - 1.10 K/uL [facility] ABSOLUTE EOS 0.43 0.00 - 0.50 K/uL [facility] ABSOLUTE MYELOS 0.11 K/uL [facility] SMUDGE CELLS PRESENT(A) None [facility] Blood 08/22/2025 1:25 PM EDT 08/22/2025 1:41 PM EDT us Ad Otero DO LAB BLOOD ORDERABLES Final Result [facility] [address] [place], [place] [id number] * (ABNORMAL) Liver fibrosis test (01/23/2025 8:28 AM EST) Fibrosis score 0.66 [facility] Interpretation (Fibrosis) SEE NOTE [facility] Comment: (NOTE) advanced fibrosis Fibro Test [...] HCV Fibrosis Grade F3 Q [facility] NECROINFLAMM SCORE 0.26 Q [facility] NECROINFLAMM GRADE SEE NOTE [facility] Comment: (NOTE) Result: A0-A1 NECROINFLAMM INTERP SEE NOTE [facility] Comment: (NOTE) no activity ActiTest Score [...] 382(H) 106 - 279 mg/dL [facility] Haptoglobin 146 43 - 212 mg/dL [facility] Apolipoprotein A1 127 94 - 176 mg/dL [facility] TOTAL BILIRUBIN 0.5 0.2 - 1.2 mg/dL [facility] GGT 38 3 - 70 U/L [facility] ALT 33 9 - 46 U/L [facility] Specimen/Product ID [id number] [facility]/ [facility] Comments (Chemistry) SEE NOTE [facility]/ [facility] Comment: (NOTE) The reliability of results is dependent on compliance with the preanalytical and analytical conditions recommended by [employer]. The tests have to be deferred for: [...] The performance characteristics have been determined by [facility]. It has not been cleared or approved by the U.S. Food and Drug Administration. Performance characteristics refer to the analytical performance of the test. [employer], [employer], the associated logo, [employer] and all associated [employer] deshpande are the registered trademarks of [employer]. All third alliance party deshpande - (R) and (TM) - are the property of their respective owners. (C) [id number] [employer]. All rights reserved. Blood 01/23/2025 8:28 AM EST 01/23/2025 8:33 AM EST us Tiffanie CAMPBELL LAB BLOOD ORDERABLES Final Result [facility] [address] [place] [address], [place] [phone] * ENDOSCOPY, COLON (08/13/2021 11:14 AM EDT) Narrative Transcriptions Hilario Reyes MD - 08/13/2021 11:14 AM EDT Patient Name: Sonny Mota Attending MD:: HILARIO REYES MD Procedure Date: 08/13/2021 11:14 AM Date of : 1960 Age: 61 Admit Type: Outpatient Gender: Male Room: [place] [address] Referring MD: Osmel Green Exam Type: Colonoscopy [...] monitored continuously. The Olympus adult variable colonoscope [id number] #1was introduced through the anus and advanced [...] 11:14 AM Procedure Code(s): --- Professional --- 65340, Colonoscopy, flexible; with removal of tumor(s), polyp(s), or other lesion(s) by snare technique [id number], 59, Colonoscopy, flexible; with biopsy, single or multiple --- Technical --- 29128, Colonoscopy, flexible; with removal of tumor(s), polyp(s), or other lesion(s) by snare technique 88432, 59, Colonoscopy, flexible; with biopsy, single or multiple Diagnosis Code(s): --- Professional --- K51.30, Ulcerative (chronic) rectosigmoiditiswithout complications D12.6, Benign neoplasm of colon, unspecified K57.30, Diverticulosis of large intestine without perforation or abscess without bleeding --- Technical --- K51.30, Ulcerative (chronic) rectosigmoiditiswithout complications D12.6, Benign neoplasm of colon, unspecified K57.30, Diverticulosis of large intestine without perforation or abscess without bleeding CPT copyright 2018 [employer]. All rights reserved. The codes documented in this report are preliminary and upon payroll lead reviewmay be revised to meet current compliance requirements. Procedure Date: 08/13/2021 11:14:[address] [place] [address] Osmel Green MD GI PROCEDURE ORDERABL ES Final Result from Last 3 Months or Most Recently Relevant to Health Maintenance Insurance [facility] MEDICARE A [place] A [address] [place], [place] [id number] [facility]IC[facility] MEDICARE A Advance Directives For more information, please contact: [phone] (9AM - 5PM [place], Tuesday-Tuesday) * Full Code (Presumed) (Latest Code Status on File) Date Activated Date Inactivated Comments 05/28/2019 5:07 PM 06/01/2019 7:02 PM * Full Code (Presumed) Date Activated Date Inactivated Comments 05/28/2019 9:45 AM 05/28/2019 5:07 PM Care Teams Eclectic Doctor Relationship Specialty Start Date End Date Osmel Green MD [address] [place] [address] PCP - General 09/04/20 Hilario Reyes MD [address] [place] [address] luis [email or web address] Gastroenterology 05/17/18 Ad Otero DO [address] [place] [address] [email or web address] Primary Oncologist Hematology and Oncology 12/06/18 Additional Source Comments The information contained in this document represents components of the legal health record. It is not the complete legal health record.[facility]
--- OUTSIDE RECORDS SUMMARY | 2025-09-08 21:11 | XMS_ITS | Encounter Summary ---
Author Organization [facility] Address [address] [place] [address] Phone Care Team Providers Care Brass Polisher Name Role Phone Oc Bains MD Unavailable [phone] Ad Otero DO Unavailable [phone] Osmel Green MD Primary Care Provider Encounter Details Date Type Department Care Team (Late st Contact Info) Description 08/15/2025 Orders Only [facility] at [facility] [address] [place] [address] Rachelle Hui [address] [place] [address] CLL (chronic lymphocytic leukemia) (Primary Dx) Social [...] Info) Description 10/08/2025 7:[address] [facility] Infusion [address] [address] Oc Bains MD [address] [place] [address] luis 10/15/2025 1:30 PM EST Office Visit [facility] Gastroenterology Clinic [address] [place] [address] Unknown, Unknown, Tiffanie Jefferson PA-C [address] [address] 11/19/2025 7:[address] [facility] Infusion [address] [address] Oc Bains MD [address] [address] luis 12/31/2025 7:[address] [facility] Infusion [address] [address] Oc Bains MD [address] [address] luis 08/22/2026 1:00 PM EDT Appointment [facility] [address] [place] [address] BrandenAd, DO [address] [place] [address] [email or web address] 08/22/2026 2:00 PM EDT Office Visit [facility] Center at [address] [address] Branden Ad Blankenship, DO [address] [place] [address] [email or web address] documented as of this encounter Results * Sedimentation rate (ESR) (08/22/2025 1:25 PM EDT) Pathologist [facility] ESR 16 0 - 20 mm/h [facility] Blood 08/22/2025 1:25 PM EDT 08/22/2025 1:41 PM EDT us Ad Otero DO LAB BLOOD ORDERABLES Final Result [address] [address] * LDH (08/22/2025 1:25 PM EDT) Pathologist [facility] LDH 177 118 - 273 U/L [facility] Blood 08/22/2025 1:25 PM EDT 08/22/2025 1:41 PM EDT us Ad Otero DO LAB BLOOD ORDERABLES Final Result [address] [address] * (ABNORMAL) Comprehensive metabolic panel (08/22/2025 1:25 PM EDT) Pathologist [facility] SODIUM 134 133 - 146 mmol/L [facility] POTASSIUM 4.2 3.3 - 5.1 mmol/L [facility] CHLORIDE 98 96 - 108 mmol/L [facility] CO2 24 21 - 35 mmol/L [facility] BUN 20(H) 6 - 19 mg/dL [facility] CREATININE 1.60(H) 0.5 - 1.5 mg/dL [facility] GLUCOSE 379(H) 70 - 99 mg/dL [facility] ALBUMIN 4.1 3.9 - 4.8 g/dL [facility] TOTAL PROTEIN 7.5 6.5 - 8.0 g/dL [facility] CALCIUM 9.9 8.4 - 10.3 mg/dL [facility] ALKALINE PHOSPHATASE 106 39 - 117 U/L [facility] TOTAL BILIRUBIN 0.5 0.0 - 1.2 mg/dL [facility] AST 43(H) 0 - 37 U/L [facility] ALT 51(H) 0 - 40 U/L [facility] GLOBULIN 3.4 1 - 4.8 g/dL [facility] EGFR 48(L) >59 mL/min/1.7 3m2 [facility] Comment:Estimated glomerular filtration rate calculated using the CKD-EPI refit equation. ANION GAP 16 10 - 20 mmol/L [facility] Blood 08/22/2025 1:25 PM EDT 08/22/2025 1:41 PM EDT us Ad Otero DO LAB BLOOD ORDERABLES Final Result Performing Organization Address City/State/[facility] Co de Phone Number [address] [address] * (ABNORMAL) CBC and differential (08/22/2025 1:25 PM EDT) WBC 10.81 4.00 - 11.00 K/uL [facility] RBC 4.12(L) 4.50 - 5.90 M/uL [facility] HGB 13.1(L) 13.5 - 17.5 g/dL [facility] HCT 38.2(L) 41.0 - 53.0 % [facility] PLT 239 150 - 450 K/uL [facility] MCV 92.7 80.0 - 100.0 fL [facility] MCH 31.8(H) 27.0 - 31.0 pg [facility] MCHC 34.3 32.0 - 36.0 g/dL [facility] RDW 12.5 11.5 - 14.5 % [facility] MPV 9.9 8.4 - 12.0 fL [facility] NRBC 0.00 0.00 /100 WBCs [facility] ABSOLUTE NRBC 0.00 0.00 K/uL [facility] DIFF METHOD Manual [facility] TOTAL CELLS COUNTED 100 [facility] NEUTS 49.0 48.0 - 76.0 % [facility] LYMPHS 40.0 18.0 - 41.0 % [facility] Comment:Few atypical Lymphs seen. MONOS 6.0 4.0 - 11.0 % [facility] EOS 4.0 0.0 - 5.0 % [facility] MYELOS 1.0(H) 0 % [facility] ABSOLUTE NEUTS 5.30 1.92 - 7.60 K/uL [facility] ABSOLUTE LYMPHS 4.32(H) 0.72 - 4.10 K/uL [facility] ABSOLUTE MONOS 0.65 0.16 - 1.10 K/uL [facility] ABSOLUTE EOS 0.43 0.00 - 0.50 K/uL [facility] ABSOLUTE MYELOS 0.11 K/uL [facility] SMUDGE CELLS PRESENT(A) None [facility] Blood 08/22/2025 1:25 PM EDT 08/22/2025 1:41 PM EDT us dA W Branden DO LAB BLOOD ORDERABLES Final Result [facility] [address] [place] [address] documented in this encounter Visit Diagnoses Diagnosis CLL (chronic lymphocytic leukemia)- Primary Chronic lymphoid leukemia, without mention of having achieved remission documented in this encounter Care Teams Brass Polisher Relationship Specialty Start Date End Date Osmel Green MD [address] [place] [address] PCP - General 09/04/20 Oc Bains MD [address] [place] [address] luis [email or web address] Gastroenterology 05/17/18 Ad Otero DO [address] [place] [address] [email or web address] Primary Oncologist Hematology and Oncology 12/06/18 documented as of this encounter Additional Source Comments The information contained in this document represents components of the legal health record. It is not the complete legal health record.[facility]
--- OUTSIDE RECORDS SUMMARY | 2025-09-08 21:11 | XMS_ITS | Encounter Summary ---
Author Organization [facility] Address [address] [place] [address] Phone Care Team Providers Care Hazard Waste Handler Name Role Phone Wilmar Malave Primary Care Provider [phone] Oc Bains MD Unavailable [phone] Ad Otero DO Unavailable [phone] Osmel Green MD Primary Care Provider Summer Walker MEDICAL SUPPLY TECHNICIAN Unavailable [phone] Encounter Details Date Type Department Care Team (Late Contact Info) Description 05/28/2019 Procedure Pass OR Admitting Dept - Virtual Department [address] [place] [address] Social History Tobacco Use Types Packs/Day Years [...] Info) Description 10/08/2025 7:30 AM EST Infusion [facility] [address] [place] [address] Oc Bains MD [address] [place] [address] luis 10/15/2025 1:30 PM EST Office Visit [facility] Gastroenterology Clinic 10 [place] [address] Unknown, Unknown, Tiffanie Jefferson PA-C [address] [address] 11/19/2025 7:30 AM EST Infusion [facility] Infusion [address] [address] Oc Bains MD [address] [place] [address] luis 12/31/2025 7:30 AM EST Infusion [facility] Infusion [address] [address] Oc Bains MD [address] [place] [address] luis 08/22/2026 1:00 PM EDT Appointment [facility] Laboratory [address] [place] [address] Ad Otero, DO [address] [place] [address] [email or web address] 08/22/2026 2:00 PM EDT Office Visit [facility] [place] [address] [place] [address] Ad Otero, DO [address] [place] [address] [email or web address] documented as of this encounter Visit Diagnoses Not on filedocumented in this encounter Care Teams Hazard Waste Handler Relationship Specialty Start Date End Date Wilmar Malave DO [email or web address] PCP - General 09/06/17 09/03/20 Osmel Green MD [address] [place] [address] PCP - General 09/04/20 Oc Bains MD [address] [place] [address] luis [email or web address] Gastroenterology 05/17/18 Ad Otero DO [address] [place] [address] [email or web address] Primary Oncologist Hematology and Oncology 12/06/18 Summer Walker FNP [address] [place] [address] [email or web address] Nurse Practitioner Medical Oncology 01/23/21 08/12/25 documented as of this encounter Additional Source Comments The information contained in this document represents components of the legal health record. It is not the complete legal health record.[facility]
--- OUTSIDE RECORDS SUMMARY | 2025-09-08 21:11 | XMS_ITS | Data Portability ---
Author Organization [facility], Telehealth Patient Home Address [address] [place] [address] Assessment Encounter Date Assessment Date Assessment LastModified by Organization Details LastModified Time 03/12/2020 03/12/2020 VERBALLY CONSENTS TO TELEPHONE CONSULT PT IS AT HOME I AM AT THE OFFICE [facility] 6 [facility] [address] [facility] total of 11 minutes spent on the phone Not available 03/12/2020 11:32:35 Plan of Treatment Reminders Order Date Submit Date Provider Last Modified By Organization Details Last Modified Time Details Appointments None recorded. Lab lipid panel, blood 2019 020 [email or web address] 10 [facility], [address] [place] [address], [address], 0 08:21:20 CMP, serum or plasma 2019 [facility] [address] [place] [address], [address], 0 10:04:28 glycohemog lobin, total, blood 2019 020 [facility] (Lab), [address] [place] [address], [address], 0 07:34:01 lipid panel, blood 2019 020 [facility], [address] [place] [address], [address], 0 12:41:06 CMP, serum or plasma 2019 [facility], [address] [place] [address], [address], 0 08:25:52 glycohemog lobin, total, blood 2018 019 [facility] (Lab), [address] [place] [address], [address], 9 08:00:25 glycohemog lobin, total, blood 2018 019 [facility] (Lab), [address] [place] [address], [address], 9 08:00:24 lipid panel, blood 2018 019 [facility], [address] [place] [address], [address], 9 08:00:25 CMP, serum or plasma 2018 019 [facility], [address] [place] [address], [address], 9 08:24:54 CMP, serum or plasma 2018 020 [facility], [address] [place] [address], [address], 0 08:23:06 lipid panel, blood 2018 020 [facility], [address] [place] [address], [address], 9 08:00:25 CMP, serum or plasma 2019 020 [facility], [address] [place] [address], [address], 0 08:23:11 Referral None recorded. Procedures None recorded. Surgeries None recorded. Imaging electrocar diogram 2018 019 elva [facility], [address] [facility], [address], [place], [address], 9 12:03:56 Medication Orders lisinopril 10 mg tablet 2019 020 INTERFACE [id number], [address] [place] [address], [address], 0 09:35:44 metformin 500 mg tablet 2019 020 INTERFACE [id number], [address] [place], [address], 0 09:35:44 Patient TargetsNo targets recorded. Patient Instructions Encounter Date Encounter Id Patient Instructions Last Modified By Organization Details Last Modified Time 05/21/[id number] learning about high white blood cell counts Not available 05/21/2019 12:00:53 knee arthritis: care instructions Not available 05/21/2019 12:00:53 high blood pressure: care instructions Not available 05/21/2019 12:00:53 learning about high blood pressure Not available 05/21/2019 12:00:53 high cholesterol : care instructions Not available 05/21/2019 12:00:53 chronic lymphocytic leukemia: care instructions Not available 05/21/2019 12:00:53 07/11/2019 [id number] When You Want to Lose Weight: Care Instructions Not available 07/11/2019 11:15:26 knee arthritis: care instructions Not available 07/11/2019 11:15:26 high blood pressure: care instructions Not available 07/11/2019 11:15:26 learning about high blood pressure Not available 07/11/2019 11:15:26 high cholesterol : care instructions Not available 07/11/2019 11:15:26 12/21/2019 [id number] When You Want to Lose Weight: Care Instructions Not available 12/21/2019 12:33:41 knee arthritis: care instructions Not available 12/21/2019 12:33:41 high blood pressure: care instructions Not available 12/21/2019 12:33:41 learning about high blood pressure Not available 12/21/2019 12:33:40 high cholesterol : care instructions Not available 12/21/2019 12:33:41 03/12/2020 [id number] high blood pressure: care instructions Not available [...] & Rhythm 88 regula r Not Available [facility] [address], [place], [address], 05/21/2019 11:49:38 05/21/2005/21/2019 elect rocmarge diogr am QRS 12/-21 /3 Not Available [facility] Medicine [address], [place], [address], 05/21/2019 11:49:38 05/21/2005/21/2019 elect rocar diogr am [place] Interval 106/15 2 Not Available [facility] [address], [place], [address], 05/21/2019 11:49:38 05/21/2005/21/2019 elect rocar diogr am QRS Duration 92 ms Not Available [facility] [address], [place], [address], 05/21/2019 11:49:38 05/21/2005/21/2019 elect rocar diogr am QT Interval 364/44 0 Not Available [facility] [address], [place], [address], 05/21/2019 11:49:38 06/08/20 19 06/08/2019 US, mathew xdarian s, [facility] mity No observ ation record ed. [facility] Imaging Dept [address] [facility], [place], [address], 06/08/2019 14:23:27 Result Notes None recorded. Problems Name Problem SNOMED Code Status Onset Date Resolution Date Notes Provider Name and Address Organization Details Recorded Time Chronic hepatiti s C 906575985 Active 2017 Mariza dutta [facility] 8 14:19:52 Non-alco holic fatty liver 998414504 Active 2017 Mariza dutta [facility] 8 14:20:16 Anemia 667361553 Active 2017 Mariza dutta [facility] 8 14:20:23 [facility] hyperten true 43147127 Active 2017 Mariza dutta [facility] 8 14:20:29 Hyperlip idemia 42540717 Active 2017 Mariza dutta [facility] 8 14:20:39 Irritabl e bowel syndrome 92049630 Active 2017 Mariza dutta [facility] 8 14:20:46 Obesity 034235012 Active 2017 Mariza dutta [facility] 8 14:20:53 Chronic ulcerati ve rectosig moiditis 39214042 Active 2017 Mariza dutta [facility] 8 14:21:25 Diabetes mellitus 08816151 Active 2017 Mariza dutta [facility] 8 14:21:33 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 Procedures Surgical History Date Name Laterality Status Provider Name and Address Organization Details Recorded Time 05/28/20 total knee replacement completed February SANGEETHA Fernando [address] [place], [address], [facility] 07/11/2019 11:12:42 Imaging Results None recorded. Procedure Notes None recorded. Medical Equipment None Reported. Allergies Allergen ID Allergen Name Allergen Category Reaction Reaction Severity Criticality Documentation Date Start Date Code Code System Note Provider Name and Address Organization Details Recorded Time 164 Product containin g penicilli n (product) medicatio n Not available Not available Not available 05/09/2018 13448 8001 [facility]ED [facility] 14:18:57 Medications Name Sig Start Date [...] Available Not Available Not Available Flucelvax Quad 4185-0702 (PF) 60 mcg (15 mcg x 4)/0.5 mL IM syringe 05/10 completed Not Available Not Available Not Available Flucelvax Quad (PF) 60 mcg (15 mcg x 4)/0.5 mL IM syringe 12/21 completed Not Available Not Available Not Available Vitals Date Recorded Body mass index (BMI) Body weight Provider Name and Address Organization Details Last Updated DateTime 12/21/2019 36.9 kg/m2 176829.24 g February SANGEETHA Fernando [address] [place] [address], [phone] 12/21/2019 12:35:09 Date Recorded Body height Heart rate Oxygen saturation Oxygen saturation in Arterial blood by Pulse oximetry Systolic And Diastolic Provider Name and Address Organization Details Last Updated DateTime 0 177.8 cm 92 /min 97 % 97 % 116/72 mm[Hg] Mariza Adamson [facility] 0 12:17:24 Date Recorded Body height Body mass index (BMI) Body weight Heart rate Oxygen saturation Oxygen saturation in Arterial blood by Pulse oximetry Systolic And Diastolic Provider Name and Address Organization Details Last Updated DateTime 9 177.8 cm 35.2 kg/m2 051013. 29 g 90 /min 96 % 96 % 108/74 mm[Hg] Jovana Bailey [facility] 9 11:28:17 Date Recorded Body height Body mass index (BMI) Body weight Heart rate Oxygen saturation Oxygen saturation in Arterial blood by Pulse oximetry Systolic And Diastolic Provider Name and Address Organization Details Last Updated DateTime 0 177.8 cm 37.7 kg/m2 632453. 64 g 80 /min 96 % 96 % 130/80 mm[Hg] Deena Eugene [facility] 0 09:23:00 Date Recorded Body height Body mass index (BMI) Body weight Heart rate Oxygen saturation Oxygen saturation in Arterial blood by Pulse oximetry Systolic And Diastolic Provider Name and Address Organization Details Last Updated DateTime 9 177.8 cm 34.5 kg/m2 973744. 61 g 86 /min 98 % 98 % 108/74 mm[Hg] Jovana Leo [facility] 9 11:00:32 Social History Question Answer Notes LastModified by Organizat ion Details LastModified Time Tobacco Smoking Status Never Smoker Not Available [facility] 09/23/2020 03:36:23 What Was The Date Of Your Most Recent Tobacco Screening? 05/21/2019 [id number] Information not available 09/23/2020 Sex: Unknown Functional Status None recorded. Mental Status None recorded. Family History Nothing Reported. Medical History No medical history recorded. Immunizations Vaccine Type Date Status Note Provider Nam e and Address Organization Details Recorded Time pneumococcal polysaccharide PPV23 5 completed Mariza dutta [facility] 05/09/2018 14:31:07 TST-PPD intradermal 1 completed Mariza dutta [facility] 05/09/2018 14:31:32 TST-PPD intradermal 1 completed Mariza dutta [facility] 05/09/2018 14:31:45 Past Encounters Encounter ID Performer Location Encounter Start Date Encounter Closed Date Diagnosis/Indication Diagnosis SNOMED-CT Code Diagnosis ICD10 Code Diagnosis IMO Codes Diagnosis Note [id number] Wilmar Malave DO [facility] [address] [facility] [address] 05/10/2018 11:11:42 05/12/2018 08:37:17 Leukocytosis 123257753 D72.829 Knee pain 37611035 M25.5 69 Essential hypertension 48881016 I10 mildly elevated follow Ulcerative colitis 97499 004 K51.90 remicade infusions [id number] Wilmar Malave [facility] [address] [facility] [place] [address] 12/15/2018 10:30:43 12/15/2018 11:24:23 Hyperlipidemia 19545745 E78.2 Essential hypertension 36224563 I10 mildly elevated follow Diabetes mellitus 356483 09 E11.9 Ulcerative colitis 80868 004 K51.90 remicade infusions restarted after 3 month hiatus 2nd insurance Osteoarthr itis of knee 060936194 M17.0 Dysuria 37941417 R30.0 Chronic ly mphoid leukemia, disease 93869333 C91.90 Stage 0, seeing hematologi st Obesity 671344318 E66.9 Discussed weight loss, diet improvemen t [id number] Wilmar Malave [facility] [address] [facility] [place] [address] 01/05/2019 09:38:48 01/05/2019 11:15:52 Chronic lymphoid leukemia, disease 63257523 C91.90 Stage 0, seeing hematologi st Hyperlipidemia 86807012 E78.2 Essential hypertension 21431842 I10 improved Diabetes mellitus 525044 09 E11.9 A1C 6.4 Osteoarthr itis of knee 684579723 M17.0 has ortho appt 01/29/19 [id number] Wilmar Malave [facility] [address] [facility] [place] [address] 05/21/2019 11:20:40 05/21/2019 12:03:56 Pre-surgery evaluation 448687544 Z01.818 cleared for procedure Osteoarthr itis of knee 885459437 M17.0 Essential hypertension 26267479 I10 very well controlled Hyperlipidemia 97428997 E78.5 very well controlled as of 02/2019 Diabetes mellitus 989571 09 E11.9 very well controlled as of 02/2019 a1c was 6.3 05/14/19 BS was 88 Leukocytosis 317792105 D 72.829 stable wbc is monitored every 6 months by oncologist Chronic ul cerative rectosigmoiditis 32696946 K51.30 currently with diarrhea as he has been off the remicade for 2 months in preparatio n for the surgery per dr nelson (ortho) and dr. avila (gi) Chronic ly mphoid leukemia, disease 91302997 C91.[address] suero every 6 months [id number] Wilmar Malave [facility] [address] [facility] [address] [address] 07/11/2019 10:50:28 07/11/2019 11:43:59 Essential hypertension 91833395 I10 very well controlled Osteoarthr itis of knee 788930111 M17.0 s/p double tkr, with progressiv e improvemen t Obesity 986354929 E66.9 Hyperlipidemia 84213544 E78.5 very well controlled as of 02/2019 Diabetes mellitus 937746 09 E11.9 very well controlled as of 02/2019 a1c was 6.3 05/14/19 BS was 88 [id number] Wilmar Malave [facility] [address] [facility] [address] [address] 12/21/2019 11:56:05 12/21/2019 13:55:20 Essential hypertension 34869248 I10 very well controlled Osteoarthr itis of knee 307371777 M17.0 s/p double tkr, with progressiv e improvemen t Obesity 722358508 E66.9 working on weight again gained weight after surgery/se dentary Hyperlipidemia 83705295 E78.5 controlled Diabetes mellitus 013986 09 E11.9 at goal [id number] Wilmar Malave [facility] [address] [facility] [address] [facility] [place] [address] 03/12/2020 08:16:59 03/12/2020 11:50:41 Diabetes mellitus 83601677 E11.9 a1c 7.0 advised to work on diet slightly and continue wlaking recheck in 3 months Essential hypertension 40739970 I10 stable previously , recheck at fu in may Hyperlipidemia 77171555 E78.5 [place] [id number] Wilmar Malave [facility] [address] [facility] [address] [facility] [place] [address] 06/20/2020 09:17:18 06/20/2020 11:34:28 Diabetes mellitus 39602690 E11.9 stable, doing well is trying to work on diet labs looked good Essential hypertension 86503838 I10 BP is stable on medication Liver func tion tests outside reference range 774531042 R94.5 will recheck CMP and see if ALT has improved Health Concerns Section Related Observation LastModified by Organization Detai ls LastModified Time None Recorded Concern Status LastModified by Organization Details LastModified Time None Recorded Advance Directives Directive None Recorded Payers Insurance Date Sequence Insurance Name Policy Number Policy Castro Covered Member ID Castro Member ID Guarantor Name 06/19/2020 1 [facility] [employer] (H[employer]) [id number] Sonny Mota [id number] Sonny Mota 06/16/2020 1 [facility] [employer] (HMO) [id number] Sonny Mota [id number] Sonny Mota 06/16/2020 1 [facility] [id number] Sonny Mota [id number] Sonny Mota Notes Date Note Type [...] rashes, or nail changes. February SANGEETHA Fernando [address] [place] [address], [address], [facility] 05/21/2019 12:01:51 9 text/htm l [...] rashes, or nail changes. SANGEETHA Singh [address] [place], [address], [facility] Internal [facility] 07/11/2019 11:16:53 0 text/htm l ROS [...] rashes, or nail changes. OLAF SinghMARLIN [address] [place], [address], [facility] 12/21/2019 12:36:00 0 text/htm l ROS as noted in the HPI VERBALLY CONSENTS TO TELEPHONE CONSULT PT IS AT HOME I AM AT THE OFFICE [facility] [address] [facility] [address], [facility] has been walking outside some snacking, needs [...] rashes, or nail changes. OLAF SinghMARLIN [address] [place], [address], [facility] 03/12/2020 11:32:46 0 text/htm l [...] reportscoronary artery disease: no. ADRIAN MARQUIS [address] [place], [address], [facility] 06/20/2020 09:37:26
--- OUTSIDE RECORDS SUMMARY | 2025-09-08 21:11 | XMS_ITS | Encounter Summary ---
Author Organization [facility] Address [address] [place] [address] Phone Care Team Providers Care Economic Research Analyst Name Role Phone Oc Bains MD Unavailable [phone] Ad Otero DO Unavailable [phone] Osmel Green MD Primary Care Provider Summer Walker WINE MAKER Unavailable [phone] Encounter Details Date Type Department Care Team (Late Contact Info) Description 02/14/2023 Procedure Pass [facility] Endoscopy Admitting Dept Virtual Department [address] [place] [address] Social History Tobacco Use Types Packs/Day Years [...] Info) Description 10/08/2025 7:30 AM EST Infusion [facility] Medical Infusion Center [address] [place] [address] Oc Bains MD [address] [place] [address] luis 10/15/2025 1:30 PM EST Office Visit [facility] [address] [place] [address] Unknown, Unknown, Tiffanie Jefferson PA-C [address] [address] 11/19/2025 7:30 AM EST Infusion [facility] Infusion [address] [address] Oc Bains MD [address] [place] [address] luis 12/31/2025 7:30 AM EST Infusion [address] [address] Oc Bains MD [address] [place] [address] luis 08/22/2026 1:00 PM EDT Appointment [facility] Laboratory [address] [place] [address] Ad Otero, DO [address] [place] [address] [email or web address] 08/22/2026 2:00 PM EDT Office Visit [facility] at [address] [address] Ad Otero, DO [address] [place] [address] [email or web address] documented as of this encounter Visit Diagnoses Not on filedocumented in this encounter Care Teams Economic Research Analyst Relationship Specialty Start Date End Date Osmel Green MD [address] [place] [address] PCP - General 09/04/20 Oc Bains MD [address] [place] [address] [email or web address] Gastroenterology 05/17/18 Ad Otero DO [address] [place] [address] [email or web address] Primary Oncologist Hematology and Oncology 12/06/18 Summer Walker FNP [address] [place] [address] [email or web address] Nurse Practitioner Medical Oncology 01/23/21 08/12/25 documented as of this encounter Additional Source Comments The information contained in this document represents components of the legal health record. It is not the complete legal health record.[facility]
--- NOTE | 2025-09-08 21:20 | PC.NURSE ---
Assumed care of pt, presents with left foot pain from his gout, pt was recently seen in the ED for same issue, pt states the Rx that was given was not correct dose, aaox4, nad, states pain is only when he is walking
[2025-09-08 22:55] VITALS: BP 145/88; PULSE 88; RESP 20; TEMP 36.4; O2SAT 94
== END 2025-09-08 22:59 | disposition home or self-care (01) ==
PROVIDERS: Registered Nurse Emergency; Emergency Provider Student in an Organized Health Care Education/Training Program; PCP Family Medicine
DX: M10.9 Gout, unspecified (principal); M79.675 Pain in left toe(s); I12.9 Hypertensive chronic kidney disease with stage 1 through stage 4 chronic kidney disease, or unspecified chronic kidney disease; E11.22 Type 2 diabetes mellitus with diabetic chronic kidney disease; N18.9 Chronic kidney disease, unspecified; Z79.899 Other long term (current) drug therapy
CPT/HCPCS: 36415; 80048; 99283; 99284

== ENCOUNTER 2025-09-24 11:22 | Outpatient (REF) | payer MEDICARE, MEDICAID, SELFPAY ==
[2025-09-24 14:18] LABS: Appearance Urine Turbid; Glucose Urine UA 250 mg/dL (Negative); PH 5.5 (5.0-9.0); Specific Gravity - Urine >= 1.030 (1.005-1.025); UMIC TRIGGER UACC YES
[2025-09-24 14:23] LABS: Hematocrit 38.8 % (42.0-52.0); Hemoglobin 12.9 g/dl (14.0-18.0); Mean Corpuscular HGB Conc 33.2 g/dl (31.0-36.0); Mean Corpuscular Hemoglobin 31.1 pg (27.0-33.0); Mean Corpuscular Volume 93.5 fL (80.0-98.0); NRBC Abs Auto 0.000 X10*3/uL (0.0-0.012); NRBC Pct Auto 0.0 /100WBC (0.0-0.2); Platelet Count 256 X10*3/uL (160-400); Red Blood Count 4.15 X10*6/uL (4.60-5.80); White Blood Count 10.8 X10*3/uL (4.8-10.8)
[2025-09-24 14:49] LABS: Alanine Aminotransferase 86 U/L (0-40); Albumin Level 4.3 g/dL (3.5-5.0); Alkaline Phosphatase 97 U/L (39-117); Anion Gap 10 (12-20); Aspartate Amino Transferase 56 U/L (5-37); Blood Urea Nitrogen 16 mg/dL (9-16); Calcium 9.3 mg/dL (8.4-10.2); Carbon Dioxide 27 mmol/L (22-29); Chloride 105 mmol/L (96-108); Estimated Glomerular Filt Rate 42; Potassium 3.9 mmol/L (3.3-5.1); Sodium 138 mmol/L (135-145); Total Protein 7.1 g/dL (6.5-8.0)
--- OUTSIDE RECORDS SUMMARY | 2025-09-24 14:56 | XMS_ITS | Data Portability ---
Author Organization [facility] Internal Medicine, Telehealth Patient Home Address [address] [place] [address] Assessment Encounter Date Assessment Date Assessment LastModified by Organization Details LastModified Time 03/12/2020 03/12/2020 VERBALLY CONSENTS TO TELEPHONE CONSULT PT IS AT HOME I AM AT THE OFFICE [facility] INTERNAL MEDICINE [address] [facility] [facility] total of 11 minutes spent on the phone Not available 03/12/2020 11:32:35 Plan of Treatment Reminders Order Date Submit Date Provider Last Modified By Organization Details Last Modified Time Details Appointments None recorded. Lab lipid panel, blood 2019 020 [email or web address] 10 [facility], [address] [place] [address], [address], 0 08:21:20 CMP, serum or plasma 2019 [facility] [address] [place] [address], [address], 0 10:04:28 glycohemog lobin, total, blood 2019 020 [facility] (Lab), [address] [place] [address], [address], 0 07:34:01 lipid panel, blood 2019 020 [facility], [address] [place] [address], [address], 0 12:41:06 CMP, serum or plasma 2019 [facility], [address] [place] [address], [address], 0 08:25:52 glycohemog lobin, total, blood 2018 019 [facility] (Lab), [address] [place] [address], [address], 9 08:00:25 glycohemog lobin, total, blood 2018 019 [facility] (Lab), [address] [place] [address], [address], 9 08:00:24 lipid panel, blood 2018 019 [facility], [address] [place] [address], [address], 9 08:00:25 CMP, serum or plasma 2018 019 [facility], [address] [place] [address], [address], 9 08:24:54 CMP, serum or plasma 2018 020 [facility], [address] [place] [address], [address], 0 08:23:06 lipid panel, blood 2018 020 [facility], [address] [place] [address], [address], 9 08:00:25 CMP, serum or plasma 2019 020 [facility], [address] [place] [address], [address], 0 08:23:11 Referral None recorded. Procedures None recorded. Surgeries None recorded. Imaging electrocar diogram [address] [facility], [address] [facility], [place], [address], 9 12:03:56 Medication Orders lisinopril 10 mg tablet 2019 020 INTERFACE [id number], [address] [place] [address], [address], 0 09:35:44 metformin 500 mg tablet 2019 020 INTERFACE [id number], [address] [place], [address], 0 09:35:44 Patient TargetsNo targets recorded. Patient Instructions Encounter Date Encounter Id Patient Instructions Last Modified By Organization Details Last Modified Time 05/21/[id number] learning about high white blood cell counts Not available 05/21/2019 12:00:53 knee arthritis: care instructions Not available 05/21/2019 12:00:53 high blood pressure: care instructions Not available 05/21/2019 12:00:53 learning about high blood pressure Not available 05/21/2019 12:00:53 high cholesterol : care instructions Not available 05/21/2019 12:00:53 chronic lymphocytic leukemia: care instructions Not available 05/21/2019 12:00:53 07/11/2019 [id number] When You Want to Lose Weight: Care Instructions Not available 07/11/2019 11:15:26 knee arthritis: care instructions Not available 07/11/2019 11:15:26 high blood pressure: care instructions Not available 07/11/2019 11:15:26 learning about high blood pressure Not available 07/11/2019 11:15:26 high cholesterol : care instructions Not available 07/11/2019 11:15:26 12/21/2019 [id number] When You Want to Lose Weight: Care Instructions Not available 12/21/2019 12:33:41 knee arthritis: care instructions Not available 12/21/2019 12:33:41 high blood pressure: care instructions Not available 12/21/2019 12:33:41 learning about high blood pressure Not available 12/21/2019 12:33:40 high cholesterol : care instructions Not available 12/21/2019 12:33:41 03/12/2020 [id number] high blood pressure: care instructions Not available [...] & Rhythm 88 regula r Not Available [facility] [address] [facility] [address], [place], [address], 05/21/2019 11:49:38 05/21/2005/21/2019 elect rocmarge diogr am QRS 12/-21 /3 Not Available [facility] Medicine [address] [facility] [address], [place], [address], 05/21/2019 11:49:38 05/21/2005/21/2019 elect rocar diogr am NM Interval 106/[address] [facility] [address] [facility] [address], [place], [address], 05/21/2019 11:49:38 05/21/2005/21/2019 elect rocar diogr am QRS Duration 92 ms Not Available [facility] [address] [facility] [address], [place], [address], 05/21/2019 11:49:38 05/21/2005/21/2019 elect rocar diogr am QT Interval 364/[address] [facility] [address] [facility] [address], [place], [address], 05/21/2019 11:49:38 06/08/20 19 06/08/2019 US, mathew xdarian s, [facility] mity No observ ation record ed. [facility] Diagnosit Imaging Dept [address] [facility], [place], [address], 06/08/2019 14:23:27 Result Notes None recorded. Problems Name Problem SNOMED Code Status Onset Date Resolution Date Notes Provider Name and Address Organization Details Recorded Time Chronic hepatiti s C 071027429 Active 2017 Mariza dutta [facility] 8 14:19:52 Non-alco holic fatty liver 639093229 Active 2017 Mariza dutta [facility] 8 14:20:16 Anemia 084499727 Active 2017 Mariza dutta [facility] 8 14:20:23 [facility] hyperten true 10029175 Active 2017 Mariza dutta [facility] 8 14:20:29 Hyperlip idemia 91319524 Active 2017 Mariza dutta [facility] 8 14:20:39 Irritabl e bowel syndrome 48006443 Active 2017 Mariza dutta [facility] 8 14:20:46 Obesity 423262157 Active 2017 Mariza dutta [facility] 8 14:20:53 Chronic ulcerati ve rectosig moiditis 23651570 Active 2017 Mariza dutta [facility] 8 14:21:25 Diabetes mellitus 43380134 Active 2017 Mariza dutta [facility] 8 14:21:33 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 8 11:00:48 Problem Notes None recorded. Procedures Surgical History Date Name Laterality Status Provider Name and Address Organization Details Recorded Time 05/28/20 total knee replacement completed February SANGEETHA Fernando [address] [place], [address], [facility] 07/11/2019 11:12:42 Imaging Results None recorded. Procedure Notes None recorded. Medical Equipment None Reported. Allergies Allergen ID Allergen Name Allergen Category Reaction Reaction Severity Criticality Documentation Date Start Date Code Code System Note Provider Name and Address Organization Details Recorded Time 164 Product containin g penicilli n (product) medicatio n Not available Not available Not available 05/09/2018 [address] 8001 [facility]ED [facility] 14:18:57 Medications Name Sig Start [...] Available Not Available Not Available Flucelvax Quad 7332-3179 (PF) 60 mcg (15 mcg x 4)/0.5 mL IM syringe 05/10 completed Not Available Not Available Not Available Flucelvax Quad (PF) 60 mcg (15 mcg x 4)/0.5 mL IM syringe 12/21 completed Not Available Not Available Not Available Vitals Date Recorded Body mass index (BMI) Body weight Provider Name and Address Organization Details Last Updated DateTime 12/21/2019 36.9 kg/m2 333153.24 g February SANGEETHA Fernando [address] [place] [address], [address] 12/21/2019 12:35:09 Date Recorded Body height Heart rate Oxygen saturation Oxygen saturation in Arterial blood by Pulse oximetry Systolic And Diastolic Provider Name and Address Organization Details Last Updated DateTime 0 177.8 cm 92 /min 97 % 97 % 116/72 mm[Hg] Mariza Adamson [facility] 0 12:17:24 Date Recorded Body height Body mass index (BMI) Body weight Heart rate Oxygen saturation Oxygen saturation in Arterial blood by Pulse oximetry Systolic And Diastolic Provider Name and Address Organization Details Last Updated DateTime 9 177.8 cm 35.2 kg/m2 222763. 29 g 90 /min 96 % 96 % 108/74 mm[Hg] Jovana Bailey [facility] 9 11:28:17 Date Recorded Body height Body mass index (BMI) Body weight Heart rate Oxygen saturation Oxygen saturation in Arterial blood by Pulse oximetry Systolic And Diastolic Provider Name and Address Organization Details Last Updated DateTime 0 177.8 cm 37.7 kg/m2 231950. 64 g 80 /min 96 % 96 % 130/80 mm[Hg] Deena Eugene [facility] 0 09:23:00 Date Recorded Body height Body mass index (BMI) Body weight Heart rate Oxygen saturation Oxygen saturation in Arterial blood by Pulse oximetry Systolic And Diastolic Provider Name and Address Organization Details Last Updated DateTime 9 177.8 cm 34.5 kg/m2 364543. 61 g 86 /min 98 % 98 % 108/74 mm[Hg] Jovana Leo [facility] 9 11:00:32 Social History Question Answer Notes LastModified by Organizat ion Details LastModified Time Tobacco Smoking Status Never Smoker Not Available [facility] 09/23/2020 03:36:23 What Was The Date Of Your Most Recent Tobacco Screening? 05/21/2019 [id number] Information not available 09/23/2020 Sex: Unknown Functional Status None recorded. Mental Status None recorded. Family History Nothing Reported. Medical History No medical history recorded. Immunizations Vaccine Type Date Status Note Provider Nam e and Address Organization Details Recorded Time pneumococcal polysaccharide PPV23 5 completed Mariza dutta [facility] 05/09/2018 14:31:07 TST-PPD intradermal 1 completed Mariza dutta [facility] 05/09/2018 14:31:32 TST-PPD intradermal 1 completed Mariza dutta [facility] 05/09/2018 14:31:45 Past Encounters Encounter ID Performer Location Encounter Start Date Encounter Closed Date Diagnosis/Indication Diagnosis SNOMED-CT Code Diagnosis ICD10 Code Diagnosis IMO Codes Diagnosis Note [id number] [facility] [address] [facility] [address] 05/10/2018 11:11:42 05/12/2018 08:37:17 Leukocytosis 610641989 D72.829 Knee pain 39073153 M25.5 69 Essential hypertension 07546443 I10 mildly elevated follow Ulcerative colitis 97966 004 K51.90 remicade infusions [id number] Wilmar Malave [facility] [address] [facility],[place] [address] 12/15/2018 10:30:43 12/15/2018 11:24:23 Hyperlipidemia 62376227 E78.2 Essential hypertension 27806441 I10 mildly elevated follow Diabetes mellitus 722366 09 E11.9 Ulcerative colitis 05518 004 K51.90 remicade infusions restarted after 3 month hiatus 2nd insurance Osteoarthr itis of knee 879093059 M17.0 Dysuria 25320209 R30.0 Chronic ly mphoid leukemia, disease 42875359 C91.90 Stage 0, seeing hematologi st Obesity 205530480 E66.9 Discussed weight loss, diet improvemen t [id number] Wilmar Malave [facility] [address] [facility],[place] [address] 01/05/2019 09:38:48 01/05/2019 11:15:52 Chronic lymphoid leukemia, disease 67872514 C91.90 Stage 0, seeing hematologi st Hyperlipidemia 81868308 E78.2 Essential hypertension 61138819 I10 improved Diabetes mellitus 093352 09 E11.9 A1C 6.4 Osteoarthr itis of knee 745461013 M17.0 has ortho appt 01/29/19 [id number] Wilmar Malave [facility] [address] [facility],[place] [address] 05/21/2019 11:20:40 05/21/2019 12:03:56 Pre-surgery evaluation 519578811 Z01.818 cleared for procedure Osteoarthr itis of knee 481582204 M17.0 Essential hypertension 99889841 I10 very well controlled Hyperlipidemia 93599790 E78.5 very well controlled as of 02/2019 Diabetes mellitus 359205 09 E11.9 very well controlled as of 02/2019 a1c was 6.3 05/14/19 BS was 88 Leukocytosis 816544219 D 72.829 stable wbc is monitored every 6 months by oncologist Chronic ul cerative rectosigmoiditis 88741319 K51.30 currently with diarrhea as he has been off the remicade for 2 months in preparatio n for the surgery per dr nelson (ortho) and dr. avila (gi) Chronic ly mphoid leukemia, disease 79380763 C91.[address] suero every 6 months [id number] Wilmar Malave [facility] [address] [facility] [address],[place] [address] 07/11/2019 10:50:28 07/11/2019 11:43:59 Essential hypertension 36027281 I10 very well controlled Osteoarthr itis of knee 617059262 M17.0 s/p double tkr, with progressiv e improvemen t Obesity 765140665 E66.9 Hyperlipidemia 22904917 E78.5 very well controlled as of 02/2019 Diabetes mellitus 996669 09 E11.9 very well controlled as of 02/2019 a1c was 6.3 05/14/19 BS was 88 [id number] Wilmar Malave [facility] [address] [facility] [address],[place] [address] 12/21/2019 11:56:05 12/21/2019 13:55:20 Essential hypertension 10528372 I10 very well controlled Osteoarthr itis of knee 983498405 M17.0 s/p double tkr, with progressiv e improvemen t Obesity 940179408 E66.9 working on weight again gained weight after surgery/se dentary Hyperlipidemia 96449261 E78.5 controlled Diabetes mellitus 605514 09 E11.9 at goal [id number] Wilmar Malave [facility] [address] [facility] [address],[place] [facility] [address] 03/12/2020 08:16:59 03/12/2020 11:50:41 Diabetes mellitus 08814366 E11.9 a1c 7.0 advised to work on diet slightly and continue wlaking recheck in 3 months Essential hypertension 52321675 I10 stable previously , recheck at fu in may Hyperlipidemia 36633955 E78.5 [place] [id number] Wilmar Malave [facility] [address] [facility] [address],[place] [address] 06/20/2020 09:17:18 06/20/2020 11:34:28 Diabetes mellitus 49743472 E11.9 stable, doing well is trying to work on diet labs looked good Essential hypertension 50475795 I10 BP is stable on medication Liver func tion tests outside reference range 559065477 R94.5 will recheck CMP and see if ALT has improved Health Concerns Section Related Observation LastModified by Organization Detai ls LastModified Time None Recorded Concern Status LastModified by Organization Details LastModified Time None Recorded Advance Directives Directive None Recorded Payers Insurance Date Sequence Insurance Name Policy Number Policy Castro Covered Member ID Castro Member ID Guarantor Name 06/19/2020 1 [facility] [employer] Z[employer] (HMO) [id number] Sonny Mota [id number] Sonny Mota 06/16/[address] [facility] [employer] (HMO) [id number] Sonny Mota [id number] Sonny Mota 06/16/2020 1 [facility] [id number] Sonny Mota [id number] Sonny Mota Notes Date Note Type [...] rashes, or nail changes. February SANGEETHA Fernando [address] [place] [address], [address], [facility] 05/21/2019 12:01:51 9 text/htm [...] rashes, or nail changes. SANGEETHA Singh [address] [place], [address], [facility] Internal [facility] 07/11/2019 11:16:53 0 text/htm l ROS as [...] rashes, or nail changes. OLAF SinghMARLIN [address] [place], [address], [facility] 12/21/2019 12:36:00 0 text/htm l ROS as noted in the HPI VERBALLY CONSENTS TO TELEPHONE CONSULT PT IS AT HOME I AM AT THE OFFICE [facility] INTERNAL MEDICINE [address] [facility] [address], [facility] has been walking outside some snacking, [...] rashes, or nail changes. OLAF SinghMARLIN [address] [place], [address], [facility] 03/12/2020 11:32:46 0 text/htm [...] reportscoronary artery disease: no. ADRIAN MARQUIS [address] [place], [address], [facility] 06/20/2020 09:37:26
== END 2025-09-24 11:23 | disposition home or self-care (01) ==
LOC: HO.WFDLDS 11:22
PROVIDERS: PCP Family Medicine; Visit Provider Nurse Practitioner Family
DX: E11.65 Type 2 diabetes mellitus with hyperglycemia (principal); E11.00 Type 2 diabetes mellitus with hyperosmolarity without nonketotic hyperglycemic-hyperosmolar coma (NKHHC); E11.22 Type 2 diabetes mellitus with diabetic chronic kidney disease; I12.9 Hypertensive chronic kidney disease with stage 1 through stage 4 chronic kidney disease, or unspecified chronic kidney disease; N18.9 Chronic kidney disease, unspecified; Z79.84 Long term (current) use of oral hypoglycemic drugs
CPT/HCPCS: 36415; 80053; 81001; 83036; 85027; 99496

== ENCOUNTER 2025-09-24 11:22 | Outpatient (AMB) | payer MEDICARE, MEDICAID, SELFPAY ==
--- NOTE | 2025-09-24 11:26 | A.OFFPC_ITS ---
Vital Signs 3 09/24/25 11:30 Height 5 ft 10 in Weight 243 lb 8 oz BMI 34.9 BP 122/70 Blood Pressure Location Lt brachial Position Sitting Respiration 12 Pulse 78 Pulse Source Pulse Oximeter Temp 97.3 F Temp Source Oral Pulse Oximetry (%) 98 Oxygen Delivery Method Room Air Intake Visit Reasons: Diabetes Intake Note: LENA Arizmendi ED follow up Drill Sharpener Required: No Allergies penicillamine Allergy (Unknown, Verified 09/24/25 11:28) unknown apixaban (From Eliquis) Adverse Reaction (Intermediate, Verified 09/24/25 11:28) Hives Medication List - Last Reconciled 09/24/25 by Serenity Collins, MULTIMEDIA PROJECT MANAGER- acetaminophen 1,000 mg (2 x 500 mg) PO Q8H 7 days allopurinol 100 mg PO DAILY 30 days amlodipine 5 mg PO DAILY 90 days atorvastatin 20 mg PO DAILY 90 days blood sugar diagnostic (FreeStyle Lite Strips) DX: E11.9, test blood sugar Twice a day, 90 days blood-glucose meter (FreeStyle Lite Meter kit) DX: E11.9, test blood sugar As directed, duration 999 days colchicine 0.6 mg PO BID 3 days dulaglutide 1.5 mg (0.5 mL) subcut QWEEK 84 days ergocalciferol (vitamin D2) 1,250 mcg PO QWEEK glipizide ER 5 mg (2 x 2.5 mg) PO QAM 90 days infliximab (Remicade) 550 mg IV DAILY insulin aspart U-100 (Novolog FlexPen U-100 Insulin aspart) 1 sliding scale dose subcut USEASDIRECTD 30 days insulin glargine (Lantus Solostar U-100 Insulin) 25 units (0.25 mL) subcut QPM 30 days lancets (FreeStyle Lancets) As directed, 90 days mecobalamin (vitamin B12) 1,000 mcg sublingual DAILY 90 days metformin 250 mg (1/2 x 500 mg) PO ONCE 30 days omeprazole 20 mg PO DAILY pen needle, diabetic (Pen Needle) To treat blood sugar 4 times a day, As directed, 90 pen needle, diabetic (Ultra-Fine Pen Needle) As directed rivaroxaban (Xarelto) 20 mg PO DAILY Tobacco use date assessed: 09/24/25 Fall risk assessment: No Falls in past year Last assessed Fall Risk: 09/24/25 Dental Screening Dental Screen Date: 09/24/25 Did you have a dental visit in the last 12 months?: Yes Did you have a dental problem in the last 6 months where you did not have access to dental care?: No Was dental information given to patient?: Patient has dentist HPI HPI Comments 2 History of Present Illness0 Details Here today for a Transitional Care Management Visit Discharge summary reviewed. Admission Date: 09/13/25 Discharge Date: 09/15/25 Hospital: [facility] ED visit 09/16/25 for hyperglycemia and not having his RX for insulin. DC with no changes in his treatment plan. Date of interactive contact with Nurse Navigator: as documented in chart Pending diagnostic tests/treatments: Pending consults: DME: PT/OT/HUMANITIES COORDINATOR: Home Health Aide/SHOULDER BONER: Community Resources: Asst Living: Home Health: Hospice: Support group: Other: Referrals: Medications reconciled & updated. During todays TCM visit, the d/c summary was reviewed, along with the need for or follow-up on pending diagnostic tests and treatments, as necessary interaction with other health animal care provider who will assume or reassume care of the beneficiary?s system-specific problems was done or is being worked on, education was provided to the beneficiary, family, guardian, and/or caregiver, referrals to establish or re-establish and arrange needed community resources we completed, assistance in scheduling required follow-up with community providers and services & finally updated medication list given to patient/caregiver History of Present Illness The patient is a 65-year-old male presenting for a hospital discharge follow-up for type 2 diabetes with complications. Type 2 diabetes mellitus with hyperglycemia: - The patient was recently hospitalized at [facility] from September 13 to September 15 for hyperglycemia and was diagnosed with a diabetic hyperosmolar nonketotic state, KALINA, leukocytosis, and hyponatremia. - He had a repeat emergency room visit o n September 16 for hyperglycemia due to an inability to obtain his new insulin prescription. - His A1c during hospitalization was 13. 8%. - His blood sugars have remained elevate d since discharge, with readings ranging from the 200s to 400s, although he has had recent readings of 173 and 156. - Associated symptoms of polydipsia and polyuria have improved, but he still experiences occasional dry mouth and new-onset blurry vision. He has optho appt tomorrow. - He is not currently under the care of an igniter assembler but is accepting of referral to [facility] - His discharge medications included Tr ulicity, insulin glargine, insulin lispro, metformin, Glipizide . - He is currently taking metformin 500 m g daily, insulin Lispro with meals via ISS, insulin glargine 25 units at bedtime, glipizide ER 5 mg daily, and Trulicity 1.5 mg weekly. Potential drug allergy: - The patient reports developing a new, itchy rash on his arms and legs since starting his new insulin regimen. - He suspects the reaction is due to the long-acting insulin (glargine) but is not certain. Review of Systems - HEENT: Reports new-onset blurry vision . - Mouth: Reports occasional dry mouth, w hich has improved. - Cardiovascular: Denies chest pain. - Genitourinary: Reports significant imp rovement in polyuria. - Endocrine: Reports polydipsia has impr cathi. - Integumentary: Reports a new, itchy ra sh on his arms and legs. Physical Exam General: Well developed, well nourished, in no acute distress. Appears stated age. Head: Normocephalic, atraumatic. Eyes: Pupils are equal, round and reactive to light and accommodation. Conjunctivae are clear. MM mildly dry Lungs: Clear to auscultation bilaterally. No rales, rhonchi or wheeze noted. Good air flow in all jaimes. Heart: Regular rate and rhythm. No murmurs, click, rubs or gallops are noted. Pulses: Peripheral pulses are equal and palpable bilaterally. Extremities: No clubbing, cyanosis nor edema is noted. Skin: Fine pink rash noted to bilat arms and legs. Psych: Mood and affect appropriate. Patient expresses frustration with recent medical issues and medication management. Results - A1c: 13.8% during recent hospitalizati on. - Self-monitored blood glucose: Readings since discharge have ranged from 156 mg/dL to 462 mg/dL. - Admission labs: Revealed leukocytosis and hyponatremia. Repeat labs to be done today, results pending Medical Decision Making The patient is a 65-year-old male with a recent hospitalization for a diabetic hyperosmolar state secondary to poorly controlled type 2 diabetes. His persistent hyperglycemia, with an A1c of 13.8% and ongoing high blood glucose readings, necessitates aggressive management. 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 The patient reports a new rash, possibly an allergic reaction to insulin glargine; however, given the severity of his glycemic control, I have opted to increase the dose with his consent, as the benefits currently outweigh the risks. This decision was supported by the patient's willingness to tolerate the itchiness to achieve better glucose control. To address the persistent hyperglycemia, the insulin glargine dose will be increased from 25 to 30 units at bedtime. We confirmed he is appropriately taking 5 mg of glipizide daily. Today, we will repeat labs, including a CBC, electrolytes, urinalysis, and A1c, to monitor for improvement and any adverse effects of his hyperglycemia. The patient also has an impending ophthalmology appointment to evaluate new blurry vision, which is an appropriate next step. Plan 1. Type 2 Diabetes Mellitus With Hypergl ycemia - Increase insulin glargine from 25 unit s to 30 units at bedtime, starting tonight. He reports the rash is tolerable. - Continue current regimen of insulin li spro with meals per sliding scale, metformin 500 mg daily, glipizide 5 mg daily, and Trulicity 1.5 mg weekly. - A stat referral has been placed to end ocrinology for ongoing management and to arrange for a continuous glucose monitor (CGM). He rec'd a call from [facility] during our office visit to schedule an appt this month. - Labs ordered for today include CBC, el ectrolytes, urinalysis, and hemoglobin A1c. - Patient advised to proceed with ophtha lmology appointment tomorrow to evaluate blurry vision. - Follow-up with Dr. Green scheduled for October 08 will be kept, and the appointment for October 01 will be canceled. 2. Potential Drug Allergy - The patient reports an itchy rash, pos sibly from insulin glargine, but has agreed to continue the medication due to the importance of controlling his blood sugar. - This will be monitored, and further as sessment by the endocrinology team is planned. Patient Instructions - Starting tonight, increase your long-a cting insulin (glargine) dose to 30 units at bedtime. - Continue taking all your other diabete s medications as prescribed. - You will receive a call soon from the senior capital markets specialist's (igniter assembler's) office to schedule an urgent appointment. - The igniter assembler will help you get a continuous glucose monitor (a patch that checks your blood sugar continuously). - Go to the lab today to have your blood and urine tested. - Keep your appointment with Dr. Dandy crews on October 08. - Your appointment with Dr. Green for October 01 will be canceled for you. - Go to your eye doctor appointment to h ave your blurry vision checked. - If you do not hear from the specialist 's office soon, please send a message through the patient portal. Consent The patient provided verbal consent to increase the insulin glargine dose after a discussion of the rationale, including managing severe hyperglycemia, and the potential risk of a continued or worsening rash, which he agreed to tolerate and monitor. Patient was informed and verbally consented to the use of an ambient scribe for clinic note documentation during this visit. Total time spent caring for the patient today was 45 minutes. This includes time spent before the visit reviewing the chart, time spent during the visit, and time spent after the visit on documentation, reviewing laboratory results, diagnostic imaging, medications, performing a medically necessary evaluation, counseling on diagnoses, care coordination, ordering appropriate tests, ordering appropriate medications, review of tests performed by other providers, reporting test results with the patient, communication with other healthcare providers. [facility] Medical History (Updated 09/24/25 @ 12:03 by Serenity Collins [facility]) Chronic kidney disease Diabetes HTN (hypertension) Pulmonary embolism Surgical History H/O endoscopy History of colonoscopy History of knee replacement Family History Father CVD (cardiovascular disease) Bipolar disorder Mother Diabetes mellitus HTN (hypertension) Brother No problems noted. Brother No problems noted. Brother No problems noted. Son No problems noted. Son No problems noted. Son No problems noted. 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 Sonny Thomas, Erendira Valverde, Fabrizio Sharp and colleagues, with an educational nigle from [employer]. Physical exam (Primary Care) Vital Signs: Last Vital Signs Temp 97.3 F 09/24/25 11:30 Pulse 78 09/24/25 11:30 Resp 12 09/24/25 11:30 BP 122/70 09/24/25 11:30 Pulse Ox 98 09/24/25 11:30 Oxygen Delivery Method Room Air 09/24/25 11:30 BMI result Body Mass Index 34.9 Tobacco/Smoking Status: Tobacco use Status Tobacco use date assessed 09/24/25 09/24/25 11:30 Patient Tobacco Use Status Never used Tobacco 09/24/25 11:26 Tobacco use type 01/21/25 11:43 e-Cigarette/Vaping Use Never Used 09/24/25 11:26 Thrive Assessment: Date of Thrive Assessment Date Thrive assessed 02/08/25 09/24/25 11:26 Results Reviewed Results Reviewed: Coding Level of Care Code TCM High MDM <= 7 Days Complex EM visit Add On G2211 Diagnoses Hospital discharge follow-up Z09 Uncontrolled type 2 diabetes mellitus with hyperglycemia E11.65 Diabetes mellitus type: type 2 Diabetic hyperosmolar non-ketotic state E11.00 Assessment & Plan Assessment & Plan (1) Hospital discharge follow-up: Code(s): Z09 - Encounter for follow-up examination after completed treatment for conditions other than malignant neoplasm (2) Uncontrolled diabetes mellitus with hyperglycemia: Code(s): E11.65 - Type 2 diabetes mellitus with hyperglycemia Category: Medical Qualifiers: Diabetes mellitus type: type 2 Qualified Code(s): E11.65 - Type 2 diabetes mellitus with hyperglycemia (3) Diabetic hyperosmolar non-ketotic state: Code(s): E11.00 - Type 2 diabetes mellitus with hyperosmolarity without nonketotic hyperglycemic-hyperosmolar coma ([facility]) Category: Medical Plan . Orders: Orders 2 Comprehensive Met. Panel Today E11.00 - Type 2 diabetes mellitus with hyperosmolarity without nonketotic hyperglycemic-hyperosmolar coma ([facility]), E11.65 - Type 2 diabetes mellitus with hyperglycemia Complete Blood Count no Diff Today E11.00 - Type 2 diabetes mellitus with hyperosmolarity without nonketotic hyperglycemic-hyperosmolar coma ([facility]), E11.65 - Type 2 diabetes mellitus with hyperglycemia UA CC w/rflx Micro + Cult Today E11.00 - Type 2 diabetes mellitus with hyperosmolarity without nonketotic hyperglycemic-hyperosmolar coma ([facility]), E11.65 - Type 2 diabetes mellitus with hyperglycemia, R30.0 - Dysuria Hemoglobin A1c Today E11.00 - Type 2 diabetes mellitus with hyperosmolarity without nonketotic hyperglycemic-hyperosmolar coma ([facility]), E11.65 - Type 2 diabetes mellitus with hyperglycemia Referrals 2 Endocrinology Referral E11.00 - Type 2 diabetes mellitus with hyperosmolarity without nonketotic hyperglycemic-hyperosmolar coma ([facility]), E11.65 - Type 2 diabetes mellitus with hyperglycemia, Z09 - Encounter for follow-up examination after completed treatment for conditions other than malignant neoplasm Medications: Changed 2 From insulin glargine (Lantus Solostar U-100 Insulin) 25 units (0.25 mL) subcut QPM 30 days 7.5 mL 3RF To insulin glargine (Lantus Solostar U-100 Insulin) 30 units (0.3 mL) subcut QPM 9 mL 3RF 30 days
[2025-09-24 11:30] VITALS: BP 122/70; PULSE 78; RESP 12; TEMP 36.3; O2SAT 98; BMI 34.9
--- OUTSIDE RECORDS SUMMARY | 2025-09-24 13:56 | XMS_ITS | Encounter Summary ---
Author Organization [facility] Address [address] [place] [address] Phone Care Team Providers Care Calibration Checker Name Role Phone Oc Bains MD Unavailable [phone] BrandenAd DO Unavailable [phone] Osmel Green MD Primary Care Provider Summer Walker PATROL AGENT Unavailable [phone] Encounter Details Date Type Department Care Team (Latest Contact Info) Description 06/23/2021 Transcribe Orders [facility] Phleb [facility] [address] [place], [place] [id number] Oc Bains MD [address] [id number] [email or web address] Encounter for therapeutic drug level monitoring (Primary [...] Info) Description 10/08/2025 7:30 AM EST Infusion [facility] Medical Infusion Center [address] [place] [address] Oc Bains MD [address] [address] luis 10/15/2025 1:30 PM EST Office Visit [facility] Gastroenterology [facility] [address] [place] [address] Unknown, Unknown, Tiffanie Jefferson PA-C [address] [address] 11/19/2025 7:30 AM EST Infusion [facility] Infusion [address] [address] Oc Bains MD [address] [address] luis 12/31/2025 7:30 AM EST Infusion [facility] Infusion [address] [address] Oc Bains MD [address] [address] luis 08/22/2026 1:00 PM EDT Blood Draw [facility] Phleb [address] [address] Ad Otero, DO [address] [place] [address] [email or web address] 08/22/2026 2:00 PM EDT Office Visit [facility] [address] [place] [address] Ad Otero, DO [address] [place] [address] [email or web address] documented as of this encounter Results * Miscellaneous lab test (06/23/2021 3:35 PM EDT) Pathologist [facility] TESTS REQUESTED PROMETHEUS... ....INFXR [facility] SPECIMEN/TUBE TYPE RED [facility] REQUEST RECEIVED Request received. A separate order for the requested test will be generated by the laboratory. [facility] Blood 06/23/2021 3:35 PM EDT 06/23/2021 3:55 PM EDT Oc Bains MD LAB BLOOD ORDERABLES Final Res ult [address] [address] * (ABNORMAL) 25-OH vitamin D (06/23/2021 3:35 PM EDT) [facility] 25 OH VIT D (TOTAL) 24(L) 30 - 60 ng/mL [facility] Blood 06/23/2021 3:35 PM EDT 06/23/2021 3:55 PM EDT Oc Bains MD LAB BLOOD BKR ORDERABLES Final Result [address] [address] * (ABNORMAL) Comprehensive metabolic panel (06/23/2021 3:35 PM EDT) [facility] SODIUM 140 133 - 146 mmol/L [facility] POTASSIUM 4.3 3.3 - 5.1 mmol/L [facility] CHLORIDE 103 96 - 108 mmol/L [facility] CO2 25 21 - 35 mmol/L [facility] BUN 12 6 - 19 mg/dL [facility] CREATININE 1.20 0.5 - 1.5 mg/dL [facility] GLUCOSE 144(H) 70 - 99 mg/dL [facility] ALBUMIN 4.4 3.9 - 4.8 g/dL [facility] TOTAL PROTEIN 7.6 6.5 - 8.0 g/dL [facility] CALCIUM 10.1 8.4 - 10.3 mg/dL [facility] ALKALINE PHOSPHATASE 64 39 - 117 U/L [facility] TOTAL BILIRUBIN 0.3 0.0 - 1.2 mg/dL [facility] AST 53(H) 0 - 37 U/L [facility] ALT 48(H) 0 - 40 U/L [facility] GLOBULIN 3.2 1 - 4.8 g/dL [facility] EGFR 65 >59 mL/min/1.7 3m2 [facility] Comment:Estimated glomerular filtration rate calculated using the CKD-EPI equation. ANION GAP 16 10 - 20 mmol/L [facility] Blood 06/23/2021 3:35 PM EDT 06/23/2021 3:55 PM EDT us Oc Bains MD LAB BLOOD BKR ORDERABLES Final Result Performing Organization Address City/State/[facility] Co de Phone Number [address] [address] * (ABNORMAL) CBC (06/23/2021 3:35 PM EDT) WBC 12.30(H) 4.00 - 11.00 K/uL [facility] RBC 4.20 3.90 - 5.69 M/uL [facility] HGB 13.5 12.4 - 17.3 g/dL [facility] HCT 39.7 37.0 - 51.0 % [facility] PLT 325 140 - 430 K/uL [facility] MCV 94.5 78.0 - 97.0 [facility] MCH 32.1 25.0 - 33.0 pg [facility] MCHC 34.0 32.0 - 36.0 g/dL [facility] RDW 12.9 11.0 - 15.0 % [facility] MPV 10.6 8.4 - 12.8 [facility] NRBC 0.00 0 /100 WBCs [facility] ABSOLUTE NRBC 0.00 0 K/uL [facility] Blood 06/23/2021 3:35 PM EDT 06/23/2021 3:55 PM EDT us Oc Bains MD LAB BLOOD BKR ORDERABLES Final Result [facility] [address] [place] [address] documented in this encounter Visit Diagnoses Diagnosis Encounter for therapeutic drug level monitoring- Primary Colitis Other and unspecified noninfectious gastroenteritis and colitis documented in this encounter Care Teams Calibration Checker Relationship Specialty Start Date End Date Osmel Green MD [address] [place] [address] PCP - General 09/04/20 Oc aBins MD [address] [place] [address] [email or web address] Gastroenterology 05/17/18 Ad Otero DO [address] [place] [address] [email or web address] Primary Oncologist Hematology and Oncology 12/06/18 Summer Walker, PATROL AGENT [address] [place] [address] Nurse Practitioner Medical Oncology 01/23/21 08/12/25 documented as of this encounter Additional Source Comments The information contained in this document represents components of the legal health record. It is not the complete legal health record.[facility]
--- OUTSIDE RECORDS SUMMARY | 2025-09-24 13:56 | XMS_ITS | Clinical Summary ---
Author Organization [facility] Address [address] [place] [address] Care Team Providers Care Supervisor Green End Department Name Role Phone Osmel Green MD Primary [...] time each day Active ergocalciferol 1.25 MG (91965 UT) capsule Take 50,000 Units by mouth [...] patient's age to complete this topic Insurance [facility] Medicaid Care Teams Supervisor Green End Department Relationship Specialty Start Date End Date Osmel Green MD [address] [address] PCP - General Family Medicine 11/29/22
--- OUTSIDE RECORDS SUMMARY | 2025-09-24 13:56 | XMS_ITS | Encounter Summary ---
Author Organization [facility] Address [address] [place] [address] Phone Care Team Providers Care Biomathematician Name Role Phone Oc Bains MD Unavailable [phone] Ad Otero DO Unavailable [phone] Osmel Green MD Primary Care Provider Summer Walker VP HUMAN RESOURCES Unavailable [phone] Encounter Details Date Type Department Care Team (Latest Contact Info) Description 04/28/2022 Transcribe Orders [facility] Phleb Anamaria [address] 2nd [place] [address] Oc Bains MD [address] [address] luis [email or web address] Incontinence of feces with fecal urgency [...] Info) Description 10/08/2025 7:30 AM EST Infusion [facility] Medical Infusion [address] [address] Oc Bains MD [address] [address] luis 10/15/2025 1:30 PM EST Office Visit [facility] 10 [place] [address] Unknown, Unknown, Tiffanie Jeffersno PA-C [address] [address] 11/19/2025 7:30 AM EST Infusion [facility] Infusion [address] [address] Oc Bains MD [address] [place] [address] luis 12/31/2025 7:30 AM EST Infusion [facility] Infusion [address] [address] Oc Bains MD [address] [place] [address] luis 08/22/2026 1:00 PM EDT Blood Draw [facility] Phleb [address] [address] Ad Otero, DO 30 [place] [address] [email or web address] [place] 08/22/2026 2:00 PM EDT Office Visit [facility] at [address] [address] Ad Otero, DO 30 [place] [address] [email or web address] [place] documented as of this encounter Results * Calprotectin, stool (05/03/2022 7:30 AM EDT) STOOL CALPROTECTIN <5 mcg/g [facility]/Claudio MUNO[facility] Comment: (NOTE) Reference Range: <50 Normal 50-120 [...] 10:35 AM EDT us Oc Bains MD LAB BODY FLUIDS AND STOOL ORDE RABCANDIE Final Result Performing Organization Address City/[facility]/ZIP Co de Phone Number [employer]/[facility] [address] [place] [address] * 25-OH vitamin D (04/28/2022 8:25 AM EDT) 25 OH VIT D (TOTAL) 32 30 - 60 ng/mL [facility] Blood 04/28/2022 8:25 AM EDT 04/28/2022 8:30 AM EDT us Oc Bains MD LAB BLOOD BKR ORDERABLES Final Result [address] [address] * C-Reactive Protein (04/28/2022 8:25 AM EDT) C REACTIVE PROTEIN <3.0 0.0 - 4.0 mg/L [facility] Blood 04/28/2022 8:25 AM EDT 04/28/2022 8:30 AM EDT us Oc Bains MD LAB BLOOD BKR ORDERABLES Final Result Performing Organization Address City/[facility]/ZIP Co de Phone Number [address] [address] * (ABNORMAL) Comprehensive metabolic panel (04/28/2022 8:25 AM EDT) SODIUM 137 133 - 146 mmol/L [facility] POTASSIUM 4.4 3.3 - 5.1 mmol/L [facility] CHLORIDE 102 96 - 108 mmol/L [facility] CO2 23 21 - 35 mmol/L [facility] BUN 16 6 - 19 mg/dL [facility] CREATININE 1.50 0.5 - 1.5 mg/dL [facility] GLUCOSE 148(H) 70 - 99 mg/dL [facility] ALBUMIN 4.3 3.9 - 4.8 g/dL [facility] TOTAL PROTEIN 7.2 6.5 - 8.0 g/dL [facility] CALCIUM 9.6 8.4 - 10.3 mg/dL [facility] ALKALINE PHOSPHATASE 51 39 - 117 U/L [facility] TOTAL BILIRUBIN 0.4 0.0 - 1.2 mg/dL [facility] AST 68(H) 0 - 37 U/L [facility] ALT 76(H) 0 - 40 U/L [facility] GLOBULIN 2.9 1 - 4.8 g/dL [facility] EGFR 52(L) >59 mL/min/1.7 3m2 [facility] Comment:Estimated glomerular filtration rate calculated using the CKD-EPI refit equation. ANION GAP 16 10 - 20 mmol/L [facility] Blood 04/28/2022 8:25 AM EDT 04/28/2022 8:30 AM EDT us Oc Bains MD LAB BLOOD BKR ORDERABLES Final Result Performing Organization Address City/[facility]/ZIP Co de Phone Number [address] [address] documented in this encounter Visit Diagnoses Diagnosis Incontinence of feces with fecal urgency- Primary Avitaminosis D Unspecified vitamin D deficiency documented in this encounter Care Teams Biomathematician Relationship Specialty Start Date End Date Osmel Green MD 30 [place] [address] PCP - General 09/04/20 Oc Bains MD [address] [place] [address] luis [email or web address] Gastroenterology 05/17/18 Ad Otero DO 30 [place] [address] [email or web address] [email or web address] Primary Oncologist Hematology and Oncology 12/06/18 Summer Walker NP [address] [place] [address] [email or web address] Nurse Practitioner Medical Oncology 01/23/21 08/12/25 documented as of this encounter Additional Source Comments The information contained in this document represents components of the legal health record. It is not the complete legal health record.[facility]
--- OUTSIDE RECORDS SUMMARY | 2025-09-24 13:57 | XMS_ITS | Encounter Summary ---
Author Organization [facility] Address [address] [place] [address] Phone Care Team Providers Care Benefits Technician Name Role Phone GaWilmar whaley Tracey SHORE Primary Care Provider [phone] Oc Bains MD Unavailable [phone] Noah Royal MD Unavailable [phone] Ad Otero DO Unavailable [phone] Osmel Green MD Primary Care Provider Summer Walker NP Unavailable [phone] Encounter Details Date Type Department Care Team (Late st Contact Info) Description 05/10/2018 Ancillary Orders Virtual Department [address] [place] [address] Angie Lr, RESIDENTIAL GAS HEAT TECHNICIAN [address] [place] [address] [email or web address] Leukocytosis, unspecified type; Knee pain, unspecified chronicity, [...] Info) Description 10/08/2025 7:30 AM EST Infusion [facility] Infusion [address] [address] Oc Bains MD [address] [address] luis 10/15/2025 1:30 PM EST Office Visit [facility] 10 [place] [address] Unknown, Unknown, Tiffanie Jefferson PA-C [address] [address] 11/19/2025 7:30 AM EST Infusion [facility] Infusion [address] [address] Oc Bains MD [address] [place] [address] luis 12/31/2025 7:30 AM EST Infusion [facility] Infusion [address] [address] Oc Bains MD [address] [place] [address] luis 08/22/2026 1:00 PM EDT Blood Draw [facility] Phleb [address] [address] Ad Otero, DO 30 [place] [address] [email or web address] 08/22/2026 2:00 PM EDT Office Visit [facility] 30 [place] [address] Ad Otero, DO 30 [place] [address] [email or web address] documented as of this encounter Results * [...] patellofemoral compartment. POS - [id number] Angie Lr RESIDENTIAL GAS HEAT TECHNICIAN IMG XR LOWER EXTREMITY Galina l Result [...] cardiopulmonary disease. POS - [id number] Angie Lr RESIDENTIAL GAS HEAT TECHNICIAN IMG XR CHEST Final Resul t documented in this encounter Visit Diagnoses Diagnosis Leukocytosis, unspecified type Knee pain, unspecified chronicity, unspecified laterality Leukocytosis, unspecified type Knee pain, unspecified chronicity, unspecified laterality documented in this encounter Care Teams Benefits Technician Relationship Specialty Start Date End Date Wilmar Malave DO [email or web address] PCP - General 09/06/17 09/03/20 Osmel Green MD 30 [place] [address] PCP - General 09/04/20 Oc Bains MD [address] [place] [address] [email or web address] Gastroenterology 05/17/18 Noah Royal MD [address] [place] [address] [email or web address] Medical Oncology 05/29/18 12/05/18 Ad Otero DO 30 [place] [address] [email or web address] [email or web address] Primary Oncologist Hematology and Oncology 12/06/18 Summer Walker NP [address] [place] [address] [email or web address] Nurse Practitioner Medical Oncology 01/23/21 08/12/25 documented as of this encounter Additional Source Comments The information contained in this document represents components of the legal health record. It is not the complete legal health record.[facility]
--- OUTSIDE RECORDS SUMMARY | 2025-09-24 13:57 | XMS_ITS | Clinical Summary ---
Author Organization [employer] Address [address] 7t [place] [address] Care Team Providers Care Pure Culture Operator Name Role Phone Unavailable Primary Care [...]
--- OUTSIDE RECORDS SUMMARY | 2025-09-24 13:57 | XMS_ITS | Encounter Summary ---
Author Organization [facility] Address [address] [place] [address] Phone Care Team Providers Care Truck Trailer Mechanic Name Role Phone Wilmar Malave Tracey SHORE Primary Care Provider [phone] Oc Bains MD Unavailable [phone] Ad Otero DO Unavailable [phone] Osmel Green MD Primary Care Provider Summer Walker HVAC R TECH Unavailable [phone] Encounter Details Date Type Department Care Team (Late st Contact Info) Description 05/28/2019 Procedure Pass OR Admitting Dept - Virtual Department [address] [place] [address] Social History Tobacco Use Types Packs/Day Years [...] Info) Description 10/08/2025 7:30 AM EST Infusion [facility] 30 [place] [address] Oc Bains MD [address] [place] [address] luis 10/15/2025 1:30 PM EST Office Visit [facility]astro[facility] 10 [place] [address] Unknown, Unknown, Tiffanie Jefferson PA-C [address] [address] 11/19/2025 7:30 AM EST Infusion [facility] Infusion [address] [address] Oc Bains MD [address] [place] [address] luis 12/31/2025 7:30 AM EST Infusion [address] [address] Oc Bains MD [address] [place] [address] luis 08/22/2026 1:00 PM EDT Blood Draw [address] [address] Ad Otero, DO [address] [place] [address] [email or web address] [email or web address] 08/22/2026 2:00 PM EDT Office Visit [facility] [address] [place] [address] Ad Otero, DO [address] [place] [address] [email or web address] [email or web address] [place] documented as of this encounter Visit Diagnoses Not on filedocumented in this encounter Care Teams Truck Trailer Mechanic Relationship Specialty Start Date End Date Wilmar Malave DO [email or web address] PCP - General 09/06/17 09/03/20 Osmel Green MD 30 [place] [address] PCP - General 09/04/20 Oc Bains MD [address] [place] [address] luis [email or web address] Gastroenterology 05/17/18 Ad Otero DO 30 [place] [address] [email or web address] [email or web address] [facility] Primary Oncologist Hematology and Oncology 12/06/18 Summer Walker NP [address] [place] [address] [email or web address] Nurse Practitioner Medical Oncology 01/23/21 08/12/25 documented as of this encounter Additional Source Comments The information contained in this document represents components of the legal health record. It is not the complete legal health record.[facility]
--- OUTSIDE RECORDS SUMMARY | 2025-09-24 13:57 | XMS_ITS | Encounter Summary ---
Author Organization [facility] Address [address] [place] [address] Phone Care Team Providers Care Downstream Biomanufacturing Technician Name Role Phone Oc Bains MD Unavailable [phone] Ad Otero DO Unavailable [phone] Osmel Green MD Primary Care Provider Summer Walker CUSTOMER ACCOUNTS ADVISOR Unavailable [phone] Encounter Details Date Type Department Care Team (Late st Contact Info) Description 05/15/2025 Procedure Pass [facility] Endoscopy Admitting Dept Virtual Department 30 [place] [address] Social History Tobacco Use Types Packs/Day Years [...] Info) Description 10/08/2025 7:30 AM EST Infusion [facility] Infusion [address] [address] Oc Bains MD [address] [place] [address] luis 10/15/2025 1:30 PM EST Office Visit [facility] [address] [place] [address] Unknown, Unknown, Tiffanie Jefferson PA-C [address] [place] [address] 11/19/2025 7:30 AM EST Infusion [facility] Infusion [address] [address] Oc Bains MD [address] [place] [address] luis 12/31/2025 7:30 AM EST Infusion [facility] Infusion [address] [address] Oc Bains MD [address] [place] [address] luis 08/22/2026 1:00 PM EDT Blood Draw [facility] Phleb [facility] 30 [place] [address] BrandenAd, DO 30 [place] [address] [email or web address] 08/22/2026 2:00 PM EDT Office Visit [facility] [place] 30 [place] [address] Ad Otero, DO 30 [place] [address] [email or web address] documented as of this encounter Visit Diagnoses Not on filedocumented in this encounter Care Teams Downstream Biomanufacturing Technician Relationship Specialty Start Date End Date Osmel Green MD [address] [place] [address] PCP - General 09/04/20 Oc Bains MD [address] [place] [address] luis [email or web address] Gastroenterology 05/17/18 Ad Otero DO [address] [place] [address] [email or web address] Primary Oncologist Hematology and Oncology 12/06/18 Summer Walker, CUSTOMER ACCOUNTS ADVISOR [address] [place] [address] [email or web address] Nurse Practitioner Medical Oncology 01/23/21 08/12/25 documented as of this encounter Additional Source Comments The information contained in this document represents components of the legal health record. It is not the complete legal health record.[facility]
--- OUTSIDE RECORDS SUMMARY | 2025-09-24 13:57 | XMS_ITS ---
Author Organization [facility] Address [address] [place] [address] Phone Care Team Providers Care Grades 1 Through 6 Teacher Name Role Phone Oc Bains MD Unavailable [phone] BrandenAd DO Unavailable [phone] Osmel Green MD Primary Care Provider Active [...]
--- OUTSIDE RECORDS SUMMARY | 2025-09-24 13:57 | XMS_ITS | Encounter Summary ---
Author Organization [facility] Address [address] [place] [address] Phone Care Team Providers Care Bus Driver/Monitor Name Role Phone Oc Bains MD Unavailable [phone] BrandenAd DO Unavailable [phone] Osmel Green MD Primary Care Provider Summer Walker OIL BURNER INSTALLER Unavailable [phone] Encounter Details Date Type Department Care Team (Latest Contact Info) Description 12/28/2022 Transcribe Orders [facility] Phleb Anamaria [address] 2nd Floor [place], [place] [phone] Oc Bains MD [address] [phone] luis [email or web address] Avitaminosis D (Primary Dx); Fatty liver Social [...] Info) Description 10/08/2025 7:30 AM EST Infusion [facility] Medical Infusion Center 30 [place] [address] Oc Bains MD [address] [address] luis 10/15/2025 1:30 PM EST Office Visit [facility] 10 [place] [address] Unknown, Unknown, Tiffanie Jefferson PA-C [address] [address] 11/19/2025 7:30 AM EST Infusion [facility] Infusion [address] [address] Oc Bains MD [address] [address] luis 12/31/2025 7:30 AM EST Infusion [facility] Infusion [address] [address] Oc Bains MD [address] [address] luis 08/22/2026 1:00 PM EDT Blood Draw [facility] Phleb [address] [address] Ad Otero, DO 30 [place] [address] [email or web address] 08/22/2026 2:00 PM EDT Office Visit [facility] [place] [address] [place] [address] Ad Otero, DO 30 [place] [address] [email or web address] documented as of this encounter Results * (ABNORMAL) Comprehensive metabolic panel (12/28/2022 8:21 AM EST) SODIUM 139 133 - 146 mmol/L [facility] POTASSIUM 4.0 3.3 - 5.1 mmol/L [facility] CHLORIDE 101 96 - 108 mmol/L [facility] CO2 27 21 - 35 mmol/L [facility] BUN 18 6 - 19 mg/dL [facility] CREATININE 1.70(H) 0.5 - 1.5 mg/dL [facility] GLUCOSE 128(H) 70 - 99 mg/dL [facility] ALBUMIN 4.5 3.9 - 4.8 g/dL [facility] TOTAL PROTEIN 7.9 6.5 - 8.0 g/dL [facility] CALCIUM 10.2 8.4 - 10.3 mg/dL [facility] ALKALINE PHOSPHATASE 64 39 - 117 U/L [facility] TOTAL BILIRUBIN 0.4 0.0 - 1.2 mg/dL [facility] AST 37 0 - 37 U/L [facility] ALT 24 0 - 40 U/L [facility] GLOBULIN 3.4 1 - 4.8 g/dL [facility] EGFR 45(L) >59 mL/min/1.7 3m2 [facility] Comment:Estimated glomerular filtration rate calculated using the CKD-EPI refit equation. ANION GAP 15 10 - 20 mmol/L [facility] Blood 12/28/2022 8:21 AM EST 12/28/2022 8:24 AM EST us Oc Bains MD LAB BLOOD BKR ORDERABLES Final Result [facility] 30 [place] [address] * CBC (12/28/2022 8:21 AM EST) WBC 10.51 4.00 - 11.00 K/uL [facility] RBC 3.95 3.90 - 5.69 M/uL [facility] HGB 12.5 12.4 - 17.3 g/dL [facility] HCT 37.4 37.0 - 51.0 % [facility] PLT 310 140 - 430 K/uL [facility] MCV 94.7 78.0 - 97.0 fL [facility] MCH 31.6 25.0 - 33.0 pg [facility] MCHC 33.4 32.0 - 36.0 g/dL [facility] RDW 12.0 11.0 - 15.0 % [facility] MPV 10.3 8.4 - 12.8 fl [facility] Blood 12/28/2022 8:21 AM EST 12/28/2022 8:24 AM EST us Oc Bains MD LAB BLOOD BKR ORDERABLES Final Result [address] [address] documented in this encounter Visit Diagnoses Diagnosis Avitaminosis D- Primary Unspecified vitamin D deficiency Fatty liver Other chronic nonalcoholic liver disease documented in this encounter Care Teams Bus Driver/Monitor Relationship Specialty Start Date End Date Osmel Green MD 30 [place] [address] PCP - General 09/04/20 Oc Bains MD [address] [place] [address] luis [email or web address] Gastroenterology 05/17/18 Ad Otero DO [address] [place] [address] [email or web address] [facility] Primary Oncologist Hematology and Oncology 12/06/18 Summer Walker NP [address] [place] [address] Nurse Practitioner Medical Oncology 01/23/21 08/12/25 documented as of this encounter Additional Source Comments The information contained in this document represents components of the legal health record. It is not the complete legal health record.[facility]
--- OUTSIDE RECORDS SUMMARY | 2025-09-24 13:57 | XMS_ITS | Encounter Summary ---
Author Organization [facility] Address [address] [place] [address] Phone Care Team Providers Care Boner Meat Name Role Phone Oc Bains MD Unavailable [phone] Ad Otero DO Unavailable [phone] Osmel Green MD Primary Care Provider Summer Walker DE ICER KIT ASSEMBLER Unavailable Encounter Details Date Type Department Care Team (Late Contact Info) Description 08/13/2021 Procedure Pass [facility] Endoscopy Admitting Dept Virtual Department 30 [place] [address] Social History Tobacco Use Types Packs/Day Years [...] Info) Description 10/08/2025 7:30 AM EST Infusion [facility] Medical Infusion Center 30 [place] [address] Oc Bains MD [address] [place] [address] luis 10/15/2025 1:30 PM EST Office Visit [facility] 10 [place] [address] Unknown, Unknown, Tiffanie Jefferson PA-C [address] [address] 11/19/2025 7:30 AM EST Infusion [facility] Medical Infusion [address] [address] Oc Bains MD [address] [place] [address] luis 12/31/2025 7:30 AM EST Infusion [facility] Infusion [address] [address] Oc Bains MD [address] [place] [address] luis 08/22/2026 1:00 PM EDT Blood Draw [facility] Phleb [address] [address] Ad Otero, DO [address] [place] [address] [email or web address] 08/22/2026 2:00 PM EDT Office Visit [facility] [address] [place] [address] Ad Otero, DO [address] [place] [address] [email or web address] documented as of this encounter Visit Diagnoses Not on filedocumented in this encounter Care Teams Boner Meat Relationship Specialty Start Date End Date Osmel Green MD [address] [place] [address] PCP - General 09/04/20 Oc Bains MD [address] [place] [address] luis [email or web address] Gastroenterology 05/17/18 Ad Otero DO [address] [place] [address] [email or web address] Primary Oncologist Hematology and Oncology 12/06/18 Summer Walker NP [address] [place] [address] [email or web address] Nurse Practitioner Medical Oncology 01/23/21 08/12/25 documented as of this encounter Additional Source Comments The information contained in this document represents components of the legal health record. It is not the complete legal health record.[facility]
--- OUTSIDE RECORDS SUMMARY | 2025-09-24 13:57 | XMS_ITS | Encounter Summary ---
Author Organization [facility] Address [address] [facility] [place] [address] Phone Care Team Providers Care Career Discovery Teacher Name Role Phone Oc Bains MD Unavailable [phone] Ad Otero DO Unavailable [phone] Osmel Green MD Primary Care Provider Summer Walker JOURNEYMAN PRESSMAN Unavailable [phone] Reason for Visit * Auth/Cert (Routine) Specialty Diagnoses / Procedures Referred By Contac t Referred To Contact Diagnoses CASE (nonalcoholic steatohepatitis) Ulcerative rectosigmoiditis with rectal bleeding CASE (nonalcoholic steatohepatitis) [K75.81] 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] Procedures DC COLONOSCOPY FLX DX W/COLLJ SPEC WHEN PFRMD DC COLONOSCOPY W/BIOPSY SINGLE/MULTIPLE DC COLSC FLX W/RMVL OF TUMOR POLYP LESION SNARE TQ COLONOSCOPY Referral ID Status Reason Start Date Expiration Date Visits Re quested Visits Authorized [id number] 1 1 Encounter Details Date Type Department Care Team (Late st Contact Info) Description 05/15/2025 Hospital Encounter [facility] Admitting Dept Virtual Department 30 [place] [address] Oc Bains MD [address] [place] [address] 2 [place] [address] luis Social History Tobacco Use Types Packs/Day [...] Info) Description 10/08/2025 7:30 AM EST Infusion [address] [address] Oc Bains MD [address] [place] [address] luis 10/15/2025 1:30 PM EST Office Visit [facility] [address] [place] [address] Unknown, Unknown, Tiffanie Jefferson PA-C [address] [place] [address] 11/19/2025 7:30 AM EST Infusion [facility] Medical Infusion Center [address] [place] [address] Oc Bains MD [address] [place] [address] luis 12/31/2025 7:30 AM EST Infusion [facility] Medical Infusion [address] [address] Oc Bains MD [address] [place] [address] luis 08/22/2026 1:00 PM EDT Blood Draw [facility] Phleb [address] [address] Ad Otero DO [address] [place] [address] [email or web address] 08/22/2026 2:00 PM EDT Office Visit [facility] at [address] [address] Ad Otero DO [address] [place] [address] [email or web address] documented as of this encounter Visit Diagnoses Not on filedocumented in this encounter Care Teams Career Discovery Teacher Relationship Specialty Start Date End Date Osmel Green MD [address] [place] [address] PCP - General 09/04/20 Oc Bains MD [address] [place] [address] [email or web address] Gastroenterology 05/17/18 Ad Otero DO 30 [place] [address] [email or web address] Primary Oncologist Hematology and Oncology 12/06/18 Summer Walker NP [address] [place] [address] [email or web address] Nurse Practitioner Medical Oncology 01/23/21 08/12/25 documented as of this encounter Additional Source Comments The information contained in this document represents components of the legal health record. It is not the complete legal health record.[facility]
--- OUTSIDE RECORDS SUMMARY | 2025-09-24 13:57 | XMS_ITS | Encounter Summary ---
Author Organization [employer] Address [address] [facility] 7t [place] [address] Care Team Providers Care Powerhouse Oiler Name Role Phone Unavailable Primary Care Provider [...]
--- OUTSIDE RECORDS SUMMARY | 2025-09-24 13:58 | XMS_ITS | Encounter Summary ---
Author Organization [facility] Address [address] [place] [address] Phone Care Team Providers Care Director Of Group Sales Name Role Phone Oc Bains MD Unavailable [phone] Ad Otero DO Unavailable [phone] Osmel Green MD Primary Care Provider Summer Walker MAGAZINE REPAIRER Unavailable [phone] Encounter Details Date Type Department Care Team (Latest Contact Info) Description 12/28/2022 Transcribe Orders Virtual Department 30 [place] [address] Oc Bains MD [address] [place] [address] [email or web address] Fatty liver disease, nonalcoholic (Primary Dx) Social [...] Info) Description 10/08/2025 7:30 AM EST Infusion [facility] Infusion Center 30 [place] [address] Oc Bains MD [address] [address] luis 10/15/2025 1:30 PM EST Office Visit [facility] Gastroenterology [facility] 10 [place] [address] Unknown, Unknown, Tiffanie Jefferson PA-C [address] [address] 11/19/2025 7:30 AM EST Infusion [facility] Medical Infusion [address] [address] Oc Bains MD [address] [address] luis 12/31/2025 7:30 AM EST Infusion [facility] Infusion [address] [address] Oc Bains MD [address] [address] luis 08/22/2026 1:00 PM EDT Blood Draw [facility] Phleb [address] [address] Ad Otero, DO 30 [place] [address] [email or web address] 08/22/2026 2:00 PM EDT Office Visit [facility] at [address] [address] Ad Otero, DO [address] [place] [address] [email or web address] documented as of this encounter Results * [...] Elastography Consensus Statement. Radiology. 2020 Jun;296(2):263-274. doi: 10.1148/radiol.[id number]. Epub 2019Apr 29. PMID: 67930894. Procedure Note Sonia Rosales MD - 01/20/2023 [...] Ultrasound Liver Elastography ConsensusStatement. Radiology. 2020 Jun;296(2):263-274. doi:10.1148/radiol.[id number]. Epub 2019Apr 29. PMID: 84390557. IMPRESSION: 1. Mean Liver Stiffness Value 11.1 kPa 2. Increased echogenicity of the hepatic parenchyma in keeping withhepatic steatosis. us Oc Bains MD IMG US ABDOMEN Final Result documented in this encounter Visit Diagnoses Diagnosis Fatty liver disease, nonalcoholic- Primary Fatty liver disease, nonalcoholic documented in this encounter Care Teams Director Of Group Sales Relationship Specialty Start Date End Date Osmel Green MD [address] [place] [address] PCP - General 09/04/20 Oc Bains MD [address] [place] [address] [email or web address] Gastroenterology 05/17/18 Ad Otero DO 30 [place] [address] [email or web address] Primary Oncologist Hematology and Oncology 12/06/18 Summer Walker NP [address] [place] [address] [email or web address] Nurse Practitioner Medical Oncology 01/23/21 08/12/25 documented as of this encounter Additional Source Comments The information contained in this document represents components of the legal health record. It is not the complete legal health record.[facility]
--- OUTSIDE RECORDS SUMMARY | 2025-09-24 13:58 | XMS_ITS | Clinical Summary ---
Author Organization [facility] Address [address] [place] [address] Phone Care Team Providers Care Foundry Supervisor Name Role Phone Hilario Reyes MD Unavailable [phone] BrandenAd DO Unavailable [phone] Osmel Green MD Primary Care Provider Allergies [...] Type Department Care Team Description 08/26/2025 Telephone [facility] Infusion [address] [address] Osmel Green MD 08/26/[address] [address] Osmel Green MD 08/22/2025 2:30 PM EDT Office Visit [facility] at [address] [address] Ad Otero DO CLL (chronic lymphocytic leukemia) (Primary Dx) 08/22/2025 1:25 PM EDT - 08/22/2025 11:59 PM EDT Hospital Encounter [facility] Phleb MGCC 30 [place] [address] Ad Otero DO Discharge Disposition: Home or Self Care 08/15/2025 Orders Only [facility] Center at [facility] 30 [place] [address] Rachelle Hui CLL (chronic lymphocytic leukemia) (Primary Dx) 07/16/2025 7:30 AM EDT Infusion [facility] Medical Infusion [address] [address] Hilario Reyes MD Ulcerative (chronic) proctosigmoiditis (Primary Dx) 07/15/2025 Telephone [facility] Infusion [address] [address] Osmel Green MD from Last 3 Months [...] Info) Description 10/08/2025 7:30 AM EST Infusion [address] [address] Hilario Reyes MD [address] [place] [address] luis 10/15/2025 1:30 PM EST Office Visit [facility] G[facility] [address] [place] [address] Unknown, Unknown, Tiffanie Jefferson, PAWillyC [address] [place] [address] 11/19/2025 7:30 AM EST Infusion [facility] Medical Infusion Center [address] [place] [address] Hilario Reyes MD [address] [address] luis 12/31/2025 7:30 AM EST Infusion [facility] Medical Infusion Center [address] [place] [address] Hilario Reyes MD [address] [address] luis 08/22/2026 1:00 PM EDT Blood Draw [facility] Phleb [address] [address] Ad Otero, DO [address] [place] [address] [email or web address] 08/22/2026 2:00 PM EDT Office Visit [facility] at [address] [address] Ad Otero, DO [address] [place] [address] [email or web address] Health Maintenance Due Date Last Done Comments [...] this topic Medical Devices Implanted Type Area Lease Attendant Device Identifier Shelf Expiration Date Model / Serial / Lot Knee Tray 79mm Plate Bone Primary [employer] [place] I Beam Revision Interlock Cemented - [id number] Implanted:Qty: 1 on 05/28/2019 by Hilario Worrell MD at [facility] Right: Knee [employer] 2029 [id number] / / [id number] Box Component 60mm Femoral Knee [employer] Interlok [place] Posterior Stabilized Open Cemented Left - [id number] Implanted:Qty: 1 on 05/28/2019 by Hilario Worrell MD at [facility] Left: Knee [employer] 12/11/2023 [id number] / / [id number] Box Component 75.0mm Femoral Knee [employer] Interlok [place] Posterior Stabilized Open Cemented Right - [id number] Implanted:Qty: 1 on 05/28/2019 by Hilario Worrell MD at [facility] Right: Knee [employer] 03/13/2029 [id number] / / [id number] Peg [id number] Button Patella Knee Vanguard Uhmwpe 3 Series A Standard - [id number] Implanted:Qty: 1 on 05/28/2019 by Hilario Worrell MD at [facility] Right: Knee [employer] 04/17/2024 [id number] / / [id number] Knee Bearing 79 [id number] Vanguard E1 Polyethylene Vitamin E Infused Stabilized - [id number] Implanted:Qty: 1 on 05/28/2019 by Hilario Worrell MD at [facility] Right: Knee [employer] 03/12/2024 [id number] / / [id number] Cement Bone Biomet Standard R 1x40 Us - [id number] Implanted:Qty: 1 on 05/28/2019 by Hilario Worrell MD at [facility] Right: Knee SHERI / DIV OF [employer] 04/20/2023 [id number] / / [id number] Box Component 75.0mm Femoral Knee Vanguard Interlok [place] Posterior Stabilized Open Cemented Left - [id number] Implanted:Qty: 1 on 05/28/2019 by Hilario Worrell MD at [facility] Left: Knee [employer] 07/18/2028 [id number] / / [id number] Cement Bone Biomet Standard R 1x40 Us - [id number] Implanted:Qty: 1 on 05/28/2019 by Hilario Worrell MD at [facility] Left: Knee SHERI / [employer] 04/20/2023 [id number] / / [id number] Knee Tray 79mm Plate Bone Primary V[employer]ard [place] I Beam Revision Interlock Cemented - [id number] Implanted:Qty: 1 on 05/28/2019 by Hilario Worrell MD at [facility] Left: Knee [employer] 2029 [id number] / / [id number] Peg [id number] Button Patella Knee Vanguard Uhmwpe 3 Series A Standard - [id number] Implanted:Qty: 1 on 05/28/2019 by Hilario Worrell MD at [facility] Left: Knee [employer] 03/15/2024 [id number] / / [id number] Procedures Procedure Name Priority Date/Time Associated Diagnosis Comments SEDIMENTATION RATE (ESR) Routine 08/22/2025 1:25 PM EDT CLL (chronic lymphocytic leukemia) LDH Routine 08/22/2025 1:25 PM EDT CLL (chronic lymphocytic leukemia) COMPREHENSIVE METABOLIC PANEL (CMP) Routine 08/22/2025 1:25 PM EDT CLL (chronic [...] EDT) LDH 177 118 - 273 U/L [facility] Blood 08/22/2025 1:25 PM EDT 08/22/2025 1:41 PM EDT us Duong W Branden DO LAB BLOOD BKR ORDERABLES Fi nal Result [address] [address] * (ABNORMAL) Comprehensive metabolic panel (08/22/2025 1:25 PM EDT) SODIUM 134 133 - 146 mmol/L [facility] POTASSIUM 4.2 3.3 - 5.1 mmol/L [facility] CHLORIDE 98 96 - 108 mmol/L [facility] CO2 24 21 - 35 mmol/L [facility] BUN 20(H) 6 - 19 mg/dL [facility] CREATININE 1.60(H) 0.5 - 1.5 mg/dL [facility] GLUCOSE 379(H) 70 - 99 mg/dL [facility] ALBUMIN 4.1 3.9 - 4.8 g/dL [facility] TOTAL PROTEIN 7.5 6.5 - 8.0 g/dL [facility] CALCIUM 9.9 8.4 - 10.3 mg/dL [facility] ALKALINE PHOSPHATASE 106 39 - 117 U/L [facility] TOTAL BILIRUBIN 0.5 0.0 - 1.2 mg/dL [facility] AST 43(H) 0 - 37 U/L [facility] ALT 51(H) 0 - 40 U/L [facility] GLOBULIN 3.4 1 - 4.8 g/dL [facility] EGFR 48(L) >59 mL/min/1.7 3m2 [facility] Comment:Estimated glomerular filtration rate calculated using the CKD-EPI refit equation. ANION GAP 16 10 - 20 mmol/L [facility] Blood 08/22/2025 1:25 PM EDT 08/22/2025 1:41 PM EDT us Duong [employer] LAB BLOOD BKR ORDERABLES Fi nal Result [address] [address] * Sedimentation rate (ESR) (08/22/2025 1:25 PM EDT) ESR 16 0 - 20 mm/h [facility] Blood 08/22/2025 1:25 PM EDT 08/22/2025 1:41 PM EDT us Duong [employer] LAB BLOOD BKR ORDERABLES Fi nal Result [address] [address] * (ABNORMAL) CBC and differential (08/22/2025 1:25 PM EDT) WBC 10.81 4.00 - 11.00 K/uL [facility] RBC 4.12(L) 4.50 - 5.90 M/uL [facility] HGB 13.1(L) 13.5 - 17.5 g/dL [facility] HCT 38.2(L) 41.0 - 53.0 % [facility] PLT 239 150 - 450 K/uL [facility] MCV 92.7 80.0 - 100.0 fL [facility] MCH 31.8(H) 27.0 - 31.0 pg [facility] MCHC 34.3 32.0 - 36.0 g/dL [facility] RDW 12.5 11.5 - 14.5 % [facility] MPV 9.9 8.4 - 12.0 fL [facility] NRBC 0.00 0.00 /100 WBCs [facility] ABSOLUTE NRBC 0.00 0.00 K/uL [facility] DIFF METHOD Manual [facility] TOTAL CELLS COUNTED 100 [facility] NEUTS 49.0 48.0 - 76.0 % [facility] LYMPHS 40.0 18.0 - 41.0 % [facility] Comment:Few atypical Lymphs seen. MONOS 6.0 4.0 - 11.0 % [facility] EOS 4.0 0.0 - 5.0 % [facility] MYELOS 1.0(H) 0 % [facility] ABSOLUTE NEUTS 5.30 1.92 - 7.60 K/uL [facility] ABSOLUTE LYMPHS 4.32(H) 0.72 - 4.10 K/uL [facility] ABSOLUTE MONOS 0.65 0.16 - 1.10 K/uL [facility] ABSOLUTE EOS 0.43 0.00 - 0.50 K/uL [facility] ABSOLUTE MYELOS 0.11 K/uL [facility] SMUDGE CELLS PRESENT(A) None [facility] Blood 08/22/2025 1:25 PM EDT 08/22/2025 1:41 PM EDT us Ad W Branden DO LAB BLOOD BKR ORDERABLES Fi nal Result [address] [address] * (ABNORMAL) Liver fibrosis test (01/23/2025 8:28 AM EST) Fibrosis score 0.66 [facility] Interpretation (Fibrosis) SEE NOTE [facility]/ [facility] Comment: (NOTE) advanced fibrosis Fibro Test Score [...] HCV Fibrosis Grade F3 Q [facility]/ [facility] NECROINFLAMM SCORE 0.26 Q [facility]/ [facility] NECROINFLAMM GRADE SEE NOTE Q [facility] Comment: (NOTE) Result: A0-A1 NECROINFLAMM INTERP SEE NOTE [facility]/ [facility] Comment: (NOTE) no activity ActiTest Score (a) [...] A2 Macroglobulin 382(H) 106 - 279 mg/dL [facility]/ [facility] Haptoglobin 146 43 - 212 mg/dL [facility]/ [facility] Apolipoprotein A1 127 94 - 176 mg/dL [facility]/ [facility] TOTAL BILIRUBIN 0.5 0.2 - 1.2 mg/dL [facility]/ [facility] GGT 38 3 - 70 U/L [facility] ALT 33 9 - 46 U/L [facility] Specimen/Product ID [id number] [facility] Comments (Chemistry) SEE NOTE [facility]/ [facility] Comment: (NOTE) The reliability of results is [...] The performance characteristics have been determined by [facility]. It has not been cleared or approved by the U.S. Food and Drug Administration. Performance characteristics refer to the analytical performance of the test. Vayyar, the associated logo, [employer] and all associated [employer] deshpande are the registered trademarks of [employer]. All third alliance party deshpande - (R) and (TM) - are the property of their respective owners. (C) 1051-1678 [employer]. All rights reserved. Blood 01/23/2025 8:28 AM EST 01/23/2025 8:33 AM EST us Tiffanie CAMPBELL LAB BLOOD BKR ORDERABLES Fi nal Result [facility] [facility] [address] [place] [address], [facility] [phone] * ENDOSCOPY, COLON (08/13/2021 11:14 AM EDT) Narrative Transcriptions Hilario Reyes MD - 08/13/2021 11:14 AM EDT Patient Name: Sonny Mota Attending MD:: HILARIO REYES MD Procedure Date: 08/13/2021 11:14 AM Date of : 1960 Age: 61 Admit Type: Outpatient Gender: Male Room: [place] [address] Referring MD: Osmel Green Exam Type: Colonoscopy Indications: High risk colon cancer surveillance: 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 The Olympus adult variable colonoscope [id number] #1was introduced through the anus and advanced [...] 11:14 AM Procedure Code(s): --- Professional --- 67948, Colonoscopy, flexible; with removal of tumor(s), polyp(s), or other lesion(s) by snare technique [id number], 59, Colonoscopy, flexible; with biopsy, single or multiple --- Technical --- 97245, Colonoscopy, flexible; with removal of tumor(s), polyp(s), or other lesion(s) by snare technique 12416, 59, Colonoscopy, flexible; with biopsy, single or multiple Diagnosis Code(s): --- Professional --- K51.30, Ulcerative (chronic) rectosigmoiditiswithout complications D12.6, Benign neoplasm of colon, unspecified K57.30, Diverticulosis of large intestine without perforation or abscess without bleeding --- Technical --- K51.30, Ulcerative (chronic) rectosigmoiditiswithout complications D12.6, Benign neoplasm of colon, unspecified K57.30, Diverticulosis of large intestine without perforation or abscess without bleeding CPT copyright 2018 [employer]. All rights reserved. The codes documented in this report are preliminary and upon wallpaper inspector reviewmay be revised to meet current compliance requirements. Procedure Date: 08/13/2021 11:14:[address] [place] [address] Osmel Green MD GI PROCEDURE ORDERABL ES Final Result from Last 3 Months or Most Recently Relevant to Health Maintenance Insurance [facility] MEDICARE PART A & [place] [address] [place] [address]HEALTH MEDICARE PART A & B [address] [place] [address] [facility] & [place] [address] [address] [place] [address] MEDICARE PART A & B Advance Directives For more information, please contact: [phone] (9AM - 5PM [place], Tuesday-Tuesday) * Full Code (Presumed) (Latest Code Status on File) Date Activated Date Inactivated Comments 05/28/2019 5:07 PM 06/01/2019 7:02 PM * Full Code (Presumed) Date Activated Date Inactivated Comments 05/28/2019 9:45 AM 05/28/2019 5:07 PM Care Teams Foundry Supervisor Relationship Specialty Start Date End Date Osmel Green MD [address] [place] [address] PCP - General 09/04/20 Hilario Reyes MD [address] [place] [address] [email or web address] Gastroenterology 05/17/18 Ad Otero DO [address] [place] [address] [email or web address] Primary Oncologist Hematology and Oncology 12/06/18 Additional Source Comments The information contained in this document represents components of the legal health record. It is not the complete legal health record.[facility]
--- OUTSIDE RECORDS SUMMARY | 2025-09-24 13:58 | XMS_ITS | Encounter Summary ---
Author Organization [facility] Address [address] [place] [address] Phone Care Team Providers Care Clinical Research Technician Name Role Phone Oc Bains MD Unavailable [phone] Ad Otero DO Unavailable [phone] Osmel Green MD Primary Care Provider Summer Walker COMMISSION ASSOCIATE Unavailable [phone] Encounter Details Date Type Department Care Team (Late Contact Info) Description 02/14/2023 Procedure Pass [facility] Endoscopy Admitting Dept Virtual Department [address] [place] [address] Social History Tobacco Use Types Packs/Day Years [...] Info) Description 10/08/2025 7:30 AM EST Infusion [facility] Medical Infusion Center [address] [place] [address] Oc Bains MD [address] [place] [address] luis 10/15/2025 1:30 PM EST Office Visit [facility] [address] [place] [address] Unknown, Unknown, Tiffanie Jefferson PA-C [address] [address] 11/19/2025 7:30 AM EST Infusion [facility] Infusion [address] [address] Oc Bains MD [address] [address] luis 12/31/2025 7:30 AM EST Infusion [facility] Infusion [address] [address] Oc Bains MD [address] [place] [address] luis 08/22/2026 1:00 PM EDT Blood Draw [facility] Phleb [address] [address] Ad Otero, DO [address] [place] [address] [email or web address] 08/22/2026 2:00 PM EDT Office Visit [facility] [address] [place] [address] Ad Otero, DO [address] [place] [address] [email or web address] documented as of this encounter Visit Diagnoses Not on filedocumented in this encounter Care Teams Clinical Research Technician Relationship Specialty Start Date End Date Osmel Green MD [address] [place] [address] PCP - General 09/04/20 Oc Bains MD [address] [place] [address] [email or web address] Gastroenterology 05/17/18 Ad Otero DO [address] [place] [address] [email or web address] Primary Oncologist Hematology and Oncology 12/06/18 Sumemr Walker NP [address] [place] [address] [email or web address] Nurse Practitioner Medical Oncology 01/23/21 08/12/25 documented as of this encounter Additional Source Comments The information contained in this document represents components of the legal health record. It is not the complete legal health record.[facility]
== END 2025-09-24 11:56 | disposition home or self-care (01) ==
LOC: HO.HMCFM 11:22
PROVIDERS: PCP Family Medicine; Visit Provider Nurse Practitioner Family
DX: E11.65 Type 2 diabetes mellitus with hyperglycemia (principal); E11.00 Type 2 diabetes mellitus with hyperosmolarity without nonketotic hyperglycemic-hyperosmolar coma (NKHHC); Z09 Encounter for follow-up examination after completed treatment for conditions other than malignant neoplasm

== ENCOUNTER 2025-10-10 08:16 | Outpatient (AMB) | payer MEDICARE, MEDICAID, SELFPAY ==
--- OUTSIDE RECORDS SUMMARY | 2025-10-08 07:30 | XMS_ITS | Encounter Summary ---
Author Organization [facility] Address [address] [place] [address] Phone Care Team Providers Care Operators Teacher Name Role Phone Oc Bains MD Unavailable [phone] BrandenAd DO Unavailable [phone] Osmel Green MD Primary Care Provider Reason for Visit * Treatment and Therapy Plan (Routine) - Authorized Specialty Diagnoses / Procedures Referred By Contac t Referred To Contact Diagnoses Ulcerative (chronic) proctosigmoiditis Procedures CA INJ INFLIXIMAB PER 10MG - EXCLUDES BIOSIMILARS Oc Bains MD [address] [place] [address] Phone: tel: fax: mailto:[email or web address] [address] [place] [address] Phone: tel: fax: Referral ID Status Reason Start Date Expiration Date V isits Requested Visits Authorized [id number] Authorized 08/24/2023 08/14/2039 99 [phone] Encounter Details Date Type Department Care Team (Latest Contact Info) Description 10/08/2025 7:30 AM EST Infusion [facility] Medical Infusion Center [address] [place] [address] Oc Bains MD [address] [place] [address] luis Ulcerative (chronic) proctosigmoiditis (Primary Dx) Social History Tobacco Use Types [...] on file documented as of this encounter Last Filed Vital Signs Vital Sign Reading Time Taken Comments Blood Pressure 119/77 10/08/2025 8:54 AM EST Pulse 80 10/08/2025 8:54 AM EST Temperature 36 C (96.8 F) 10/08/2025 7:30 AM EST Respiratory Rate 18 10/08/2025 8:54 AM EST Oxygen Saturation 97% 10/08/2025 8:54 AM EST Inhaled Oxygen Concentration - - Weight - - Height - - Body Mass Index - - documented in this encounter Progress Notes * Gely Vann, ZHEN - 10/08/2025 7:30 AM EST Pt here for Remicade infusion. Patient reports that their symptoms have been stable. Pt premedicated with tylenol. Pt infused over 1 and a half hours and tolerated well. documented in this encounter Plan of Treatment Upcoming Encounters Date Type Department Care Team (Late st Contact Info) Description 10/15/2025 1:30 PM EST Office Visit [facility] [address] [place] [address] Unknown, Unknown, Tiffanie Jefferson PA-C [address] [address] [email or web address] 11/19/2025 7:30 AM EST Infusion [facility] Infusion [address] [address] Oc Bains MD [address] [place] [address] luis 12/31/2025 7:30 AM EST Infusion [facility] Infusion [address] [address] Oc Bains MD [address] [place] [address] luis 08/22/2026 1:00 PM EDT Blood Draw [facility] Phleb [address] [address] Ad Otero, DO [address] [place] [address] [email or web address] 08/22/2026 2:00 PM EDT Office Visit [facility] [address] [place] [address] Ad Otero, DO [address] [place] [address] [email or web address] documented as of this encounter Visit Diagnoses Diagnosis Ulcerative (chronic) proctosigmoiditis- Primary documented in this encounter Administered Medications Inactive Administered Medications - up to 3 most recent administrations Medication Order MAR Action Action Date Dose Rate Site acetaminophen (TYLENOL) tablet 650 mg 650 mg, Oral, Once, On Tu10/08/25 at 0815, For 1 dose, Administer at least 30 mins prior to principal medication.Indications:Ulcerativ e (chronic) proctosigmoiditis Given 10/08/2025 7:35 AM EST 650 mg inFLIXimab (REMICADE) 570 mg in sodium chloride 0.9% 250 mL infusion 570 mg (rounded from 570.5 mg = 5 mg/kg 114.1 kg), Intravenous, Once, On 10/07/25 at 1145, For 1 dose, Use an in-line, sterile, non-pyrogenic, low protein-binding filter of 1.2 micron or LESS.Indications:Ulcerative (chronic) proctosigmoiditis New Bag 10/08/2025 7:35 AM EST 570 mg 125 mL/hr documented in this encounter Care Teams Operators Teacher Relationship Specialty Start Date End Date Osmel Green MD [address] [place] [address] PCP - General 09/04/20 Oc Bains MD [address] [place] [address] [email or web address] Gastroenterology 05/17/18 Ad Otero DO [address] [place] [address] [email or web address] Primary Oncologist Hematology and Oncology 12/06/18 documented as of this encounter Additional Source Comments The information contained in this document represents components of the legal health record. It is not the complete legal health record.[facility]
--- NOTE | 2025-10-10 08:19 | A.OFFVIS_ITS ---
Vital Signs 10/10/25 08:20 Height 5 ft 10 in Weight 244 lb 11.41 oz BMI 35.1 BP 128/72 Blood Pressure Location Lt brachial Position Sitting Pulse 79 Pulse Source Pulse Oximeter Pulse Oximetry (%) 96 Oxygen Delivery Method Room Air Intake Visit Reasons: Type 2 diabetes mellitus with hyperglycemia Intake Note: NEW Patient presents today to establish treatment for Type 2 Diabetes Mellitus: Last Diabetic eye exam was on: Patient has an upcoming appt in 3 months. Last Podiatry exam was on: Patient does not see a Coater Smoking Pipe Most recent HbA1c: >14.0%, 09/24/2025 Random Glucose: 139 mg/dL Finishing Powder Press Operator Required: No Accompanied by: Self / Same As Patient Allergies penicillamine Allergy (Unknown, Verified 10/10/25 08:26) unknown apixaban (From Eliquis) Adverse Reaction (Intermediate, Verified 10/10/25 08:26) Hives HPI Comments Details: 65 year old male presenting for diabetic consultation Medical history: HTN, HLD, gout, PE, CKD Recently admitted in August for HONK. Started on insulin therapy Diagnosed diabetes >10 years ago Current medications: Lantus 30 units Lispro SS 2-10 units with meals Trulicity 1.5mg weekly Glipizide 5mg daily Metformin 250mg daily He thinks he has mild rash from Lantus but is okay continuing A1C during hospitalization was 13.8%, >14.0% 09/24/25 He currently has traditional glucose meter -last two weeks Average 178, range 111-410 checking 2 times daily He believes his glucose became so uncontrolled because he was having up to 10 large doyle refreshers weekly. He can cut these out since He has CKD. Last Cr 1.[address] Ramos for eye. Wants new referral Family history maternal grandma ROS CONSTITUTIONAL: Denies weight loss, fever and chills. HEENT: Denies changes in vision and hearing. RESPIRATORY: Denies SOB and cough. CV: Denies palpitations and CP GI: Denies abdominal pain, nausea, vomiting and diarrhea. : Denies dysuria and urinary frequency. MSK: Denies new myalgia and joint pain. SKIN: Denies rash and pruritus. NEUROLOGICAL: Denies headache PSYCHIATRIC: Denies recent changes in mood. PHYSICAL EXAM: GENERAL: Alert and oriented x 3. NAD EYES: EOMI. Anicteric. HENT: Moist mucous membranes. No scleral icterus. No cervical lymphadenopathy. LUNGS: Clear to auscultation bilaterally. CARDIOVASCULAR: Regular rate and rhythm. No murmur. No JVD. ABDOMEN: Soft, non-tender +bs EXTREMITIES: No edema. Non-tender. SKIN: No rashes or lesions. Warm. NEUROLOGIC: No focal neurological deficits. CN II-XII grossly intact PSYCHIATRIC: Cooperative. Appropriate mood and affect [facility] Medical History (Updated 10/10/25 @ 09:29 by Stacey Santos MD) Pulmonary embolism Chronic kidney disease HTN (hypertension) Diabetes Surgical History H/O endoscopy History of colonoscopy History of knee replacement Family History Father CVD (cardiovascular disease) Bipolar disorder Mother Diabetes mellitus HTN (hypertension) Brother No problems noted. Brother No problems noted. Brother No problems noted. Son No problems noted. Son No problems noted. Son No problems noted. 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 [employer] Current occupational exposures/hazards: No Cognitive needs: No Hearing needs: No Vision needs: No Physical Exam Vital Signs: Last Vital Signs Pulse 79 10/10/25 08:20 BP 128/72 10/10/25 08:20 Pulse Ox 96 10/10/25 08:20 Oxygen Delivery Method Room Air 10/10/25 08:20 BMI result Body Mass Index 35.1 Results Reviewed Results Reviewed: Laboratory Last Values Glucose (Clinic) 139 mg/dL (60-115) H 10/10/25 08:28 Assessment & Plan Assessment & Plan (1) Uncontrolled diabetes mellitus with hyperglycemia: Code(s): E11.65 - Type 2 diabetes mellitus with hyperglycemia Category: Medical Qualifiers: Diabetes mellitus type: type 2 Qualified Code(s): E11.65 - Type 2 diabetes mellitus with hyperglycemia (2) Chronic kidney disease: Code(s): N18.9 - Chronic kidney disease, unspecified Category: Medical Qualifiers: Chronic kidney disease stage: stage 3 (moderate) Chronic kidney disease stage 3 subtype: unspecified whether 3a or 3b Qualified Code(s): N18.30 - Chronic kidney disease, stage 3 unspecified Plan Type 2 diabetes, uncontrolled There seems to be some interval improvement in glycemic control Will increase metformin to 1000mg, continue to monitor kidney function Will attempt transition to mounjaro from trulicity which has been suboptimal in managing blood sugars. Decrease lantus to 25units daily for now. Continue sliding scale insulin Continue glipizide for now. Discussed this with insulin can increase likelihood of hypoglycemia Discussed the treatment of hypoglycemia CGM ordered and CDE referral placed Return in one month or sooner as needed Orders: Referrals Diabetes Education Referral E11.65 - Type 2 diabetes mellitus with hyperglycemia Medications: New Mounjaro (tirzepatide) [facility] 5 mg (0.5 mL) subcut QWEEK 6 mL 3RF NS E11.9 - Type 2 diabetes mellitus without complications FreeStyle Kellie 3 Plus Sensor (blood-glucose sensor) every 15 days 6 ea 3RF NS E11.00 - Type 2 diabetes mellitus with hyperosmolarity without nonketotic hyperglycemic-hyperosmolar coma (NKHHC), E11.65 - Type 2 diabetes mellitus with hyperglycemia metformin ER (Glucophage XR) 1,000 mg (2 x 500 mg) PO DAILY 90 tabs 3RF FreeStyle Kellie 3 [place] (blood-glucose,license clerk,cont) As directed 1 ea 0RF NS E11.65 - Type 2 diabetes mellitus with hyperglycemia Changed From insulin glargine (Lantus Solostar U-100 Insulin) 30 units (0.3 mL) subcut QPM 30 days 9 mL 3RF To insulin glargine (Lantus Solostar U-100 Insulin) 25 units (0.25 mL) subcut QPM 7.5 mL 3RF 30 days Discontinued dulaglutide Discontinued Reason: Doctor's Order 1.5 mg (0.5 mL) subcut QWEEK 84 days 6 mL 3RF E11.65 - Type 2 diabetes mellitus with hyperglycemia Coding Level of Care Code New Pt Level 4 (67246) Diagnoses Uncontrolled type 2 diabetes mellitus with hyperglycemia E11.65 Diabetes mellitus type: type 2 Stage 3 chronic kidney disease, unspecified whether stage 3a or 3b CKD N18.30 Chronic kidney disease stage: stage 3 (moderate) Chronic kidney disease stage 3 subtype: unspecified whether 3a or 3b
[2025-10-10 08:20] VITALS: BP 128/72; PULSE 79; O2SAT 96; BMI 35.1
[2025-10-10 08:32] LABS: Glucose, Whole Blood 139 mg/dL (60-115)
--- OUTSIDE RECORDS SUMMARY | 2025-10-10 08:45 | XMS_ITS | Encounter Summary ---
Author Organization [facility] Address [address] [place] [address] Phone Care Team Providers Care Aircraft Layout Worker Name Role Phone Oc Bains MD Unavailable BrandenAd DO Unavailable [phone] Osmel Green MD Primary Care Provider Encounter Details Date Type Department Care Team (Late st Contact Info) Description 10/07/2025 Telephone [facility] Medical Infusion Center [address] [place] [address] Osmel Green MD [address] [place] [address] Social History Tobacco Use Types Packs/Day Years [...] on file documented as of this encounter Progress Notes * Qasim Chavarria - 10/07/2025 10:35 AM EST Calling to confirm, LMOM requested call back documented in this encounter Plan of Treatment Upcoming Encounters Date Type Department Care Team (Late st Contact Info) Description 10/15/2025 1:30 PM EST Office Visit [facility] [address] [place] [address] Unknown, Unknown, Tiffanie Jefferson PA-C [address] [place] [address] 11/19/2025 7:30 AM EST Infusion [facility] Infusion Center [address] [place] [address] Oc Bains MD [address] [place] [address] luis 12/31/2025 7:30 AM EST Infusion [facility] Medical Infusion [address] [address] Oc Bains MD [address] [place] [address] luis 08/22/2026 1:00 PM EDT Blood Draw [facility] Phleb [facility] [address] [place] [address] Ad Otero, DO [address] [place] [address] [email or web address] 08/22/2026 2:00 PM EDT Office Visit [facility] [address] [place] [address] Ad Otero DO [address] [place] [address] [email or web address] documented as of this encounter Visit Diagnoses Not on filedocumented in this encounter Care Teams Aircraft Layout Worker Relationship Specialty Start Date End Date Osmel Green MD [address] [place] [address] PCP - General 09/04/20 Oc Bains MD [address] [place] [address] luis [email or web address] Gastroenterology 05/17/18 Ad Otero DO [address] [place] [address] [email or web address] Primary Oncologist Hematology and Oncology 12/06/18 documented as of this encounter Additional Source Comments The information contained in this document represents components of the legal health record. It is not the complete legal health record.[facility]
--- OUTSIDE RECORDS SUMMARY | 2025-10-10 08:45 | XMS_ITS | Encounter Summary ---
Author Organization [facility] Address [address] [place] [address] Phone Care Team Providers Care Guide Escort Name Role Phone Oc Bains MD Unavailable [phone] Ad Otero DO Unavailable [phone] Osmel Green MD Primary Care Provider Summer Walker CUSTODIAL SERVICES MANAGER Unavailable [phone] Encounter Details Date Type Department Care Team (Latest Contact Info) Description 01/23/2025 Transcribe Orders [facility] Phleb Anamaria [address] [phone] Tiffanie Bloom PA 10 [place] [address] CASE (nonalcoholic steatohepatitis) (Primary Dx); Chronic ulcerative [...] Description 10/15/2025 1:30 PM EST Office Visit [facility] [address] [place] [address] Unknown, Unknown, Tiffanie Jefferson PA-C [address] [address] [email or web address] 11/19/2025 7:30 AM EST Infusion [facility] Infusion [address] [address] Oc Bains MD [address] [place] [address] luis 12/31/2025 7:30 AM EST Infusion [facility] Infusion [address] [address] Oc Bains MD [address] [place] [address] luis 08/22/2026 1:00 PM EDT Blood Draw [facility] Phleb [address] [address] Ad Otero, DO [address] [place] [address] [email or web address] 08/22/2026 2:00 PM EDT Office Visit [facility] at [address] [address] BrandenAd, DO [address] [place] [address] [email or web address] documented as of this encounter Results * (ABNORMAL) 25-OH vitamin D (01/23/2025 8:28 AM EST) 25 OH VIT D (TOTAL) 19(L) 30 - 60 ng/mL [facility] Blood 01/23/2025 8:28 AM EST 01/23/2025 8:33 AM EST us Tiffanie CAMPBELL LAB BLOOD BKR ORDERABLES Fi nal Result [address] [address] * Vitamin B12 (01/23/2025 8:28 AM EST) VITAMIN B12 344 232 - 1,245 pg/mL [facility] Blood 01/23/2025 8:28 AM EST 01/23/2025 8:33 AM EST us Tiffanie CAMPBELL LAB BLOOD BKR ORDERABLES Fi nal Result [address] [address] * Folate (01/23/2025 8:28 AM EST) FOLIC ACID 8.0 4.2 - 19.9 ng/mL [facility] Blood 01/23/2025 8:28 AM EST 01/23/2025 8:33 AM EST Tiffanie CAMPBELL LAB BLOOD BKR ORDERABLES Fi nal Result Performing Organization Address City/[facility]/ZIP Co de Phone Number [address] [address] * Ferritin (01/23/2025 8:28 AM EST) FERRITIN 147 30 - 400 ug/L [facility] Blood 01/23/2025 8:28 AM EST 01/23/2025 8:33 AM EST Tiffanie Bloom [place] LAB BLOOD BKR ORDERABLES Fi nal Result Performing Organization Address [facility] de Phone Number [address] [address] * (ABNORMAL) Liver fibrosis test (01/23/2025 8:28 AM EST) Fibrosis score 0.66 [facility] Interpretation (Fibrosis) SEE NOTE [facility]/ [facility] C Comment: (NOTE) advanced fibrosis Fibro Test Score [...] HCV Fibrosis Grade F3 Q [facility] NECROINFLAMM SCORE 0.26 Q [facility] NECROINFLAMM GRADE SEE NOTE Q [facility] Comment: (NOTE) Result: A0-A1 NECROINFLAMM INTERP SEE NOTE [facility]/ [employer] [facility] Comment: (NOTE) no activity ActiTest Score (a) [...] A2 Macroglobulin 382(H) 106 - 279 mg/dL [facility] Haptoglobin 146 43 - 212 mg/dL [facility] Apolipoprotein A1 127 94 - 176 mg/dL [facility] TOTAL BILIRUBIN 0.5 0.2 - 1.2 mg/dL [facility] GGT 38 3 - 70 U/L [employer] [facility] ALT 33 9 - 46 U/L [facility] Specimen/Product ID [id number] [facility] Comments (Chemistry) SEE NOTE [facility] Comment: (NOTE) The reliability of results is dependent on compliance with the preanalytical and analytical conditions recommended by P[facility]RITH. The tests have to be deferred for: [...] The performance characteristics have been determined by [employer] [facility]. It has not been cleared or approved by the U.S. Food and Drug Administration. Performance characteristics refer to the analytical performance of the test. [employer], [employer], the associated logo, Kwame Samuels and all associated [employer] deshpande are the registered trademarks of [employer]. All third constitution party deshpande - (R) and (TM) - are the property of their respective owners. (C) 3893-6186 [employer]. All rights reserved. Blood 01/23/2025 8:28 AM EST 01/23/2025 8:33 AM EST Tiffanie CAMPBELL LAB BLOOD BKR ORDERABLES Fi nal Result [facility] [address] [place] [address], [facility] [phone] * C-Reactive Protein (01/23/2025 8:28 AM EST) Pathologist [facility] C REACTIVE PROTEIN <3.0 0.0 - 4.0 mg/L [facility] Blood 01/23/2025 8:28 AM EST 01/23/2025 8:33 AM EST Tiffanie CAMPBELL LAB BLOOD BKR ORDERABLES Fi nal Result [address] [address] * (ABNORMAL) Comprehensive metabolic panel (01/23/2025 8:28 AM EST) SODIUM 135 133 - 146 mmol/L [facility] POTASSIUM 4.4 3.3 - 5.1 mmol/L [facility] CHLORIDE 98 96 - 108 mmol/L [facility] CO2 24 21 - 35 mmol/L [facility] BUN 17 6 - 19 mg/dL [facility] CREATININE 1.80(H) 0.5 - 1.5 mg/dL [facility] GLUCOSE 305(H) 70 - 99 mg/dL [facility] ALBUMIN 4.1 3.9 - 4.8 g/dL [facility] TOTAL PROTEIN 7.8 6.5 - 8.0 g/dL [facility] CALCIUM 9.5 8.4 - 10.3 mg/dL [facility] ALKALINE PHOSPHATASE 112 39 - 117 U/L [facility] TOTAL BILIRUBIN 0.3 0.0 - 1.2 mg/dL [facility] AST 27 0 - 37 U/L [facility] ALT 31 0 - 40 U/L [facility] GLOBULIN 3.7 1 - 4.8 g/dL [facility] EGFR 42(L) >59 mL/min/1.7 3m2 [facility] Comment:Estimated glomerular filtration rate calculated using the CKD-EPI refit equation. ANION GAP 17 10 - 20 mmol/L [facility] Blood 01/23/2025 8:28 AM EST 01/23/2025 8:33 AM EST us Tiffanie CAMPBELL LAB BLOOD BKR ORDERABLES Fi nal Result [address] [address] * (ABNORMAL) CBC (01/23/2025 8:28 AM EST) WBC 10.35 4.00 - 11.00 K/uL [facility] RBC 4.10(L) 4.50 - 5.90 M/uL [facility] HGB 13.1(L) 13.5 - 17.5 g/dL [facility] HCT 37.5(L) 41.0 - 53.0 % [facility] PLT 267 150 - 450 K/uL [facility] MCV 91.5 80.0 - 100.0 fL [facility] MCH 32.0(H) 27.0 - 31.0 pg [facility] MCHC 34.9 32.0 - 36.0 g/dL [facility] RDW 12.5 11.5 - 14.5 % [facility] MPV 10.3 8.4 - 12.0 fL [facility] NRBC 0.00 0.00 /100 WBCs [facility] ABSOLUTE NRBC 0.00 0.00 K/uL [facility] Blood 01/23/2025 8:28 AM EST 01/23/2025 8:33 AM EST Tiffanie CAMPBELL LAB BLOOD BKR ORDERABLES Fi nal Result Performing Organization Address City/[facility]/ZIP Co de Phone Number [address] [address] * Anti-Mitochondrial Antibody (AMA) (01/23/2025 8:28 AM EST) MITOCHONDRIAL AB NEGATIVE AT 1:20 [facility] Comment: Performing Pathologist, Jackson Munroe M.D., Ph.D. [phone] Normal: Negative at 1:20 Blood 01/23/2025 8:28 AM EST 01/23/2025 8:33 AM EST Tiffanie CAMPBELL LAB BLOOD ORDERABLES Final Result Performing Organization Address City/[facility] Co de Phone Number [address] [address] * Smooth Muscle Antibody (01/23/2025 8:28 AM EST) SMOOTH MUSCLE AB NEGATIVE AT 1:20 [facility] Comment: Performing Pathologist, Jackson Munroe M.D., Ph.D. [id number] Normal: Negative at 1:20 Blood 01/23/2025 8:28 AM EST 01/23/2025 8:33 AM EST Tiffanie Bloom PA LAB BLOOD ORDERABLES Final Result Performing Organization Address City/[facility] Co de Phone Number [address] [address] documented in this encounter Visit Diagnoses Diagnosis CASE (nonalcoholic steatohepatitis)- Primary Other chronic nonalcoholic liver disease Chronic ulcerative rectosigmoiditis with rectal bleeding documented in this encounter Care Teams Guide Escort Relationship Specialty Start Date End Date Osmel Green MD [address] [place] [address] PCP - General 09/04/20 Oc Bains MD [address] [place] [address] [email or web address] Gastroenterology 05/17/18 Ad Otero DO [address] [place] [address] [email or web address] DRISS Primary Oncologist Hematology and Oncology 12/06/18 Summer Walker NP [address] [place] [address] [email or web address] Nurse Practitioner Medical Oncology 01/23/21 08/12/25 documented as of this encounter Additional Source Comments The information contained in this document represents components of the legal health record. It is not the complete legal health record.[facility]
--- OUTSIDE RECORDS SUMMARY | 2025-10-10 08:45 | XMS_ITS | Encounter Summary ---
Author Organization [facility] Address [address] [place] [address] Phone Care Team Providers Care Associate Data Scientist Name Role Phone Oc Bains MD Unavailable [phone] BrandenAd DO Unavailable [phone] Osmel Green MD Primary Care Provider Summer Walker ROLLOFF DRIVER Unavailable [phone] Encounter Details Date Type Department Care Team (Latest Contact Info) Description 06/23/2021 Transcribe Orders [facility] Phleb [place] 2nd Floor [place], [place] [id number] Oc Bains MD [address] [address] [email or web address] Encounter for therapeutic drug level monitoring (Primary [...] Description 10/15/2025 1:30 PM EST Office Visit [facility] G[facility] 10 [place] [address] Unknown, Unknown, Tiffanie Jefferson PA-C [address] [address] [email or web address] 11/19/2025 7:30 AM EST Infusion [facility] Infusion [address] [address] Oc Bains MD [address] [address] [email or web address] 12/31/2025 7:30 AM EST Infusion [facility] Infusion [address] [address] Oc Bains MD [address] [place] [address] [email or web address] 08/22/2026 1:00 PM EDT Blood Draw [facility] Phleb [address] [address] Ad Otero, DO [address] [place] [address] [email or web address] 08/22/2026 2:00 PM EDT Office Visit [facility] Center at [address] [address] Ad Otero, DO [address] [place] [address] [email or web address] documented as of this encounter Results * Miscellaneous lab test (06/23/2021 3:35 PM EDT) TESTS REQUESTED PROMETHEUS... ....INFXR [facility] SPECIMEN/TUBE TYPE RED [facility] REQUEST RECEIVED Request received. A separate order for the requested test will be generated by the laboratory. [facility] Blood 06/23/2021 3:35 PM EDT 06/23/2021 3:55 PM EDT us Oc Bains MD LAB BLOOD ORDERABLES Final Res ult Performing Organization Address City/[facility]/ZIP Co de Phone Number [address] [address] * (ABNORMAL) 25-OH vitamin D (06/23/2021 3:35 PM EDT) 25 OH VIT D (TOTAL) 24(L) 30 - 60 ng/mL [facility] Blood 06/23/2021 3:35 PM EDT 06/23/2021 3:55 PM EDT us Oc Bains MD LAB BLOOD BKR ORDERABLES Final Result Performing Organization Address [place]/[facility] Co de Phone Number [address] [address] * (ABNORMAL) Comprehensive metabolic panel (06/23/2021 3:35 PM EDT) SODIUM 140 133 - 146 mmol/L [facility] POTASSIUM 4.3 3.3 - 5.1 mmol/L [facility] CHLORIDE 103 96 - 108 mmol/L [facility] CO2 25 21 - 35 mmol/L [facility] BUN 12 6 - 19 mg/dL [facility] CREATININE 1.20 0.5 - 1.5 mg/dL [facility] GLUCOSE 144(H) 70 - 99 mg/dL [facility] ALBUMIN 4.4 3.9 - 4.8 g/dL [facility] TOTAL PROTEIN 7.6 6.5 - 8.0 g/dL [facility] CALCIUM 10.1 8.4 - 10.3 mg/dL [facility] ALKALINE PHOSPHATASE 64 39 - 117 U/L [facility] TOTAL BILIRUBIN 0.3 0.0 - 1.2 mg/dL [facility] AST 53(H) 0 - 37 U/L [facility] ALT 48(H) 0 - 40 U/L [facility] GLOBULIN 3.2 1 - 4.8 g/dL [facility] EGFR 65 >59 mL/min/1.7 3m2 [facility] Comment:Estimated glomerular filtration rate calculated using the CKD-EPI equation. ANION GAP 16 10 - 20 mmol/L [facility] Blood 06/23/2021 3:35 PM EDT 06/23/2021 3:55 PM EDT Oc Bains MD LAB BLOOD BKR ORDERABLES Final Result Performing Organization Address City/[facility]/ZIP Co de Phone Number [address] [address] * (ABNORMAL) CBC (06/23/2021 3:35 PM EDT) WBC 12.30(H) 4.00 - 11.00 K/uL [facility] RBC 4.20 3.90 - 5.69 M/uL [facility] HGB 13.5 12.4 - 17.3 g/dL [facility] HCT 39.7 37.0 - 51.0 % [facility] PLT 325 140 - 430 K/uL [facility] MCV 94.5 78.0 - 97.0 fL [facility] MCH 32.1 25.0 - 33.0 pg [facility] MCHC 34.0 32.0 - 36.0 g/dL [facility] RDW 12.9 11.0 - 15.0 % [facility] MPV 10.6 8.4 - 12.8 fl [facility] NRBC 0.00 0 /100 WBCs [facility] ABSOLUTE NRBC 0.00 0 K/uL [facility] Blood 06/23/2021 3:35 PM EDT 06/23/2021 3:55 PM EDT Oc Bains MD LAB BLOOD BKR ORDERABLES Final Result Performing Organization Address City/[facility]/ZIP Co de Phone Number [address] [address] documented in this encounter Visit Diagnoses Diagnosis Encounter for therapeutic drug level monitoring- Primary Colitis Other and unspecified noninfectious gastroenteritis and colitis documented in this encounter Care Teams Associate Data Scientist Relationship Specialty Start Date End Date Osmel Green MD [address] [place] [address] PCP - General 09/04/20 Oc Bains MD [address] [place] [address] [email or web address] Gastroenterology 05/17/18 Ad Otero DO [address] [place] [address] [email or web address] Primary Oncologist Hematology and Oncology 12/06/18 Summer Walker NP [address] [place] [address] [email or web address] Nurse Practitioner Medical Oncology 01/23/21 08/12/25 documented as of this encounter Additional Source Comments The information contained in this document represents components of the legal health record. It is not the complete legal health record.[facility]
--- OUTSIDE RECORDS SUMMARY | 2025-10-10 08:46 | XMS_ITS | Encounter Summary ---
Author Organization [facility] Address [address] [place] [address] Phone Care Team Providers Care Benefits Clerk Name Role Phone Oc Bains MD Unavailable [phone] Ad Otero DO Unavailable [phone] Osmel Green MD Primary Care Provider Encounter Details Date Type Department Care Team (Late st Contact Info) Description 10/07/2025 Telephone [facility] Medical Infusion Center [address] [place] [address] Gely Vann, ZHEN [address] [place] [address] [email or web address] Social History Tobacco Use Types Packs/Day Years [...] as of this encounter Progress Notes * Gely Vann, ZHEN - 10/07/2025 10:55 AM EST Pt returned call and confirmed he will be here tomorrow, medicine released. documented in this encounter Plan of Treatment Upcoming Encounters Date Type Department Care Team (Late st Contact Info) Description 10/15/2025 1:30 PM EST Office Visit [facility] Gastroenterology Clinic [address] [place] [address] Unknown, Unknown, Tiffanie Jefferson PA-C [address] [address] 11/19/2025 7:30 AM EST Infusion [facility] Medical Infusion [address] [address] Oc Bains MD [address] [address] luis 12/31/2025 7:30 AM EST Infusion [facility] Infusion [address] [address] Oc Bains MD [address] [address] luis 08/22/2026 1:00 PM EDT Blood Draw [facility] Phleb [facility] [address] [place] [address] Ad Otero, DO [address] [place] [address] [email or web address] 08/22/2026 2:00 PM EDT Office Visit [facility] [address] [place] [address] Ad Otero, DO [address] [place] [address] [email or web address] documented as of this encounter Visit Diagnoses Not on filedocumented in this encounter Care Teams Benefits Clerk Relationship Specialty Start Date End Date Osmel Green MD [address] [place] [address] PCP - General 09/04/20 Oc Bains MD [address] [place] [address] [email or web address] Gastroenterology 05/17/18 Ad Otero DO [address] [place] [address] [email or web address] Primary Oncologist Hematology and Oncology 12/06/18 documented as of this encounter Additional Source Comments The information contained in this document represents components of the legal health record. It is not the complete legal health record.[facility]
--- OUTSIDE RECORDS SUMMARY | 2025-10-10 08:46 | XMS_ITS | Encounter Summary ---
Author Organization [facility] Address [address] [place] [address] Phone Care Team Providers [employer] Sales Consultant Name Role Phone Oc Bains MD Unavailable [phone] Ad Otero DO Unavailable [phone] Osmel Green MD Primary Care Provider Summer Walker DRILLING FIELD PROFESSIONAL Unavailable [phone] Encounter Details Date Type Department Care Team (Late st Contact Info) Description 08/13/2021 Procedure Pass [facility] Endoscopy Admitting Dept Virtual Department [address] [place] [address] Social History Tobacco Use Types Packs/Day Years [...] Department Care Team (Late Contact Info) Description 10/15/2025 1:30 PM EST Office Visit [facility] Gastroenterology Clinic 10 [place] [address] Unknown, Unknown, Tiffanie Jefferson, PAWillyC [address] [address] 11/19/2025 7:30 AM EST Infusion [facility] Medical Infusion Center [address] [place] [address] Oc Bains MD [address] [place] [address] [email or web address] 12/31/2025 7:30 AM EST Infusion [facility] Infusion [address] [address] Oc Bains MD [address] [place] [address] luis 08/22/2026 1:00 PM EDT Blood Draw [facility] Phleb [address] [address] Ad Otero, DO [address] [place] [address] [email or web address] 08/22/2026 2:00 PM EDT Office Visit [facility] Center at [address] [address] Ad Otero, DO [address] [place] [address] [email or web address] documented as of this encounter Visit Diagnoses Not on filedocumented in this encounter Care Teams It Solutions Sales Consultant Relationship Specialty Start Date End Date Osmel Green MD [address] [place] [address] PCP - General 09/04/20 Oc Bains MD [address] [place] [address] [email or web address] Gastroenterology 05/17/18 Ad Otero DO [address] [place] [address] [email or web address] Primary Oncologist Hematology and Oncology 12/06/18 Summer Walker NP [address] [place] [address] [email or web address] Nurse Practitioner Medical Oncology 01/23/21 08/12/25 documented as of this encounter Additional Source Comments The information contained in this document represents components of the legal health record. It is not the complete legal health record.[facility]
--- OUTSIDE RECORDS SUMMARY | 2025-10-10 08:46 | XMS_ITS | Data Portability ---
Author Organization [facility] Internal Medicine, Telehealth Patient Home Address [address] [place] [address] Assessment Encounter Date Assessment Date Assessment LastModified by Organization Details LastModified Time 03/12/2020 03/12/2020 VERBALLY CONSENTS TO TELEPHONE CONSULT PT IS AT HOME I AM AT THE OFFICE [facility] INTER[facility] 6 [facility] total of 11 minutes spent on the phone Not available 03/12/2020 11:32:35 Plan of Treatment Reminders Order Date Submit Date Provider Last Modified By Organization Details Last Modified Time Details Appointments None recorded. Lab lipid panel, blood 2019 020 [email or web address] 10 [facility], [address] [place] [address], [address], 0 08:21:20 CMP, serum or plasma 2019 [email or web address] [address] [place] [address], [address], 0 10:04:28 glycohemog lobin, total, blood 2019 020 [facility] (Lab), [address] [place] [address], [address], 0 07:34:01 lipid panel, blood 2019 020 [facility], [address] [place] [address], [address], 0 12:41:06 CMP, serum or plasma 2019 [facility], [address] [place] [address], [address], 0 08:25:52 glycohemog lobin, total, blood 2018 019 [facility] (Lab), [address] [place] [address], [address], 9 08:00:25 glycohemog lobin, total, blood 2018 019 [facility] (Lab), [address] [place] [address], [address], 9 08:00:24 lipid panel, blood 2018 019 [facility], [address] [place] [address], [address], 9 08:00:25 CMP, serum or plasma 2018 019 [facility], [address] [place] [address], [address], 9 08:24:54 CMP, serum or plasma 2018 020 [facility], [address] [place] [address], [address], 0 08:23:06 lipid panel, blood 2018 020 [facility], [address] [place] [address], [address], 9 08:00:25 CMP, serum or plasma 2019 020 [facility], [address] [place] [address], [address], 0 08:23:11 Referral None recorded. Procedures None recorded. Surgeries None recorded. Imaging electrocar diogram 2018 019 elva [facility] Internal Medicine, [address] [facility], [address], [place], [address], 9 12:03:56 Medication Orders lisinopril 10 mg tablet 2019 020 INTERFACE [id number], [address] [place] [address], [address], 0 09:35:44 metformin 500 mg tablet 2019 020 INTERFACE [id number], [address] [place], [address], 0 09:35:44 Patient TargetsNo targets recorded. Patient Instructions Encounter Date Encounter Id Patient Instructions Last Modified By Organization Details Last Modified Time 05/21/[id number] learning about high white blood cell counts Not available 05/21/2019 12:00:53 knee arthritis: care instructions Not available 05/21/2019 12:00:53 high blood pressure: care instructions Not available 05/21/2019 12:00:53 learning about high blood pressure Not available 05/21/2019 12:00:53 high cholesterol : care instructions Not available 05/21/2019 12:00:53 chronic lymphocytic leukemia: care instructions Not available 05/21/2019 12:00:53 07/11/2019 [id number] When You Want to Lose Weight: Care Instructions Not available 07/11/2019 11:15:26 knee arthritis: care instructions Not available 07/11/2019 11:15:26 high blood pressure: care instructions Not available 07/11/2019 11:15:26 learning about high blood pressure Not available 07/11/2019 11:15:26 high cholesterol : care instructions Not available 07/11/2019 11:15:26 12/21/2019 [id number] When You Want to Lose Weight: Care Instructions Not available 12/21/2019 12:33:41 knee arthritis: care instructions Not available 12/21/2019 12:33:41 high blood pressure: care instructions Not available 12/21/2019 12:33:41 learning about high blood pressure Not available 12/21/2019 12:33:40 high cholesterol : care instructions Not available 12/21/2019 12:33:41 03/12/2020 [id number] high blood pressure: care instructions Not available [...] & Rhythm 88 regula r Not Available [facility] Internal Medicine [address] [facility] [address], [place], [address], 05/21/2019 11:49:38 05/21/2005/21/2019 elect rocmarge diogr am QRS 12/-21 /3 Not Available [facility] Medicine [address], [place], [address], 05/21/2019 11:49:38 05/21/2005/21/2019 elect rocar diogr am LA Interval 106/15 2 Not Available [facility] Internal Medicine [address], [place], [address], 05/21/2019 11:49:38 05/21/2005/21/2019 elect rocar diogr am QRS Duration 92 ms Not Available [facility] Internal Medicine [address], [place], [address], 05/21/2019 11:49:38 05/21/2005/21/2019 elect rocar diogr am QT Interval 364/44 0 Not Available [facility] Internal Medicine [address] [facility] [address], [place], [address], 05/21/2019 11:49:38 06/08/20 19 06/08/2019 US, mathew xdarian s, [facility] mity No observ ation record ed. [facility] Diagnosit Imaging Dept [address] [facility], [place], [address], 06/08/2019 14:23:27 Result Notes None recorded. Problems Name Problem SNOMED Code Status Onset Date Resolution Date Notes Provider Name and Address Organization Details Recorded Time Chronic hepatiti s C 287195264 Active 2017 Mariza dutta [facility] 8 14:19:52 Non-alco holic fatty liver 819867441 Active 2017 Mariza dutta [facility] 8 14:20:16 Anemia 881803322 Active 2017 Mariza dutta [facility] 8 14:20:23 Essentia l hyperten true 98175998 Active 2017 Mariza dutta [facility] 8 14:20:29 Hyperlip idemia 92187673 Active 2017 Mariza dutta [facility] 8 14:20:39 Irritabl e bowel syndrome 62970885 Active 2017 Mariza dutta [facility] 8 14:20:46 Obesity 342203602 Active 2017 Mariza dutta [facility] 8 14:20:53 Chronic ulcerati ve rectosig moiditis 59702175 Active 2017 Mariza dutta [facility] 8 14:21:25 Diabetes mellitus 29585722 Active 2017 Mariza dutta [facility] 8 14:21:33 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 Procedures Surgical History Date Name Laterality Status Provider Name and Address Organization Details Recorded Time 05/28/20 total knee replacement completed February SANGEETHA Fernando [address] [place], [address], [facility] 07/11/2019 11:12:42 Imaging Results None recorded. Procedure Notes None recorded. Medical Equipment None Reported. Allergies Allergen ID Allergen Name Allergen Category Reaction Reaction Severity Criticality Documentation Date Start Date Code Code System Note Provider Name and Address Organization Details Recorded Time 164 Product containin g penicilli n (product) medicatio n Not available Not available Not available 05/09/2018 87801 8001 SNOMED [facility] 8 14:18:57 Medications Name Sig Start [...] Available Not Available Not Available Flucelvax Quad 5494-9738 (PF) 60 mcg (15 mcg x 4)/0.5 mL IM syringe 05/10 completed Not Available Not Available Not Available Flucelvax Quad (PF) 60 mcg (15 mcg x 4)/0.5 mL IM syringe 12/21 completed Not Available Not Available Not Available Vitals Date Recorded Body mass index (BMI) Body weight Provider Name and Address Organization Details Last Updated DateTime 12/21/2019 36.9 kg/m2 108662.24 g Breonna SANGEETHA Fernando [address] [place] [address], [address], [facility] Medicine 12/21/2019 12:35:09 Date Recorded Body height Heart rate Oxygen saturation Systolic And Diastolic Provider Name and Address Organization Details Last Updated DateTime 12/21/2019 177.8 cm 92 /min 97 % 116/72 mm[Hg] Mariza Adamson [facility] 12/21/2019 12:17:24 Date Recorded Body height Body mass index (BMI) Body weight Heart rate Oxygen saturation Systolic And Diastolic Provider Name and Address Organization Details Last Updated DateTime 9 177.8 cm 35.2 kg/m2 977526. 29 g 90 /min 96 % 108/74 mm[Hg] Jovana Bailey [facility] 9 11:28:17 Date Recorded Body height Body mass index (BMI) Body weight Heart rate Oxygen saturation Systolic And Diastolic Provider Name and Address Organization Details Last Updated DateTime 0 177.8 cm 37.7 kg/m2 569563. 64 g 80 /min 96 % 130/80 mm[Hg] Deena Eugene [facility] 0 09:23:00 Date Recorded Body height Body mass index (BMI) Body weight Heart rate Oxygen saturation Systolic And Diastolic Provider Name and Address Organization Details Last Updated DateTime 9 177.8 cm 34.5 kg/m2 542354. 61 g 86 /min 98 % 108/74 mm[Hg] Jovana Bailey [facility] 9 11:00:32 Social History Question Answer Notes LastModified by Organizat ion Details LastModified Time Tobacco Smoking Status Never Smoker Not Available [employer] 09/23/2020 03:36:23 What Was The Date Of Your Most Recent Tobacco Screening? 05/21/2019 [id number] Information not available 09/23/2020 Sex: Unknown Functional Status None recorded. Mental Status None recorded. Family History Nothing Reported. Medical History No medical history recorded. Immunizations Vaccine Type Date Status Note Provider Nam e and Address Organization Details Recorded Time pneumococcal polysaccharide PPV23 5 [facility] 05/09/2018 14:31:07 TST-PPD intradermal 1 completed Mariza dutta [facility] 05/09/2018 14:31:32 TST-PPD intradermal 1 [facility] Mariza Adamson [facility] 05/09/2018 14:31:45 Past Encounters Encounter ID Performer Location Encounter Start Date Encounter Closed Date Diagnosis/Indication Diagnosis SNOMED-CT Code Diagnosis ICD10 Code Diagnosis IMO Codes Diagnosis Note [id number] Wilmar Malave [facility] Internal Medicine [address] [facility],[place] [address] 05/10/2018 11:11:42 05/12/2018 08:37:17 Leukocytosis 641356168 D72.829 Knee pain 68670305 M25.5 69 Essential hypertension 95759031 I10 mildly elevated follow Ulcerative colitis 18060 004 K51.90 remicade infusions [id number] Wilmar Malave [facility] Internal Medicine [address] [facility], [place] [address] 12/15/2018 10:30:43 12/15/2018 11:24:23 Hyperlipidemia 24132437 E78.2 Essential hypertension 75839295 I10 mildly elevated follow Diabetes mellitus 975491 09 E11.9 Ulcerative colitis 09245 004 K51.90 remicade infusions restarted after 3 month hiatus 2nd insurance Osteoarthr itis of knee 389435382 M17.0 Dysuria 64439826 R30.0 Chronic ly mphoid leukemia, disease 69676128 C91.90 Stage 0, seeing hematologi st Obesity 872159665 E66.9 Discussed weight loss, diet improvemen t [id number] Wilmar Malave [facility] Internal Medicine [address] [facility],[place] [address] 01/05/2019 09:38:48 01/05/2019 11:15:52 Chronic lymphoid leukemia, disease 91156615 C91.90 Stage 0, seeing hematologi st Hyperlipidemia 80216488 E78.2 Essential hypertension 89428430 I10 improved Diabetes mellitus 215826 09 E11.9 A1C 6.4 Osteoarthr itis of knee 750957433 M17.0 has ortho appt 01/29/19 [id number] Wilmar Malave [facility] Internal Medicine [address] [facility],[place] [address] 05/21/2019 11:20:40 05/21/2019 12:03:56 Pre-surgery evaluation 728571444 Z01.818 cleared for procedure Osteoarthr itis of knee 033246006 M17.0 Essential hypertension 60962364 I10 very well controlled Hyperlipidemia 10890957 E78.5 very well controlled as of 02/2019 Diabetes mellitus 147079 09 E11.9 very well controlled as of 02/2019 a1c was 6.3 05/14/19 BS was 88 Leukocytosis 531826864 D 72.829 stable wbc is monitored every 6 months by oncologist Chronic ul cerative rectosigmoiditis 53971711 K51.30 currently with diarrhea as he has been off the remicade for 2 months in preparatio n for the surgery per dr nelson (ortho) and dr. avila (gi) Chronic ly mphoid leukemia, disease 13000742 C91.[address] suero every 6 months [id number] Wilmar Malave [facility] Internal Medicine [address] [facility],[place] [address] 07/11/2019 10:50:28 07/11/2019 11:43:59 Essential hypertension 00840947 I10 very well controlled Osteoarthr itis of knee 440020858 M17.0 s/p double tkr, with progressiv e improvemen t Obesity 858060447 E66.9 Hyperlipidemia 09264384 E78.5 very well controlled as of 02/2019 Diabetes mellitus 041198 09 E11.9 very well controlled as of 02/2019 a1c was 6.3 05/14/19 BS was 88 [id number] Wilmar Malave [facility] Internal Medicine [address],[place] [address] 12/21/2019 11:56:05 12/21/2019 13:55:20 Essential hypertension 01101317 I10 very well controlled Osteoarthr itis of knee 089560791 M17.0 s/p double tkr, with progressiv e improvemen t Obesity 916384729 E66.9 working on weight again gained weight after surgery/se dentary Hyperlipidemia 84089256 E78.5 controlled Diabetes mellitus 303818 09 E11.9 at goal [id number] Wilmar Malave [facility] Internal Medicine [address],[place] [address] 03/12/2020 08:16:59 03/12/2020 11:50:41 Diabetes mellitus 59144554 E11.9 a1c 7.0 advised to work on diet slightly and continue wlaking recheck in 3 months Essential hypertension 58289665 I10 stable previously , recheck at in may Hyperlipidemia 23700804 E78.5 [place] [id number] Wilmar Malave [facility] Internal Medicine [address],[place] [address] 06/20/2020 09:17:18 06/20/2020 11:34:28 Diabetes mellitus 58818529 E11.9 stable, doing well is trying to work on diet labs looked good Essential hypertension 06111428 I10 BP is stable on medication Liver func tion tests outside reference range 458489071 R94.5 will recheck CMP and see if [...] 06/19/2020 1 [facility] [place] [employer] (HMO) [id number] Sonny Mota [id number] Sonny Mota 06/16/2020 1 [facility] [employer] (HMO) [id number] Sonny Mota [id number] Sonny Mota 06/16/2020 1 [facility] [id number] Sonny Mota [id number] Sonny Mota Notes Date Note Type [...] s, rashes, or nail changes. SANGEETHA Singh [address] [place] [address], [address], [facility] 05/21/2019 12:01:51 9 text/htm l [...] s, rashes, or nail changes[place], [address], [facility] Internal [facility] 07/11/2019 11:16:53 0 text/htm l ROS as [...] s, rashes, or nail changes. SANGEETHA Singh [address] [place] [address], [address], [facility] Internal [facility] 12/21/2019 12:36:00 0 text/htm l ROS as noted in the HPI VERBALLY CONSENTS TO TELEPHONE CONSULT PT IS AT HOME I AM AT THE OFFICE [facility] INTERNAL MEDICINE [facility] [address], [facility] has been walking outside some [...] rashes, or nail changes. SANGEETHA Singh [address] [place], [address], [facility] Internal [facility] 03/12/2020 11:32:46 0 text/htm l DiabetesReported by [...] reportscoronary artery disease: no. ADRIAN MARQUIS [address] [place], [address], [facility] Internal Medicine 06/20/2020 09:37:26
--- OUTSIDE RECORDS SUMMARY | 2025-10-10 08:46 | XMS_ITS | Encounter Summary ---
Author Organization [facility] Address [address] [place] [address] Phone Care Team Providers Care Taproom Attendant Name Role Phone Oc Bains MD Unavailable [phone] Ad Otero DO Unavailable [phone] Osmel Green MD Primary Care Provider Summer Walker BALANCING MACHINE SET UP WORKER Unavailable [phone] Encounter Details Date Type Department Care Team (Latest Contact Info) Description 04/28/2022 Transcribe Orders [facility] Phleb [facility] [address] [facility] 2nd [place] [address] Oc Bains MD [address] [address] [email or web address] Incontinence of feces with fecal urgency (Primary [...] [facility] [address] [facility] [place] [address] Unknown, Unknown, Tiffanie Jefferson PA-C [address] [address] 11/19/2025 7:30 AM EST Infusion [facility] Infusion [address] [address] Oc Bains MD [address] [place] [address] [email or web address] 12/31/2025 7:30 AM EST Infusion [facility] Infusion [address] [address] Oc Bains MD [address] [place] [address] luis 08/22/2026 1:00 PM EDT Blood Draw [facility] Phleb [address] [address] Ad Otero, DO [address] [place] [address] [email or web address] 08/22/2026 2:00 PM EDT Office Visit [facility] [address] [place] [address] Ad Otero, DO [address] [place] [address] [email or web address] documented as of this encounter Results * Calprotectin, stool (05/03/2022 7:30 AM EDT) STOOL CALPROTECTIN <5 mcg/g [facility] Comment: (NOTE) Reference Range: <50 Normal 50-120 [...] 0 AM EDT 05/03/2022 10:35 AM EDT Oc Bains MD LAB BODY FLUIDS AND STOOL DEVINE LILLIE Final Result Performing Organization Address City/[facility]/ZIP Co de Phone Number [facility] [address] [place] [address] * 25-OH vitamin D (04/28/2022 8:25 AM EDT) 25 OH VIT D (TOTAL) 32 30 - 60 ng/mL [facility] Blood 04/28/2022 8:25 AM EDT 04/28/2022 8:30 AM EDT Oc Bains MD LAB BLOOD BKR ORDERABLES Final Result Performing Organization Address [facility] Co de Phone Number [address] [address] * C-Reactive Protein (04/28/2022 8:25 AM EDT) C REACTIVE PROTEIN <3.0 0.0 - 4.0 mg/L [facility] Blood 04/28/2022 8:25 AM EDT 04/28/2022 8:30 AM EDT Oc Bains MD LAB BLOOD BKR ORDERABLES Final Result Performing Organization Address [facility] Co de Phone Number [address] [address] * (ABNORMAL) Comprehensive metabolic panel (04/28/2022 8:25 AM EDT) SODIUM 137 133 - 146 mmol/L [facility] POTASSIUM 4.4 3.3 - 5.1 mmol/L [facility] CHLORIDE 102 96 - 108 mmol/L [facility] CO2 23 21 - 35 mmol/L [facility] BUN 16 6 - 19 mg/dL [facility] CREATININE 1.50 0.5 - 1.5 mg/dL [facility] GLUCOSE 148(H) 70 - 99 mg/dL [facility] ALBUMIN 4.3 3.9 - 4.8 g/dL [facility] TOTAL PROTEIN 7.2 6.5 - 8.0 g/dL [facility] CALCIUM 9.6 8.4 - 10.3 mg/dL [facility] ALKALINE PHOSPHATASE 51 39 - 117 U/L [facility] TOTAL BILIRUBIN 0.4 0.0 - 1.2 mg/dL [facility] AST 68(H) 0 - 37 U/L [facility] ALT 76(H) 0 - 40 U/L [facility] GLOBULIN 2.9 1 - 4.8 g/dL [facility] EGFR 52(L) >59 mL/min/1.7 3m2 [facility] Comment:Estimated glomerular filtration rate calculated using the CKD-EPI refit equation. ANION GAP 16 10 - 20 mmol/L [facility] Blood 04/28/2022 8:25 AM EDT 04/28/2022 8:30 AM EDT Oc Bains MD LAB BLOOD BKR ORDERABLES Final Result Performing Organization Address City/State/[facility] Co de Phone Number [facility] [address] [place] [address] documented in this encounter Visit Diagnoses Diagnosis Incontinence of feces with fecal urgency- Primary Avitaminosis D Unspecified vitamin D deficiency documented in this encounter Care Teams Taproom Attendant Relationship Specialty Start Date End Date Osmel Green MD [address] [place] [address] PCP - General 09/04/20 Oc Bains MD [address] [place] [address] [email or web address] Gastroenterology 05/17/18 Ad Otero DO [address] [place] [address] [email or web address] Primary Oncologist Hematology and Oncology 12/06/18 Summer Walker NP [address] [place] [address] [email or web address] Nurse Practitioner Medical Oncology 01/23/21 08/12/25 documented as of this encounter Additional Source Comments The information contained in this document represents components of the legal health record. It is not the complete legal health record.[facility]
--- OUTSIDE RECORDS SUMMARY | 2025-10-10 08:46 | XMS_ITS | Encounter Summary ---
Author Organization [facility] Address [address] [place] [address] Phone Care Team Providers Care Paper Counter Name Role Phone Oc Bains MD Unavailable [phone] Ad Otero DO Unavailable [phone] Osmel Green MD Primary Care Provider Summer Walker GATE MANAGER Unavailable Reason for Visit * Auth/Cert (Routine) Specialty Diagnoses / Procedures Referred By Contac t Referred To Contact Diagnoses CASE (nonalcoholic steatohepatitis) Ulcerative rectosigmoiditis with rectal bleeding CASE (nonalcoholic steatohepatitis) [K75.81] 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] Procedures ID COLONOSCOPY FLX DX W/COLLJ SPEC WHEN PFRMD ID COLONOSCOPY W/BIOPSY SINGLE/MULTIPLE ID COLSC FLX W/RMVL OF TUMOR POLYP LESION SNARE TQ COLONOSCOPY Referral ID Status Reason Start Date Expiration Date Visits Re quested Visits Authorized [id number] 1 1 Encounter Details Date Type Department Care Team (Late st Contact Info) Description 05/15/2025 Hospital Encounter [facility] Admitting Dept Virtual Department 30 [place] [address] Oc Bains MD [address] [place] [address] 2 [place] [address] luis Social History Tobacco Use Types Packs/Day [...] Description 10/15/2025 1:30 PM EST Office Visit [facility] 10 [place] [address] Unknown, Unknown, Tiffanie Jefferson PA-C [address] [address] 11/19/2025 7:30 AM EST Infusion [facility] 30 [place] [address] Oc Bains MD [address] [address] luis 12/31/2025 7:30 AM EST Infusion [facility] Medical Infusion Center 30 [place] [address] Oc Bains MD [address] [place] [address] luis 08/22/2026 1:00 PM EDT Blood Draw [facility] 30 [place] [address] Ad Otero, DO [address] [place] [address] [email or web address] 08/22/2026 2:00 PM EDT Office Visit [facility] at [address] [address] Ad Otero DO [address] [place] [address] [email or web address] documented as of this encounter Visit Diagnoses Not on filedocumented in this encounter Care Teams Paper Counter Relationship Specialty Start Date End Date Osmel Green MD [address] [place] [address] PCP - General 09/04/20 Oc Bains MD [address] [place] [address] [email or web address] Gastroenterology 05/17/18 Ad Otero DO [address] [place] [address] [email or web address] Primary Oncologist Hematology and Oncology 12/06/18 Summer Walker NP [address] [place] [address] [email or web address] Nurse Practitioner Medical Oncology 01/23/21 08/12/25 documented as of this encounter Additional Source Comments The information contained in this document represents components of the legal health record. It is not the complete legal health record.[facility]
--- OUTSIDE RECORDS SUMMARY | 2025-10-10 08:47 | XMS_ITS | Encounter Summary ---
Author Organization [facility] Address [address] [place] [address] Phone Care Team Providers Care Director Of Rehabilitation And Wellness Name Role Phone Oc Bains MD Unavailable [phone] Ad Otero DO Unavailable [phone] Osmel Green MD Primary Care Provider Summer Walker MEDICAL ASSISTANT PRN Unavailable Encounter Details Date Type Department Care Team (Latest Contact Info) Description 12/28/2022 Transcribe Orders Virtual Department 30 [place] [address] Oc Bains MD [address] [place] [address] [email or web address] Fatty liver disease, nonalcoholic (Primary Dx) Social [...] Description 10/15/2025 1:30 PM EST Office Visit [facility] G[facility] [address] [place] [address] Unknown, Unknown, Tiffanie Jefferson PA-C [address] [place] [address] 11/19/2025 7:30 AM EST Infusion [address] [address] Oc Bains MD [address] [place] [address] [email or web address] 12/31/2025 7:30 AM EST Infusion [address] [address] Oc Bains MD [address] [place] [address] [email or web address] 08/22/2026 1:00 PM EDT Blood Draw [facility] Phleb [address] [address] Ad Otero, DO [address] [place] [address] [email or web address] 08/22/2026 2:00 PM EDT Office Visit [facility] at [address] [address] Ad Otero, DO [address] [place] [address] [email or web address] documented as of this encounter [...] Elastography Consensus Statement. Radiology. 2020 Jun;296(2):263-274. doi: 10.1148/radiol.[id number]. Epub 2019Apr 29. PMID: [id number]. Procedure Note Sonia Rosales MD - 01/20/2023 [...] established. Tomas RG, Juan SR, Vernon D, Issa G, Mary Anne G. Update to theSociety of Radiologists in Ultrasound Liver Elastography ConsensusStatement. Radiology. 2020 Jun;296(2):263-274. doi:10.1148/radiol.[id number]. Epub 2019Apr 29. PMID: 45351958. IMPRESSION: 1. Mean Liver Stiffness Value 11.1 kPa 2. Increased echogenicity of the hepatic parenchyma in keeping withhepatic steatosis. us Oc Bains MD IMG US ABDOMEN Final Result documented in this encounter Visit Diagnoses Diagnosis Fatty liver disease, nonalcoholic- Primary Fatty liver disease, nonalcoholic documented in this encounter Care Teams Director Of Rehabilitation And Wellness Relationship Specialty Start Date End Date Osmel Green MD [address] [place] [address] PCP - General 09/04/20 Oc Bains MD [address] [place] [address] luis Gastroenterology 05/17/18 Ad Otero DO [address] [place] [address] [email or web address] Primary Oncologist Hematology and Oncology 12/06/18 Summer Walker NP [address] [place] [address] [email or web address] Nurse Practitioner Medical Oncology 01/23/21 08/12/25 documented as of this encounter Additional Source Comments The information contained in this document represents components of the legal health record. It is not the complete legal health record.[facility]
--- OUTSIDE RECORDS SUMMARY | 2025-10-10 08:47 | XMS_ITS | Clinical Summary ---
Author Organization [facility] Address [address] [place] [address] Phone Care Team Providers Care Broke Beater Operator Name Role Phone Hilario Reyes MD Unavailable [phone] BrandenAd DO Unavailable Osmel Green MD Primary Care Provider Allergies [...] Encounters Date Type Department Care Team Description 10/08/2025 7:30 AM EST Infusion [facility] Infusion [address] [address] Hilario Reyes MD Ulcerative (chronic) proctosigmoiditis (Primary Dx) 10/07/2025 Telephone [facility] Infusion [address] [address] Gely Vann RN 10/07/2025 Telephone [facility] Infusion [address] [address] Osmel Green MD 08/26/2025 Telephone [facility] Medical Infusion [address] [address] Osmel Green MD 08/26/2025 Telephone [facility] Infusion [address] [address] Osmel Green MD 08/22/2025 2:30 PM EDT Office Visit [facility] at [address] [address] Ad Otero DO CLL (chronic lymphocytic leukemia) (Primary Dx) 08/22/2025 1:25 PM EDT - 08/22/2025 11:59 PM EDT Hospital Encounter [facility] Phleb [address] [address] Ad Otero DO Discharge Disposition: Home or Self Care 08/15/2025 Orders Only [facility] at [address] [address] Rachelle Hui CLL (chronic lymphocytic leukemia) (Primary Dx) 07/16/2025 7:30 AM EDT Infusion [facility] Medical [address] [address] Hilario Reyes MD Ulcerative (chronic) proctosigmoiditis (Primary Dx) 07/15/[address] [address] Osmel Green MD from Last 3 Months [...] EST Inhaled Oxygen Concentration - - Weight 114.1 kg (251 lb 9.6 oz) 08/22/2025 2:05 PM EDT Height 179 cm (5' 10.47 ) 08/22/2025 2:05 PM EDT Body Mass Index 35.62 08/22/2025 2:05 PM EDT Plan of Treatment Upcoming Encounters Date Type Department Care Team (Late st Contact Info) Description 10/15/2025 1:30 PM EST Office Visit [facility] Gastroenterology Clinic [address] [place] [address] Unknown, UnknownMD Wolf Laurie, PA-C [address] [address] 11/19/2025 7:30 AM EST Infusion [facility] Medical Infusion Center [address] [place] [address] Hilario Reyes MD [address] [address] [email or web address] 12/31/2025 7:30 AM EST Infusion [facility] Infusion [address] [address] Hilario Reyes MD [address] [place] [address] [email or web address] 08/22/2026 1:00 PM EDT Blood Draw [facility] Phleb MG 30 [place] [address] Ad Otero, DO [address] [place] [address] [email or web address] 08/22/2026 2:00 PM EDT Office Visit [facility] at [address] [address] Ad Otero, DO 30 [place] [address] [email or web address] Health Maintenance Due Date Last Done [...] this topic Medical Devices Implanted Type Area Associate Professor Of Automation Device Identifier Shelf Expiration Date Model / Serial / Lot Knee Tray 79mm Plate Bone Primary [employer]angu[employer] [place] I Beam Revision Interlock Cemented - [id number] Implanted:Qty: 1 on 05/28/2019 by Hilario Worrell MD at [facility] Right: Knee [employer] 2029 [id number] / / [id number] Box Component 60mm Femoral Knee Vanguard Interlok [place] Posterior Stabilized Open Cemented Left - [id number] Implanted:Qty: 1 on 05/28/2019 by Hilario Worrell MD at [facility] Left: Knee [employer] 12/11/2023 [id number] / / [id number] Box Component 75.0mm Femoral Knee [employer]ard Interlok [place] Posterior Stabilized Open Cemented Right - [id number] Implanted:Qty: 1 on 05/28/2019 by Hilario Worrell MD at [facility] Right: Knee [employer] 03/13/2029 [id number] / / [id number] Button Patella Knee Vanguard Uhmwpe 3 Series A Standard - [id number] Implanted:Qty: 1 on 05/28/2019 by Hilario Worrell MD at [facility] Right: Knee [employer] 04/17/2024 [id number] / / [id number] Knee Bearing 79 [id number] Vanguard E1 Polyethylene Vitamin E Infused Stabilized - [id number] Implanted:Qty: 1 on 05/28/2019 by Hilario Worrell MD at [facility] Right: Knee [employer] 03/12/2024 [id number] / / [id number] Cement Bone Biomet Standard R 1x40 Us - [id number] Implanted:Qty: 1 on 05/28/2019 by Hilario Worrell MD at [facility] Right: Knee SHERI / DIV OF [employer] 04/20/2023 [id number] / / [id number] Box Component 75.0mm Femoral Knee Vanguard Interlok [place] Posterior Stabilized Open Cemented Left - [id number] Implanted:Qty: 1 on 05/28/2019 by Hilario Worrell MD at [facility] Left: Knee [employer] 07/18/2028 [id number] / / [id number] Cement Bone Biomet Standard R 1x40 Us - [id number] Implanted:Qty: 1 on 05/28/2019 by Hilario Worrell MD at [facility] Left: Knee SHERI / DIV OF [employer] 04/20/2023 [id number] / / [id number] Knee Tray 79mm Plate Bone Primary Vanguard [place] I Beam Revision Interlock Cemented - [id number] Implanted:Qty: 1 on 05/28/2019 by Hilario Worrell MD at [facility] Left: Knee [employer] 2029 [id number] / / [id number] Peg [id number] Button Patella Knee Vanguard Uhmwpe 3 Series A Standard - [id number] Implanted:Qty: 1 on 05/28/2019 by Hilario Worrell MD at [facility] Left: Knee [employer] 03/15/2024 [id number] / / [id number] Procedures Procedure Name Priority Date/Time Associated Diagnosis [...] EDT) LDH 177 118 - 273 U/L [facility] Blood 08/22/2025 1:25 PM EDT 08/22/2025 1:41 PM EDT us Duong W Branden DO LAB BLOOD BKR ORDERABLES Fi nal Result [facility] [address] [place] [address] * (ABNORMAL) Comprehensive metabolic panel (08/22/2025 1:25 PM EDT) SODIUM 134 133 - 146 mmol/L [facility] POTASSIUM 4.2 3.3 - 5.1 mmol/L [facility] CHLORIDE 98 96 - 108 mmol/L [facility] CO2 24 21 - 35 mmol/L [facility] BUN 20(H) 6 - 19 mg/dL [facility] CREATININE 1.60(H) 0.5 - 1.5 mg/dL [facility] GLUCOSE 379(H) 70 - 99 mg/dL [facility] ALBUMIN 4.1 3.9 - 4.8 g/dL [facility] TOTAL PROTEIN 7.5 6.5 - 8.0 g/dL [facility] CALCIUM 9.9 8.4 - 10.3 mg/dL [facility] ALKALINE PHOSPHATASE 106 39 - 117 U/L [facility] TOTAL BILIRUBIN 0.5 0.0 - 1.2 mg/dL [facility] AST 43(H) 0 - 37 U/L [facility] ALT 51(H) 0 - 40 U/L [facility] GLOBULIN 3.4 1 - 4.8 g/dL [facility] EGFR 48(L) >59 mL/min/1.7 3m2 [facility] Comment:Estimated glomerular filtration rate calculated using the CKD-EPI refit equation. ANION GAP 16 10 - 20 mmol/L [facility] Blood 08/22/2025 1:25 PM EDT 08/22/2025 1:41 PM EDT Duong Branden LAB BLOOD BKR ORDERABLES Fi nal Result Performing Organization Address [facility] Co de Phone Number [address] [address] * Sedimentation rate (ESR) (08/22/2025 1:25 PM EDT) ESR 16 0 - 20 mm/h [facility] Blood 08/22/2025 1:25 PM EDT 08/22/2025 1:41 PM EDT [place] LAB BLOOD BKR ORDERABLES Fi nal Result Performing Organization Address [facility] Co de Phone Number [address] [address] * (ABNORMAL) CBC and differential (08/22/2025 1:25 PM EDT) WBC 10.81 4.00 - 11.00 K/uL [facility] RBC 4.12(L) 4.50 - 5.90 M/uL [facility] HGB 13.1(L) 13.5 - 17.5 g/dL [facility] HCT 38.2(L) 41.0 - 53.0 % [facility] PLT 239 150 - 450 K/uL [facility] MCV 92.7 80.0 - 100.0 fL [facility] MCH 31.8(H) 27.0 - 31.0 pg [facility] MCHC 34.3 32.0 - 36.0 g/dL [facility] RDW 12.5 11.5 - 14.5 % [facility] MPV 9.9 8.4 - 12.0 fL [facility] NRBC 0.00 0.00 /100 WBCs [facility] ABSOLUTE NRBC 0.00 0.00 K/uL [facility] DIFF METHOD Manual [facility] TOTAL CELLS COUNTED 100 [facility] NEUTS 49.0 48.0 - 76.0 % [facility] LYMPHS 40.0 18.0 - 41.0 % [facility] Comment:Few atypical Lymphs seen. MONOS 6.0 4.0 - 11.0 % [facility] EOS 4.0 0.0 - 5.0 % [facility] MYELOS 1.0(H) 0 % [facility] ABSOLUTE NEUTS 5.30 1.92 - 7.60 K/uL [facility] ABSOLUTE LYMPHS 4.32(H) 0.72 - 4.10 K/uL [facility] ABSOLUTE MONOS 0.65 0.16 - 1.10 K/uL [facility] ABSOLUTE EOS 0.43 0.00 - 0.50 K/uL [facility] ABSOLUTE MYELOS 0.11 K/uL [facility] SMUDGE CELLS PRESENT(A) None [facility] Blood 08/22/2025 1:25 PM EDT 08/22/2025 1:41 PM EDT us Ad Blankenship Branden DO LAB BLOOD BKR ORDERABLES Fi nal Result [facility] [address] [place], [place] [id number] * (ABNORMAL) Liver fibrosis test (01/23/2025 8:28 [...] [place] NECROINFLAMM SCORE 0.26 Q [facility] NECROINFLAMM GRADE SEE NOTE Q [facility] Comment: (NOTE) Result: A0-A1 NECROINFLAMM INTERP SEE NOTE [facility] Comment: (NOTE) no activity [...] 382(H) 106 - 279 mg/dL [facility] Haptoglobin 146 43 - 212 mg/dL [facility] Apolipoprotein A1 127 94 - 176 mg/dL [facility] TOTAL BILIRUBIN 0.5 0.2 - 1.2 mg/dL [facility] GGT 38 3 - 70 U/L [facility] ALT 33 9 - 46 U/L [facility] Specimen/Product ID [id number] [email or web address] Comments (Chemistry) SEE NOTE [facility] Comment: (NOTE) The reliability of results is dependent on compliance with the preanalytical and analytical conditions recommended by [facility]. The tests have to be deferred for: [...] The performance characteristics have been determined by [facility]. It has not been cleared or approved by the U.S. Food and Drug Administration. Performance characteristics refer to the analytical performance of the test. Simple Admit, the associated logo, AccuRev and all associated [employer] deshapnde are the registered trademarks of [employer]. All third green party deshpande - (R) and (TM) - are the property of their respective owners. (C) 6104-1135 [employer]. All rights reserved. Blood 01/23/2025 8:28 AM EST 01/23/2025 8:33 AM EST us Tiffanie CAMPBELL LAB BLOOD BKR ORDERABLES Fi nal Result [facility] [address] [place] [address], [facility] [phone] * ENDOSCOPY, COLON (08/13/2021 11:14 AM EDT) Narrative Transcriptions Hialrio Reyes MD - 08/13/2021 11:14 AM EDT Patient Name: Sonny Nakul Attending MD:: HILARIO REYES MD Procedure Date: 08/13/2021 11:14 AM Date of : 1960 Age: 61 Admit Type: Outpatient Gender: Male Room: [place] [address] Referring MD: Osmel Green Exam Type: Colonoscopy [...] monitored continuously. The Olympus adult variable colonoscope CF-[id number] #1was introduced through the anus and advanced [...] 11:14 AM Procedure Code(s): --- Professional --- 13241, Colonoscopy, flexible; with removal of tumor(s), polyp(s), or other lesion(s) by snare technique [id number], 59, Colonoscopy, flexible; with biopsy, single or multiple --- Technical --- 28040, Colonoscopy, flexible; with removal of tumor(s), polyp(s), or other lesion(s) by snare technique 51355, 59, Colonoscopy, flexible; with biopsy, single or multiple Diagnosis Code(s): --- Professional --- K51.30, Ulcerative (chronic) rectosigmoiditiswithout complications D12.6, Benign neoplasm of colon, unspecified K57.30, Diverticulosis of large intestine without perforation or abscess without bleeding --- Technical --- K51.30, Ulcerative (chronic) rectosigmoiditiswithout complications D12.6, Benign neoplasm of colon, unspecified K57.30, Diverticulosis of large intestine without perforation or abscess without bleeding CPT copyright 2018 [employer]. All rights reserved. The codes documented in this report are preliminary and upon earth science professor reviewmay be revised to meet current compliance requirements. Procedure Date: 08/13/2021 11:14:[address] [place] [address] Osmel Green MD GI PROCEDURE ORDERABL ES Final Result from Last 3 Months or Most Recently Relevant to Health Maintenance Insurance [facility] PART [facility] & B [place] [facility] [place] PART A & B [address] [place] [address] [place] & B Member Subscriber Plan / Payer (Ef fective 2025-Present) Name:Sonny Mota Member ID:[id number] Relation to Subscriber:Self Name:NakulSonny Subscriber ID:[id number] Payer ID:[id number] Group ID:Not on file Type:Medicare Address: [place] [address] [facility] MEDICARE PART A & B Advance Directives For more information, please contact: [phone] (9AM - 5PM [place], Tuesday-Tuesday) * Full Code (Presumed) (Latest Code Status on File) Date Activated Date Inactivated Comments 05/28/2019 5:07 PM 06/01/2019 7:02 PM * Full Code (Presumed) Date Activated Date Inactivated Comments 05/28/2019 9:45 AM 05/28/2019 5:07 PM Care Teams Broke Beater Operator Relationship Specialty Start Date End Date Osmel Green MD [address] [place] [address] PCP - General 09/04/20 Hilario Reyes MD [address] [place] [address] [email or web address] Gastroenterology 05/17/18 Ad Otero DO [address] [place] [address] [email or web address] Primary Oncologist Hematology and Oncology 12/06/18 Additional Source Comments The information contained in this document represents components of the legal health record. It is not the complete legal health record.[facility]
--- OUTSIDE RECORDS SUMMARY | 2025-10-10 08:47 | XMS_ITS ---
Author Organization [facility] Address [address] [place] [address] Phone Care Team Providers Care Shot Polisher And Inspector Name Role Phone Oc Bains MD Unavailable [phone] BrandenAd DO Unavailable [phone] Osmel Green MD Primary Care Provider Active [...]
--- OUTSIDE RECORDS SUMMARY | 2025-10-10 08:47 | XMS_ITS | Encounter Summary ---
Author Organization [facility] Address [address] [place] [address] Phone Care Team Providers Care Piping Design Specialist Name Role Phone Oc Bains MD Unavailable [phone] Ad Otero DO Unavailable [phone] Osmel Green MD Primary Care Provider Summer Walker FORGER HELPER Unavailable [phone] Encounter Details Date Type Department Care Team (Late st Contact Info) Description 05/15/2025 Procedure Pass [facility] Endoscopy Admitting Dept Virtual Department [address] [place] [address] Social History Tobacco Use Types Packs/Day Years [...] Description 10/15/2025 1:30 PM EST Office Visit [facility] Gastroenterology Clinic [address] [place] [address] Unknown, Unknown, Tiffanie Jefferson PA-C [address] [place] [address] 11/19/2025 7:30 AM EST Infusion [facility] Infusion [address] [address] Oc Bains MD [address] [place] [address] luis 12/31/2025 7:30 AM EST Infusion [facility] Infusion [address] [address] Oc Bains MD [address] [place] [address] luis 08/22/2026 1:00 PM EDT Blood Draw [facility] Phleb [address] [address] Ad Otero DO [address] [place] [address] [email or web address] 08/22/2026 2:00 PM EDT Office Visit [facility] [place] [facility] [address] [place] [address] Ad Otero DO [address] [place] [address] [email or web address] documented as of this encounter Visit Diagnoses Not on filedocumented in this encounter Care Teams Piping Design Specialist Relationship Specialty Start Date End Date Osmel Green MD [address] [place] [address] PCP - General 09/04/20 Oc Bains MD [address] [place] [address] [email or web address] Gastroenterology 05/17/18 Ad Otero DO [address] [place] [address] [email or web address] Primary Oncologist Hematology and Oncology 12/06/18 Summer Walker, FORGER HELPER [address] [place] [address] [email or web address] Nurse Practitioner Medical Oncology 01/23/21 08/12/25 documented as of this encounter Additional Source Comments The information contained in this document represents components of the legal health record. It is not the complete legal health record.[facility]
--- OUTSIDE RECORDS SUMMARY | 2025-10-10 08:47 | XMS_ITS | Encounter Summary ---
Author Organization [facility] Address [address] [facility] [address] [place] [address] Phone Care Team Providers Care Yard Person Name Role Phone GaWilmar whaley Tracey SHORE Primary Care Provider [phone] Oc Bains MD Unavailable [phone] Noah Royal MD Unavailable [phone] Ad Otero DO Unavailable [phone] Osmel Green MD Primary Care Provider Summer Walker NP Unavailable [phone] Encounter Details Date Type Department Care Team (Late st Contact Info) Description 05/10/2018 Ancillary Orders Virtual Department [address] [place] [address] [address], CLAY ARTISAN [address] [place] [address] [email or web address] Leukocytosis, unspecified type; Knee pain, unspecified chronicity, [...] Description 10/15/2025 1:30 PM EST Office Visit [facility] [address] [place] [address] Unknown, Unknown, Tiffanie Jefferson PA-C [address] [address] [email or web address] 11/19/2025 7:30 AM EST Infusion [facility] [address] [place] [address] Oc Bains MD [address] [address] [email or web address] 12/31/2025 7:30 AM EST Infusion [facility] Infusion [address] [address] Oc Bains MD [address] [place] [address] luis 08/22/2026 1:00 PM EDT Blood Draw [facility] Phleb [address] [address] Ad Otero, DO [address] [place] [address] [email or web address] 08/22/2026 2:00 PM EDT Office Visit [facility] [place] [address] [place] [address] Ad Otero, DO [address] [place] [address] [email or web address] documented as of this encounter Results [...] patellofemoral compartment. POS - [id number] Angie Lr [facility] IMG XR LOWER EXTREMITY Galina l Result [...] cardiopulmonary disease. POS - [id number] Angie Lr CLAY ARTISAN IMG XR CHEST Final Resul t documented in this encounter Visit Diagnoses Diagnosis Leukocytosis, unspecified type Knee pain, unspecified chronicity, unspecified laterality Leukocytosis, unspecified type Knee pain, unspecified chronicity, unspecified laterality documented in this encounter Care Teams Yard Person Relationship Specialty Start Date End Date Wilmar Malave DO PCP - General 09/06/17 09/03/20 Osmel Green MD [address] [place] [address] PCP - General 09/04/20 Oc Bains MD [address] [place] [address] luism Gastroenterology 05/17/18 Noah Royal MD [address] [place] [address] [email or web address] Medical [email or web address] 05/29/18 12/05/18 Ad Otero DO [address] [place] [address] [email or web address] Primary Oncologist Hematology and Oncology 12/06/18 Summer Walker NP [address] [place] [address] Nurse Practitioner Medical Oncology 01/23/21 08/12/25 documented as of this encounter Additional Source Comments The information contained in this document represents components of the legal health record. It is not the complete legal health record.[facility]
--- OUTSIDE RECORDS SUMMARY | 2025-10-10 08:47 | XMS_ITS | Encounter Summary ---
Author Organization [facility] Address [address] [address] [place] [address] Phone Care Team Providers Care Logistics Program Manager Name Role Phone GaWilmar whaley Tracey SHORE Primary Care Provider [phone] Oc Bains MD Unavailable [phone] Ad Otero DO Unavailable [phone] Osmel Green MD Primary Care Provider Summer Walker NP Unavailable [phone] Encounter Details Date Type Department Care Team (Late st Contact Info) Description 05/28/2019 Procedure Pass OR Admitting Dept - Virtual Department [address] [place] [address] Social History Tobacco Use Types Packs/Day Years [...] Description 10/15/2025 1:30 PM EST Office Visit [facility] 10 [place], [place] [phone] Unknown, Unknown, Tiffanie Jefferson, PAWillyC [address] [address] 11/19/2025 7:30 AM EST Infusion [facility] Infusion [address] [address] Oc Bains MD [address] [place] [address] [email or web address] 12/31/2025 7:30 AM EST Infusion [facility] Infusion [address] [address] Oc Bains MD [address] [place] [address] [email or web address] 08/22/2026 1:00 PM EDT Blood Draw [facility] Phleb [address] [address] Ad Otero, DO [address] [place] [address] [email or web address] 08/22/2026 2:00 PM EDT Office Visit [facility] at [address] [address] Ad Otero, DO [address] [place] [address] [email or web address] documented as of this encounter Visit Diagnoses Not on filedocumented in this encounter Care Teams Logistics Program Manager Relationship Specialty Start Date End Date Wilmar Malave DO [email or web address] PCP - General 09/06/17 09/03/20 Osmel Green MD [address] [place] [address] PCP - General 09/04/20 Oc Bains MD [address] [place] [address] [email or web address] Gastroenterology 05/17/18 Ad Otero DO 30 [place] [address] [email or web address] Primary Oncologist Hematology and Oncology 12/06/18 Summer Walker NP [address] [place] [address] [email or web address] Nurse Practitioner Medical Oncology 01/23/21 08/12/25 documented as of this encounter Additional Source Comments The information contained in this document represents components of the legal health record. It is not the complete legal health record.[facility]
--- OUTSIDE RECORDS SUMMARY | 2025-10-10 08:48 | XMS_ITS | Encounter Summary ---
Author Organization [facility] Address [address] [place] [address] Phone Care Team Providers Care Power Generation Engineer Name Role Phone Oc Bains MD Unavailable [phone] Ad Otero DO Unavailable [phone] Osmel Green MD Primary Care Provider Summer Walker RECORDING ARTIST Unavailable [phone] Encounter Details Date Type Department Care Team (Late st Contact Info) Description 02/14/2023 Procedure Pass [facility] Endoscopy Admitting Dept Virtual Department [address] [place] [address] Social History Tobacco Use Types Packs/Day Years [...] Description 10/15/2025 1:30 PM EST Office Visit [facility] 10 [place] [address] Unknown, Unknown, Tiffanie Jefferson, PAWillyC [address] [address] [facility] 11/19/2025 7:30 AM EST Infusion [facility]fusion [facility] [address] [place] [address] Oc Bains MD [address] [place] [address] [email or web address] 12/31/2025 7:30 AM EST Infusion [facility] [address] [place] [address] Oc Bains MD [address] [place] [address] luis 08/22/2026 1:00 PM EDT Blood Draw [facility] Phleb [address] [address] Ad Otero DO [address] [place] [address] [email or web address] 08/22/2026 2:00 PM EDT Office Visit [facility] at [address] [address] Ad Otero DO [address] [place] [address] [email or web address] documented as of this encounter Visit Diagnoses Not on filedocumented in this encounter Care Teams Power Generation Engineer Relationship Specialty Start Date End Date Osmel Green MD [address] [place] [address] PCP - General 09/04/20 Oc Bains MD [address] [place] [address] [email or web address] Gastroenterology 05/17/18 Ad Otero DO 30 [place] [address] [email or web address] Primary Oncologist Hematology and Oncology 12/06/18 Summer Walker NP [address] [place] [address] [email or web address] Nurse Practitioner Medical Oncology 01/23/21 08/12/25 documented as of this encounter Additional Source Comments The information contained in this document represents components of the legal health record. It is not the complete legal health record.[facility]
== END 2025-10-10 09:06 | disposition home or self-care (01) ==
LOC: HO.ENCR 08:16
PROVIDERS: PCP Family Medicine; Visit Provider Internal Medicine
DX: E11.65 Type 2 diabetes mellitus with hyperglycemia (principal); N18.30 Chronic kidney disease, stage 3 unspecified

== ENCOUNTER → 2025-10-10 08:16 | Outpatient (BNVA) | payer MEDICARE, MEDICAID, SELFPAY | PROVIDERS: PCP Family Medicine; Visit Provider Internal Medicine | DX: E11.22 Type 2 diabetes mellitus with diabetic chronic kidney disease (principal); E11.65 Type 2 diabetes mellitus with hyperglycemia; N18.30 Chronic kidney disease, stage 3 unspecified; Z79.4 Long term (current) use of insulin; Z79.85 Long-term (current) use of injectable non-insulin antidiabetic drugs | CPT/HCPCS: 82947; 99202 ==

== ENCOUNTER 2025-11-07 08:13 | Outpatient (AMB) | payer MEDICARE, SELFPAY ==
--- NOTE | 2025-11-07 08:22 | A.OFFVIS_ITS ---
Vital Signs 11/07/25 08:32 Height 5 ft 10 in Weight 238 lb 1.588 oz BMI 34.2 BP 118/68 Blood Pressure Location Rt brachial Position Sitting Pulse 68 Pulse Source Pulse Oximeter Pulse Oximetry (%) 96 Oxygen Delivery Method Room Air Intake Visit Reasons: Type 2 diabetes mellitus with hyperglycemia Intake Note: Patient presents here today for a follow-up on Type 2 Diabetes Mellitus: Last Diabetic eye exam was on: Patient stated on the last appt that he has an appt coming up in Dec 2025 Last Podiatry exam was on: Patient does not see a Life Enrichment Manager Most recent HbA1c: >14.0%, 09/24/2025 Random Glucose: 128 mg/dL Accompanied by: Self / Same As Patient Allergies penicillamine Allergy (Unknown, Verified 11/07/25 08:37) unknown apixaban (From Eliquis) Adverse Reaction (Intermediate, Verified 11/07/25 08:37) Hives HPI Comments Details: 65 year old male presenting for diabetic consultation Medical history: HTN, HLD, gout, PE, CKD [facility] Started on insulin therapy Diagnosed diabetes >10 years ago Current medications: Lantus 25 units Lispro SS 2-10 units with meals Mounjaro 5mg (changed from Trulicity 1.5mg weekly) Glipizide 5mg xr daily Metformin 1000mg daily (increased from 250mg daily) He thinks he has mild rash from Lantus but is okay continuing A1C during hospitalization was 13.8%, >14.0% 09/24/25. He has started his CGM. His 14 day GMI is 5.9%. He is 88% target. He is having frequent lows. He is food insecure. He eats only one meal somedays if that. When he works at the [employer] he gets meals provided. This has caused lows He realized today he missed his CDE appt on the He has CKD. Last Cr 1.[address] Ramos for eye. Wants new referral Family history maternal grandma ROS CONSTITUTIONAL: Denies weight loss, fever and chills. HEENT: Denies changes in vision and hearing. RESPIRATORY: Denies SOB and cough. CV: Denies palpitations and CP GI: Denies abdominal pain, nausea, vomiting and diarrhea. : Denies dysuria and urinary frequency. MSK: Denies new myalgia and joint pain. SKIN: Denies rash and pruritus. NEUROLOGICAL: Denies headache PSYCHIATRIC: Denies recent changes in mood. PHYSICAL EXAM: GENERAL: Alert and oriented x 3. NAD EYES: EOMI. Anicteric. HENT: Moist mucous membranes. No scleral icterus. No cervical lymphadenopathy. LUNGS: Clear to auscultation bilaterally. CARDIOVASCULAR: Regular rate and rhythm. No murmur. No JVD. ABDOMEN: Soft, non-tender +bs EXTREMITIES: No edema. Non-tender. SKIN: No rashes or lesions. Warm. NEUROLOGIC: No focal neurological deficits. CN II-XII grossly intact PSYCHIATRIC: Cooperative. Appropriate mood and affect [facility] Medical History (Updated 11/07/25 @ 08:53 by Stacey Santos MD) Pulmonary embolism Chronic kidney disease HTN (hypertension) Diabetes Surgical History H/O endoscopy History of colonoscopy History of knee replacement Family History Father CVD (cardiovascular disease) Bipolar disorder Mother Diabetes mellitus HTN (hypertension) Brother No problems noted. Brother No problems noted. Brother No problems noted. Son No problems noted. Son No problems noted. Son No problems noted. 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 Unfortunately patient is food insecure and has been suffering from some hypoglycemia Will hold Lantus. Increase metformin to 1500mg daily. Increase glipizide to 10mg daily. Continue meal time insulin. continue current mounjaro dose Treat hypoglycemia by rules of 15s Return for A1C and follow up beginning of December Orders: Referrals Ophthalmology Referral E11.9 - Type 2 diabetes mellitus without complications Podiatry Referral M79.676 - Pain in unspecified toe(s) Medications: New glipizide ER 10 mg PO DAILY 90 tabs 3RF Changed From metformin ER (Glucophage XR) 1,000 mg (2 x 500 mg) PO DAILY 90 tabs 3RF To metformin ER (Glucophage XR) 1,500 mg (3 x 500 mg) PO DAILY 270 tabs 3RF Discontinued glipizide ER Discontinued Reason: Doctor's Order 5 mg (2 x 2.5 mg) PO QAM 90 days 180 tabs 2RF Coding Level of Care Code Est Pt Level 4 (84992) Diagnoses Diabetes type 2, controlled E11.9
--- OUTSIDE RECORDS SUMMARY | 2025-11-07 08:28 | XMS_ITS | Encounter Summary ---
Author Organization [employer] Address [address] [facility] [address] [place] [address] Care Team Providers Care Customer Experience Associate Name Role Phone Unavailable Primary Care Provider [...]
--- OUTSIDE RECORDS SUMMARY | 2025-11-07 08:28 | XMS_ITS | Clinical Summary ---
Author Organization [facility] Address [address] [place] [address] Care Team Providers Care Blocker Metal Base Name Role Phone Osmel Green MD Primary [...] time each day Active ergocalciferol 1.25 MG (99120 UT) capsule Take 50,000 Units by mouth [...] patient's age to complete this topic Insurance [facility] Medicaid Care Teams Blocker Metal Base Relationship Specialty Start Date End Date Osmel Green MD [address] [address] PCP - General Family Medicine 11/29/22
--- OUTSIDE RECORDS SUMMARY | 2025-11-07 08:28 | XMS_ITS | Clinical Summary ---
Author Organization [facility] ity Address [address] [place] [address] Care Team Providers Care Acute Care Physical Therapist Name Role Phone Unavailable Primary Care Provider [...] 11/21/2024 Falls Risk Assessment 02/14/2025 COVID-19 Vaccine (1 - 2024-2 6 season) 2025 Influenza Vaccine (#1) 2025 RSV [...] Documents on File Type Date Recorded Patient Rn Visiting Expl anation Health Care Decision (hx) 09/10/2023 AD CYR DIRECTIVE Health Care Decision (hx) 09/10/2023 AD CYR DIRECTIVE
--- OUTSIDE RECORDS SUMMARY | 2025-11-07 08:28 | XMS_ITS | Clinical Summary ---
Author Organization [employer] Address [address] [facility] [address] [place] [address] Care Team Providers Care General Utility Maintenance Repairer Name Role Phone Unavailable Primary Care Provider [...] of 2) 02/14/2010 COVID-19 Vaccine (1 - 2024-2 6 season) [...]
[2025-11-07 08:32] VITALS: BP 118/68; PULSE 68; O2SAT 96; BMI 34.2
[2025-11-07 08:39] LABS: Glucose, Whole Blood 128 mg/dL (60-115)
== END 2025-11-07 08:59 | disposition home or self-care (01) ==
LOC: HO.ENCR 08:14
PROVIDERS: PCP Family Medicine; Visit Provider Internal Medicine
DX: E11.9 Type 2 diabetes mellitus without complications (principal)

== ENCOUNTER → 2025-11-07 08:13 | Outpatient (BNVA) | payer MEDICARE, MEDICAID, SELFPAY | PROVIDERS: PCP Family Medicine; Visit Provider Internal Medicine | DX: E11.65 Type 2 diabetes mellitus with hyperglycemia (principal); R21 Rash and other nonspecific skin eruption; Z79.4 Long term (current) use of insulin; Z79.84 Long term (current) use of oral hypoglycemic drugs; Z59.41 Food insecurity; Z72.4 Inappropriate diet and eating habits | CPT/HCPCS: 82947; 99212 ==